=== PATIENT | male | born 1955 | race Caucasian/White ===

== ENCOUNTER 2021-05-18 09:08 | Emergency (ER) | payer OTHER, SELFPAY ==
--- NOTE | ~2021-05-18 | XR_ITS ---
XR knee RT 2V 05/18/2021 09:47 Indication: Right knee pain after recent fall Procedure: 3 views right knee Comparison: No prior studies for comparison. Findings: No fracture, subluxation or dislocation. No significant joint effusion. Mild osteoarthritis of the right knee. No significant joint effusion. Impression: 1: No acute bone or joint abnormality. Reviewed, dictated and finalized at location A. NOGRAPHER PHYSICAL Impression: 1: No acute bone or joint abnormality.
--- NOTE | ~2021-05-18 | XR_ITS ---
XR hip RT 2V w AP pelvis, XR femur RT min 2V 05/18/2021 09:48 (accession [id number]), 05/18/2021 09:47 (accession [id number]) Indication: Status post recent fall. Deformity of the right hip. Procedure: AP pelvis and 2 views of the right hip. 2 views of the right femur. Comparison: No prior studies for comparison. Findings: There is a comminuted mildly displaced right femoral intertrochanteric fracture with varus angulation. There are subtle radiolucencies in the proximal aspect of the right femur. There is subch ondral lucency of the femoral head. Pelvic rings are intact. Impression: 1: Comminuted mildly displaced right femoral intertrochanteric fracture with varus angulation. Osteol ytic defects noted in the proximal aspect of the right femur. Cannot exclude pathologic fracture seco ndary to myeloma or malignancy. Reviewed, dictated and finalized at location A. ECTIONS CASEWORKER Impression: 1: Comminuted mildly displaced right femoral intertrochanteric fracture with va mati angulation. Osteolytic defects noted in the proximal aspect of the right fe mur. Cannot exclude pathologic fracture secondary to myeloma or malignancy. Impression: 1: Comminuted mildly displaced right femoral intertrochanteric fracture with va mati angulation. Osteolytic defects noted in the proximal aspect of the right fe mur. Cannot exclude pathologic fracture secondary to myeloma or malignancy.
--- NOTE | 2021-05-18 09:11 | ED.GENADULT ---
HPI - General Adult General Chief complaint: Extremity Injury, Lower <Mary Barker PA-C - Last Filed: 05/18/21 19:54> Stated complaint: hip injury <Mary Barker PA-C - Last Filed: 05/18/21 19:54> Time Seen by Provider: 05/18/21 09:10 <Mary Barker PA-C - Last Filed: 05/18/21 19:54> Source: patient <Mary Barker PA-C - Last Filed: 05/18/21 19:54> Mode of arrival: EMS <Mary Barker PA-C - Last Filed: 05/18/21 19:54> Limitations: no limitations <Mary Barker PA-C - Last Filed: 05/18/21 19:54> History of Present Illness HPI narrative: 65-year-old male who states that he fell at home on Sunday while walking across his floor. Denies stumbling, he had pain and then fell. He has pain in his right hip he has been unable to bear weight since that time. He has been caring for himself at home by crawling around his house. Denies any medical issues aside from hypertension. States that he has lost a little' weight recently. He appears much older than his stated age. <Mary Barker PA-C - Last Filed: 05/18/21 19:54> Onset (ago): day(s) <Mary Barker PA-C - Last Filed: 05/18/21 19:54> Location: pelvis and right (hip) <Mary Barker PA-C - Last Filed: 05/18/21 19:54> Severity: moderate <Mary Barker PA-C - Last Filed: 05/18/21 19:54> Quality: aching <Mary Barker PA-C - Last Filed: 05/18/21 19:54> Relieving factors: immobilization <Mary Barker PA-C - Last Filed: 05/18/21 19:54> Exacerbating factors: movement <Mary Barker PA-C - Last Filed: 05/18/21 19:54> Associated symptoms: denies other symptoms <Mary Barker PA-C - Last Filed: 05/18/21 19:54> Treatments prior to arrival: aspirin (last dose bedtime last night.) <Mary Barker PA-C - Last Filed: 05/18/21 19:54> Related Data Allergies/adverse reactions: Allergies Allergy/AdvReac Type Severity Reaction Status Date / Time No Known Allergies Allergy Verified 05/18/21 09:50 <Mary Barker PA-C - Last Filed: 05/18/21 19:54> Review of Systems Review of Systems: All systems reviewed & are unremarkable except as noted in HPI and below <Mary Barker PA-C - Last Filed: 05/18/21 19:54> [facility] Social History Social History: Social History (Updated 05/18/21 @ 09:22 by Mary Barker PA-C) Smoking packs per day: 1 Smoking cigarettes per day: 20.0 Smoking status: Current every day smoker Alcohol intake: current Drinks per week: 14 Alcohol use details: 2 drinks of night of vodka Substance use: never 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 <Mary Barker PA-C - Last Filed: 05/18/21 19:54> Exam Const: General: no acute distress <Mary Barker PA-C - Last Filed: 05/18/21 19:54> Nutritional Appearance: thin <Mary Barker PA-C - Last Filed: 05/18/21 19:54> Other: smells of urine <Mary Barker PA-C - Last Filed: 05/18/21 19:54> HENMT: Head: normal to inspection <Mary Barker PA-C - Last Filed: 05/18/21 19:54> Eyes: Conjunctivae: conjunctivae normal <Mary Barker PA-C - Last Filed: 05/18/21 19:54> Pupils: Equal, round and reactive pupils present <Mary Barker PA-C - Last Filed: 05/18/21 19:54> Neck: Neck: normal visual inspection <LICHA Barreto Last Filed: 05/18/21 19:54> Chest: Chest palpation & inspection: normal inspection of the chest (barrelled) <LICHA Barreto Last Filed: 05/18/21 19:54> Resp: Effort & Inspection: normal respiratory effort <LICHA Barreto Last Filed: 05/18/21 19:54> Auscultation: clear to auscultation bilaterally <Mary Barker PA-C Last Filed: 05/18/21 19:54> Cardio: Rate: regular rate <LICHA Barreto Last Filed: 05/18/21 19:54> Rhythm: regular rhythm <LICHA Barreto Last Filed: 05/18/21 19:54> GI: GI Palp: Yes Soft to palpation <LICHA Barreto Fi
[2021-05-18 09:26] VITALS: BP 139/115; PULSE 84; RESP 14; TEMP 36.1; O2SAT 99
--- NOTE | 2021-05-18 09:32 | PC.NURSE ---
reports walking at home and feeling right leg give out 3 days prior. Patient did not call EMS sooner stating he thought it would get better on its own. Patient presents via EMS with shorting and rotation of right leg. Pulses marked and present at +1. patient soiled and cleaned. patient placed on air mattress.
--- NOTE | 2021-05-18 09:33 | PC.NURSE ---
patient departs for radiology
[2021-05-18] MEDS: SODIUM CHLORIDE 0.9% IV 1,000 ML 999 ML IV CONT (10:01)
[2021-05-18 10:13] LABS: Basophils Percent Auto 0.2 % (0.2-1.2); Eosinophils Percent Auto 0.3 % (0-4.4); Hematocrit 34.4 % (42.0-52.0); Hemoglobin 12.4 g/dL (14.0-18.0); Immature Granulocyte Absolute 0.02 K/mm3 (0.00-0.031); Immature Granulocyte Percent A 0.2 % (0-0.5); Lymphocytes Percent Auto 9.2 % (18.3-44.2); Mean Corpuscular Hemoglobin 34.4 pg (26-34); Mean Corpuscular Volume 95.6 fl (80-100); Mean Platelet Volume 9.6 fl (7.4-10.4); Monocytes Absolute Auto 0.5 K/mm3 (0.1-0.6); Neutrophils Absolute Auto 7.3 K/mm3 (1.3-6.7); Neutrophils Percent Auto 84.1 % (45.5-73.1); Platelet Count Result 260 k/mm3 (150-375); White Blood Count 8.7 K/mm3 (4.5-10.0)
--- NOTE | 2021-05-18 10:19 | ECG_ITS ---
Measurements Intervals [place] Rate: 69 P: 78 NC: 121 QRS: 91 QRSD: 86 T: -73 QT: 422 QTc: 453 Interpretive Statements SINUS RHYTHM MINIMAL Q WAVES- INF/LAT LEADS ST-T WAVE ABNORMALITY IN ANTEROLAT/INF LEADS- CONSIDER ISCHEMIA BASELINE ARTIFACT- II, III, AVR, AVF ABNORMAL ECG Electronically Signed On 05-18-2021 11:22:04 SOLE CEMENTER by Monico Sears D.O.
[2021-05-18 10:35] LABS: Alanine Aminotransferase 16 U/L (4-50); Alkaline Phosphatase 102 U/L (38-126); Anion Gap 6 mmol/L (8-16); Aspartate Amino Transferase 30 U/L (17-59); Bilirubin,Total 1.7 mg/dL (0.2-1.3); Blood Urea Nitrogen 13 mg/dL (9-20); Calcium 8.1 mg/dL (8.4-10.2); Carbon Dioxide 32 mmol/L (22-30); Chloride 97 mmol/L (98-107); Estimated CRCL calculation 66 ml/min; Estimated Glomerular Filt Rate > 60; Glucose 115 mg/dL (65-110); Sodium 135 mmol/L (137-145)
[2021-05-18 11:12] LABS: Creatine Kinase 65 U/L (55-170)
[2021-05-18 11:40] VITALS: BP 129/74; PULSE 68; RESP 18; O2SAT 100
--- NOTE | 2021-05-18 12:12 | PC.NURSE ---
regular diet tray order for pt.
[2021-05-18 12:39] LABS: Add Urine Microscopic? YES; Appearance Urine Clear (Clear); Bacteria Urine Trace /hpf; Bilirubin Urine Negative (Negative); Blood Urine Negative (Negative); Color Urine Amber (Yellow); Glucose Urine UA Negative (Negative); Ketones Urine Negative (Negative); Leukocyte Esterase Ur Negative LEU/UL (Negative); Mucus Urine Rare /lpf; Nitrate Urine Negative (Negative); Protein Urine 1+ mg/dL (Negative); RBC Urine 0-2 /hpf (0-2); Specific Grav Ur 1.018 (1.001-1.035); Squamous Epithelial Cell Urine Occasional /hpf (Few); WBC Urine 0-3 /hpf
--- NOTE | 2021-05-18 13:58 | PC.NURSE ---
Patient report called to [facility]. patient report given to Krystian TRIVEDI.
[2021-05-18] MEDS: MORPHINE SULFATE (*CRX) 2 MG/ML INJ IV PUSH (15:42)
[2021-05-18 16:05] VITALS: BP 160/90; PULSE 90; RESP 18; TEMP 36.2; O2SAT 100
== END 2021-05-18 16:07 | disposition short-term general hospital (02) ==
LOC: ANHED 10:07
PROVIDERS: Physician Assistant; Emergency Provider General Practice; PCP Physician Assistant
DX: M84.459A Pathological fracture, hip, unspecified, initial encounter for fracture (principal); I10 Essential (primary) hypertension; F17.210 Nicotine dependence, cigarettes, uncomplicated; W18.39XA Other fall on same level, initial encounter; R94.31 Abnormal electrocardiogram [ECG] [EKG]
CPT/HCPCS: 36415; 73502; 73552; 73560; 80053; 81001; 82550; 85025; 86850; 86900; 86901; 93005; 96361; 96374; 99285; J2270; J7030

== ENCOUNTER 2021-12-29 07:57 | Inpatient (IN) | payer MEDICARE, SELFPAY ==
[2021-12-29] VITALS (60 sets, daily range): BP systolic 57–157; BP diastolic 45–93; PULSE 74–128; RESP 14–33; TEMP 35.2–37.1; O2SAT 82–100
--- NOTE | ~2021-12-29 | XR_ITS ---
EXAMINATION: XR abdomen/kub 1V DATE: 01/05/2022 12:19 INDICATION: Abdominal distention. Adynamic ileus. TECHNIQUE: A supine view of the abdomen was obtained. COMPARISON: CT abdomen and pelvis 01/02/2022 FINDINGS: There are no dilated loops of bowel. There is an ostomy on the left. There are bilateral in ternal ureteral stents in expected positions. There is a filter in the inferior vena cava. Skin stapl es are noted. The nasogastric tube tip is in the stomach. There is internal fixation of right femur. A rectal catheter is noted. IMPRESSION: 1. Nonobstructive bowel gas pattern. Reviewed, dictated and finalized at location A.
--- NOTE | ~2021-12-29 | XR_ITS ---
XR chest 1V portable DATE: 01/01/2022 08:18 INDICATION: Pneumothorax TECHNIQUE: Portable AP chest on 01/01/2022 at 0812 hours COMPARISON: 12/31/2021 portable AP chest at 0503 hours FINDINGS: ET tube tip 4.2 cm above louis in satisfactory position. NG tube in stomach. Right internal jugular central venous catheter tip is situated near the superior cavoatrial junction. Right thoracostomy tube is again noted. No apparent residual right pneumothorax. There is a large pul monary bulla Increased intracardiac density consistent with left lower lobe atelectasis and/or consolidation. There is pulmonary vascular congestion and redistribution, prominence of minor fissure consistent wit h subpleural edema, Madiha B-lines consistent with pulmonary interstitial edema and bilateral infiltr ates predominating in the central and lower lung zones, suggesting pulmonary edema. Diffuse osteopenia. At the right apex. IMPRESSION: Right thoracostomy tube; no definite residual right pneumothorax Congestive changes, pulmonary edema since 12/2021 Left lower lobe infiltrate and/or atelectasis Reviewed, dictated and finalized at location A.
--- NOTE | ~2021-12-29 | XR_ITS ---
XR chest 1V portable 01/20/2022 11:36 Indication: Chest tube placement Procedure: AP portable chest Comparison: Comparison to multiple prior studies sequentially, with oldest reviewed study dated 01/18. Findings: There is a tracheostomy tube present. There is a right upper lung chest tube, position unch anged. No pneumothorax identified. Bullous changes are present in the upper lobes. No pneumothorax id entified. There is diffuse bilateral airspace disease which has progressed. Small pleural effusions. PICC line tip near the cavoatrial junction. Impression: 1: Diffuse bilateral airspace disease has progressed which may represent pneumonia or edema. 2: Right chest tube position unchanged. No pneumothorax identified. 3: Small pleural effusions. Reviewed, dictated and finalized at location A. Impression: 1: Diffuse bilateral airspace disease has progressed which may represent pneumo dave or edema. 2: Right chest tube position unchanged. No pneumothorax identified. 3: Small pleural effusions.
--- NOTE | ~2021-12-29 | XR_ITS ---
EXAMINATION: XR chest ET placement, XR abdomen/kub 1V DATE: 12/29/2021 16:52 INDICATION: Endotracheal tube placement. Post abdominal surgery. TECHNIQUE: 1. Portable AP supine view of the chest was obtained. 2. Portable supine AP view of the abdomen and pelvis was obtained. COMPARISON: Chest radiograph dated 12/29/2021 at 4:[address] abdomen and pelvis dated 12/29/2021 at 9: 21 AM FINDINGS: CHEST: Endotracheal tube tip 4.3 cm above the louis. Right internal jugular central venous catheter tip at the caudal superior vena cava. Apically directed right chest tube with decrease in size of a now smal l right apical pneumothorax. There appears to be a lucent bleb at the right apex. No other airspace o pacities, pulmonary edema, pleural effusion or left-sided pneumothorax. The cardiomediastinal silhoue tte is normal. There is some soft tissue gas at the right axilla likely related to chest tube placeme nt. Abdomen and pelvis: Nasogastric tube tip and proximal side port in the body of the stomach. Gas is seen within a few nond ilated loops of bowel in the abdomen and pelvis. Bilateral internal ureteral stents with loops formed in expected locations of the bilateral renal pelvises sees and in the bladder. Some residual excrete d contrast is seen at the calyces of the left kidney likely related to the earlier contrast-enhanced CT. Temperature probe in the bladder. Midline skin anthony project over the abdomen and pelvis. Lucen cies suggesting postoperative free intraperitoneal gas overlying the liver in the right upper quadran t. Partially visualized antegrade intramedullary laisha and interlocking femoral head neck screws at the proximal right femur. IMPRESSION: 1. Lines and tubes all in expected position. 2. Decrease in size of a now small right apical pneumothorax. 3. Small amount of likely postoperative free intraperineal gas at the right upper quadrant. Reviewed, dictated and finalized at location A. IMPRESSION: 1. Lines and tubes all in expected position. 2. Decrease in size of a now small right apical pneumothorax. 3. Small amount of likely postoperative free intraperineal gas at the right upp er quadrant.
--- NOTE | ~2021-12-29 | US_ITS ---
US venous doppler [facility] DATE: 01/03/2022 12:45 INDICATION: Post surgical patient. Tachycardia TECHNIQUE: Real-time and color flow imaging and Doppler analysis of the veins of both lower extremiti es COMPARISON: None FINDINGS: Right lower extremity The greater saphenous vein is patent. There is spontaneous and phasic flow and normal augmentation an d color flow signal and normal compression of the deep veins of the right lower extremity. Left lower extremity: The left greater saphenous vein is patent. There is spontaneous and phasic flow and normal augmentati on and color flow signal and normal compression of the left common femoral and femoral veins. There is thrombosis and lack of compression of the left popliteal vein and left posterior tibial vein s. The left peroneal veins are patent. IMPRESSION: Deep venous thrombosis of left popliteal and posterior tibial veins Dr. Harris telephoned the report on 01/03/2022 at 1256 hours to GAS CHARGERSHIKHA Reynolds. Reviewed, dictated and finalized at Location A. Reviewed, dictated and finalized at location B.
--- NOTE | ~2021-12-29 | XR_ITS ---
EXAMINATION: XR chest 1V portable DATE: 01/19/2022 05:28 INDICATION: Respiratory failure. TECHNIQUE: A single frontal view of the chest was obtained. COMPARISON: Chest single view 01/18/2022, chest CT 01/11/2022 FINDINGS: The patient is rotated to his left. There is bullous emphysema and scarring at the lung api cristino. There are patchy airspace opacities in the mid and lower lung zones. There are small pleural eff usions. No pneumothorax. The heart size is normal. The endotracheal tube tip is 3.1 cm above the hiram na. A left upper extremity peripherally inserted central venous catheter (PICC) is seen with tip at t he superior cavoatrial junction. A right-sided chest tube is noted. IMPRESSION: 1. Airspace opacities in the mid and lower lung zones with mild improvement, consistent with pulmonar y edema versus pneumonia. 2. Small pleural effusions. 3. Emphysema. 4. Right-sided chest tube in expected position. No pneumothorax. Reviewed, dictated and finalized at location A. IMPRESSION: 1. Airspace opacities in the mid and lower lung zones with mild improvement, co nsistent with pulmonary edema versus pneumonia. 2. Small pleural effusions. 3. Emphysema. 4. Right-sided chest tube in expected position. No pneumothorax.
--- NOTE | ~2021-12-29 | XR_ITS ---
EXAMINATION: XR chest 1V portable DATE: 01/15/2022 06:38 INDICATION: Acute respiratory failure. TECHNIQUE: A single frontal view of the chest was obtained. COMPARISON: Chest single view 01/14/2022 FINDINGS: There is bullous emphysema at the lung apices. There are airspace opacities in all lung zon es bilaterally, worst in the mid and lower lung zones. There is a small left pleural effusion. No pne umothorax. The heart size is normal. There is a right-sided chest tube in expected position. The endo tracheal tube tip is 2.6 cm above the louis. The nasogastric tube tip is in the stomach. A right int ernal jugular central venous catheter is seen with tip at the superior cavoatrial junction. IMPRESSION: 1. Stable diffuse lung disease, consistent with pulmonary edema versus pneumonia. 2. Stable small left pleural effusion. 3. Emphysema. 4. Right-sided chest tube in expected position. No pneumothorax. Reviewed, dictated and finalized at location A. IMPRESSION: 1. Stable diffuse lung disease, consistent with pulmonary edema versus pneumoni a. 2. Stable small left pleural effusion. 3. Emphysema. 4. Right-sided chest tube in expected position. No pneumothorax.
--- NOTE | ~2021-12-29 | XR_ITS ---
EXAMINATION: XR chest 1V portable, XR abdomen/kub 1V DATE: 01/10/2022 06:23 INDICATION: Respiratory failure. Nasogastric tube. TECHNIQUE: 1. Portable AP view of the chest was obtained. 2. Portable AP supine view of the abdomen and pelvis was obtained. COMPARISON: Chest radiograph dated 01/09/[address] abdomen and pelvis dated 01/07/22 FINDINGS: Chest: Endotracheal tube tip 4.0 cm above the louis. Unchanged apically directed right chest tube. Right in ternal jugular central venous catheter with distal tip at the superior cavoatrial junction. No pneumothorax. Persistent opacities in the bilateral mid to lower lung zones. Emphysema at the apic es. The cardiomediastinal silhouette is normal. Abdomen and pelvis: Nasogastric tube tip in proximal side port in the body of the stomach. IVC filter in expected positio n with proximal tip at the level of the L1. Bilateral intraureteral stents with loops formed over the expected positions at the bladder and bilateral renal pelvises sees. Relative paucity of bowel gas i n the abdomen and pelvis. Midline skin anthony. Internal fixation at the visualized proximal right fe mur with antegrade intramedullary laisha and pair of interlocking femoral neck screws. IMPRESSION: 1. Lines and tubes in expected position. 2. Persistent opacities in the bilateral mid and lower lung zones which could represent atelectasis o r pneumonia likely with superimposed small left pleural effusion. 3. Nonspecific bowel gas pattern with relative paucity of bowel gas in the abdomen and pelvis. Reviewed, dictated and finalized at location A. IMPRESSION: 1. Lines and tubes in expected position. 2. Persistent opacities in the bilateral mid and lower lung zones which could r epresent atelectasis or pneumonia likely with superimposed small left pleural e ffusion. 3. Nonspecific bowel gas pattern with relative paucity of bowel gas in the abdo men and pelvis.
--- NOTE | ~2021-12-29 | XR_ITS ---
EXAMINATION: XR chest 1V portable DATE: 01/02/2022 04:24 INDICATION: Oxygen desaturation. TECHNIQUE: A single frontal view of the chest was obtained. COMPARISON: Chest single view 01/01/2022, CT abdomen and pelvis 01/02/2022 FINDINGS: There is a small right pneumothorax. There is a right-sided chest tube in expected position . There are airspace opacities in left mid and lower lung zones. There is a diffuse interstitial modesta kisha. No pleural effusion. The heart size is normal. The endotracheal tube tip is 3.7 cm above the car andrew. The nasogastric tube tip is beyond the inferior margin of the radiograph, but at least to the st omach. A right internal jugular central venous catheter is seen with tip at the superior cavoatrial j unction. IMPRESSION: 1. Stable small right pneumothorax with right-sided chest tube in expected position. 2. Stable diffuse lung disease, likely a combination of mild pulmonary edema and left mid and lower l jacinta zone atelectasis versus pneumonia. Reviewed, dictated and finalized at location A. IMPRESSION: 1. Stable small right pneumothorax with right-sided chest tube in expected posi tion. 2. Stable diffuse lung disease, likely a combination of mild pulmonary edema an d left mid and lower lung zone atelectasis versus pneumonia.
--- NOTE | ~2021-12-29 | XR_ITS ---
EXAMINATION: XR chest-chest tube insert/pos DATE: 12/29/2021 12:56 INDICATION: Chest tube placement TECHNIQUE: frontal and lateral views of the chest were obtained. COMPARISON: 12/29/2021 FINDINGS: Normal placement of a cephalad directed chest tube with distal tip projecting over the medial aspect of the right upper lung superimposed over the trachea. Right internal jugular central venous catheter with distal tip at the caudal superior vena cava. Unchanged moderate-sized right pneumothorax with p ersistent smooth pleural thickening along the lateral margin of the right lower lung zone. No pulmona ry edema, pleural effusion or left-sided pneumothorax. Heart size is normal. IMPRESSION: 1. No change in a moderate-sized right pneumothorax post chest tube placement which appears in expect ed position. Reviewed, dictated and finalized at location A. IMPRESSION: 1. No change in a moderate-sized right pneumothorax post chest tube placement w hich appears in expected position.
--- NOTE | ~2021-12-29 | XR_ITS ---
EXAMINATION: XR chest 1V portable DATE: 01/20/2022 05:34 INDICATION: Pneumothorax. TECHNIQUE: A single frontal view of the chest was obtained. COMPARISON: Chest single view 01/19/2022 FINDINGS: There is bullous emphysema at the lung apices. There are airspace opacities in all lung zon es bilaterally with a left basilar predominance. There are small pleural effusions. No pneumothorax. The heart size is normal. There is a tracheostomy tube in expected position. A left upper extremity p eripherally inserted central venous catheter (PICC) is seen with tip at the superior cavoatrial junct ion. Right-sided chest tube is noted. IMPRESSION: 1. Stable diffuse lung disease, consistent with pulmonary edema versus pneumonia. 2. Stable small pleural effusions. 3. Emphysema. 4. Right-sided chest tube in expected position. No pneumothorax. Reviewed, dictated and finalized at location A. IMPRESSION: 1. Stable diffuse lung disease, consistent with pulmonary edema versus pneumoni a. 2. Stable small pleural effusions. 3. Emphysema. 4. Right-sided chest tube in expected position. No pneumothorax.
--- NOTE | ~2021-12-29 | XR_ITS ---
EXAMINATION: XR chest 1V portable INDICATION: Respiratory failure TECHNIQUE: Portable AP chest at 0841 hours COMPARISON: 0520 hours FINDINGS: The endotracheal tube has been removed and a tracheostomy has been inserted. A left upper e xtremity PICC ends with its tip in the superior cavoatrial junction. A right-sided chest tube is unch anged in position. Airspace opacities of the mid and lower lung zones persist but have improved, part icularly on the left. There are small pleural effusions. There is no pneumothorax. The heart size is normal. IMPRESSION: 1. Endotracheal tube removal and tracheostomy insertion. 2. Airspace opacities of the mid and lower lung zones with slight improvement on the left, consistent with pulmonary edema versus pneumonia. 3. Small pleural effusions. Reviewed, dictated and finalized at location B. IMPRESSION: 1. Endotracheal tube removal and tracheostomy insertion. 2. Airspace opacities of the mid and lower lung zones with slight improvement o n the left, consistent with pulmonary edema versus pneumonia. 3. Small pleural effusions.
--- NOTE | ~2021-12-29 | XR_ITS ---
EXAMINATION: XR chest 1V portable DATE: 01/14/2022 04:52 INDICATION: Acute respiratory failure. TECHNIQUE: A single frontal view of the chest was obtained. COMPARISON: Chest single view 01/13/2022, chest CT 01/11/2022 FINDINGS: The patient is rotated to his left. There is bullous emphysema at the lung apices. There ar e airspace opacities in all lung zones bilaterally. There are small pleural effusions. No pneumothora x. The heart size is normal. The endotracheal tube tip is 3.1 cm above the louis. The nasogastric tu be tip is in the stomach. A right internal jugular central venous catheter is seen with tip at the daniel perior cavoatrial junction. There is a right-sided chest tube in expected position. IMPRESSION: 1. Stable diffuse lung disease, consistent with pulmonary edema versus pneumonia. 2. Stable small pleural effusions. 3. Emphysema. 4. Right-sided chest tube in expected position. No pneumothorax. Reviewed, dictated and finalized at location A. IMPRESSION: 1. Stable diffuse lung disease, consistent with pulmonary edema versus pneumoni a. 2. Stable small pleural effusions. 3. Emphysema. 4. Right-sided chest tube in expected position. No pneumothorax.
--- NOTE | ~2021-12-29 | XR_ITS ---
EXAMINATION: XR chest 1V portable INDICATION: Respiratory failure TECHNIQUE: Portable AP chest at 0525 hours COMPARISON: 01/06/2022 FINDINGS: The endotracheal tube ends approximately 3.3 cm above the louis. The nasogastric tube is i n the stomach. A right internal jugular catheter ends with its tip at the superior cavoatrial junctio n. A right-sided chest tube is unchanged in position. No pneumothorax is identified. Patchy airspace opacities persist throughout all lung zones with slight improvement in the right upper lung zone and slight worsening in the left mid and lower lung zones. The heart size is normal. A small left pleural effusion is unchanged. IMPRESSION: 1. Diffuse lung disease with slight improvement at the right upper lung zone and slight worsening in the left mid and lower lung zones, consistent with pulmonary edema versus pneumonia. 2. Small left pleural effusion. Reviewed, dictated and finalized at location A. IMPRESSION: 1. Diffuse lung disease with slight improvement at the right upper lung zone an d slight worsening in the left mid and lower lung zones, consistent with pulmon nigel edema versus pneumonia. 2. Small left pleural effusion.
--- NOTE | ~2021-12-29 | XR_ITS ---
EXAMINATION: XR chest 1V portable DATE: 01/04/2022 05:41 INDICATION: Respiratory failure. TECHNIQUE: A single frontal view of the chest was obtained. COMPARISON: Chest single view 01/03/22 FINDINGS: The patient is rotated to his left. There are patchy airspace opacities throughout the lung s bilaterally. There are bullae at the lung apices. No pneumothorax. A right-sided chest tube is note d. There is a small left pleural effusion. The heart size is normal. The endotracheal tube tip is 4.7 cm above the louis. The nasogastric tube tip is in the stomach. A right internal jugular central ve nous catheter is seen with tip at the superior cavoatrial junction. IMPRESSION: 1. Diffuse lung disease with mild worsening on the right, consistent with pulmonary edema versus pneu monia. 2. Stable small left pleural effusion. Reviewed, dictated and finalized at location A. IMPRESSION: 1. Diffuse lung disease with mild worsening on the right, consistent with pulmo nary edema versus pneumonia. 2. Stable small left pleural effusion.
--- NOTE | ~2021-12-29 | XR_ITS ---
EXAMINATION: XR chest 1V portable DATE: 01/03/2022 05:34 INDICATION: Respiratory failure. TECHNIQUE: A single frontal view of the chest was obtained. COMPARISON: Chest single view 01/02/2022 FINDINGS: There is a small right hydropneumothorax. There is a right-sided chest tube in expected pos ition. There is a small left pleural effusion. There are airspace opacities in all lung zones bilater ally. The heart size is normal. The endotracheal tube tip is 4.3 cm above the louis. A right interna l jugular central venous catheter is seen with tip at the superior cavoatrial junction. The nasogastr ic tube tip is in the stomach. IMPRESSION: 1. Stable small right hydropneumothorax with chest tube in expected position. 2. Worsened small left pleural effusion. 3. Diffuse lung disease with worsening in right midlung zone, consistent with pulmonary edema versus pneumonia. Reviewed, dictated and finalized at location A. IMPRESSION: 1. Stable small right hydropneumothorax with chest tube in expected position. 2. Worsened small left pleural effusion. 3. Diffuse lung disease with worsening in right midlung zone, consistent with p ulmonary edema versus pneumonia.
--- NOTE | ~2021-12-29 | XR_ITS ---
XR chest 1V portable DATE: 12/31/2021 06:09 INDICATION: Right pneumothorax, right chest tube TECHNIQUE: Portable AP chest on 12/31/2021 0503 hours COMPARISON: 12/30/2021 portable AP chest radiographs at 1204 and 1205 hours FINDINGS: ET tube 6.2 cm above louis; ideal range is 2-5 cm. Right internal jugular central venous catheter tip is situated in the lower aspect of the superior ve na cava. Right chest tube. Stable mild residual right apical pneumothorax since 12/30/2021. There is interval increased retrocardiac density on left consistent with left lower lobe atelectasis. Mild patchy infiltrates are noted primarily in the mid and lower lung zones. No pleural effusion or pulmonary vascular congestion is detected. IMPRESSION: Stable mild right apical pneumothorax since 12/30/2021. Right chest tube. ET tube 6.2 cm above louis; ideal range is 205 cm In the left lower lobe atelectasis since 12/30/2021 Reviewed, dictated and finalized at location A. IMPRESSION: Stable mild right apical pneumothorax since 12/30/2021. Right chest t ube. ET tube 6.2 cm above louis; ideal range is 205 cm In the left lower lobe atelectasis since 12/30/2021
--- NOTE | ~2021-12-29 | XR_ITS ---
EXAMINATION: XR chest 1V portable INDICATION: Chest tube removal TECHNIQUE: Portable AP chest at 1239 hours COMPARISON: 0947 hours FINDINGS: The right-sided chest tube has been removed. No pneumothorax is identified. A tracheostomy is in expected position. A left upper extremity PICC ends with its tip at the superior cavoatrial ann marie ction. Diffuse airspace opacities persist throughout the lungs with slight improvement. There are sma ll pleural effusions. IMPRESSION: 1. Right chest tube removal. No pneumothorax identified. 2. Diffuse lung disease with slight improvement, consistent with pneumonia versus pulmonary edema. 3. Small pleural effusions. Reviewed, dictated and finalized at location B. IMPRESSION: 1. Right chest tube removal. No pneumothorax identified. 2. Diffuse lung disease with slight improvement, consistent with pneumonia vers us pulmonary edema. 3. Small pleural effusions.
--- NOTE | ~2021-12-29 | XR_ITS ---
EXAMINATION: XR retrograde pyelo w/stent BI DATE: 12/29/2021 13:37 INDICATION: Bilateral hydronephrosis. TECHNIQUE: 9 intraoperative fluoroscopic views of the abdomen and pelvis were obtained. I was not pre sent. Fluoroscopy exposure time was 67 seconds. COMPARISON: CT abdomen and pelvis 12/29/2021 FINDINGS: The bilateral retrograde pyelograms identify the ureters. The final images demonstrate bila teral internal ureteral stents in expected positions. IMPRESSION: 1. Bilateral internal ureteral stents in expected positions. Reviewed, dictated and finalized at location A.
--- NOTE | ~2021-12-29 | XR_ITS ---
EXAMINATION: XR chest 1V portable DATE: 12/30/2021 00:20 INDICATION: Increased oxygen demand. TECHNIQUE: A single frontal view of the chest was obtained on 2 radiographs. COMPARISON: Chest single view 12/29/2021, CT abdomen and pelvis 12/29/2021 FINDINGS: There is a small right pneumothorax. A right-sided chest tube is noted. There is mild scarr ing at left lung apex. No pleural effusion. The heart size is normal. The endotracheal tube tip is 5. 5 cm above the louis. The nasogastric tube tip is in the stomach. A right internal jugular central v enous catheter is seen with tip at the superior cavoatrial junction. IMPRESSION: 1. Stable small right pneumothorax with chest tube in expected position. 2. Mild scarring at left lung apex. Reviewed, dictated and finalized at location A.
--- NOTE | ~2021-12-29 | XR_ITS ---
EXAMINATION: XR chest 1V portable DATE: 01/17/2022 05:47 INDICATION: Respiratory failure. TECHNIQUE: A single frontal view of the chest was obtained. COMPARISON: Chest single view 01/16/2022 FINDINGS: There is bullous emphysema at the lung apices. There are interstitial opacities and patchy airspace opacities in all lung zones bilaterally. There is a small left pleural effusion. No pneumoth orax. The heart size is normal. The endotracheal tube tip is 3.0 cm above the louis. A left upper ex tremity peripherally inserted central venous catheter (PICC) is seen with tip at the superior cavoatr ial junction. A right-sided chest tube is noted. The nasogastric tube tip is beyond the inferior huyen in of the radiograph, but at least to the stomach. IMPRESSION: 1. Stable diffuse lung disease, consistent with pulmonary edema versus pneumonia. 2. Stable small left pleural effusion. 3. Emphysema. 4. Right-sided chest tube in expected position. No pneumothorax. Reviewed, dictated and finalized at location A. IMPRESSION: 1. Stable diffuse lung disease, consistent with pulmonary edema versus pneumoni a. 2. Stable small left pleural effusion. 3. Emphysema. 4. Right-sided chest tube in expected position. No pneumothorax.
--- NOTE | ~2021-12-29 | CT_ITS ---
EXAMINATION: CT abdomen pelvis wo con DATE: 01/02/2022 01:32 INDICATION: Right lower pelvic distention. Hematuria. TECHNIQUE: Computed tomography (CT) of the abdomen and pelvis was performed without intravenous contr ast. Automated exposure control and iterative reconstruction technique were employed. The dose-length product was 544.54 mGy-cm. COMPARISON: CT abdomen and pelvis 12/29/2021 FINDINGS: The visualized portions of the lung bases demonstrate small pleural effusions. There is dif fuse smooth septal thickening, consistent mild pulmonary edema. There is mild dependent atelectasis o n the right. There are airspace opacities in left lower lobe, consistent with atelectasis versus pneu monia. The heart size is normal. Partially visualized is a right-sided chest tube. The nasogastric tu be tip is in the stomach. There are cysts in the liver measuring up to 3.8 cm. The spleen is normal. There are gallstones in the gallbladder, which is normal in size. Gallbladder wall thickening is note d, likely interstitial edema. The pancreas and adrenal glands are normal. There is cortical thinning of the kidneys. There are stones in the kidneys measuring up to 6 mm on the right. The prostate is mi ldly enlarged. The bladder is decompressed by a Watson catheter. There are bilateral internal ureteral stents. There is a 5 mm stone in distal right ureter. There is a catheter in the rectum. A Girish pouch is noted. There is an end colostomy on the left. There is mild wall thickening of the colon. Th ere is a right inguinal hernia containing small bowel. There are no dilated loops of bowel. There is a moderate volume of ascites. There is free intraperitoneal gas. Midline skin anthony are noted. Ther e are no pathologically enlarged lymph nodes. There is internal fixation of proximal right femur. The re are chronic bilateral L4 pars defects. There is 7 mm anterolisthesis of L4 on L5. There is severe lumbar spondylosis. IMPRESSION: 1. Left lower lobe airspace opacities, consistent with atelectasis versus pneumonia. 2. Mild pulmonary edema. 3. Small pleural effusions. 4. Moderate volume of ascites. 5. Mild thickening of the colon, consistent with interstitial edema versus colitis. 6. Right inguinal hernia containing nonobstructed small bowel. 7. 5 mm stone in distal right ureter with right internal ureteral stent in expected position. Bilater al nonobstructing kidney stones. Reviewed, dictated and finalized at location A. IMPRESSION: 1. Left lower lobe airspace opacities, consistent with atelectasis versus pneum onia. 2. Mild pulmonary edema. 3. Small pleural effusions. 4. Moderate volume of ascites. 5. Mild thickening of the colon, consistent with interstitial edema versus coli tis. 6. Right inguinal hernia containing nonobstructed small bowel. 7. 5 mm stone in distal right ureter with right internal ureteral stent in expe cted position. Bilateral nonobstructing kidney stones.
--- NOTE | ~2021-12-29 | XR_ITS ---
EXAMINATION: XR chest 1V portable DATE: 01/12/2022 05:32 INDICATION: Acute respiratory failure TECHNIQUE: frontal view of the chest was obtained. COMPARISON: Chest radiograph dated 01/10/[address] dated 01/11/2022 FINDINGS: Endotracheal tube tip 3.3 cm above the louis. Unchanged right chest tube. Right internal jugular mundo tral venous catheter with distal tip at the superior cavoatrial junction. Nasogastric tube extends b elow the left hemidiaphragm with distal tip collimated off the study. Opacities in the bilateral mid and lower lung zones corresponding on prior CT to small bilateral pleu ral effusions with associated basilar atelectasis although pneumonia not excludable. Emphysematous ch anges at the apices. No pneumothorax. The cardiomediastinal silhouette is normal. IMPRESSION: 1. Small bilateral pleural effusions with associated atelectasis versus pneumonia. 2. Unchanged right chest tube. No pneumothorax. 3. Emphysema. Reviewed, dictated and finalized at location A. IMPRESSION: 1. Small bilateral pleural effusions with associated atelectasis versus pneumon ia. 2. Unchanged right chest tube. No pneumothorax. 3. Emphysema.
--- NOTE | ~2021-12-29 | XR_ITS ---
EXAMINATION: XR chest 1V portable DATE: 01/13/2022 05:26 INDICATION: Acute respiratory failure TECHNIQUE: frontal view of the chest was obtained. COMPARISON: Chest radiograph dated 01/12/2022 FINDINGS: Endotracheal tube tip 1.3 cm above the louis. Nasogastric tube extends below the left hemidiaphragm with distal tip collimated off the study. Right internal jugular central venous catheter with distal tip near the superior cavoatrial junction. Unchanged cephalad directed right chest tube with distal tip projecting over the mid to upper lung zone. Emphysematous changes at the apices. No pneumothorax. Unchanged hazy and subtle patchy airspace opaci ties in the bilateral mid and lower lung zones corresponding on prior CT to combination of small post erior layering bilateral pleural effusions and associated atelectasis although pneumonia not excludab le. The cardiomediastinal silhouette is normal. IMPRESSION: 1. Persistent small bilateral pleural effusions with associated atelectasis and/or pneumonia in the m id to lower lung zones. 2. Emphysema. 2. Unchanged right chest tube. No pneumothorax. Reviewed, dictated and finalized at location A. IMPRESSION: 1. Persistent small bilateral pleural effusions with associated atelectasis and /or pneumonia in the mid to lower lung zones. 2. Emphysema. 2. Unchanged right chest tube. No pneumothorax.
--- NOTE | ~2021-12-29 | XR_ITS ---
EXAMINATION: XR chest 1V portable INDICATION: Respiratory failure TECHNIQUE: Portable AP chest at 0524 hours COMPARISON: 01/20/2022 FINDINGS: A tracheostomy is in expected position. A left upper extremity PICC ends with its tip at th e superior cavoatrial junction. Patchy bilateral interstitial and airspace opacities persist without significant change. There are small pleural effusions. No pneumothorax is identified. The cardiomedia stinal silhouette is stable. IMPRESSION: 1. Stable diffuse lung disease, consistent with pneumonia versus pulmonary edema. 2. Small pleural effusions. Reviewed, dictated and finalized at location A. IMPRESSION: 1. Stable diffuse lung disease, consistent with pneumonia versus pulmonary jaylan a. 2. Small pleural effusions.
--- NOTE | ~2021-12-29 | CT_ITS ---
EXAMINATION: CT abdomen pelvis wo con DATE: 01/07/2022 17:07 INDICATION: Nausea and vomiting. Septic shock. TECHNIQUE: Computed tomography (CT) of the abdomen and pelvis was performed without intravenous contr ast. The dose-length product was 518.67 mGy-cm. Automated exposure control and iterative reconstructi on technique were employed. COMPARISON: 01/02/2022. FINDINGS: Bilateral lower lobe airspace consolidation. Moderate bilateral pleural effusions. Small pe ricardial effusion. NG tube in the stomach. Gallstones. There is ascites. There is diffuse subcutaneous edema. There is a right inguinal hernia containing small bowel which may be obstructed. There is a large amount of flu id in the right inguinal canal and scrotum. There are bilateral internal ureteral stents present. The re is a 4 mm distal right ureteral stone. There is bilateral hydronephrosis. There are liver cysts. T here are right renal stones. Enlarged prostate gland. The catheter present in the bladder. There is a left-sided colostomy. There is a dynamic compression screw in the right femur. Chronic bilateral L4 pars interarticularis defects with spondylolisthesis at L4-5. There is severe lumbar spondylosis. IMPRESSION: 1. Bilateral lower lobe airspace consolidation which may represent atelectasis and/or pneumonia. 2: Moderate bilateral pleural effusions. 3: Moderate ascites. 4.: Right inguinal hernia containing small bowel which may be obstructed at the hernia. There is also a large right hydrocele. 5: Right renal and distal ureteral stones. Bilateral nephroureteral stents in expected position. Reviewed, dictated and finalized at location A. IMPRESSION: 1. Bilateral lower lobe airspace consolidation which may represent atelectasis and/or pneumonia. 2: Moderate bilateral pleural effusions. 3: Moderate ascites. 4.: Right inguinal hernia containing small bowel which may be obstructed at the hernia. There is also a large right hydrocele. 5: Right renal and distal ureteral stones. Bilateral nephroureteral stents in e xpected position.
--- NOTE | ~2021-12-29 | XR_ITS ---
EXAMINATION: XR chest port-a-cath/central DATE: 12/29/2021 10:23 INDICATION: Cough. Central line placement. TECHNIQUE: A single frontal view of the chest was obtained on 2 radiographs. COMPARISON: CT abdomen and pelvis 12/29/2021 FINDINGS: There is mild scarring at left lung apex. There is a moderate-sized right pneumothorax. No pleural effusion. The heart size is normal. A right internal jugular central venous catheter is seen with tip at the superior cavoatrial junction. IMPRESSION: 1. Central line tip at the superior cavoatrial junction. 2. Moderate-sized right pneumothorax again seen. Reviewed, dictated and finalized at location A.
--- NOTE | ~2021-12-29 | XR_ITS ---
XR chest ET placement 01/08/2022 16:36 Indication: Endotracheal tube placement Procedure: AP portable chest Comparison: Comparison to multiple prior studies sequentially, with oldest reviewed study dated 01/06. Findings: Endotracheal tube tip 2.2 cm above the louis. Right IJ central line tip in the SVC. Stable position to right chest tube. There are blebs at the lung apices. No pneumothorax identified. Diffus e bilateral airspace disease unchanged. Impression: 1: Persistent diffuse bilateral airspace disease which may represent edema or pneumonia. Reviewed, dictated and finalized at location A. Impression: 1: Persistent diffuse bilateral airspace disease which may represent edema or p neumonia.
--- NOTE | ~2021-12-29 | CT_ITS ---
EXAMINATION: CTA chest PE abdomen pel DATE: 01/11/2022 13:57 INDICATION: Respiratory failure post recent surgery. Tachycardia. TECHNIQUE: Computed tomography (CT) pulmonary angiogram of the chest was performed with 100 mL Omnipa que-350 intravenous contrast. Additional 3D reconstructions utilizing coronal maximum intensity proje ction (MIP) were performed. CT of the abdomen and pelvis was performed with intravenous contrast util izing the same contrast bolus following a short delay. Automated exposure control and iterative recon struction technique were employed. The dose-length product was 887.46 mGy-cm. COMPARISON: None FINDINGS: Chest: Excellent contrast opacification of the pulmonary arteries. There is mild streak artifact from dense contrast in the superior vena cava and right atrium. Mild scattered respiratory motion artifact which does not significantly limit evaluation. No pulmonary embolism. Endotracheal tube with distal tip 3. 7 cm above the louis. Right internal jugular central venous catheter with distal tip at the superior cavoatrial junction. Right chest tube which extends cephalad anterior to the right upper lobe. No pn eumothorax. Moderate upper lobe predominant paraseptal emphysema. Small right and liyem-rr-monjhfal l eft posterior layering pleural effusions. There is partial collapse of the bilateral lower lobes. Sub tle scattered groundglass opacities in the collapsed portion of both lungs which could represent atel ectasis, mild pulmonary edema or pneumonia. Mild cardiomegaly. Thoracic aorta is normal in caliber wi th no dissection. No pathologically enlarged thoracic lymphadenopathy. Moderate lower cervical and mi ld thoracic spondylosis. Abdomen/pelvis: Nasogastric tube with distal tip in the body of the stomach. Small region of focal hepatic steatosis at the ligamentum teres. Several scattered hepatic cysts the largest in the right hepatic lobe measur ing up to 4.1 cm. Several calcified gallstones within the dependent aspect of the normal gallbladder. Spleen, pancreas and bilateral adrenal glands are normal. IVC filter with proximal tip at the level of the renal veins. Unchanged small bilateral renal stones. Bilateral internal ureteral stents with l oops formed in the lateral renal pelvises and in the bladder. Unchanged 4 mm stone alongside the inte rnal ureteral stent in the distal right ureter. There is also a Watson catheter within the bladder. Pr ostatomegaly measuring 4.4 x 4.2 cm. Postoperative change of prior partial colectomy with long Hartma n's pouch in the pelvis and and colectomy in the left hemipelvis. Fluid throughout the bowels consist ent with nonspecific diarrhea. Moderate amount of ascites scattered throughout the abdomen and pelvis . There is additional ascites and a short segment of nonobstructed small bowel extending into a large direct right inguinal hernia. No abscess or free intraperitoneal gas. Extensive body wall edema. Mid line skin anthony consistent with recent surgery. Old intratrochanteric fracture of the proximal righ t femur with partially visualized antegrade intramedullary laisha and interlocking femoral neck screw fi xation. 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 Severe associated lower lumbar spondylosis. IMPRESSION: 1. No pulmonary embolism. 2. Anasarca with moderate amount of ascites, extensive body wall edema and small right and small-to-m oderate left pleural effusions. 3. Partial collapse of the bilateral lower lobes and some scattered subtle patchy groundglass opaciti es which could represent additional atelectasis, mild pulmonary edema or pneumonia. 4. Right chest tube position in the anterior right upper lung no residual pneumothorax. 5. Emphysema. 6. Short segment of nonobstructed bowel extends into a large direct right inguinal hernia. 7. Bilateral intraureteral stents in bilateral nephrol
--- NOTE | ~2021-12-29 | CT_ITS ---
EXAMINATION: CT abdomen pelvis wo con DATE: 12/29/2021 09:30 INDICATION: Abdominal pain, dark tarry diarrhea, decreased appetite TECHNIQUE: Computed tomography (CT) of the abdomen and pelvis was performed without intravenous contr ast. Automated exposure control and iterative reconstruction technique were employed. Exam dose: 229 .31 mGy-cm total exam DLP. COMPARISON: None. FINDINGS: Moderately large right pneumothorax is noted. No pneumothorax is evident on the left. Emphy sematous changes of the lungs. No infiltrate or consolidation of the lower lungs. Small pericardial e ffusion. No pleural effusion. Small sliding hiatal hernia. Multiple gallstones are noted. No bile duct or pancreatic duct dilatation. Approximately 2 cm and 4 cm hepatic cysts. Normal splenic size. No pancreatic mass lesion or calcific ation. Normal morphology of the adrenal glands. 2. Upper pole right renal nonobstructing calculi measuring up to approximately 3 x 6 mm and 3.7 mm.). 2.4 mm nonobstructing left renal calculus. Approximately 3.5 and 2.5 mm distal right ureteral calculi with minimal proximal hydroureteronephrosi s. Prominent left hydronephrosis and severe pelviectasis on the left, the left renal pelvis measuring up to 5.2 x 6 cm. There is left ureteral dilatation. Cause of the left hydroureteronephrosis is not def initively determined. Further evaluation with cystoscopy and retrograde pyelography may be of benefit when clinically feasible. 2 mm calculus at the right ureterovesical junction or dependent aspect of the urinary bladder on the right. There is moderately prominent diffuse bladder wall thickening, likely due to bladder outlet ob struction secondary to prostatomegaly. Multiple prostate calcifications are noted. There is intraperitoneal free air, suggesting ruptured hollow abdominal viscus There is diverticulosis of the left colon. There is a right inguinal hernia containing small bowel, without apparent obstruction. There is abdominal aortic calcification with an calcification of the iliac and femoral arteries. No a bdominal aortic aneurysm. No intraperitoneal or retroperitoneal mass lesion or adenopathy or ascites is noted. Bilateral L4 pars intra-articular is defects with grade 2 anterolisthesis at L4-5. Severe degenerativ e disease at L4-5. Moderate degenerative disc disease at L5-S1. Bilateral hip osteoarthritis. Hardware including compression screw and nail is noted in the proximal right femur for ORIF intertroc hanteric fracture. IMPRESSION: Moderate right pneumothorax Intraperitoneal free air, suggesting ruptured hollow abdominal viscus Right inguinal hernia containing small bowel, without apparent obstruction Distal right ureteral and right ureterovesical junction calculi with mild right hydroureteronephrosis Bilateral nonobstructive nephrolithiasis Moderately prominent left hydroureteronephrosis and severe left pelviectasis, of uncertain etiology. Consider cystoscopy and retrograde pyelography Prostatomegaly, bladder outlet obstruction Diverticulosis of the colon Small sliding hiatal hernia Hepatic cysts Cholelithiasis Minimal pericardial effusion Prostatomegaly, bladder outlet obstruction Dr. Harris discussed the results with emergency room physician Dr. Amezcua on 12/2021 at approximately 0955 hours. Reviewed, dictated and finalized at [facility]. Reviewed, dictated and finalized at [facility].
--- NOTE | ~2021-12-29 | XR_ITS ---
EXAMINATION: XR chest PICC line INDICATION: Left upper extremity PICC insertion TECHNIQUE: Portable AP chest at 1421 hours COMPARISON: 0530 hours FINDINGS: A left upper extremity PICC has been inserted which ends with its tip in the proximal right atrium. The endotracheal tube ends approximately 2.1 cm above the louis. The nasogastric tube is fo llowed as far as the stomach. Its tip is beyond the inferior margin of the radiograph. A right internal sales engineer al jugular central venous catheter ends with its tip in the distal superior vena cava. There is a rig ht-sided chest tube, unchanged in position. A small left pleural effusion is stable. There is no pneu mothorax. There are stable airspace opacities of the mid and lower lung zones. IMPRESSION: 1. Left upper extremity PICC inserted ending with its tip in the proximal right atrium. Otherwise, no significant interval change. Reviewed, dictated and finalized at location [facility].
--- NOTE | ~2021-12-29 | XR_ITS ---
XR chest ET placement 01/07/2022 18:57 Indication: Endotracheal tube placement Procedure: AP portable chest Comparison: Comparison to multiple prior studies sequentially, with oldest reviewed study dated 01/04. Findings: Endotracheal tube tip 3.8 cm above the louis. NG tube in the stomach. Right IJ central azeb e tip in the SVC. Diffuse bilateral airspace disease unchanged. Possible small effusions. Right apica l chest tube present. There are blebs at the lung apices. No definitive pneumothorax identified. Impression: 1: Stable diffuse bilateral airspace disease which may represent edema or pneumonia. Reviewed, dictated and finalized at location [facility]. Impression: 1: Stable diffuse bilateral airspace disease which may represent edema or pneum onia.
--- NOTE | ~2021-12-29 | XR_ITS ---
EXAMINATION: XR chest 1V portable DATE: 01/09/2022 05:17 INDICATION: Respiratory failure TECHNIQUE: frontal view of the chest was obtained. COMPARISON: Chest radiograph dated 01/08/2022 FINDINGS: Unchanged apically directed right chest tube. Endotracheal tube tip 4.1 cm above the louis. Right in ternal jugular central venous catheter with distal tip near the superior cavoatrial junction. Nasogas tric tube in the stomach. Lucency suggestive of emphysema at the apices. No pneumothorax. No significant change in opacities in the bilateral mid and lower lung zones. Small left pleural effusion. The cardiomediastinal silhouett e is normal. Severe bilateral acromioclavicular osteoarthritis. IMPRESSION: 1. Persistent opacities in the bilateral mid and lower lung zones which could represent atelectasis o r pneumonia. 2. Small left pleural effusion. 3. Likely emphysematous change at the bilateral apices of lungs. No pneumothorax. Reviewed, dictated and finalized at location A. IMPRESSION: 1. Persistent opacities in the bilateral mid and lower lung zones which could r epresent atelectasis or pneumonia. 2. Small left pleural effusion. 3. Likely emphysematous change at the bilateral apices of lungs. No pneumothora x.
--- NOTE | ~2021-12-29 | XR_ITS ---
EXAMINATION: XR chest 1V portable DATE: 01/18/2022 05:42 INDICATION: Respiratory failure. TECHNIQUE: A single frontal view of the chest was obtained. COMPARISON: Chest single view 01/17/2022 FINDINGS: The patient is rotated to his left. There is bullous emphysema at the lung apices. There ar e airspace opacities in all lung zones bilaterally. There is a small left pleural effusion. No pneumo thorax. The heart size is normal. The endotracheal tube tip is 3.3 cm above the louis. A left upper extremity peripherally inserted central venous catheter (PICC) is seen with tip at the superior cavoa trial junction. A right-sided chest tube is noted. IMPRESSION: 1. Stable diffuse lung disease, consistent with pulmonary edema versus pneumonia. 2. Stable small left pleural effusion. 3. Emphysema. 4. Right-sided chest tube in expected position. No pneumothorax. Reviewed, dictated and finalized at location A. IMPRESSION: 1. Stable diffuse lung disease, consistent with pulmonary edema versus pneumoni a. 2. Stable small left pleural effusion. 3. Emphysema. 4. Right-sided chest tube in expected position. No pneumothorax.
--- NOTE | ~2021-12-29 | XR_ITS ---
EXAMINATION: XR chest 1V portable DATE: 01/05/2022 06:17 INDICATION: Respiratory failure. Intubated. TECHNIQUE: A single frontal view of the chest was obtained. COMPARISON: Chest single view 01/04/2022 FINDINGS: There are patchy airspace opacities in all lung zones bilaterally. There is a small left pl eural effusion. No pneumothorax. There is bullous disease in right lung apex. A right-sided chest tub e is noted. The heart size is normal. The endotracheal tube tip is 3.7 cm above the louis. The nasog astric tube tip is in the stomach. A right internal jugular central venous catheter is seen with tip at the superior cavoatrial junction. IMPRESSION: 1. Stable diffuse lung disease, consistent with pulmonary edema versus pneumonia. 2. Stable small left pleural effusion. 3. Emphysema. Reviewed, dictated and finalized at location A. IMPRESSION: 1. Stable diffuse lung disease, consistent with pulmonary edema versus pneumoni a. 2. Stable small left pleural effusion. 3. Emphysema.
--- NOTE | ~2021-12-29 | XR_ITS ---
EXAMINATION: XR chest 1V portable DATE: 01/16/2022 05:50 INDICATION: Acute respiratory failure. TECHNIQUE: A single frontal view of the chest was obtained. COMPARISON: Chest single view 01/15/2022, chest CT 01/11/2022 FINDINGS: There is bullous emphysema at the lung apices. There are airspace opacities in the mid and lower lung zones. There is a small left pleural effusion. No pneumothorax. The heart size is normal. The endotracheal tube tip is 2.4 cm above the louis. The nasogastric tube tip is in the stomach. A r ight internal jugular central venous catheter is seen with tip at the superior cavoatrial junction. A right-sided chest tube is noted. IMPRESSION: 1. Airspace opacities in the mid and lower lung zones with mild improvement on the right, consistent with pulmonary edema versus pneumonia. 2. Stable small left pleural effusion. 3. Emphysema. 4. Right-sided chest tube in expected position. No pneumothorax. Reviewed, dictated and finalized at location A.
--- NOTE | ~2021-12-29 | XR_ITS ---
EXAMINATION: XR chest 1V portable INDICATION: Respiratory failure TECHNIQUE: Portable AP chest at 0549 hours COMPARISON: 01/07/2022 FINDINGS: The endotracheal tube ends approximately 2.0 cm above the louis. The nasogastric tube is f ollowed as far as the stomach. Its tip is beyond the inferior margin of the radiograph. A right inter nal jugular central venous catheter ends in the superior vena cava. Right-sided chest tube is unchang ed in position. No pneumothorax is identified. Patchy opacities persist throughout all lung zones wit hout significant change. A small left pleural effusion is stable. The cardiomediastinal silhouette is stable. IMPRESSION: 1. Stable diffuse lung disease, consistent with pneumonia and/or pulmonary edema. 2. Small left pleural effusion Reviewed, dictated and finalized at location A. IMPRESSION: 1. Stable diffuse lung disease, consistent with pneumonia and/or pulmonary jaylan a. 2. Small left pleural effusion
--- NOTE | ~2021-12-29 | XR_ITS ---
EXAMINATION: XR chest 1V portable DATE: 01/06/2022 05:44 INDICATION: Respiratory failure. Intubated. TECHNIQUE: A single frontal view of the chest was obtained. COMPARISON: Chest single view 01/05/2022 FINDINGS: The patient is rotated to his left. There are airspace opacities in all lung zones bilatera lly. There is bullous disease at the lung apices. There is a small left pleural effusion. No pneumoth orax. A right-sided chest tube is noted. The heart size is normal. The endotracheal tube tip is 4.5 c m above the louis. The nasogastric tube tip is in the stomach. A right internal jugular central veno us catheter is seen with tip at the superior cavoatrial junction. IMPRESSION: 1. Stable diffuse lung disease, consistent with pulmonary edema versus pneumonia. 2. Stable small left pleural effusion. 3. Emphysema. Reviewed, dictated and finalized at location A. IMPRESSION: 1. Stable diffuse lung disease, consistent with pulmonary edema versus pneumoni a. 2. Stable small left pleural effusion. 3. Emphysema.
--- NOTE | 2021-12-29 08:02 | ECG_ITS ---
Measurements Intervals [place] Rate: 77 P: 96 [place]: 114 QRS: 92 QRSD: 106 T: -82 QT: 407 QTc: 462 Interpretive Statements SINUS RHYTHM WITH SINUS ARRHYTHMIA WITH SHORT TX INTERVAL BORDERLINE RIGHT AXIS DEVIATION [QRS AXIS > 90] ST DEVIATION AND MARKED T-WAVE ABNORMALITY, CONSIDER ANTEROLATERAL ISCHEMIA [-0.5+ mV T WAVE IN I/aVL/V3-V6] ST DEVIATION AND MODERATE T-WAVE ABNORMALITY, CONSIDER INFERIOR ISCHEMIA [-0.1+ mV T WAVE IN II/aVF] COMPARED TO ECG 05/18/2021 11:19:06 SINUS ARRHYTHMIA NOW PRESENT Electronically Signed On 12-29-2021 10:21:11 CDT by Berny Oliva MD
--- NOTE | 2021-12-29 08:02 | ED.GENADULT ---
HPI - General Adult General Chief complaint: Abdominal Pain Stated complaint: weakness, abd pain & decreased PO intake Source: RN notes reviewed History of Present Illness HPI narrative: Patient presents emergency department from home for abdominal pain. Patient states symptoms initially began 4 days ago he states the pain is diffuse throughout the abdomen described as aching in nature he states that the pain became more severe this morning patient states has been associated with nausea and vomiting he denies any fevers or chills denies any diarrhea denies chest pain or shortness of breath. States he not taking thing for the medication he does note some dark black stools yesterday Related Data Allergies Allergy/AdvReac Type Severity Reaction Status Date / Time No Known Allergies Allergy Verified 05/18/21 09:50 Review of Systems Review of Systems: Gen.: Denies fevers or chills ENT: Denies congestion Respiratory: Denies shortness of breath or cough CV: Denies chest pain or palpitations GI: See HPI denies burning, urgency, frequency or hematuria Musculoskeletal: Denies back pain or muscle pain Neuro: Denies numbness, tingling, weakness or focal weakness Skin: Denies rash Except as documented, all other systems reviewed and negative [facility] Past Medical History Medical History (Updated 12/29/21 @ 11:47 by Montrell Bhatia MD) Hypertension Tobacco dependence Surgical History Surgical History (Updated 12/29/21 @ 11:18 by Montrell Bhatia MD) Hx of fracture of right hip Apr 2021 Family History Family History (Updated 12/29/21 @ 11:20 by Montrell Bhatia MD) Other Family history unknown Social History Social History (Updated 12/29/21 @ 11:21 by Montrell Bhatia MD) Social History: Smokes 1.5ppd for unclear duration. He drinks 2.5 drinks/day. Denies drug use. Lives alone. Full code. Nominates his cousin Chaparro to be the individual to make medical decisions for him if he is unable. 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 No clubbing, cyanosis or edema. NEURO: Awake and alert. Following commands, speech normal, no focal deficits SKIN:: Warm, dry. Normal Color PSYCHIATRIC: Normal affect/mood Course Course Emergency Course: CT scan obtained showing pneumothorax kidney stones with hydronephrosis and a perforated bowel at this time the patient's continued low blood pressure central line will be placed Discussed Dr. Navarro presentation work-up he agrees with consult and will plan stents in OR Discussed with Dr. Ochoa presentation work-up agrees with admission to ICU Discussed with Dr. Zepeda presentation work-up we will take patient to the OR we discussed the patient's at this time we will place chest tube in OR Discussed with Dr Bhatia agrees with admission Discussed with patient and family results of workup and diagnosis. Discussed need for admission. Patient and family understand and agree to current treatment plan Vital Signs Vital signs: Vital Signs Temperature 97.8 F 12/29/21 07:55 Pulse Rate 80 12/29/21 07:55 Respiratory Rate 25 H 12/29/21 07:55 Blood Pressure 82/48 L 12/29/21 07:55 Pulse Oximetry 98 12/29/21 07:55 Oxygen Delivery Room Air 12/29/21 07:55 Te
[2021-12-29] MEDS: SODIUM CHLORIDE 0.9% IV 1,000 ML 999 ML IV CONT ×2 (08:37→09:47)
[2021-12-29] MEDS: PANTOPRAZOLE SODIUM IV 40 MG VIAL IV PUSH (08:37)
[2021-12-29 08:54] LABS: Basophils Absolute Auto 0.1 K/mm3 (0.0-0.1); Basophils Percent Auto 0.4 % (0.2-1.2); Eosinophils Absolute Auto 0.1 K/mm3 (0-0.3); Eosinophils Percent Auto 0.6 % (0-4.4); Hematocrit 37.4 % (42.0-52.0); Hemoglobin 12.4 g/dL (14.0-18.0); Immature Granulocyte Percent A 0.7 % (0-0.5); Lymphocytes Absolute Auto 1.27 K/mm3 (0.9-3.2); Lymphocytes Percent Auto 8.9 % (18.3-44.2); Mean Corpuscular HGB Conc 33.2 g/dl (32-36); Mean Corpuscular Hemoglobin 30.1 pg (26-34); Mean Corpuscular Volume 90.8 fl (80-100); Monocytes Absolute Auto 0.6 K/mm3 (0.1-0.6); Monocytes Percent Auto 4.3 % (2.6-8.5); Neutrophils Absolute Auto 12.1 K/mm3 (1.3-6.7); Neutrophils Percent Auto 85.1 % (45.5-73.1); Platelet Count Result 269 k/mm3 (150-375); Red Blood Count 4.12 M/mm3 (4.6-6.20); Red Cell Distribution Width 17.5 % (11.5-14.5); White Blood Count 14.3 K/mm3 (4.5-10.0)
[2021-12-29 09:03] LABS: INR 1.5; Prothrombin Time 17.5 Seconds (11.1-14.7)
[2021-12-29 09:04] LABS: Partial Thromboplastin Time 31.5 SECONDS (22.3-36.8)
[2021-12-29 09:09] LABS: Lactic Acid Reflex 7.4 mmol/L (0.7-2.0)
[2021-12-29 09:10] LABS: Albumin Level 2.3 g/dL (3.5-5.1); Alkaline Phosphatase 130 U/L (38-126); Anion Gap 19 mmol/L (8-16); Aspartate Amino Transferase 64 U/L (17-59); Bilirubin,Total 1.5 mg/dL (0.2-1.3); Blood Urea Nitrogen 37 mg/dL (9-20); Calcium 6.8 mg/dL (8.4-10.2); Carbon Dioxide 25 mmol/L (22-30); Chloride 89 mmol/L (98-107); Estimated Glomerular Filt Rate 30; Glucose 115 mg/dL (65-110); Lipase 55 U/L (23-300); Potassium 2.3 mmol/L (3.4-5.0); Sodium 133 mmol/L (137-145)
[2021-12-29 09:17] LABS: Magnesium 1.6 mg/dL (1.6-2.3)
[2021-12-29 09:18] LABS: Troponin I 0.269 ng/mL (0.000-0.034)
--- NOTE | 2021-12-29 09:27 | PC.NURSE ---
pt. to ct
[2021-12-29] MEDS: POTASSIUM CHLORIDE INJ 40 MEQ in SODIUM CHLORIDE 0.9% IV 500 ML 130 MEQ IVPB (09:35)
[2021-12-29] MEDS: LIDOCAINE HCL 2% GEL UROJET 10 ML PKG (09:47)
[2021-12-29] MEDS: MAGNESIUM SULF 2 GM/WATER 50ML 2 GM/50 ML BAG IVPB ×2 (09:47→17:31)
[2021-12-29 09:58] LABS: Alanine Aminotransferase 30 U/L (6-50)
[2021-12-29 10:01] LABS: SARS-CoV-2 RNA PCR Negative
[2021-12-29 10:07] LABS: Appearance Urine Clear (Clear); Bilirubin Urine 2+ (Negative); Color Urine Amber (Yellow); Glucose Urine UA Negative (Negative); Ketones Urine Trace mg/dL (Negative); Leukocyte Esterase Ur Negative LEU/UL (Negative); Nitrate Urine Negative (Negative); Protein Urine 1+ mg/dL (Negative)
[2021-12-29 10:12] LABS: Add Urine Microscopic? YES; Blood Urine Trace-Intact (Negative)
[2021-12-29 10:19] LABS: Mucus Urine Rare /lpf; Squamous Epithelial Cell Urine Rare /hpf (Few)
[2021-12-29 10:55] LABS: Alveolar/Arterial O2 Gradient 121.7 mmHg; Base Excess ABG 2.6 mEq/l (+/-2.0); Carboxyhemoglobin 0.3 % THb (0-2.0); Fractional Inspired Oxygen 36 %; HCO3 ABG 25.1 mEq/l (22.0-26.0); Methemoglobin ABG 0.2 %THb (0-1.5); Oxygen Saturation ABG 98.1 % (95.0-100.0); Oxyhemoglobin 96.1 % THb (90.0-100.0); PCO2 ABG 31.4 mmHg (35.0-45.0); PO2 ABG 98.6 mmHg (80.0-100.0); PO2 FiO2 Ratio Arterial Blood 2.74 %; Reduced Hemoglobin 3.4 %THb (0-5.0)
[2021-12-29 10:57] LABS: Device NASAL CANNULA; Modified Allen's Test Pass; Site Drawn LEFT RADIAL
[2021-12-29] MEDS: NOREPINEPHRINE 8 MG/D5W 250 ML 8 MG/250 ML BAG 9.38 MG IV CONT (11:01)
[2021-12-29] MEDS: KCL 40 MEQ/WATER 100 ML 100 ML 25 ML IVPB ×3 (11:01→23:01)
--- NOTE | 2021-12-29 11:02 | PM.IMHP ---
H&P: HPI History of Present Illness Date/Time: 12/29/21 11:02 Chief Complaint: Abdominal pain Narrative: 66yo male HTN and recent hip fracture in April (possibly pathologic) here for abdominal pain. Patient had a fall in 2020 sustaining a right hip fracture. Imaging concerning for pathologic fracture. He was transferred to [facility]. No further information available. Patient states he was started on anticoagulation at that time and he remains on this. About 4 days ago, patient developed abdominal pain. This progressed involve nausea vomiting. No chest pain. Has been feeling short of breath. Denies any falls or trauma to his chest or abdomen. He complains of chills but no fevers. He has been having loose stools once a day but the eyes and the for julio cesar blood. Did mention that his stools have been black in color. He has never had a colonoscopy. No weight loss that he is aware of. He does not take NSAIDs but does take Tylenol for pain. He denies hx of CAD, CHF, DVT, CVA, kidney issues or PUD. EMS was contacted patient was noted to have a systolic blood pressure 60 and SpO2 in the 80s. He received IV fluid in route. In the ED, blood pressure 81/62. Temperature was 95.4?. Blood pressure dropped to 57/45. Respiratory rate to 33. CT abdomen pelvis shows moderate right pneumothorax as well as free intraperitoneal air suggesting ruptured viscus. He also had mild right and moderate left hydroureteronephrosis as well as prostatomegaly with bladder outlet obstruction. White count was 14K. ABG 7.52/31/98 on 4 L. Potassium 2.3 with BUN 37 and creatinine 2.2. Lactic acid was 7.4. Troponin 0.27. COVID was negative. Stool was guaiac negative in ED. Warming blanket placed. Central line placed, potassium replaced and started on vasopressors. Abx started. General surgery and urology called and patient was brought to the OR from the ED. Review of Systems Review of Systems: All systems reviewed & are unremarkable except as noted in HPI and below PMFSH Past Medical History Medical History (Updated 12/29/21 @ 11:47 by Montrell Bhatia MD) Hypertension Tobacco dependence Surgical History Surgical History (Updated 12/29/21 @ 11:18 by Montrell Bhatia MD) Hx of fracture of right hip Apr 2021 Family History Family History Other Family history unknown Social History Social History (Updated 12/29/21 @ 11:21 by Montrell Bhatia MD) Social History: Smokes 1.5ppd for unclear duration. He drinks 2.5 drinks/day. Denies drug use. Lives alone. Full code. Nominates his cousin Chaparro to be the individual to make medical decisions for him if he is unable. 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 Home Medications and Allergies Allergies Allergy/AdvReac Type Severity Reaction Status Date / Time No Known Allergies Allergy Verified 05/18/21 09:50 Vital Signs Vital Signs - 24 hr 12/29/21 07:55 12/29/21 08:16 12/29/21 08:46 Temperature 97.8 F Pulse Rate 80 74 75 Respiratory Rate 25 H 22 H 19 Blood Pressure 82/48 L 81/62 L 93/72 L Pulse Oximetry 98 98 100 Oxygen Delivery Room Air 12/29/21 09:16 12/29/21 09:47 12/29/21 09:17 Temperature 95.4 F L Pulse Rate 83 80 Respiratory Rate 26 H 24 H Blood Pressure 103/74 Pulse Oximetry 100 99 Oxygen Delivery 12/29/21 09:42 12/29/21 09:45 12/29/21 09:57 Temperature 95.5 F L Pulse Rate 86 101 H 78 Respiratory Rate 32 H 29 H 27 H Blood Pressure 57/45 L Pulse Oximetry 99 97 97 Oxygen Delivery 12/29/21 10:32 12/29/21 11:01 12/29/21 09:55 Temperature 96.3 F L 95.4 F L Pulse Rate 84 93 91 Respiratory Rate 30 H 28 H Blood Pressure 89/55 L
[2021-12-29] MEDS: LACTATED RINGERS 1,000 ML 30 ML IV CONT (11:20)
--- NOTE | 2021-12-29 11:44 | SUR.PREOP ---
1120 arrived via stretcher to preop taken directly to PACU for better monitoring, anesthesia present there request.
[2021-12-29 11:47] LABS: Reflex Lactic Acid Yes or No Add Lactic
--- NOTE | 2021-12-29 11:47 | WPDURCON ---
Assessment and Plan Assessment and plan (1) Hydronephrosis with urinary obstruction due to renal calculus: Code(s): N13.2 - Hydronephrosis with renal and ureteral calculous obstruction Status: Acute Assessment and Plan: Given patient's significant, acute other comorbidities I will simply plan cystoscopy with bilateral retrograde pyelography and stent placement today. Once he has other issues as improved we will plan more definitive intervention including ureteroscopy with right ureteral stone extraction and diagnostic left ureteroscopy (2) ROSALINDA (acute kidney injury): Code(s): N17.9 - Acute kidney failure, unspecified Status: Acute (3) Pneumothorax, right: Code(s): J93.9 - Pneumothorax, unspecified Status: Acute (4) Septic shock: Code(s): A41.9 - Sepsis, unspecified organism; R65.21 - Severe sepsis with septic shock Status: Acute (5) Perforated abdominal viscus: Code(s): R19.8 - Other specified symptoms and signs involving the digestive system and abdomen Status: Acute Urology Consult Note HPI Date Seen: 12/29/21 Requesting Physician: Edil Zepeda MD Primary Care Provider: Maribel Ordoñez, PA-C Consult Narrative Narrative: Dean Kay is a 66 year old male, Previously unknown to our practice, who presents to the emergency department today with a 4 day history of progressively severe abdominal pain. CT scan the abdomen and pelvis reveals several significant findings including pneumothorax, evidence of perforated viscus (free air in the abdomen) and bilateral hydronephrosis. He appears to have 2 stones in his distal right ureter. The Bial[place] he of the left hydronephrosis is unclear as there are no obvious stones. He denies a history urolithiasis in the past and denies hematuria or other irritable voiding symptoms. Review of Systems Cardiovascular: Cardiovascular: Denies chest pain, Denies lightheadedness, Denies palpitations and Denies dyspnea Respiratory: Respiratory: Denies dyspnea Gastrointestinal: Gastrointestinal: Denies diarrhea, Denies nausea and Denies vomiting Genitourinary: Genitourinary: Denies hematuria and Denies dysuria Endocrine: Endocrine: Denies palpitations PMFSH Past Medical History Medical History (Updated 12/29/21 @ 11:47 by Montrell Bhatia MD) Hypertension Tobacco dependence Surgical History Surgical History (Updated 12/29/21 @ 11:18 by Montrell Bhatia MD) Hx of fracture of right hip Apr 2021 Family History Family History (Updated 12/29/21 @ 11:20 by Montrell Bhatia MD) Other Family history unknown Social History Social History (Updated 12/29/21 @ 11:21 by Montrell Bhatia MD) Social History: Smokes 1.5ppd for unclear duration. He drinks 2.5 drinks/day. Denies drug use. Lives alone. Full code. Nominates his cousin Chaparro to be the individual to make medical decisions for him if he is unable. 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 Home Medications and Allergies Allergies Allergy/AdvReac Type Severity Reaction Status Date / Time No Known Allergies Allergy Verified 05/18/21 09:50 Vital Signs Vital Signs - 24 hr 12/29/21 07:55 12/29/21 08:16 12/29/21 08:46 Temperature 97.8 F Pulse Rate 80 74 75 Respiratory Rate 25 H 22 H 19 Blood Pressure 82/48 L 81/62 L 93/72 L Pulse Oximetry 98 98 100 Oxygen Delivery Room Air Oxygen Flow Rate 12/29/21 09:16 12/29/21 09:47 12/29/21 09:17 Temperature 95.4 F L Pulse Rate 83 80 Respiratory Rate 26 H 24 H Blood Pressure 103/74 Pulse Oximetry 100 99 Oxygen Delivery Oxygen Flow Rate 12/29/21 09:42 12/29/21 09:45 12/29/21 09:57 Temperature 95.5
--- NOTE | 2021-12-29 12:13 | WPDANESEPPF ---
Anes - Initial Pre Proc Eval Procedure: Operation Date: 12/29/21 12:00 Proposed Procedures p Exploratory Laparotomy, Right Chest Tube Insertion - Edil Zepeda MD s Cystoscopy, Bilateral Retrograde Pyelogram, Bilateral Stent Placement - Woodrow Navarro MD Date/Time: 12/29/21 12:13 Surgeon: Edil Zepeda MD Pre Op Diagnosis: weakness, abd pain & decreased PO intake Patient Data Age: 66 Gender: M Height: 1.7 m Weight: 55.5 kg Last Vital Signs Temp 37.1 C 12/29/21 11:50 Pulse 89 12/29/21 11:50 Resp 32 H 12/29/21 11:50 BP 94/67 L 12/29/21 11:50 Pulse Ox 99 12/29/21 11:50 O2 Del Method Nasal Cannula 12/29/21 11:50 O2 Flow Rate 2 12/29/21 11:50 Allergies Allergy/AdvReac Type Severity Reaction Status Date / Time No Known Allergies Allergy Verified 05/18/21 09:50 Laboratory Tests 12/29/21 12/29/21 12/29/21 08:35 08:36 08:36 WBC 14.3 K/mm3 H K/mm3 (4.5-10.0) RBC 4.12 M/mm3 L M/mm3 (4.6-6.20) Hgb 12.4 g/dL L g/dL (14.0-18.0) Hct 37.4 % L % (42.0-52.0) MCV 90.8 fl fl (80-100) MCH 30.1 pg pg (26-34) MCHC 33.2 g/dl g/dl (32-36) RDW 17.5 % H % (11.5-14.5) Plt Count 269 k/mm3 k/mm3 (150-375) MPV 11.0 fl H fl (7.4-10.4) Immature Gran % (Auto) 0.7 % H % (0-0.5) Neut % (Auto) 85.1 % H % (45.5-73.1) Lymph % (Auto) 8.9 % L % (18.3-44.2) [place] % (Auto) 4.3 % % (2.6-8.5) Eos % (Auto) 0.6 % % (0-4.4) Baso % (Auto) 0.4 % % (0.2-1.2) Lymph # (Auto) 1.27 K/mm3 K/mm3 (0.9-3.2) [place] # (Auto) 0.6 K/mm3 K/mm3 (0.1-0.6) Eos # (Auto) 0.1 K/mm3 K/mm3 (0-0.3) Baso # (Auto) 0.1 K/mm3 K/mm3 (0.0-0.1) Abs Immat Gran (auto) 0.10 K/mm3 H K/mm3 (0.00-0.031) Absolute Neuts (auto) 12.1 K/mm3 H K/mm3 (1.3-6.7) Absolute Nucleated RBC 0.0 K/mm3 K/mm3 (0.0-0.012) Nucleated RBC % 0.0 % % (0.0-0.2) PT INR APTT Puncture Site ABG pH ABG pCO2 ABG pO2 ABG PO2/FiO2 Ratio ABG HCO3 ABG O2 Saturation ABG O2 Content ABG Base Excess A-a Gradient Oxyhemoglobin Carboxyhemoglobin Methemoglobin Reduced Hemoglobin Total Hemoglobin O2 Delivery Device O2 Liters/Min FiO2 Sodium 133 mmol/L L mmol/L (137-145) Potassium 2.3 mmol/L L* mmol/L (3.4-5.0) Chloride 89 mmol/L L mmol/L (98-107) Carbon Dioxide 25 mmol/L mmol/L (22-30) Anion Gap 19 mmol/L H mmol/L (8-16) BUN 37 mg/dL H D mg/dL (9-20) Creatinine 2.20 mg/dL H mg/dL (0.7-1.3) Estim Creat Clear Calc Not Reportable Estimated GFR 30 L (59 - ) Glucose 115 mg/dL H mg/dL (65-110) Lactic Acid Calcium 6.8 mg/dL L mg/dL (8.4-10.2) Magnesium Total Bilirubin 1.5 mg/dL H mg/dL (0.2-1.3) AST 64 U/L H U/L (17-59) ALT 30 U/L U/L (6-50) Alkaline Phosphatase 130 U/L H U/L (38-126) Troponin I Total Protein 5.0 g/dL L g/dL (6.3-8.2) Albumin 2.3 g/dL L g/dL (3.5-5.1) Lipase 55 U/L U/L (23-300) Urine Color Urine Appearance Urine pH Ur Specific [place] Urine Protein Urine Glucose (UA) Urine Ketones Ur Blood (Man) Urine Nitrate Urine Bilirubin Urine Urobilinogen Leukocyte Esterase Rfl Urine RBC Urine WBC Ur Squamous Epith Cells Urin
--- NOTE | 2021-12-29 12:20 | SUR.PREOP ---
hair removal completed and scrub package sent with OR staff
--- NOTE | 2021-12-29 12:23 | PM.CNGS ---
Assessment and Plan Assessment and plan (1) Perforated abdominal viscus: Code(s): R19.8 - Other specified symptoms and signs involving the digestive system and abdomen Status: Acute Assessment and Plan: Plan is to proceed with an exploratory laparotomy following placement of the stents by Urology. Also because of the spontaneous right pneumothorax will place a chest tube on the right prior to anesthesia induction/ intubation. (2) Pneumothorax, right: Code(s): J93.9 - Pneumothorax, unspecified Status: Acute Assessment and Plan: placement of a right-sided chest tube prior to induction of anesthesia today at the time of urgent surgery. (3) Alcoholism: Code(s): F10.20 - Alcohol dependence, uncomplicated Status: Acute (4) Hydronephrosis with urinary obstruction due to renal calculus: Code(s): N13.2 - Hydronephrosis with renal and ureteral calculous obstruction Status: Acute Assessment and Plan: See urology note (5) Hx of fracture of right hip: Code(s): Z87.81 - Personal history of (healed) traumatic fracture Status: Acute (6) Tobacco dependence: Code(s): F17.200 - Nicotine dependence, unspecified, uncomplicated Status: Acute (7) Hypertension: Code(s): I10 - Essential (primary) hypertension Status: Acute History of Present Illness Consult details Consult date: 12/29/21 Reason for consult: abdominal pain Requesting physician: Montrell Bhatia MD Narrative: This patient is a pleasant thin 66-year-old white male who still smokes 1/2 packs of cigarettes a day. He states he began having intermittent abdominal pain 3 days ago. This morning walk 2 blocks to a store head collapse outside the store. Two people helped him into the store and 911 was called. Workup in the ED revealed 0 to be hypotensive and he also complained of mid abdominal pain radiating to his right flank. CT scan of the abdomen pelvis was ordered and showed multiple abnormal findings including a medium size right pneumothorax, pneumoperitoneum, and left-sided hydronephrosis with suspected ureteral stone. (See CT report. Because of this he was seen emergently in the ED and plans were made to proceed to the OR for chest tube placement under sedation followed by general anesthesia and urology intervention. Following that I will perform a exploratory laparotomy to see if we can figure out where his free air is coming from. Most likely this would be a duodenal ulcer however no specific abnormalities were identified on CT to direct our exploration. There was no significant signs of diverticulitis, there was some small bowel in a reducible right inguinal hernia. Review of Systems Review of Systems: All systems reviewed & are unremarkable except as noted in HPI and below (HPI) Constitutional: Constitutional: Reports as per HPI and Denies fever(s) Eyes: Eyes: Reports no additional eye complaints ENT: Reports Normal hearing present and Denies dizziness Cardiovascular: Cardiovascular: Reports no additional cardiovascular complaints, Denies chest pain and Denies irregular heart rhythm Respiratory: Respiratory: Reports no additional respiratory complaints Gastrointestinal: Gastrointestinal: Reports no additional gastrointestinal complaints and Denies bloating Genitourinary: Genitourinary: Denies hematuria Musculoskeletal: Musculoskeletal: Denies back pain Comments: Patient apparently had a fall and of fractured right hip which was pinned that seen [facility] in April last year. He was taking Eliquis still but probably does not need any longer is typically 3-6 months after a hip replacement is adequate. Integumentary/Breasts: Skin/Breast: Reports system reviewed and no additional complaints, except as docu Neurologic: Reports Normal hearing present, Denies Abnormal speech present, Denies confusion and Denies dizziness Psychiatric: Psychiatric: Re
[2021-12-29] MEDS: LIDO 1%/EPINEPHRINE 1:100,000 50 ML VIAL 6 ML INFILTRATE (12:42)
--- NOTE | 2021-12-29 13:19 | WPDANESACPN ---
Arterial Cath Proc Note Consent: I have discussed with the patient/family/POA, the non-emergent placement of an arterial catheter, including its clinical necessity/indication and associated potential risks and complications. The patient/family/POA and/or understand(s) and acknowledge(s) the need to proceed with the arterial catheter insertion as an important element of the patient's clinical management. Given emergent patient conditions, temporal constraints may have precluded informed consent. Time-Out: A pre-procedural Time-Out was completed immediately before starting the procedure and confirmed: Patient Identification, Site, Procedure, Patient Position and the Availability of Requisite Equipment. Procedure Note Patient position: supine Insertion site: right radial Method of insertion: surface landmarks Electrophysiology Nurse Practitioner prep: sterile gloves, mask and hat Site prep: chlorahexadine Skin anesthesia: general anesthesia Gauge: 20 gauge Length (cm): 4.4 cm Closure/Dressing: tegaderm Complications: None immediately noted/suspected.
--- NOTE | 2021-12-29 13:52 | W.PM.PROC2 ---
Procedure Note - Detailed Date of Procedure 12/29/21 Pre-op Diagnosis Bilateral hydronephrosis, right distal ureteral stones Post-op Diagnosis Same Procedure Performed Cystoscopy, bilateral retrograde pyelography and bilateral ureteral stent placement Surgeon Woodrow Navraro MD Findings 1. BPH with bilateral J-hooking of ureters 2. Right distal ureteral obstruction secondary to two distal ureteral stones 3. left hydronephrosis of uncertain etiology; could be due to distal ureteral J hooking or possible narrowing in the left proximal ureter Description of Procedure Patient is in the operative suite where a chest tube has been placed and he has undergone induction of a general LMA anesthetic. Cystoscopy is undertaken with a 19F rigid cystoscope. He has moderate lateral lobe hyperplasia the prostate with a high median bar but no median lobe. The bladder was trabeculated. There was slight posterior wall erythema likely consistent with catheter cystitis ( a catheter in place several hours previously). There was no julio cesar intravesical neoplasm and no signs of obvious enterocutaneous fistula. An 8F bulb-tipped catheter was used to obtain bilateral retrograde pyelograms. Is J hooking of his distal ureters bilaterally, consistent with his known BPH. The left ureter appears to be particularly tortuous and a more proximal part with possible narrowing. Flick difficult to fully evaluate because the C-arm in the operative suite was just barely able to visualize the kidney up. Because of the patient's serious intercurrent surgical problems I opted not to fully evaluate this currently but simply placed a 6F variable length stent with the proximal coil in left renal pelvis and distal coil in the bladder. Right retrograde pyelogram showed obstruction in the distal right ureter, likely resulting from the 2 known ureteral stones in the distal ureter and J hooking of his ureter. Similarly, I placed a 6F variable length stent on the right side. Scopes wire was removed and a 16 F Watson catheter was placed to drainage. Dr. Zepeda was available for exploratory laparotomy at this point. Drains Yes Packing No Pathology None sent Complications No immediate complications Condition Stable Disposition PACU
--- NOTE | 2021-12-29 14:06 | SUR.OPER ---
Peritoneal Fluid culture was given to BRANDON Jackson at 1356. Received by Kevin in lab at 1359.
--- NOTE | 2021-12-29 15:21 | SUR.OPER ---
Chest Tube: Time Out at 1240 Start 1246 End 1247 Cysto Time Out at 1314 Start 1315 End 1326
[2021-12-29] MEDS: THIAMINE HCL 200 MG/2 ML VIAL 100 MG IV PUSH (16:35)
[2021-12-29] MEDS: CENTRAL LINE FLUSH 10 ML IV PUSH ×3 (16:36→20:12)
--- NOTE | 2021-12-29 16:47 | W.PM.PROC2 ---
Procedure Note - Detailed Date of Procedure 12/29/21 Pre-op Diagnosis 1. Pneumoperitoneum, with suspected peritonitis 2. Right spontaneous pneumothorax 3. weakness, abd pain & decreased PO intake Post-op Diagnosis Other (1. Perforated sigmoid diverticulitis 2. Right spontaneous pneumothorax) Procedure Performed 1. Girish's Procedure (Open sigmoid colectomy with left-sided end colostomy) 2. Placement of right-sided chest tube. 3. Exploratory laparotomy Surgeon Edil Zepeda MD Management Lecturer Ruslan TRIVEDI, OR undertaker assistant Anesthesia General Indications Please see the ER note. This pace patient presented to the ER through EMS an ambulance today. Workup in the ED revealed a spontaneous right pneumothorax, pneumoperitoneum with suspected hollow viscus perforation, significantly dilated left kidney pelvis with hydroureter, nephroureteral lysis lithiasis on the right with mild hydronephrosis, and a reducible right inguinal hernia containing nonobstructed small bowel per CT. Indications for the operation were the the pneumothorax and pneumoperitoneum. I discussed the situation with him the patient wanted to have surgery to correct anything that had gone wrong. Patient has not had previous abdominal surgery. He still has his appendix has not been diagnosed with an ulcer in the past. Findings 1. Diffuse cloudy fluid worse in the pelvis then in the upper abdomen. 2. Inflamed distal half of the sigmoid colon with a small perforation site approximately 10 cm proximal to the rectosigmoid junction. 3. Non incarcerated right inguinal hernia with some ileum extending into it that easily reduced. 4. Chest x-ray showing good placement of right chest tube following placement prior to intubation and positive pressure anesthesia 5. NG tube in good position after placement by anesthesia during laparotomy. Description of Procedure The patient was brought to the operating room and placed in the supine position. Watson catheter was placed previously in the ED. Time-out was performed confirming patient and side of surgery including right chest, abdomen, and Urology through cystoscopy. By our prior agreement anesthesia provided some IV sedation with ketamine and I used local anesthetic 1% xylocaine with epinephrine after cleansing the entire right lateral chest even with his nipple I made a transverse incision directly over the palpable left ribs in the anterior axillary line. Slightly bigger than 1 cm incision was made over 1 rib and carefully dissected in the subcu tissues up over the next rib and punctured the muscle and parietal pleura with a hemostat. This was spread and there was immediate cardona of air. A 20 Ukrainian chest tube was inserted after insert my finger and swept away and be sure that there was no long in the way. The chest tube slid in easily without a trocar. I advanced a 14 cm on the marking on the chest tube. A U-stitch was used to close the wound around the chest tube 1 throw was made and then I wrapped the remaining 2 0 silk suture around the tube tied it and then put a standard dressing on using Xeroform gauze and tape. There was a community in the tube and a chest x-ray done prior to intubation showed that the chest tube was entering the right chest and extending clear up to the apex medially near the trachea. Subsequently anesthesia performed did a rapid sequence intubation for the patient and began general anesthesia for Dr. Poole part of the procedure. Please see his note for further details regarding the urology portion of the procedure which was done neck is. Following this I came back to the room. After the patient's Urology procedure he was placed back in the supine position with a footboard and a secure strap over his thighs. Usual prep and drape for abdominal surgery was completed. Towels were placed around the mid abdomen and a laparotomy drape was applied. Following this I opened through a generous midline incision started in the
[2021-12-29 16:51] LABS: Hematocrit 35.1 % (42.0-52.0); Hemoglobin 11.9 g/dL (14.0-18.0); Mean Corpuscular HGB Conc 33.9 g/dl (32-36); Mean Corpuscular Hemoglobin 29.8 pg (26-34); Mean Platelet Volume 10.3 fl (7.4-10.4); Platelet Count Result 288 k/mm3 (150-375); Red Blood Count 3.99 M/mm3 (4.6-6.20); Red Cell Distribution Width 17.3 % (11.5-14.5); White Blood Count 13.5 K/mm3 (4.5-10.0)
[2021-12-29 16:59] LABS: INR 1.8; Partial Thromboplastin Time 33.3 SECONDS (22.3-36.8); Prothrombin Time 19.8 Seconds (11.1-14.7)
[2021-12-29 17:03] LABS: Lactic Acid Reflex 1.8 mmol/L (0.7-2.0)
[2021-12-29] MEDS: SODIUM CHLORIDE 0.9% IV 1,000 ML 100 ML IV CONT (17:05)
[2021-12-29 17:10] LABS: Alanine Aminotransferase 16 U/L (6-50); Albumin Level 1.7 g/dL (3.5-5.1); Alkaline Phosphatase 108 U/L (38-126); Anion Gap 10 mmol/L (8-16); Aspartate Amino Transferase 44 U/L (17-59); Bilirubin,Total 1.1 mg/dL (0.2-1.3); Blood Urea Nitrogen 30 mg/dL (9-20); Calcium 6.2 mg/dL (8.4-10.2); Carbon Dioxide 26 mmol/L (22-30); Chloride 97 mmol/L (98-107); Estimated CRCL calculation 28 ml/min; Estimated Glomerular Filt Rate 38; Glucose 107 mg/dL (65-110); Magnesium 1.8 mg/dL (1.6-2.3); Phosphorus 3.7 mg/dL (2.5-4.5); Potassium < 2.0 mmol/L (3.4-5.0); Sodium 133 mmol/L (137-145)
[2021-12-29 17:28] LABS: Band Neutrophils Percent 14 % (0-6); Lymphocytes Absolute Manual 1.08 K/mm3 (1.1-4.5); Monocytes Absolute Manual 0.13 K/mm3 (0.1-0.90); Monocytes Percent Manual 1 % (3-9); Neutrophils Absolute Manual 12.28 K/mm3 (1.3-6.7); Neutrophils Percent Manual 77 % (46-73); Platelet Estimate Adequate (Adequate); Total Cells Counted 100
[2021-12-29 17:29] LABS: Anisocytosis 2+ (NORMAL)
--- NOTE | 2021-12-29 17:44 | ADMGEN ---
This patient, Dean Kay, was admitted to Intensive Care Unit-6. Patient is intubated and sedated without emergency contact or family contact information. Not receptive to education/unit orientation at this time.
[2021-12-29] MEDS: VASOPRESSIN INJ 100 UNITS in DEXTROSE 5% 95 ML IV CONT (18:02)
[2021-12-29 18:09] LABS: Alveolar/Arterial O2 Gradient 78.7 mmHg; Base Excess ABG -3.2 mEq/l (+/-2.0); Carboxyhemoglobin 0.3 % THb (0-2.0); Device VENTILATOR; Fractional Inspired Oxygen 30 %; Methemoglobin ABG 0.4 %THb (0-1.5); Modified Allen's Test Pass; Oxygen Content ABG 18.7 %vol (16.0-22.0); Oxygen Saturation ABG 97.7 % (95.0-100.0); Oxyhemoglobin 96.1 % THb (90.0-100.0); PCO2 ABG 30.8 mmHg (35.0-45.0); Reduced Hemoglobin 3.2 %THb (0-5.0); Site Drawn ARTLINE; Total Hemoglobin 13.8 g/dL (12.0-18.0); pH ABG 7.431 (7.350-7.450)
[2021-12-29 18:10] LABS: Arterial Blood Gas PEEP 5 cmH2O; Arterial Blood Gas Tidal Volume 400 ml; Arterial Blood Gas Vent Mode CMV; Arterial Blood Gas Ventilator rate 16 /MIN
[2021-12-29] MEDS: FENTANYL 2,500MCG/NS250ML(*CRX 2,500 MCG/250 ML BAG IV CONT (18:15)
[2021-12-29] MEDS: MIDAZOLAM 100MG/NS 100ML(*CRX) 100 MG/100 ML BAG IV CONT (18:17)
[2021-12-29] MEDS: hetaSTARCH 6%/NACL 500 ML 250 ML IV CONT (18:19)
[2021-12-29] MEDS: NOREPINEPHRINE 8 MG/D5W 250 ML 8 MG/250 ML BAG 56.25 MG IV CONT (18:19)
[2021-12-29] MEDS: MINERAL OIL/WHITE PETROLATUM OINTMENT 1 APPLIC EACH EYE (19:58)
[2021-12-29 22:34] LABS: Magnesium 2.4 mg/dL (1.6-2.3)
[2021-12-30] VITALS (47 sets, daily range): BP systolic 87–131; BP diastolic 50–75; PULSE 67–97; RESP 16–29; TEMP 35.8–37.2; O2SAT 90–100; BMI 20.5
--- NOTE | 2021-12-30 | ECHO_ITS ---
Patient Info Name: Dean Kay Age: 66 years : 1955 Gender: Male Ht: 67 in Wt: 131 lbs BSA: 1.67 m2 HR: 80 bpm BP: 111 / 64 mmHg Technical Quality: Good Exam Date: 12/30/2021 9:16 AM Exam Location: [facility] Patient Status: Inpatient Admit Date: 12/29/2021 Staff Ordering Physician: Alex Ochoa MD Hydrogen Operator: Juan Salvador, BERNARD, RT Attending Provider: Edil Zepeda MD Referring Physician: Gabriela JAMES; Exam Type: CA echo doppler color flow Study Info Indications R65.21 - Severe sepsis with septic shock Complete two-dimensional, color flow and Doppler transthoracic echocardiogram is performed. Summary 1. Complete two-dimensional, color flow and Doppler transthoracic echocardiogram is performed. 2. Left ventricular chamber dimension is normal. 3. Left ventricular systolic function is normal, estimated at 55-60%. 4. Left ventricular septal wall motion is abnormal with septal motion related to bundle branch block. 5. The left ventricular diastolic function is abnormal. 6. E/e' 12 is mildly elevated. 7. There is trace aortic valve regurgitation. 8. There is mild mitral valve regurgitation. 9. There is mild tricuspid valve regurgitation. 10. No pulmonary hypertension, estimated pulmonary arterial systolic pressure is 28 mmHg. Left Ventricle E/e' 12 is mildly elevated. Left ventricular chamber dimension is normal. Left ventricular systolic function is normal, estimated at 55-60%. Left ventricular septal wall motion is abnormal with septal motion related to bundle branch block. The left ventricular diastolic function is abnormal. Right Ventricle Right ventricular chamber dimension is normal. Right ventricular systolic function is normal. Left Atria Left atrial chamber dimension is normal. Right Atria Right atrial chamber dimension is normal. Aortic Valve The aortic valve is trileaflet. There is no aortic valve stenosis. There is trace aortic valve regurgitation. No aortic valve vegetation visualized. Pulmonic Valve There is no pulmonic regurgitation. No pulmonic valve vegetation visualized. Mitral Valve There is no mitral valve stenosis. There is mild mitral valve regurgitation. No mitral valve vegetation visualized. Tricuspid Valve There is mild tricuspid valve regurgitation. No pulmonary hypertension, estimated pulmonary arterial systolic pressure is 28 mmHg. No tricuspid valve vegetation visualized. Pericardium/Pleural There is no pericardial effusion. Inferior Vena Cava Inferior vena cava is not well visualized. Aorta The aortic root size at the sinus of Valsalva is normal. Left Ventricular Outflow Tract Name Value Normal LVOT 2D LVOT Diameter 2.0 cm LVOT Doppler LVOT Peak Gradient 2 mmHg LVOT Mean Gradient 1 mmHg LVOT VTI 13 cm LVOT VTI/AV VTI Ratio 1.0 LVOT Stroke Volume 39 ml Mitral Valve Name
[2021-12-30] MEDS: NOREPINEPHRINE 8 MG/D5W 250 ML 8 MG/250 ML BAG 30 MG IV CONT (02:08)
[2021-12-30 02:56] LABS: Potassium 2.3 mmol/L (3.4-5.0)
[2021-12-30] MEDS: KCL 40 MEQ/WATER 100 ML 100 ML 25 ML IVPB ×3 (03:04→17:42)
[2021-12-30] MEDS: SODIUM CHLORIDE 0.9% IV 1,000 ML 100 ML IV CONT (04:03)
[2021-12-30 04:57] LABS: Alveolar/Arterial O2 Gradient 266.6 mmHg; Base Excess ABG -4.5 mEq/l (+/-2.0); Carboxyhemoglobin 0.1 % THb (0-2.0); Fractional Inspired Oxygen 50 %; HCO3 ABG 18.4 mEq/l (22.0-26.0); Methemoglobin ABG 0.3 %THb (0-1.5); Oxygen Content ABG 14.3 %vol (16.0-22.0); Oxygen Saturation ABG 91.9 % (95.0-100.0); Oxyhemoglobin 87.7 % THb (90.0-100.0); PCO2 ABG 27.7 mmHg (35.0-45.0); PO2 ABG 58.7 mmHg (80.0-100.0); PO2 FiO2 Ratio Arterial Blood 1.17 %; Reduced Hemoglobin 11.9 %THb (0-5.0); Total Hemoglobin 11.6 g/dL (12.0-18.0); pH ABG 7.441 (7.350-7.450)
[2021-12-30 04:58] LABS: Device VENTILATOR; Site Drawn ARTLINE
[2021-12-30 04:59] LABS: Arterial Blood Gas PEEP 5 cmH2O; Arterial Blood Gas Tidal Volume 400 ml; Arterial Blood Gas Vent Mode CMV; Arterial Blood Gas Ventilator rate 16 /MIN
[2021-12-30] MEDS: CENTRAL LINE FLUSH 10 ML IV PUSH ×4 (05:57→20:45)
[2021-12-30 07:26] LABS: Basophils Absolute Auto 0.1 K/mm3 (0.0-0.1); Basophils Percent Auto 0.6 % (0.2-1.2); Eosinophils Percent Auto 0.3 % (0-4.4); Hematocrit 30.5 % (42.0-52.0); Hemoglobin 10.2 g/dL (14.0-18.0); Immature Granulocyte Absolute 0.07 K/mm3 (0.00-0.031); Immature Granulocyte Percent A 0.5 % (0-0.5); Lymphocytes Absolute Auto 1.13 K/mm3 (0.9-3.2); Lymphocytes Percent Auto 7.5 % (18.3-44.2); Mean Corpuscular HGB Conc 33.4 g/dl (32-36); Mean Corpuscular Hemoglobin 30.4 pg (26-34); Mean Platelet Volume 10.5 fl (7.4-10.4); Monocytes Absolute Auto 0.3 K/mm3 (0.1-0.6); Monocytes Percent Auto 2.2 % (2.6-8.5); Neutrophils Absolute Auto 13.5 K/mm3 (1.3-6.7); Neutrophils Percent Auto 88.9 % (45.5-73.1); Platelet Count Result 197 k/mm3 (150-375); Red Blood Count 3.35 M/mm3 (4.6-6.20); Red Cell Distribution Width 17.6 % (11.5-14.5); White Blood Count 15.1 K/mm3 (4.5-10.0)
[2021-12-30 07:34] LABS: Lactic Acid Reflex 1.1 mmol/L (0.7-2.0)
--- NOTE | 2021-12-30 08:50 | WPDCNINT ---
Assessment and Plan Assessment and plan (1) Septic shock: Code(s): A41.9 - Sepsis, unspecified organism; R65.21 - Severe sepsis with septic shock Status: Acute Assessment and Plan: Patient presented with hypotension, leukocytosis, lactic acidosis. Likely source peritonitis secondary to ruptured sigmoid colon -right IJ central line was placed in the ER, patient received adequate amount of IV fluids -remains on Levophed and vasopressin, will maintain MAP > 65 mmHg for adequate end organ perfusion -continue Zosyn -cultures have been obtained and pending -will add albumin (2) Perforated abdominal viscus: Code(s): R19.8 - Other specified symptoms and signs involving the digestive system and abdomen Status: Acute Assessment and Plan: Patient presented with abdominal pain, nausea, vomiting, septic shock. 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 Zepeda, will trickle tube feeds starting 12/31/2021 after discussing with surgeon on-call for the day (3) Acute respiratory failure: Code(s): J96.00 - Acute respiratory failure, unspecified whether with hypoxia or hypercapnia Status: Acute Assessment and Plan: Patient also presented with shortness of breath on admission, was found to have a moderate right-sided pneumothorax a CT scan of the abdomen and pelvis -right-sided chest tube was placed in the OR by surgery -patient was intubated and placed on mechanical ventilation for surgery -remains on CMV mode of ventilation, peep of 5, 50% FiO2 -chest x-ray and ABGs reviewed, -sedated with fentanyl and Versed infusion, maintain RASS of 0--2, daily sedation vacation (4) Pneumothorax, right: Code(s): J93.9 - Pneumothorax, unspecified Status: Acute Assessment and Plan: CT scan of the abdomen pelvis showed a moderate right pneumothorax, right-sided chest tube was placed in the OR on 12/29/2021 per surgery -surgeon managing the chest tube (5) ROSALINDA (acute kidney injury): Code(s): N17.9 - Acute kidney failure, unspecified Status: Acute Assessment and Plan: Patient presented with acute kidney injury, likely related to septic shock, hypovolemia, ATN, infection -creatinine admission was 2.20 -patient was adequately fluid-resuscitated in the ER and OR -lactic acid was 7.4 on admission and has normalized to 1.1 this morning -will decrease IV fluids once TPN is started -continue to monitor your renal function, urine output, electrolytes - (6) Hydronephrosis with urinary obstruction due to renal calculus: Code(s): N13.2 - Hydronephrosis with renal and ureteral calculous obstruction Status: Acute Assessment and Plan: Cystoscopy, bilateral retrograde pyelography and bilateral ureteral stent placement on 12/29/2021 (7) Electrolyte abnormality: Code(s): E87.8 - Other disorders of electrolyte and fluid balance, not elsewhere classified Status: Acute Assessment and Plan: Severe hypokalemia, aggressively repleting potassium, magnesium was repleted and level has normalized -continue to monitor Additional Plan DVT prophylaxis: Enoxaparin Stress ulcer prophylaxis: Protonix Will update family Code status: Full code Critical care time spent: 49 minutes This dictation may have been done utilizing a voice recognition system. Attempts have been made to correct errors. However, there may be uncorrected grammatical, spelling, and recognition errors present. Due to a high probability of clinically significant, life threatening deterioration, the patient required my highest level of preparedness to intervene emergently and I personally spen
[2021-12-30] MEDS: ENOXAPARIN 30 MG/0.3 ML SYRINGE SUB-Q (08:53)
[2021-12-30] MEDS: FOLIC ACID 1 MG/0.2 ML INJ IV PUSH (08:54)
[2021-12-30] MEDS: ALBUMIN HUMAN 25% 25 GM/100 ML 100 ML IVPB ×3 (08:56→20:44)
[2021-12-30] MEDS: THIAMINE HCL 200 MG/2 ML VIAL 100 MG IV PUSH (08:56)
[2021-12-30] MEDS: MINERAL OIL/WHITE PETROLATUM OINTMENT 1 APPLIC EACH EYE ×2 (08:56→20:45)
[2021-12-30] MEDS: PANTOPRAZOLE SODIUM IV 40 MG VIAL IV PUSH (09:00)
[2021-12-30 09:19] LABS: Alanine Aminotransferase 18 U/L (6-50); Albumin Level 1.4 g/dL (3.5-5.1); Alkaline Phosphatase 90 U/L (38-126); Anion Gap 10 mmol/L (8-16); Aspartate Amino Transferase 54 U/L (17-59); Bilirubin,Total 0.9 mg/dL (0.2-1.3); Blood Urea Nitrogen 27 mg/dL (9-20); Calcium 5.8 mg/dL (8.4-10.2); Carbon Dioxide 22 mmol/L (22-30); Chloride 102 mmol/L (98-107); Estimated CRCL calculation 32 ml/min; Estimated Glomerular Filt Rate 40; Glucose 165 mg/dL (65-110); Magnesium 2.2 mg/dL (1.6-2.3); Phosphorus 3.5 mg/dL (2.5-4.5); Potassium 2.9 mmol/L (3.4-5.0); Sodium 134 mmol/L (137-145)
--- NOTE | 2021-12-30 09:30 | PM.PNGS ---
Progress Note: A&P Assessment and Plan (1) Perforated abdominal viscus: Code(s): R19.8 - Other specified symptoms and signs involving the digestive system and abdomen Status: Acute Assessment and Plan: This appeared to be secondary to perforated sigmoid diverticulitis. Segmental sigmoid resection with end colostomy performed. Rectal stump the stapled off at the level of the sacral prominence. Patient's sepsis seems to be improving. (2) Acute respiratory failure: Code(s): J96.00 - Acute respiratory failure, unspecified whether with hypoxia or hypercapnia Status: Acute Assessment and Plan: Still on ventilator but 0 to down to 30% and patient not having any respiratory distress. See servicenow administrator developer consultation. (3) Pneumothorax, right: Code(s): J93.9 - Pneumothorax, unspecified Status: Acute Assessment and Plan: No rapid air leak at this time. However patient on positive pressure ventilation so will leave chest tube to Pleur-evac and suction until patient able to be extubated. ( blebs noted on original chest x-ray so patient probably had a spontaneous pneumothorax related to a bleb that burst at the apex ). Will see if air leak seals after patient is extubated. (4) Hydronephrosis with urinary obstruction due to renal calculus: Code(s): N13.2 - Hydronephrosis with renal and ureteral calculous obstruction Status: Acute Assessment and Plan: As per Urology. Dr. Navarro following. (5) Septic shock: Code(s): A41.9 - Sepsis, unspecified organism; R65.21 - Severe sepsis with septic shock Status: Acute Assessment and Plan: Improved on antibiotics. For now continue Zosyn. I did send cultures from the abdominal fluid which could be used to focus antibiotic coverage in several days. (6) Tobacco dependence: Code(s): F17.200 - Nicotine dependence, unspecified, uncomplicated Status: Acute Assessment and Plan: After extubated may need nicotine patch for nicotine withdrawal. ( Smokes 1/2 packs a day). Additional Plan Discussed with Dr. Ochoa today Discussed with ostomy nurse and abd. dressing redone. Wound looks good so no dressing needed over the weekend unless it becomes soiled because of leaking from the ostomy site. Discussed nutrition with Dr. Ochoa and he will start Clinimix TPN today through the central line. Since patient does not have anastomosis could possibly start trickle feeds through the NG tube if not much coming out tomorrow and bowel sounds continue to improve. Dr. Cuevas following over the weekend and next week as I am out of town. Subjective Subjective Date/Time Seen: 12/30/21 09:30 Post Op day: S/P Rt. CT (Postop day # 1. Status post Girish's procedure) Patient reports: other ( intubated but following commands.) Interval history: Patient seems to be improving overnight in ICU. Nurses report turning down the Levophed through the night with stable blood pressure. Patient moving extremities and grasping hand at command. Review of Systems Review of Systems: ROS unobtainable: Yes unobtainable due to endotracheal tube and unobtainable due to medical condition Exam Const: General: cooperative and awake Nutritional Appearance: malnourished HENMT: Head: normal to inspection General nose exam: Other nasal findings present ( NG tube in place) Mouth: Yes moist mucous membranes Eyes: Sclera: sclerae normal Neck: Neck: normal visual inspection and no JVD Other: right IJ central line in place. Chest: Chest palpation & inspection: abnormal inspection of the chest barrel chest and other ( right-sided chest tube with not much drainage on the dressing.); no scars Cardio: Rate: regular rate GI: Inspection: incision ( Clean and dry with anthony in place), scaphoid and other ( left-sided ostomy pink and viable) Auscultation: Hypoactive bowel sounds present Rectal Exam: deferred Oth
[2021-12-30 09:45] LABS: Prostate Specific Antigen 27.1 ng/mL (< OR = 4.0)
--- NOTE | 2021-12-30 10:14 | P.PNAN_ITS ---
Anes - Prog Note Post-Op Date/Time: 12/30/21 10:14 Vital Signs: Last Vital Signs Temp 35.9 C L 12/30/21 06:00 Pulse 77 12/30/21 09:10 Resp 23 H 12/30/21 09:10 BP 106/61 12/30/21 08:00 Pulse Ox 92 12/30/21 08:23 O2 Del Method Mechanical Ventilation 12/30/21 08:23 O2 Flow Rate 2 12/29/21 12:20 FiO2 50 12/30/21 08:23 Pain Score (VAS): unable to assess I/O: Intake & Output 12/29/21 12/30/21 12/30/21 23:59 07:59 15:59 Intake Total 700 1670.5 Output Total 1085 Balance 700 585.5 Laboratory Tests 12/30/21 07:18 12/30/21 07:18 12/29/21 12/29/21 12/29/21 08:36 09:55 10:36 WBC RBC Hgb Hct MCV MCH MCHC RDW Plt Count MPV Immature Gran % (Auto) Neut % (Auto) Lymph % (Auto) [place] % (Auto) Eos % (Auto) Baso % (Auto) Lymph # (Auto) [place] # (Auto) Eos # (Auto) Baso # (Auto) Abs Immat Gran (auto) Absolute Neuts (auto) Absolute Nucleated RBC Total Counted Neutrophils % (Manual) Band Neutrophils % Lymphocytes % (Manual) Monocytes % (Manual) Nucleated RBC % Abs Neuts (Manual) Abs Lymphs (Manual) Abs Monocytes (Manual) Platelet Estimate Anisocytosis PT INR APTT Puncture Site Left radial ABG pH 7.520 H* ABG pCO2 31.4 L ABG pO2 98.6 ABG PO2/FiO2 Ratio 2.74 ABG HCO3 25.1 ABG O2 Saturation 98.1 ABG O2 Content 15.0 L ABG Base Excess 2.6 A-a Gradient 121.7 Oxyhemoglobin 96.1 Carboxyhemoglobin 0.3 Methemoglobin 0.2 Reduced Hemoglobin 3.4 Total Hemoglobin 11.0 L O2 Delivery Device Nasal cannula O2 Liters/Min 4.0 Minute Volume Vent Rate Vent Mode FiO2 36 Tidal Volume PEEP Peak Inspir Pressure Pressure Support Sodium Potassium Chloride Carbon Dioxide Anion Gap BUN Creatinine Estim Creat Clear Calc Estimated GFR Glucose Lactic Acid Calcium Phosphorus Magnesium Total Bilirubin AST ALT Alkaline Phosphatase Total Protein Albumin Prostate Specific Ag Urine Color Sola Urine Appearance Clear Urine pH 6.0 Ur Specific [place] 1.010 Urine Protein 1+ H Urine Glucose (UA) Negative Urine Ketones Trace Ur Blood (Man) Trace-intact Urine Nitrate Negative Urine Bilirubin 2+ H Urine Urobilinogen 2.0 H Leukocyte Esterase
--- NOTE | 2021-12-30 10:16 | WPDANESPN ---
Anes - Prog Note Post-Op Date/Time: 12/30/21 10:16 Vital Signs: Last Vital Signs Temp 35.9 C L 12/30/21 06:00 Pulse 77 12/30/21 09:10 Resp 23 H 12/30/21 09:10 BP 106/61 12/30/21 08:00 Pulse Ox 92 12/30/21 08:23 O2 Del Method Mechanical Ventilation 12/30/21 08:23 O2 Flow Rate 2 12/29/21 12:20 FiO2 50 12/30/21 08:23 Pain Score (VAS): 0 I/O: Intake & Output 12/29/21 12/30/21 12/30/21 23:59 07:59 15:59 Intake Total 700 1670.5 Output Total 1085 Balance 700 585.5 Laboratory Tests 12/30/21 07:18 12/30/21 07:18 12/29/21 12/29/21 12/29/21 08:36 09:55 10:36 WBC RBC Hgb Hct MCV MCH MCHC RDW Plt Count MPV Immature Gran % (Auto) Neut % (Auto) Lymph % (Auto) [place] % (Auto) Eos % (Auto) Baso % (Auto) Lymph # (Auto) [place] # (Auto) Eos # (Auto) Baso # (Auto) Abs Immat Gran (auto) Absolute Neuts (auto) Absolute Nucleated RBC Total Counted Neutrophils % (Manual) Band Neutrophils % Lymphocytes % (Manual) Monocytes % (Manual) Nucleated RBC % Abs Neuts (Manual) Abs Lymphs (Manual) Abs Monocytes (Manual) Platelet Estimate Anisocytosis PT INR APTT Puncture Site Left radial ABG pH 7.520 H* ABG pCO2 31.4 L ABG pO2 98.6 ABG PO2/FiO2 Ratio 2.74 ABG HCO3 25.1 ABG O2 Saturation 98.1 ABG O2 Content 15.0 L ABG Base Excess 2.6 A-a Gradient 121.7 Oxyhemoglobin 96.1 Carboxyhemoglobin 0.3 Methemoglobin 0.2 Reduced Hemoglobin 3.4 Total Hemoglobin 11.0 L O2 Delivery Device Nasal cannula O2 Liters/Min 4.0 Minute Volume Vent Rate Vent Mode FiO2 36 Tidal Volume PEEP Peak Inspir Pressure Pressure Support Sodium Potassium Chloride Carbon Dioxide Anion Gap BUN Creatinine Estim Creat Clear Calc Estimated GFR Glucose Lactic Acid Calcium Phosphorus Magnesium Total Bilirubin AST ALT Alkaline Phosphatase Total Protein Albumin Prostate Specific Ag Urine Color Sola Urine Appearance Clear Urine pH 6.0 Ur Specific [place] 1.010 Urine Protein 1+ H Urine Glucose (UA) Negative Urine Ketones Trace Ur Blood (Man) Trace-intact Urine Nitrate Negative Urine Bilirubin 2+ H Urine Urobilinogen 2.0 H Leukocyte Esterase Rfl Negative Urine RBC 3-5 H Urine WBC 7-9 H Ur Squamous Epith Cells Rare Urine Mucus Rare Blood Type O Positive Antibody Screen Negative 12/29/21 12/29/21 12/29/21 16:40 16:40 16:40 WBC 13.5 H RBC 3.99 L Hgb 11.9 L Hct 35.1 L MCV 88.0 MCH 29.8 MCHC 33.9 RDW 17.3 H Plt Count 288 MPV 10.3 Immature Gran % (Auto) Not Reportable Neut % (Auto) Not Reportable Lymph % (Auto) Not Reportable [place] % (Auto) Not Reportable Eos % (Auto) Not Reportable Baso % (Auto) Not Reportable Lymph # (Auto) Not Reportable [place] # (Auto) Not Reportable Eos # (Auto) Not Reportable Baso # (Auto) Not Reportable Abs Immat Gran (auto) Not Reportable Absolute Neuts (auto) Not Reportable Absolute Nucleated RBC Not Reportable Total Counted 100 Neutrophils % (Manual) 77 H Band Neutrophils % 14 H Lymphocytes % (Manual) 8.0 L Monocytes % (Manual) 1 L Nucleated RBC % Not Reportable Abs Neuts (Manual) 12.28 H Abs Lymphs (Manual) 1.08 L Abs Monocytes (Manual) 0.13 Platelet Estimate Adequate Anisocytosis 2+ PT 19.8 H INR 1.8 APTT 33.3 Puncture Site ABG pH ABG pCO2 ABG pO2 ABG PO2/FiO2 Ratio ABG HCO3 ABG O2 Saturation ABG O2 Content ABG Base Excess A-a Gradient Oxyhemoglobin Carboxyhemoglobin Methemoglobin Reduced Hemoglobin Total Hemoglobin O2 Delivery Device O2 Liters/Min Minute Volume Vent Rate Vent Mode
[2021-12-30] MEDS: CALCIUM GLUC 2,000 MG/NS 100ML 2,000 MG/100 ML BAG 100 MG IVPB (10:37)
--- NOTE | 2021-12-30 10:39 | P.PNCROSS_ITS ---
Event Note Event Note Event Note: Status patient on TPN with electrolytes, at 40 mL/hour, for lipids at 20 mL/andrew r. -as per dietitian recommendations, increase TPN to 50 mL/hour on 12/31/2021
--- NOTE | 2021-12-30 10:39 | PM.EVENT ---
Event Note Event Note Event Note: Status patient on TPN with electrolytes, at 40 mL/hour, for lipids at 20 mL/hour. -as per dietitian recommendations, increase TPN to 50 mL/hour on 12/31/2021
[2021-12-30 11:03] LABS: Transferrin < 80 mg/dL (206-381)
[2021-12-30 11:04] LABS: Partial Thromboplastin Time 47.7 SECONDS (22.3-36.8)
[2021-12-30] MEDS: NOREPINEPHRINE 8 MG/D5W 250 ML 8 MG/250 ML BAG 18.75 MG IV CONT (11:32)
[2021-12-30 11:38] LABS: Glucose Point of Care 162 mg/dl (65-105)
--- NOTE | 2021-12-30 11:40 | PCRCNOTE ---
Window of time for administration has passed. See next scheduled administration.
[2021-12-30] MEDS: FAT EMULSIONS IV 20% 250 ML 20.83 ML IVPB (13:14)
[2021-12-30] MEDS: AMINO ACIDS 5%/D15W/E-LYTES/CA 2,000 ML with MULTIVITAMINS-12 INJ VIAL 1 2.5 ML, MULTIV... 40 ML IV CONT (13:14)
[2021-12-30] MEDS: IPRATROPIUM BR 0.02% INH SOLN 0.5 MG/2.5 ML VIAL INHALATION ×2 (14:13→20:35)
[2021-12-30] MEDS: ALBUTEROL SULFATE NEB 2.5 MG/3 ML INH 5 MG INHALATION ×2 (14:13→20:35)
[2021-12-30] MEDS: SODIUM CHLORIDE 0.9% IV 1,000 ML 40 ML IV CONT (15:13)
[2021-12-30 16:34] LABS: Anion Gap 10 mmol/L (8-16); Blood Urea Nitrogen 25 mg/dL (9-20); Calcium 6.7 mg/dL (8.4-10.2); Carbon Dioxide 23 mmol/L (22-30); Chloride 100 mmol/L (98-107); Estimated CRCL calculation 44 ml/min; Estimated Glomerular Filt Rate 60; Glucose 222 mg/dL (65-110); Sodium 133 mmol/L (137-145)
[2021-12-30 16:56] LABS: Glucose Point of Care 249 mg/dl (65-105)
[2021-12-30] MEDS: KCL 40 MEQ/0.9% SOD CHL 1,000 ML 40 ML IV CONT (17:45)
[2021-12-30] MEDS: INSULIN ASPART (*BKC) 100 UNITS/ML SUB-Q ×2 (17:59→23:53)
[2021-12-30] MEDS: NOREPINEPHRINE 8 MG/D5W 250 ML 8 MG/250 ML BAG 33.75 MG IV CONT (21:51)
[2021-12-30 23:53] LABS: Glucose Point of Care 234 mg/dl (65-105)
[2021-12-31] VITALS (72 sets, daily range): BP systolic 80–148; BP diastolic 50–92; PULSE 70–133; RESP 16–32; TEMP 36.6–37.5; O2SAT 96–100
[2021-12-31] MEDS: IPRATROPIUM BR 0.02% INH SOLN 0.5 MG/2.5 ML VIAL INHALATION ×4 (02:30→20:25)
[2021-12-31] MEDS: ALBUTEROL SULFATE NEB 2.5 MG/3 ML INH 5 MG INHALATION ×4 (02:35→20:25)
[2021-12-31 05:08] LABS: Alveolar/Arterial O2 Gradient 162.5 mmHg; Base Excess ABG 0.3 mEq/l (+/-2.0); Carboxyhemoglobin 0.3 % THb (0-2.0); Fractional Inspired Oxygen 40 %; HCO3 ABG 23.4 mEq/l (22.0-26.0); Methemoglobin ABG 0.5 %THb (0-1.5); Oxygen Content ABG 17.4 %vol (16.0-22.0); PCO2 ABG 33.2 mmHg (35.0-45.0); PO2 ABG 84.5 mmHg (80.0-100.0); PO2 FiO2 Ratio Arterial Blood 2.11 %; Reduced Hemoglobin 4.2 %THb (0-5.0); pH ABG 7.466 (7.350-7.450)
[2021-12-31 05:09] LABS: Arterial Blood Gas PEEP 5 cmH2O; Arterial Blood Gas Tidal Volume 400 ml; Arterial Blood Gas Vent Mode CMV; Arterial Blood Gas Ventilator rate 16 /MIN; Device VENTILATOR; Site Drawn ARTLINE
[2021-12-31] MEDS: NOREPINEPHRINE 8 MG/D5W 250 ML 8 MG/250 ML BAG 31.88 MG IV CONT (05:14)
[2021-12-31] MEDS: ALBUMIN HUMAN 25% 25 GM/100 ML 100 ML IVPB ×4 (05:15→23:10)
[2021-12-31] MEDS: CENTRAL LINE FLUSH 10 ML IV PUSH ×4 (05:46→21:04)
[2021-12-31 06:20] LABS: Glucose Point of Care 193 mg/dl (65-105)
[2021-12-31 06:58] LABS: Anion Gap 8 mmol/L (8-16); Blood Urea Nitrogen 20 mg/dL (9-20); Calcium 6.7 mg/dL (8.4-10.2); Carbon Dioxide 28 mmol/L (22-30); Chloride 100 mmol/L (98-107); Estimated CRCL calculation 48 ml/min; Estimated Glomerular Filt Rate > 60; Glucose 204 mg/dL (65-110); Phosphorus 2.4 mg/dL (2.5-4.5); Potassium 2.9 mmol/L (3.4-5.0); Sodium 136 mmol/L (137-145); Triglycerides 105 mg/dL (<150)
--- NOTE | 2021-12-31 08:20 | WPDINTPN ---
Progress Note: A&P Assessment and Plan (1) Septic shock: Code(s): A41.9 - Sepsis, unspecified organism; R65.21 - Severe sepsis with septic shock Status: Acute Assessment and Plan: Patient presented with hypotension, leukocytosis, lactic acidosis. Likely source peritonitis secondary to ruptured sigmoid colon -right IJ central line was placed in the ER, patient received adequate amount of IV fluids -remains on Levophed but vasopressin was turned off -resume vasopressin -and hydrocortisone stress dose -continue albumin for another 24 hours -continue to maintain MAP > 65 mmHg for adequate end organ perfusion -continue Zosyn -cultures have been obtained and pending (2) Perforated abdominal viscus: Code(s): R19.8 - Other specified symptoms and signs involving the digestive system and abdomen Status: Acute Assessment and Plan: Patient presented with abdominal pain, nausea, vomiting, septic shock. 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 Will discuss with surgery -continue TPN -will discuss with General surgery regarding starting trickle feeds (3) Acute respiratory failure: Code(s): J96.00 - Acute respiratory failure, unspecified whether with hypoxia or hypercapnia Status: Acute Assessment and Plan: Patient also presented with shortness of breath on admission, was found to have a moderate right-sided pneumothorax a CT scan of the abdomen and pelvis -right-sided chest tube was placed in the OR by surgery -patient was intubated and placed on mechanical ventilation for surgery -remains on CMV mode of ventilation, peep of 5, 50% FiO2 -chest x-ray reviewed-advance ET tube by 3 cm -ABG reviewed -decrease tidal volume to 360 -sedation holiday and assess for weaning trial (4) Pneumothorax, right: Code(s): J93.9 - Pneumothorax, unspecified Status: Acute Assessment and Plan: CT scan of the abdomen pelvis showed a moderate right pneumothorax, right-sided chest tube was placed in the OR on 12/29/2021 per surgery -stable mild right apical pneumothorax -intermittent air leak -continue chest tube to suction -surgeon managing the chest tube (5) ROSALINDA (acute kidney injury): Code(s): N17.9 - Acute kidney failure, unspecified Status: Acute Assessment and Plan: Patient presented with acute kidney injury, likely related to septic shock, hypovolemia, ATN, infection -creatinine admission was 2.20 -patient was adequately fluid-resuscitated in the ER and OR -creatinine has improved and has normalized -continue current rate of IV fluids -continue to monitor your renal function, urine output, electrolytes (6) Hydronephrosis with urinary obstruction due to renal calculus: Code(s): N13.2 - Hydronephrosis with renal and ureteral calculous obstruction Status: Acute Assessment and Plan: Cystoscopy, bilateral retrograde pyelography and bilateral ureteral stent placement on 12/29/2021 (7) Electrolyte abnormality: Code(s): E87.8 - Other disorders of electrolyte and fluid balance, not elsewhere classified Status: Acute Assessment and Plan: Replace low potassium, calcium and phosphorous (8) Hyperglycemia: Code(s): R73.9 - Hyperglycemia, unspecified Status: Acute Assessment and Plan: Change sliding scale insulin to q.4 hours and high scale May need to add Lantus. Additional Plan DVT prophylaxis: Enoxaparin Stress ulcer prophylaxis: Protonix Code status: Full code Critical care time spent: 32 minutes This dictation may have been done utilizing a voice recognition system. Attempts have been made to correct errors. However,
[2021-12-31] MEDS: CALCIUM CHLOR 1,000MG/100ML NS 1,000 MG/100 ML BAG 100 MG IVPB (08:55)
[2021-12-31] MEDS: ENOXAPARIN 30 MG/0.3 ML SYRINGE SUB-Q (09:05)
[2021-12-31] MEDS: THIAMINE HCL 200 MG/2 ML VIAL 100 MG IV PUSH (09:05)
[2021-12-31] MEDS: MINERAL OIL/WHITE PETROLATUM OINTMENT 1 APPLIC EACH EYE ×2 (09:05→20:44)
[2021-12-31] MEDS: PANTOPRAZOLE SODIUM IV 40 MG VIAL IV PUSH (09:05)
[2021-12-31] MEDS: POTASSIUM CHLORIDE 20 MEQ PACKET (FOR LIQUID) 40 MEQ FEED TUBE (09:05)
[2021-12-31] MEDS: POTASSIUM PHOS,M-BASIC-D-BASIC 20 MMOL in SODIUM CHLORIDE 0.9% IV 250 ML 64.17 MMOL IVPB (09:06)
[2021-12-31] MEDS: FOLIC ACID 1 MG/0.2 ML INJ IV PUSH (09:07)
[2021-12-31 09:20] LABS: Basophils Percent Auto 0.3 % (0.2-1.2); Hematocrit 25.9 % (42.0-52.0); Hemoglobin 8.3 g/dL (14.0-18.0); Immature Granulocyte Percent A 0.8 % (0-0.5); Immature Platelet Fraction Pct 8.4 % (0.9-11.2); Lymphocytes Absolute Auto 0.95 K/mm3 (0.9-3.2); Lymphocytes Percent Auto 7.2 % (18.3-44.2); Mean Corpuscular Volume 93.5 fl (80-100); Mean Platelet Volume 11.2 fl (7.4-10.4); Monocytes Absolute Auto 0.2 K/mm3 (0.1-0.6); Monocytes Percent Auto 1.3 % (2.6-8.5); Neutrophils Percent Auto 90.4 % (45.5-73.1); Platelet Count Result 128 k/mm3 (150-375); Red Blood Count 2.77 M/mm3 (4.6-6.20); Red Cell Distribution Width 18.1 % (11.5-14.5); White Blood Count 13.2 K/mm3 (4.5-10.0)
[2021-12-31 09:46] LABS: Glucose Point of Care 197 mg/dl (65-105)
--- NOTE | 2021-12-31 11:18 | PM.PNGS ---
Progress Note: A&P Assessment and Plan (1) Perforated abdominal viscus: Code(s): R19.8 - Other specified symptoms and signs involving the digestive system and abdomen Status: Acute Assessment and Plan: s/p sigmoidectomy with end colostomy 12/29 Await return of bowel function Continue TPN until able to start enteral feeding (2) Acute respiratory failure: Code(s): J96.00 - Acute respiratory failure, unspecified whether with hypoxia or hypercapnia Status: Acute Assessment and Plan: Wean and extubated per Remittance Clerk (3) Pneumothorax, right: Code(s): J93.9 - Pneumothorax, unspecified Status: Acute Assessment and Plan: Will manage chest tube until extubated. No air leak identified. Minimal residual apical pneumothorax on AM CXR. (4) Hydronephrosis with urinary obstruction due to renal calculus: Code(s): N13.2 - Hydronephrosis with renal and ureteral calculous obstruction Status: Acute Assessment and Plan: As per Urology. Dr. Navarro following. (5) Septic shock: Code(s): A41.9 - Sepsis, unspecified organism; R65.21 - Severe sepsis with septic shock Status: Acute Assessment and Plan: Continue IV Zosyn Wean pressors per Remittance Clerk (6) Tobacco dependence: Code(s): F17.200 - Nicotine dependence, unspecified, uncomplicated Status: Acute Assessment and Plan: After extubated may need nicotine patch for nicotine withdrawal. ( Smokes 1/2 packs a day). Subjective Subjective Date/Time Seen: 12/31/21 11:18 Interval history: Patient remains intubated and sedated. Nurse reports no significant ostomy output yet and very hypoactive bowel sounds. Vasopressor requirements slowly improving. Exam GI: Inspection: non-distended and other (Ostomy pink, minimal serous output) GI Palp: Yes Soft to palpation Auscultation: absent bowel sounds Objective Data Vital Signs Vital Signs: Vital Signs - 24 hr 12/30/21 11:32 12/30/21 11:25 12/30/21 12:00 Temperature Pulse Rate 70 69 67 Respiratory Rate Blood Pressure 111/62 109/61 Pulse Oximetry Oxygen Delivery Fraction of Inspired Oxygen 12/30/21 12:00 12/30/21 12:00 12/30/21 12:00 Temperature 35.9 C L Pulse Rate 67 67 Respiratory Rate 17 17 Blood Pressure 102/56 L Pulse Oximetry 100 100 Oxygen Delivery Mechanical Ventilation Fraction of Inspired Oxygen 50 50 12/30/21 13:01 12/30/21 13:05 12/30/21 11:43 Temperature Pulse Rate 72 70 68 Respiratory Rate 20 Blood Pressure 107/61 Pulse Oximetry 100 Oxygen Delivery Mechanical Ventilation Fraction of Inspired Oxygen 50 12/30/21 14:15 12/30/21 14:19 12/30/21 14:40 Temperature Pulse Rate 70 79 76 Respiratory Rate 18 16 Blood Pressure Pulse Oximetry 100 Oxygen Delivery Mechanical Ventilation Fraction of Inspired Oxygen 50 12/30/21 14:00 12/30/21 14:00 12/30/21 15:18 Temperature 36.2 C L Pulse Rate 69 69 74 Respiratory Rate 18 Blood Pressure 97/56 L 87/58 L Pulse Oximetry 100 Oxygen Delivery Fraction of Inspired Oxygen 12/30/21 15:44 12/30/21 15:49 12/30/21 15:59 Temperature Pulse Rate 75 Respiratory Rate Blood Pressure 100/57 L Pulse Oximetry 100 Oxygen Delivery Mechanical Ventilation Fraction of Inspired Oxygen 50 50 12/30/21 16:00 12/30/21 16:00 12/30/21 16:59 Temperature 36.5 C Pulse Rate 73 67 76 Respiratory Rate 18 Blood Pressure 104/59 L Pulse Oximetry 100 100 Oxygen Delivery Mechanical Ventilation Fraction of Inspired Oxygen 40 12/30/21 18:00 12/30/21 18:01 12/30/21 18:02 Temperature Pulse Rate 85 76 76 Respiratory Rate 19 17 Blood Pressure 89/52 L Pulse Oximetry Oxygen Delivery Fraction of Inspired Oxygen 12/30/21 18:00 12/30/21 18:00 12/30/21 18:50 Temperature 36.6 C Pulse Rate 79 79 80 Respiratory Rate 20 Blood Pressure 93/60 L 91/
[2021-12-31 11:51] LABS: Glucose Point of Care 206 mg/dl (65-105)
[2021-12-31] MEDS: INSULIN ASPART (*BKC) 100 UNITS/ML SUB-Q ×3 (12:26→23:47)
--- NOTE | 2021-12-31 14:09 | PM.IMPN ---
Progress Note: A&P Assessment and Plan (1) Septic shock: Code(s): A41.9 - Sepsis, unspecified organism; R65.21 - Severe sepsis with septic shock Status: Acute Assessment and Plan: Patient with septic shock present on admission. Associated with hypothermia and leukocytosis. Wean blanket placed. Has been started on vasopressors. Etiology is related to the perforated abdominal viscus. Blood cultures and urine cultures collected. Continue IV antibiotics. Admit to ICU postoperatively. (2) Perforated abdominal viscus: Code(s): R19.8 - Other specified symptoms and signs involving the digestive system and abdomen Status: Acute Assessment and Plan: Etiology unclear but consider perforated duodenal or gastric ulcer. Consider colon cancer. Nothing on the CT scan to point to a specific etiology. Concerning for undiagnosed cancer given the findings on the hip x-ray in April and now with his current condition. Will need proton pump inhibitor treatment. General surgery consult for exploratory laparotomy. (3) Pneumothorax, right: Code(s): J93.9 - Pneumothorax, unspecified Status: Acute Assessment and Plan: Patient also noted to have right pneumothorax. He was mildly hypoxic prior to admission but overall appears to be tolerating this very well. Plans for chest tube placement in the OR. Probably spontaneous from the bleb given that he has extensive smoking history but consider also lung cancer. (4) Hydronephrosis with urinary obstruction due to renal calculus: Code(s): N13.2 - Hydronephrosis with renal and ureteral calculous obstruction Status: Acute Assessment and Plan: CT scan shows prominent left hydronephrosis with severe pelviectasis there is left ureteral dilation as well but the etiology is unclear by the image. He does have a 3.5 mm distal right ureteral calculi with proximal hydroureteronephrosis noted. Consider renal cell or transitional cell carcinoma in the etiology since this can metastasize to bone. Urology has been consulted with plans for stent placement in the OR. (5) ROSALINDA (acute kidney injury): Code(s): N17.9 - Acute kidney failure, unspecified Status: Acute Assessment and Plan: Patient with acute kidney injury most likely related to above. This spray complicated by his prostatomegaly and bladder outlet obstruction as well. Continue IV hydration. Watson catheter has been secured. Monitor closely. (6) Tobacco dependence: Code(s): F17.200 - Nicotine dependence, unspecified, uncomplicated Status: Acute Assessment and Plan: Patient smokes 1.5 packs per day. He will be educated about the benefits of smoking cessation at the appropriate time. (7) Hx of fracture of right hip: Code(s): Z87.81 - Personal history of (healed) traumatic fracture Status: Acute Assessment and Plan: Patient has a history of right hip fracture in April 2021. Imaging at that time showed concerns for pathologic fracture. He was transferred to [facility]. Will request old records to see there is a pathologic fracture and further evaluation was performed. He does have evidence of prostatomegaly so would consider prostate cancer. Also consider other urologic malignancies. Further recommendations as course dictates. (8) Alcoholism: Code(s): F10.20 - Alcohol dependence, uncomplicated Status: Acute Assessment and Plan: Patient admits to drinking 1 drink per day containing 2.5 shots of alcohol. Unclear if he drinks more than this. Will start thiamine folate. Will monitor closely for signs or symptoms of withdrawal with [place] protocol. (9) Hypertension: Code(s): I10 - Essential (primary) hypertension Status: Acute Assessment and Plan: Patient has history of hypertension. Home medication list is unavailable at this time. Patient currently
[2021-12-31] MEDS: KCL 40 MEQ/0.9% SOD CHL 1,000 ML 50 ML IV CONT (14:49)
[2021-12-31] MEDS: FAT EMULSIONS IV 20% 250 ML 20.8 ML IVPB (14:50)
[2021-12-31] MEDS: AMINO ACIDS 5%/D15W/E-LYTES/CA 2,000 ML with MULTIVITAMINS-12 INJ VIAL 1 2.5 ML, MULTIV... 50 ML IV CONT (14:50)
[2021-12-31] MEDS: HYDROCORTISONE SODIUM SUCCINATE 100 MG/2 ML VIAL IV PUSH ×2 (14:52→21:04)
[2021-12-31 16:23] LABS: Glucose Point of Care 145 mg/dl (65-105)
--- NOTE | 2021-12-31 17:42 | ECG_ITS ---
Measurements Intervals [place] Rate: 122 P: [place]: 0 QRS: 81 QRSD: 97 T: 63 QT: 288 QTc: 411 Interpretive Statements ATRIAL FIBRILLATION WITH RAPID VENTRICULAR RESPONSE NONSPECIFIC ST & T-WAVE ABNORMALITY ABNORMAL RHYTHM ECG INTERPRETATION BASED ON A DEFAULT AGE OF 40 YEARS COMPARED TO ECG 12/29/2021 08:05:54 ATRIAL FIBRILLATION NOW PRESENT, DIFFUSE T-WAVE ABNORMALITY HAS IMPROVED Electronically Signed On 01-01-2022 8:22:03 CDT by Rafael Velasquez M.D.
[2021-12-31] MEDS: SODIUM CHLORIDE 0.9% IV 500 ML 999 ML IV CONT (18:09)
[2021-12-31] MEDS: dexmedeTOMIDine 400 MCG/100 ML 400 MCG/100 ML BAG IV CONT (18:26)
[2021-12-31] MEDS: METOPROLOL TARTRATE INJ 5 MG/5 ML VIAL IV PUSH (18:52)
[2021-12-31 21:16] LABS: Glucose Point of Care 202 mg/dl (65-105)
[2021-12-31 23:51] LABS: Glucose Point of Care 228 mg/dl (65-105)
[2022-01-01] VITALS (54 sets, daily range): BP systolic 78–159; BP diastolic 55–107; PULSE 73–124; RESP 17–95; TEMP 34.7–36.8; O2SAT 84–100
[2022-01-01] MEDS: IPRATROPIUM BR 0.02% INH SOLN 0.5 MG/2.5 ML VIAL INHALATION ×4 (02:11→19:33)
[2022-01-01] MEDS: ALBUTEROL SULFATE NEB 2.5 MG/3 ML INH 5 MG INHALATION ×4 (02:11→19:33)
[2022-01-01] MEDS: INSULIN ASPART (*BKC) 100 UNITS/ML SUB-Q ×4 (05:14→20:19)
[2022-01-01] MEDS: ALBUMIN HUMAN 25% 25 GM/100 ML 100 ML IVPB ×3 (05:15→17:14)
[2022-01-01] MEDS: CENTRAL LINE FLUSH 10 ML IV PUSH ×4 (05:18→21:38)
[2022-01-01] MEDS: HYDROCORTISONE SODIUM SUCCINATE 100 MG/2 ML VIAL IV PUSH ×3 (05:18→21:38)
[2022-01-01 05:34] LABS: Anion Gap 10 mmol/L (8-16); Blood Urea Nitrogen 16 mg/dL (9-20); Calcium 7.6 mg/dL (8.4-10.2); Carbon Dioxide 28 mmol/L (22-30); Chloride 99 mmol/L (98-107); Estimated CRCL calculation 57 ml/min; Estimated Glomerular Filt Rate > 60; Glucose 224 mg/dL (65-110); Phosphorus 3.7 mg/dL (2.5-4.5); Potassium 2.7 mmol/L (3.4-5.0); Sodium 137 mmol/L (137-145)
[2022-01-01 05:36] LABS: Glucose Point of Care 245 mg/dl (65-105)
[2022-01-01 05:58] LABS: Alveolar/Arterial O2 Gradient 266.6 mmHg; Base Excess ABG 2.1 mEq/l (+/-2.0); Carboxyhemoglobin 0.2 % THb (0-2.0); Fractional Inspired Oxygen 50 %; HCO3 ABG 24.7 mEq/l (22.0-26.0); Methemoglobin ABG 0.3 %THb (0-1.5); Oxygen Content ABG 11.6 %vol (16.0-22.0); PCO2 ABG 30.9 mmHg (35.0-45.0); PO2 ABG 55.1 mmHg (80.0-100.0); Reduced Hemoglobin 12.1 %THb (0-5.0); Total Hemoglobin 9.4 g/dL (12.0-18.0)
[2022-01-01 06:01] LABS: Device VENTILATOR; Modified Allen's Test Pass; Oxyhemoglobin 87.4 % THb (90.0-100.0); Site Drawn ARTLINE
[2022-01-01 06:02] LABS: Arterial Blood Gas PEEP 5 cmH2O; Arterial Blood Gas Vent Mode CMV; Arterial Blood Gas Ventilator rate 16 /MIN
[2022-01-01 06:03] LABS: Arterial Blood Gas Tidal Volume 360 ml
[2022-01-01 06:11] LABS: Hematocrit 22.2 % (42.0-52.0); Hemoglobin 7.1 g/dL (14.0-18.0); Mean Corpuscular Hemoglobin 29.7 pg (26-34); Mean Corpuscular Volume 92.9 fl (80-100); Mean Platelet Volume 11.9 fl (7.4-10.4); Platelet Count Result 71 k/mm3 (150-375); Red Blood Count 2.39 M/mm3 (4.6-6.20); Red Cell Distribution Width 18.3 % (11.5-14.5); White Blood Count 7.2 K/mm3 (4.5-10.0)
[2022-01-01 06:22] LABS: Magnesium 1.5 mg/dL (1.6-2.3)
[2022-01-01 07:47] LABS: Glucose Point of Care 285 mg/dl (65-105)
[2022-01-01 08:01] LABS: Immature Granulocyte Absolute 0.08 K/mm3 (0.00-0.031); Immature Granulocyte Percent A 1.4 % (0-0.5); Immature Platelet Fraction Pct 11.2 % (0.9-11.2); Lymphocytes Absolute Auto 0.45 K/mm3 (0.9-3.2); Lymphocytes Percent Auto 7.7 % (18.3-44.2); Mean Corpuscular HGB Conc 31.9 g/dl (32-36); Mean Corpuscular Hemoglobin 30.1 pg (26-34); Mean Corpuscular Volume 94.4 fl (80-100); Mean Platelet Volume 12.1 fl (7.4-10.4); Monocytes Absolute Auto 0.1 K/mm3 (0.1-0.6); Monocytes Percent Auto 1.7 % (2.6-8.5); Neutrophils Absolute Auto 5.2 K/mm3 (1.3-6.7); Neutrophils Percent Auto 89.2 % (45.5-73.1); Platelet Count Result 71 k/mm3 (150-375); Red Blood Count 2.16 M/mm3 (4.6-6.20); Red Cell Distribution Width 18.3 % (11.5-14.5); White Blood Count 5.9 K/mm3 (4.5-10.0)
[2022-01-01 08:02] LABS: Hemoglobin 6.5 g/dL (14.0-18.0)
[2022-01-01 08:03] LABS: Hematocrit 20.4 % (42.0-52.0)
[2022-01-01] MEDS: THIAMINE HCL 200 MG/2 ML VIAL 100 MG IV PUSH (08:52)
[2022-01-01] MEDS: PANTOPRAZOLE SODIUM IV 40 MG VIAL IV PUSH ×2 (08:52→20:19)
[2022-01-01] MEDS: MINERAL OIL/WHITE PETROLATUM OINTMENT 1 APPLIC EACH EYE ×2 (08:52→20:19)
[2022-01-01] MEDS: KCL 40 MEQ/WATER 100 ML 100 ML 25 ML IVPB ×2 (08:52→16:53)
[2022-01-01] MEDS: FOLIC ACID 1 MG/0.2 ML INJ IV PUSH (08:53)
[2022-01-01] MEDS: CALCIUM GLUC 1,000 MG/NS 50 ML 1,000 MG/50 ML BAG 100 MG IVPB (08:54)
[2022-01-01] MEDS: MAGNESIUM SULF 4 GM/WATER100ML 4 GM/100 ML BAG IVPB (08:54)
[2022-01-01] MEDS: POTASSIUM CHLORIDE 20 MEQ PACKET (FOR LIQUID) 40 MEQ FEED TUBE (08:55)
[2022-01-01] MEDS: INSULIN GLARGINE (*BKC) 100 UNITS/ML SUB-Q (08:55)
--- NOTE | 2022-01-01 09:13 | WPDINTPN ---
Progress Note: A&P Assessment and Plan (1) Septic shock: Code(s): A41.9 - Sepsis, unspecified organism; R65.21 - Severe sepsis with septic shock Status: Acute Assessment and Plan: Patient presented with hypotension, leukocytosis, lactic acidosis. Likely source peritonitis secondary to ruptured sigmoid colon -right IJ central line was placed in the ER, patient received adequate amount of IV fluids -OFF Levophed and vasopressin -continue stress does hydrocortisone stress dose -continue albumin for another 24 hours -continue to maintain MAP > 65 mmHg for adequate end organ perfusion -continue Zosyn, was switched to higher dose, as renal function is back to normal -blood and urine cultures are negative cultures from abdominal cavity during surgery are also negative so far -patient is hypothermic this morning requiring a Tess Hugger (2) Perforated abdominal viscus: Code(s): R19.8 - Other specified symptoms and signs involving the digestive system and abdomen Status: Acute Assessment and Plan: Patient presented with abdominal pain, nausea, vomiting, septic shock. 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 Will discuss with surgery -continue TPN -patient had a bowel movement, will discuss with surgery regarding trickle tube feeds (3) Acute respiratory failure: Code(s): J96.00 - Acute respiratory failure, unspecified whether with hypoxia or hypercapnia Status: Acute Assessment and Plan: Patient also presented with shortness of breath on admission, was found to have a moderate right-sided pneumothorax a CT scan of the abdomen and pelvis -right-sided chest tube was placed in the OR by surgery -patient was intubated and placed on mechanical ventilation for surgery -remains on CMV mode of ventilation, peep of 5, 50% FiO2 -chest x-ray reviewed -ABG reviewed -decrease tidal volume to 360 -sedation holiday and assess for weaning trial (4) Pneumothorax, right: Code(s): J93.9 - Pneumothorax, unspecified Status: Acute Assessment and Plan: CT scan of the abdomen pelvis showed a moderate right pneumothorax, right-sided chest tube was placed in the OR on 12/29/2021 per surgery -stable mild right apical pneumothorax -intermittent air leak -continue chest tube to suction -surgeon managing the chest tube (5) ROSALINDA (acute kidney injury): Code(s): N17.9 - Acute kidney failure, unspecified Status: Acute Assessment and Plan: Patient presented with acute kidney injury, likely related to septic shock, hypovolemia, ATN, infection -creatinine admission was 2.20 -patient was adequately fluid-resuscitated in the ER and OR -creatinine has normalized -continue current rate of IV fluids -continue to monitor your renal function, urine output, electrolytes (6) Hydronephrosis with urinary obstruction due to renal calculus: Code(s): N13.2 - Hydronephrosis with renal and ureteral calculous obstruction Status: Acute Assessment and Plan: Cystoscopy, bilateral retrograde pyelography and bilateral ureteral stent placement on 12/29/2021 (7) Electrolyte abnormality: Code(s): E87.8 - Other disorders of electrolyte and fluid balance, not elsewhere classified Status: Acute Assessment and Plan: Replace low potassium, calcium, magnesium (8) Hyperglycemia: Code(s): R73.9 - Hyperglycemia, unspecified Status: Acute Assessment and Plan: Change sliding scale insulin to q.4 hours and high scale Added Lantus (9) Anemia: Code(s): D64.9 - Anemia, unspecified Status: Acute Assessment and Plan: Patient dropped his hemoglobin to
[2022-01-01 09:41] LABS: Immature Platelet Fraction Pct 10.5 % (0.9-11.2); Mean Platelet Volume 10.2 fl (7.4-10.4); Platelet Count Result 70 k/mm3 (150-375)
[2022-01-01 10:26] LABS: Iron 13 ug/dL (49-181)
[2022-01-01 10:35] LABS: Percent Iron Saturation 18 % (20-50)
[2022-01-01 10:40] LABS: IFOB Positive Control Positive; Immunochemical Fecal Occult Bl Positive (N)
[2022-01-01 10:50] LABS: INR 1.3; Prothrombin Time 15.3 Seconds (11.1-14.7)
[2022-01-01 10:52] LABS: Fibrinogen 303 mg/dl (215-510); Partial Thromboplastin Time 35.3 SECONDS (22.3-36.8)
[2022-01-01 10:55] LABS: D Dimer 2.26 ug/mL (<0.48)
[2022-01-01] MEDS: SODIUM CHLORIDE 0.9% IV 250 ML 30 ML IV CONT (11:25)
[2022-01-01] MEDS: KCL 40 MEQ/0.9% SOD CHL 1,000 ML 50 ML IV CONT (12:01)
[2022-01-01 12:12] LABS: Glucose Point of Care 158 mg/dl (65-105)
--- NOTE | 2022-01-01 13:19 | PM.PNGS ---
Progress Note: A&P Assessment and Plan (1) Perforated abdominal viscus: Code(s): R19.8 - Other specified symptoms and signs involving the digestive system and abdomen Status: Acute Assessment and Plan: s/p sigmoidectomy with end colostomy 12/29 Await H/H stability, then can start tube feeds. Continue TPN until able to start enteral feeding (2) Acute respiratory failure: Code(s): J96.00 - Acute respiratory failure, unspecified whether with hypoxia or hypercapnia Status: Acute Assessment and Plan: Wean and extubated per Sewer System Supervisor (3) Pneumothorax, right: Code(s): J93.9 - Pneumothorax, unspecified Status: Acute Assessment and Plan: Will manage chest tube until extubated. No air leak identified. Minimal residual apical pneumothorax on AM CXR. (4) Hydronephrosis with urinary obstruction due to renal calculus: Code(s): N13.2 - Hydronephrosis with renal and ureteral calculous obstruction Status: Acute Assessment and Plan: As per Urology. Dr. Melanie serrato. (5) Septic shock: Code(s): A41.9 - Sepsis, unspecified organism; R65.21 - Severe sepsis with septic shock Status: Acute Assessment and Plan: Continue IV Zosyn Wean pressors per Sewer System Supervisor (6) Tobacco dependence: Code(s): F17.200 - Nicotine dependence, unspecified, uncomplicated Status: Acute Assessment and Plan: After extubated may need nicotine patch for nicotine withdrawal. ( Smokes 1/2 packs a day). (7) Anemia: Code(s): D64.9 - Anemia, unspecified Status: Acute Assessment and Plan: Getting transfusion today (8) Thrombocytopenia: Code(s): D69.6 - Thrombocytopenia, unspecified Status: Acute Assessment and Plan: Lovenox on hold Subjective Subjective Date/Time Seen: 01/01/22 13:19 Interval history: Hemoglobin dropped this AM and patient hypothermic. Starting to see some stool in ostomy bag. No overt signs of bleeding. Pressors were off, but restarted this AM for some hypotension. Exam GI: Inspection: non-distended and other (Ostomy pink, stool in bag) GI Palp: Yes Soft to palpation Auscultation: Hypoactive bowel sounds present Objective Data Vital Signs Vital Signs: Vital Signs - 24 hr 12/31/21 13:38 12/31/21 13:48 12/31/21 14:24 Temperature Pulse Rate 90 Respiratory Rate 24 H Blood Pressure 112/67 109/65 Pulse Oximetry Oxygen Delivery Fraction of Inspired Oxygen 12/31/21 14:27 12/31/21 14:00 12/31/21 14:00 Temperature 36.9 C Pulse Rate 91 85 85 Respiratory Rate 22 H Blood Pressure 105/60 Pulse Oximetry 100 100 Oxygen Delivery Mechanical Ventilation Fraction of Inspired Oxygen 40 12/31/21 15:01 12/31/21 14:58 12/31/21 16:00 Temperature Pulse Rate 87 Respiratory Rate 20 Blood Pressure 105/62 Pulse Oximetry Oxygen Delivery Mechanical Ventilation Fraction of Inspired Oxygen 40 12/31/21 16:00 12/31/21 16:00 12/31/21 16:00 Temperature 36.9 C Pulse Rate 81 90 Respiratory Rate 21 H Blood Pressure 102/56 L Pulse Oximetry 100 Oxygen Delivery Fraction of Inspired Oxygen 40 12/31/21 16:20 12/31/21 16:26 12/31/21 18:37 Temperature Pulse Rate 120 H Respiratory Rate 18 Blood Pressure 116/66 116/68 Pulse Oximetry Oxygen Delivery Fraction of Inspired Oxygen 12/31/21 18:38 12/31/21 18:48 12/31/21 17:33 Temperature Pulse Rate 120 H 81 Respiratory Rate 18 Blood Pressure 88/54 L Pulse Oximetry 100 Oxygen Delivery Mechanical Ventilation Fraction of Inspired Oxygen 40 12/31/21 17:45 12/31/21 18:00 12/31/21 18:00 Temperature 36.9 C Pulse Rate 130 H 131 H 131 H Respiratory Rate 23 H Blood Pressure 99/63 L 97/61 L Pulse Oximetry 100 Oxygen Delivery Fraction of Inspired Oxygen 12/31/21 18:26 12/31/21 18:52 12/31/21 20:15 Temperature Puls
[2022-01-01] MEDS: FAT EMULSIONS IV 20% 250 ML 20.8 ML IVPB (13:50)
[2022-01-01] MEDS: AMINO ACIDS 5%/D15W/E-LYTES/CA 2,000 ML with MULTIVITAMINS-12 INJ VIAL 1 2.5 ML, MULTIV... 50 ML IV CONT (13:51)
[2022-01-01 15:28] LABS: Hematocrit 25.5 % (42.0-52.0); Hemoglobin 8.7 g/dL (14.0-18.0); Immature Platelet Fraction Pct 12.3 % (0.9-11.2); Mean Corpuscular HGB Conc 34.1 g/dl (32-36); Mean Corpuscular Volume 93.8 fl (80-100); Mean Platelet Volume 11.6 fl (7.4-10.4); Platelet Count Result 75 k/mm3 (150-375); Red Blood Count 2.72 M/mm3 (4.6-6.20); Red Cell Distribution Width 17.3 % (11.5-14.5)
[2022-01-01] MEDS: dexmedeTOMIDine 400 MCG/100 ML 400 MCG/100 ML BAG IV CONT (15:42)
[2022-01-01 16:45] LABS: Glucose Point of Care 222 mg/dl (65-105)
[2022-01-01 20:17] LABS: Glucose Point of Care 255 mg/dl (65-105)
[2022-01-01 23:56] LABS: Glucose Point of Care 237 mg/dl (65-105)
[2022-01-02] VITALS (49 sets, daily range): BP systolic 94–167; BP diastolic 66–117; PULSE 90–137; RESP 18–35; TEMP 36–36.8; O2SAT 90–99
[2022-01-02] MEDS: ALBUMIN HUMAN 25% 25 GM/100 ML 100 ML IVPB ×2 (00:47→06:06)
[2022-01-02] MEDS: INSULIN ASPART (*BKC) 100 UNITS/ML SUB-Q ×2 (00:47→04:31)
[2022-01-02] MEDS: MORPHINE SULFATE (*CRX) 4 MG/ML INJ IV PUSH (01:42)
[2022-01-02] MEDS: IPRATROPIUM BR 0.02% INH SOLN 0.5 MG/2.5 ML VIAL INHALATION ×4 (02:57→20:12)
[2022-01-02] MEDS: ALBUTEROL SULFATE NEB 2.5 MG/3 ML INH 5 MG INHALATION ×4 (02:58→20:12)
[2022-01-02] MEDS: METOPROLOL TARTRATE INJ 5 MG/5 ML VIAL IV PUSH ×4 (03:14→23:42)
[2022-01-02 03:50] LABS: Glucose Point of Care 274 mg/dl (65-105)
[2022-01-02 03:52] LABS: Alveolar/Arterial O2 Gradient 633.5 mmHg; Base Excess ABG -5.7 mEq/l (+/-2.0); Carboxyhemoglobin 0.2 % THb (0-2.0); Fractional Inspired Oxygen 100 %; HCO3 ABG 19.3 mEq/l (22.0-26.0); Methemoglobin ABG 0.3 %THb (0-1.5); Oxygen Content ABG 10.7 %vol (16.0-22.0); PCO2 ABG 35.9 mmHg (35.0-45.0); PO2 FiO2 Ratio Arterial Blood 0.44 %; Reduced Hemoglobin 27.4 %THb (0-5.0); Total Hemoglobin 10.5 g/dL (12.0-18.0); pH ABG 7.349 (7.350-7.450)
[2022-01-02 03:59] LABS: PO2 ABG 43.6 mmHg (80.0-100.0)
[2022-01-02 04:00] LABS: Oxygen Saturation ABG 77.6 % (95.0-100.0); Oxyhemoglobin 72.1 % THb (90.0-100.0); Site Drawn ARTLINE
[2022-01-02 04:01] LABS: Device VENTILATOR
[2022-01-02 04:02] LABS: Arterial Blood Gas PEEP 5 cmH2O; Arterial Blood Gas Vent Mode CMV; Arterial Blood Gas Ventilator rate 16 /MIN
[2022-01-02 04:03] LABS: Arterial Blood Gas Tidal Volume 360 ml
[2022-01-02 04:08] LABS: Basophils Percent Auto 0.3 % (0.2-1.2); Hematocrit 29.5 % (42.0-52.0); Hemoglobin 9.4 g/dL (14.0-18.0); Immature Granulocyte Absolute 0.35 K/mm3 (0.00-0.031); Immature Granulocyte Percent A 3.2 % (0-0.5); Immature Platelet Fraction Pct 15.3 % (0.9-11.2); Lymphocytes Absolute Auto 0.87 K/mm3 (0.9-3.2); Lymphocytes Percent Auto 8.1 % (18.3-44.2); Mean Corpuscular HGB Conc 31.9 g/dl (32-36); Mean Corpuscular Hemoglobin 30.4 pg (26-34); Mean Corpuscular Volume 95.5 fl (80-100); Monocytes Absolute Auto 0.2 K/mm3 (0.1-0.6); Monocytes Percent Auto 1.8 % (2.6-8.5); Neutrophils Absolute Auto 9.3 K/mm3 (1.3-6.7); Neutrophils Percent Auto 86.6 % (45.5-73.1); Platelet Count Result 80 k/mm3 (150-375); Red Blood Count 3.09 M/mm3 (4.6-6.20); White Blood Count 10.8 K/mm3 (4.5-10.0)
[2022-01-02 04:17] LABS: Alanine Aminotransferase 16 U/L (6-50); Albumin Level 4.1 g/dL (3.5-5.1); Alkaline Phosphatase 93 U/L (38-126); Anion Gap 15 mmol/L (8-16); Aspartate Amino Transferase 27 U/L (17-59); Bilirubin,Total 1.8 mg/dL (0.2-1.3); Blood Urea Nitrogen 19 mg/dL (9-20); Calcium 8.2 mg/dL (8.4-10.2); Carbon Dioxide 21 mmol/L (22-30); Chloride 104 mmol/L (98-107); Estimated CRCL calculation 57 ml/min; Estimated Glomerular Filt Rate > 60; Glucose 240 mg/dL (65-110); INR 1.2; Magnesium 2.5 mg/dL (1.6-2.3); Partial Thromboplastin Time 31.2 SECONDS (22.3-36.8); Phosphorus 3.7 mg/dL (2.5-4.5); Potassium 5.6 mmol/L (3.4-5.0); Prothrombin Time 15.1 Seconds (11.1-14.7); Sodium 140 mmol/L (137-145)
[2022-01-02 04:38] LABS: Transferrin < 80 mg/dL (206-381)
[2022-01-02 04:42] LABS: Triglycerides 141 mg/dL (<150)
[2022-01-02] MEDS: dexmedeTOMIDine 400 MCG/100 ML 400 MCG/100 ML BAG 11.88 MCG IV CONT (06:03)
[2022-01-02] MEDS: HYDROCORTISONE SODIUM SUCCINATE 100 MG/2 ML VIAL IV PUSH (06:06)
[2022-01-02] MEDS: CENTRAL LINE FLUSH 10 ML IV PUSH ×4 (06:07→20:26)
[2022-01-02 07:18] LABS: Glucose Point of Care 153 mg/dl (65-105)
[2022-01-02] MEDS: INSULIN GLARGINE (*BKC) 100 UNITS/ML 15 UNITS SUB-Q (08:09)
[2022-01-02] MEDS: FOLIC ACID 1 MG/0.2 ML INJ IV PUSH (08:11)
[2022-01-02] MEDS: MINERAL OIL/WHITE PETROLATUM OINTMENT 1 APPLIC EACH EYE ×2 (08:12→20:27)
[2022-01-02] MEDS: THIAMINE HCL 200 MG/2 ML VIAL 100 MG IV PUSH (08:12)
[2022-01-02] MEDS: PANTOPRAZOLE SODIUM IV 40 MG VIAL IV PUSH ×2 (08:12→20:27)
[2022-01-02] MEDS: FUROSEMIDE INJ 40 MG/4 ML VIAL 20 MG IV PUSH (08:15)
[2022-01-02] MEDS: MORPHINE SULFATE (*CRX) 2 MG/ML INJ IV PUSH ×5 (08:43→22:22)
[2022-01-02 08:52] LABS: Alanine Aminotransferase 13 U/L (6-50); Albumin Level 3.9 g/dL (3.5-5.1); Alkaline Phosphatase 86 U/L (38-126); Anion Gap 11 mmol/L (8-16); Aspartate Amino Transferase 24 U/L (17-59); Bilirubin,Total 1.9 mg/dL (0.2-1.3); Blood Urea Nitrogen 21 mg/dL (9-20); Calcium 8.2 mg/dL (8.4-10.2); Carbon Dioxide 24 mmol/L (22-30); Chloride 105 mmol/L (98-107); Estimated CRCL calculation 69 ml/min; Estimated Glomerular Filt Rate > 60; Glucose 111 mg/dL (65-110); Potassium 4.9 mmol/L (3.4-5.0); Sodium 140 mmol/L (137-145)
[2022-01-02 08:56] LABS: Alveolar/Arterial O2 Gradient 329.8 mmHg; Base Excess ABG -2.9 mEq/l (+/-2.0); Device VENTILATOR; Fractional Inspired Oxygen 60 %; HCO3 ABG 21.1 mEq/l (22.0-26.0); Oxygen Content ABG 12.4 %vol (16.0-22.0); Oxygen Saturation ABG 92.1 % (95.0-100.0); Oxyhemoglobin 88.9 % THb (90.0-100.0); PCO2 ABG 33.5 mmHg (35.0-45.0); PO2 ABG 61.2 mmHg (80.0-100.0); PO2 FiO2 Ratio Arterial Blood 1.02 %; Site Drawn ARTLINE; Total Hemoglobin 9.9 g/dL (12.0-18.0); pH ABG 7.417 (7.350-7.450)
[2022-01-02 08:57] LABS: Arterial Blood Gas PEEP 5 cmH2O; Arterial Blood Gas Tidal Volume 360 ml; Arterial Blood Gas Vent Mode CMV; Arterial Blood Gas Ventilator rate 16 /MIN
--- NOTE | 2022-01-02 09:58 | WPDUROPN2 ---
Progress Note: A&P Assessment and Plan (1) Bilateral hydronephrosis: Code(s): N13.30 - Unspecified hydronephrosis Status: Acute Assessment and Plan: Transient leakage around catheter followed by bloody urine in catheter tubing -> c/w bladder spasm. CT-abd/pelvis shows stents and catheter to be in good position. If spasms become problematic, we could use B&O suppositories. Subjective Subjective Date/Time Seen: 01/02/22 09:58 Intubated Review of Systems Review of Systems: ROS unobtainable: Yes unobtainable due to endotracheal tube Exam : Male General Exam: No normal external exam, No erythema and No perineal induration Urinary Catheter: Urinary Catheter: patent and draining and urine pink Objective Data Vital Signs Vital Signs: Vital Signs - 24 hr 01/01/22 10:00 01/01/22 10:00 01/01/22 10:00 Temperature 95.0 F L 95.0 F L Pulse Rate 98 98 Respiratory Rate 22 H Blood Pressure 85/59 L Pulse Oximetry 100 Oxygen Delivery Fraction of Inspired Oxygen 01/01/22 10:18 01/01/22 11:05 01/01/22 11:10 Temperature 96.4 F L 96.5 F L Pulse Rate 101 H 106 H 85 Respiratory Rate 26 H 25 H Blood Pressure 85/59 L 103/74 102/74 Pulse Oximetry 100 100 Oxygen Delivery Fraction of Inspired Oxygen 01/01/22 11:16 01/01/22 11:22 01/01/22 11:04 Temperature 96.6 F L 96.7 F L Pulse Rate 89 89 88 Respiratory Rate 26 H 29 H Blood Pressure 93/67 L 95/68 L Pulse Oximetry 100 100 100 Oxygen Delivery Mechanical Ventilation Fraction of Inspired Oxygen 50 01/01/22 11:49 01/01/22 11:50 01/01/22 11:50 Temperature 97.4 F L Pulse Rate 120 H Respiratory Rate 29 H Blood Pressure 135/90 Pulse Oximetry Oxygen Delivery Fraction of Inspired Oxygen 01/01/22 11:59 01/01/22 12:00 01/01/22 12:00 Temperature 97.7 F Pulse Rate Respiratory Rate Blood Pressure 159/107 H Pulse Oximetry Oxygen Delivery Fraction of Inspired Oxygen 50 01/01/22 12:07 01/01/22 12:00 01/01/22 12:52 Temperature 97.9 F Pulse Rate 116 H Respiratory Rate 28 H Blood Pressure 151/101 H 148/99 H 78/55 L Pulse Oximetry 98 Oxygen Delivery Fraction of Inspired Oxygen 01/01/22 12:00 01/01/22 14:00 01/01/22 14:00 Temperature 98.3 F 98.3 F Pulse Rate 104 H Respiratory Rate 31 H Blood Pressure 107/73 Pulse Oximetry 100 Oxygen Delivery Mechanical Ventilation Fraction of Inspired Oxygen 50 01/01/22 14:27 01/01/22 14:35 01/01/22 14:36 Temperature Pulse Rate 103 H 92 100 Respiratory Rate 26 H 24 H Blood Pressure Pulse Oximetry 100 Oxygen Delivery Mechanical Ventilation Fraction of Inspired Oxygen 50 01/01/22 12:00 01/01/22 14:52 01/01/22 15:42 Temperature Pulse Rate 118 H 108 H 111 H Respiratory Rate 18 Blood Pressure Pulse Oximetry Oxygen Delivery Fraction of Inspired Oxygen 01/01/22 15:44 01/01/22 16:00 01/01/22 16:00 Temperature Pulse Rate Respiratory Rate Blood Pressure 126/85 Pulse Oximetry Oxygen Delivery Mechanical Ventilation Fraction of Inspired Oxygen 50 50 01/01/22 16:00 01/01/22 16:00 01/01/22 18:00 Temperature 97.5 F L Pulse Rate 84 88 104 H Respiratory Rate 18 Blood Pressure 120/82 Pulse Oximetry 100 Oxygen Delivery Fraction of Inspired Oxygen 01/01/22 18:00 01/01/22 16:54 01/01/22 17:14 Temperature 97.0 F L Pulse Rate 99 Respiratory Rate 18 Blood Pressure 94/70 L 121/81 117/82 Pulse Oximetry 100 Oxygen Delivery Fraction of Inspired Oxygen 01/01/22 17:28 01/01/22 17:13 01/01/22 19:36 Temperature Pulse Rate 73 97 Respiratory Rate 22 H Blood Pressure 113/83 Pulse Oximetry 99 Oxygen Delivery Mechanical Ventilation Fraction of Inspired Oxygen 50 01/01/22 19:37 01/01/22 19:43 01/01/22 20:00 Temperature 96.7 F L Pulse Rate 97 92 102 H Respiratory Rate 22 H 20 Blood Pressure
--- NOTE | 2022-01-02 11:39 | WPDINTPN ---
Progress Note: A&P Assessment and Plan (1) Septic shock: Code(s): A41.9 - Sepsis, unspecified organism; R65.21 - Severe sepsis with septic shock Status: Acute Assessment and Plan: Patient presented with hypotension, leukocytosis, lactic acidosis. Likely source peritonitis secondary to ruptured sigmoid colon -right IJ central line was placed in the ER, patient received adequate amount of IV fluids -OFF Levophed and vasopressin -wean stress dose steroids -off albumin -continue to maintain MAP > 65 mmHg for adequate end organ perfusion -continue Zosyn (12/29), was switched to higher dose, as renal function is back to normal, continue for 7 days -blood and urine cultures are negative cultures from abdominal cavity during surgery are also negative so far (2) Perforated abdominal viscus: Code(s): R19.8 - Other specified symptoms and signs involving the digestive system and abdomen Status: Acute Assessment and Plan: Patient presented with abdominal pain, nausea, vomiting, septic shock. 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 Will discuss with surgery -continue TPN -patient had a bowel movement, will discuss with surgery regarding trickle tube feeds (3) Acute respiratory failure: Code(s): J96.00 - Acute respiratory failure, unspecified whether with hypoxia or hypercapnia Status: Acute Assessment and Plan: Patient also presented with shortness of breath on admission, was found to have a moderate right-sided pneumothorax a CT scan of the abdomen and pelvis -right-sided chest tube was placed in the OR by surgery -patient was intubated and placed on mechanical ventilation for surgery -remains on CMV mode of ventilation, peep of 5, 50% FiO2 -place patient on pressure support ventilation, immediately was tachypneic in the 40s wound looked and respiratory distress, placed back on CMV mode of ventilation -chest x-ray reviewed will give small dose of Lasix -ABG reviewed -patient on Precedex infusion (4) Pneumothorax, right: Code(s): J93.9 - Pneumothorax, unspecified Status: Acute Assessment and Plan: CT scan of the abdomen pelvis showed a moderate right pneumothorax, right-sided chest tube was placed in the OR on 12/29/2021 per surgery -stable mild right apical pneumothorax -intermittent air leak -continue chest tube to suction -surgeon managing the chest tube (5) ROSALINDA (acute kidney injury): Code(s): N17.9 - Acute kidney failure, unspecified Status: Acute Assessment and Plan: Patient presented with acute kidney injury, likely related to septic shock, hypovolemia, ATN, infection -creatinine admission was 2.20 -patient was adequately fluid-resuscitated in the ER and OR -creatinine has normalized -continue current rate of IV fluids -continue to monitor your renal function, urine output, electrolytes (6) Hydronephrosis with urinary obstruction due to renal calculus: Code(s): N13.2 - Hydronephrosis with renal and ureteral calculous obstruction Status: Acute Assessment and Plan: Cystoscopy, bilateral retrograde pyelography and bilateral ureteral stent placement on 12/29/2021 -patient with blood in urine, Watson has been flushed -urology following the patient (7) Electrolyte abnormality: Code(s): E87.8 - Other disorders of electrolyte and fluid balance, not elsewhere classified Status: Acute Assessment and Plan: Potassium, calcium and magnesium normalized (8) Hyperglycemia: Code(s): R73.9 - Hyperglycemia, unspecified Status: Acute Assessment and Plan: Continue sliding scale insulin q.4 hours and high scale A
--- NOTE | 2022-01-02 11:45 | PCFNICU ---
ICU Rounding Note: Pt current nutrition is TPN. Last recorded weight is 63.5 kg, up from 59,6 kg. Bowel Motility:ostomy Labs Reviewed:K 4.9, Hgb 29.5, Hgb 9.4 Meds Noted:Lasix,Folic Acid, Thiamine, Levophed, Precedex, Protonix, Zosyn, Atrovent, Lantus Skin: WNL Additional Notes: Patient remains on mechanical vent. TPN continues at 50 ml/hr with Lipids providing 1352 kcals and 60 gms protein. Meeting 99% kcal needs and 80% protein needs, Agree with diet orders. Patient received 1 unit of blood 01/01. Agree with diet orders. Following daily in ICU rounds. Will monitor every Sunday and Sunday.
[2022-01-02] MEDS: dexmedeTOMIDine 400 MCG/100 ML 400 MCG/100 ML BAG 14.85 MCG IV CONT ×2 (13:20→20:15)
[2022-01-02] MEDS: FAT EMULSIONS IV 20% 250 ML 20.8 ML IVPB (13:24)
[2022-01-02] MEDS: AMINO ACIDS 5%/D15W/E-LYTES/CA 2,000 ML with MULTIVITAMINS-12 INJ VIAL 1 2.5 ML, MULTIV... 50 ML IV CONT (13:24)
[2022-01-02 14:41] LABS: Glucose Point of Care 171 mg/dl (65-105)
[2022-01-02 16:44] LABS: Glucose Point of Care 176 mg/dl (65-105)
[2022-01-02] MEDS: HYDROCORTISONE SODIUM SUCCINATE 100 MG/2 ML VIAL 50 MG IV PUSH (16:53)
[2022-01-02 18:41] LABS: Anion Gap 13 mmol/L (8-16); Blood Urea Nitrogen 26 mg/dL (9-20); Calcium 8.1 mg/dL (8.4-10.2); Carbon Dioxide 21 mmol/L (22-30); Chloride 103 mmol/L (98-107); Estimated CRCL calculation 69 ml/min; Estimated Glomerular Filt Rate > 60; Glucose 169 mg/dL (65-110); Potassium 4.5 mmol/L (3.4-5.0); Sodium 137 mmol/L (137-145)
--- NOTE | 2022-01-02 19:18 | PM.PNGS ---
Progress Note: A&P Assessment and Plan (1) Perforated abdominal viscus: Code(s): R19.8 - Other specified symptoms and signs involving the digestive system and abdomen Status: Acute Assessment and Plan: s/p sigmoidectomy with end colostomy 12/29 OK to start tube feeds tonight (2) Acute respiratory failure: Code(s): J96.00 - Acute respiratory failure, unspecified whether with hypoxia or hypercapnia Status: Acute Assessment and Plan: Wean and extubated per Shop Service Technician (3) Pneumothorax, right: Code(s): J93.9 - Pneumothorax, unspecified Status: Acute Assessment and Plan: Will manage chest tube until extubated. No air leak identified. Minimal residual apical pneumothorax on AM CXR. (4) Hydronephrosis with urinary obstruction due to renal calculus: Code(s): N13.2 - Hydronephrosis with renal and ureteral calculous obstruction Status: Acute Assessment and Plan: As per Urology. Dr. Melanie serrato. (5) Septic shock: Code(s): A41.9 - Sepsis, unspecified organism; R65.21 - Severe sepsis with septic shock Status: Acute Assessment and Plan: Continue IV Zosyn Off pressors now (6) Tobacco dependence: Code(s): F17.200 - Nicotine dependence, unspecified, uncomplicated Status: Acute Assessment and Plan: After extubated may need nicotine patch for nicotine withdrawal. ( Smokes 1/2 packs a day). (7) Anemia: Code(s): D64.9 - Anemia, unspecified Status: Acute Assessment and Plan: No signs of ongoing bleeding (8) Thrombocytopenia: Code(s): D69.6 - Thrombocytopenia, unspecified Status: Acute Assessment and Plan: Lovenox on hold (9) Reducible right inguinal hernia: Code(s): K40.90 - Unilateral inguinal hernia, without obstruction or gangrene, not specified as recurrent Status: Acute Assessment and Plan: Hernia soft and reducible, no signs of obstruction Subjective Subjective Date/Time Seen: 01/02/22 19:18 Interval history: Repeat CT was done for concern of increased swelling in right groin and scrotum. Now off pressors. Small amount of ostomy output. Exam GI: Inspection: non-distended, incision (intact with anthony) and other (ostomy pink and functioning) : Scrotum: inguinal hernia on the right (soft and reducible) Objective Data Vital Signs Vital Signs: Vital Signs - 24 hr 01/01/22 19:36 01/01/22 19:37 01/01/22 19:43 Temperature Pulse Rate 97 97 92 Respiratory Rate 22 H 22 H Blood Pressure Pulse Oximetry 97 Oxygen Delivery Mechanical Ventilation Fraction of Inspired Oxygen 40 01/01/22 20:00 01/01/22 20:00 01/01/22 20:00 Temperature 35.9 C L Pulse Rate 102 H 93 Respiratory Rate 20 20 Blood Pressure 107/77 Pulse Oximetry 99 99 Oxygen Delivery Mechanical Ventilation Fraction of Inspired Oxygen 40 01/01/22 20:00 01/01/22 20:00 01/01/22 22:15 Temperature Pulse Rate 93 107 H Respiratory Rate 20 Blood Pressure Pulse Oximetry Oxygen Delivery Fraction of Inspired Oxygen 40 01/01/22 22:00 01/01/22 22:00 01/01/22 23:38 Temperature 35.9 C L Pulse Rate 99 99 84 Respiratory Rate 20 Blood Pressure 102/82 Pulse Oximetry 100 100 Oxygen Delivery Mechanical Ventilation Fraction of Inspired Oxygen 30 01/02/22 00:00 01/02/22 00:00 01/02/22 00:00 Temperature 36.0 C L Pulse Rate 102 H 103 H Respiratory Rate 24 H 22 H Blood Pressure 104/82 Pulse Oximetry 98 Oxygen Delivery Fraction of Inspired Oxygen 30 01/02/22 00:30 01/02/22 01:00 01/02/22 02:17 Temperature Pulse Rate 116 H 120 H 124 H Respiratory Rate 24 H 28 H 24 H Blood Pressure Pulse Oximetry Oxygen Delivery Fraction of Inspired Oxygen 01/02/22 00:00 01/02/22 01:50 01/02/22 01:50 Temperature Pulse Rate Respiratory Rate Blood Pressure Pulse Oximetry 9
[2022-01-02 20:42] LABS: Glucose Point of Care 184 mg/dl (65-105)
[2022-01-02 23:49] LABS: Glucose Point of Care 197 mg/dl (65-105)
[2022-01-03] VITALS (36 sets, daily range): BP systolic 102–132; BP diastolic 55–102; PULSE 94–140; RESP 16–32; TEMP 36.1–36.9; O2SAT 89–98
[2022-01-03] MEDS: MORPHINE SULFATE (*CRX) 4 MG/ML INJ IV PUSH ×5 (00:19→19:48)
[2022-01-03] MEDS: ALBUTEROL SULFATE NEB 2.5 MG/3 ML INH 5 MG INHALATION ×3 (02:39→20:31)
[2022-01-03] MEDS: IPRATROPIUM BR 0.02% INH SOLN 0.5 MG/2.5 ML VIAL INHALATION ×3 (02:39→20:32)
[2022-01-03] MEDS: dexmedeTOMIDine 400 MCG/100 ML 400 MCG/100 ML BAG 16.34 MCG IV CONT ×2 (02:56→14:54)
[2022-01-03 05:11] LABS: Alveolar/Arterial O2 Gradient 357.1 mmHg; Carboxyhemoglobin 0.1 % THb (0-2.0); Fractional Inspired Oxygen 65 %; HCO3 ABG 23.3 mEq/l (22.0-26.0); Methemoglobin ABG 0.3 %THb (0-1.5); Oxygen Content ABG 12.7 %vol (16.0-22.0); Oxygen Saturation ABG 93.5 % (95.0-100.0); Oxyhemoglobin 89.9 % THb (90.0-100.0); PCO2 ABG 36.9 mmHg (35.0-45.0); PO2 ABG 66.2 mmHg (80.0-100.0); PO2 FiO2 Ratio Arterial Blood 1.02 %; Reduced Hemoglobin 9.7 %THb (0-5.0); pH ABG 7.418 (7.350-7.450)
[2022-01-03 05:12] LABS: Device VENTILATOR; Site Drawn ARTLINE
[2022-01-03 05:13] LABS: Arterial Blood Gas PEEP 5 cmH2O; Arterial Blood Gas Tidal Volume 360 ml; Arterial Blood Gas Vent Mode CMV; Arterial Blood Gas Ventilator rate 16 /MIN
[2022-01-03] MEDS: METOPROLOL TARTRATE INJ 5 MG/5 ML VIAL IV PUSH ×2 (05:21→21:25)
[2022-01-03 05:36] LABS: Hematocrit 28.1 % (42.0-52.0); Hemoglobin 8.7 g/dL (14.0-18.0); Immature Platelet Fraction Pct 19.7 % (0.9-11.2); Mean Corpuscular Hemoglobin 30.2 pg (26-34); Mean Corpuscular Volume 97.6 fl (80-100); Platelet Count Result 71 k/mm3 (150-375); Red Blood Count 2.88 M/mm3 (4.6-6.20); Red Cell Distribution Width 17.6 % (11.5-14.5); White Blood Count 10.4 K/mm3 (4.5-10.0)
[2022-01-03] MEDS: HYDROCORTISONE SODIUM SUCCINATE 100 MG/2 ML VIAL 50 MG IV PUSH (05:36)
[2022-01-03] MEDS: CENTRAL LINE FLUSH 10 ML IV PUSH ×4 (05:37→21:26)
[2022-01-03 05:48] LABS: Anion Gap 9 mmol/L (8-16); Blood Urea Nitrogen 30 mg/dL (9-20); Calcium 8.1 mg/dL (8.4-10.2); Carbon Dioxide 26 mmol/L (22-30); Chloride 103 mmol/L (98-107); Estimated CRCL calculation 62 ml/min; Estimated Glomerular Filt Rate > 60; Glucose 153 mg/dL (65-110); Phosphorus 3.7 mg/dL (2.5-4.5); Potassium 4.6 mmol/L (3.4-5.0); Sodium 138 mmol/L (137-145)
[2022-01-03 06:02] LABS: Glucose Point of Care 174 mg/dl (65-105)
[2022-01-03 07:19] LABS: Glucose Point of Care 165 mg/dl (65-105)
[2022-01-03] MEDS: dexmedeTOMIDine 400 MCG/100 ML 400 MCG/100 ML BAG 17.82 MCG IV CONT ×2 (08:52→20:51)
[2022-01-03] MEDS: INSULIN GLARGINE (*BKC) 100 UNITS/ML 15 UNITS SUB-Q (09:11)
[2022-01-03] MEDS: FOLIC ACID 1 MG/0.2 ML INJ IV PUSH (09:11)
[2022-01-03] MEDS: PANTOPRAZOLE SODIUM IV 40 MG VIAL IV PUSH ×2 (09:11→20:58)
[2022-01-03] MEDS: THIAMINE HCL 200 MG/2 ML VIAL 100 MG IV PUSH (09:12)
[2022-01-03] MEDS: MINERAL OIL/WHITE PETROLATUM OINTMENT 1 APPLIC EACH EYE ×2 (09:12→20:58)
[2022-01-03] MEDS: ALPRAZolam (*CRX) 0.5 MG TABLET PO ×2 (09:30→22:26)
--- NOTE | 2022-01-03 10:57 | PM.PNGS ---
Progress Note: A&P Assessment and Plan (1) Perforated abdominal viscus: Code(s): R19.8 - Other specified symptoms and signs involving the digestive system and abdomen Status: Acute Assessment and Plan: s/p sigmoidectomy with end colostomy 12/29 Advance tube feeding as tolerated (2) Acute respiratory failure: Code(s): J96.00 - Acute respiratory failure, unspecified whether with hypoxia or hypercapnia Status: Acute Assessment and Plan: Wean and extubated per Wood Finisher (3) Pneumothorax, right: Code(s): J93.9 - Pneumothorax, unspecified Status: Acute Assessment and Plan: Will manage chest tube until extubated. No air leak identified. (4) Hydronephrosis with urinary obstruction due to renal calculus: Code(s): N13.2 - Hydronephrosis with renal and ureteral calculous obstruction Status: Acute Assessment and Plan: As per Urology. Dr. Navarro following. (5) Septic shock: Code(s): A41.9 - Sepsis, unspecified organism; R65.21 - Severe sepsis with septic shock Status: Acute Assessment and Plan: Continue IV Zosyn Off pressors now (6) Tobacco dependence: Code(s): F17.200 - Nicotine dependence, unspecified, uncomplicated Status: Acute Assessment and Plan: After extubated may need nicotine patch for nicotine withdrawal. ( Smokes 1/2 packs a day). (7) Anemia: Code(s): D64.9 - Anemia, unspecified Status: Acute Assessment and Plan: No signs of ongoing bleeding (8) Thrombocytopenia: Code(s): D69.6 - Thrombocytopenia, unspecified Status: Acute Assessment and Plan: Lovenox on hold (9) Reducible right inguinal hernia: Code(s): K40.90 - Unilateral inguinal hernia, without obstruction or gangrene, not specified as recurrent Status: Acute Assessment and Plan: Hernia soft and reducible, no signs of obstruction Subjective Subjective Date/Time Seen: 01/03/22 10:57 Interval history: No acute events overnight. Exam GI: Inspection: non-distended, incision (intact with anthony) and other (ostomy pink and functioning) : Scrotum: inguinal hernia on the right (soft and reducible) Objective Data Vital Signs Vital Signs: Vital Signs - 24 hr 01/02/22 11:00 01/02/22 11:53 01/02/22 12:00 Temperature 36.6 C Pulse Rate 110 H 117 H 99 Respiratory Rate 28 H 30 H Blood Pressure 94/77 L Pulse Oximetry 90 Oxygen Delivery Fraction of Inspired Oxygen 01/02/22 12:00 01/02/22 12:00 01/02/22 12:00 Temperature 36.6 C Pulse Rate 99 99 Respiratory Rate 22 H 22 H Blood Pressure 95/66 L Pulse Oximetry 96 96 Oxygen Delivery Mechanical Ventilation Fraction of Inspired Oxygen 60 60 01/02/22 13:20 01/02/22 14:00 01/02/22 14:00 Temperature 36.4 C Pulse Rate 106 H 90 90 Respiratory Rate 25 H 23 H Blood Pressure 98/68 L Pulse Oximetry 94 Oxygen Delivery Fraction of Inspired Oxygen 01/02/22 14:31 01/02/22 14:39 01/02/22 14:41 Temperature Pulse Rate 102 H 100 99 Respiratory Rate 24 H 20 Blood Pressure Pulse Oximetry 93 Oxygen Delivery Mechanical Ventilation Fraction of Inspired Oxygen 60 01/02/22 16:00 01/02/22 16:00 01/02/22 16:50 Temperature 36.4 C L Pulse Rate 121 H 121 H 109 H Respiratory Rate 18 19 Blood Pressure 109/88 Pulse Oximetry 95 Oxygen Delivery Fraction of Inspired Oxygen 01/02/22 17:12 01/02/22 16:00 01/02/22 16:00 Temperature Pulse Rate 110 H 121 H Respiratory Rate 18 Blood Pressure Pulse Oximetry 93 95 Oxygen Delivery Mechanical Ventilation Mechanical Ventilation Fraction of Inspired Oxygen 60 60 60 01/02/22 18:00 01/02/22 18:00 01/02/22 17:31 Temperature 36.4 C Pulse Rate 110 H 110 H 128 H Respiratory Rate 21 H Blood Pressure 126/90 Pulse Oximetry 90 Oxygen Delivery Fraction of Inspired Oxygen 01/02/22 20:
--- NOTE | 2022-01-03 11:34 | PCNFU ---
Nutrition Follow-Up Complete: Altered GI function as related to sigmoid resection/colostomy as evidenced by TPN Goal: Meet estimated nutritional needs Patient is progressing towards goal. We will continue current goal. Pt current nutrition is TPN. Trickle feedings of Jevity 1.2 at 20 ml/hr Last recorded weight is 65.6 kg, up from 59.6 kg on admit. Bowel Motility:ostomy Labs Reviewed:Hct 28.1,Hgb 8.7,Glu 153, BUN 30 Meds Noted:Lasix,Folic Acid, Thiamine, Levophed, Precedex, Protonix, Zosyn, Atrovent, Lantus Skin: WNL Additional Notes: Patient remains on mechanical vent and TPN, Clinimix 5/15 at 50 ml/hr with 250 ml of 20% Lipid Emulsion. Providing 1352 kcals, 60 gms protein. Tube feeding currently on hold at this time. Surgery is following. Agree with diet orders at this time. Will monitor daily in ICU rounds and reassessing every Sunday and Sunday.
[2022-01-03 12:19] LABS: Glucose Point of Care 244 mg/dl (65-105)
--- NOTE | 2022-01-03 12:37 | WPDINTPN ---
Progress Note: A&P Assessment and Plan (1) Septic shock: Code(s): A41.9 - Sepsis, unspecified organism; R65.21 - Severe sepsis with septic shock Status: Acute Assessment and Plan: RESOLVED Patient presented with hypotension, leukocytosis, lactic acidosis. Likely source peritonitis secondary to ruptured sigmoid colon -right IJ central line was placed in the ER, patient received adequate amount of IV fluids -OFF Levophed and vasopressin -OFF stress dose steroids -off albumin -continue to maintain MAP > 65 mmHg for adequate end organ perfusion -continue Zosyn (12/29), -blood and urine cultures are negative cultures from abdominal cavity during surgery are also negative so far (2) Perforated abdominal viscus: Code(s): R19.8 - Other specified symptoms and signs involving the digestive system and abdomen Status: Acute Assessment and Plan: Patient presented with abdominal pain, nausea, vomiting, septic shock. 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), -surgery following the patient -wound nurse following for ostomy care -ostomy with brown stools -continue TPN -, trickle tube feeds was started on 01/02/2022: Patient had increased tube feed residual, discussed with surgery, will hold tube feeds for now (3) Acute respiratory failure: Code(s): J96.00 - Acute respiratory failure, unspecified whether with hypoxia or hypercapnia Status: Acute Assessment and Plan: Patient also presented with shortness of breath on admission, was found to have a moderate right-sided pneumothorax a CT scan of the abdomen and pelvis -right-sided chest tube was placed in the OR by surgery -patient was intubated and placed on mechanical ventilation for surgery -remains on CMV mode of ventilation, peep of 5, 50% FiO2 -patient did not tolerate pressure support ventilation, is on CMV mode -increase rod colored secretions, worsening chest x-ray -continue Zosyn, will add vancomycin -ABG reviewed -patient on Precedex infusion -patient remains tachycardic, venous Doppler showed DVT of left popliteal and posterior tibial veins, (4) Pneumothorax, right: Code(s): J93.9 - Pneumothorax, unspecified Status: Acute Assessment and Plan: CT scan of the abdomen pelvis showed a moderate right pneumothorax, right-sided chest tube was placed in the OR on 12/29/2021 per surgery -stable mild right apical pneumothorax -intermittent air leak -continue chest tube to suction -surgeon managing the chest tube (5) ROSALINDA (acute kidney injury): Code(s): N17.9 - Acute kidney failure, unspecified Status: Acute Assessment and Plan: RESOLVED Patient presented with acute kidney injury, likely related to septic shock, hypovolemia, ATN, infection -creatinine admission was 2.20 -patient was adequately fluid-resuscitated in the ER and OR -creatinine has normalized -continue current rate of IV fluids -continue to monitor your renal function, urine output, electrolytes (6) Hydronephrosis with urinary obstruction due to renal calculus: Code(s): N13.2 - Hydronephrosis with renal and ureteral calculous obstruction Status: Acute Assessment and Plan: Cystoscopy, bilateral retrograde pyelography and bilateral ureteral stent placement on 12/29/2021 -patient with blood in urine, Watson has been flushed -urology following the patient (7) Electrolyte abnormality: Code(s): E87.8 - Other disorders of electrolyte and fluid balance, not elsewhere classified Status: Acute Assessment and Plan: Potassium, calcium and magnesium normalized (8) Hyperglycemia: Code(s): R73.9 - Hyperglycemia, unspecified Status: Acute Assessment and Plan: Continue sliding scale insulin q.4 hour
[2022-01-03] MEDS: INSULIN ASPART (*BKC) 100 UNITS/ML SUB-Q (12:50)
[2022-01-03] MEDS: AMINO ACIDS 5%/D15W/E-LYTES/CA 2,000 ML with MULTIVITAMINS-12 INJ VIAL 1 2.5 ML, MULTIV... 50 ML IV CONT (14:42)
[2022-01-03] MEDS: FAT EMULSIONS IV 20% 250 ML 20.8 ML IVPB (14:43)
--- NOTE | 2022-01-03 16:07 | P.PNIM_ITS ---
Progress Note: A&P Assessment and Plan (1) Septic shock: Code(s): A41.9 - Sepsis, unspecified organism; R65.21 - Severe sepsis with septic shock Status: Acute Assessment and Plan: Patient with septic shock present on admission. Associated with hypothermia and leukocytosis. Wean blanket placed. Has been started on vasopressors. Etiology is related to the perforated abdominal viscus. Blood cultures and urine cultures collected. Continue IV antibiotics. Admit to ICU postoperatively. (2) Perforated abdominal viscus: Code(s): R19.8 - Other specified symptoms and signs involving the digestive system and abdomen Status: Acute Assessment and Plan: Etiology unclear but consider perforated duodenal or gastric ulcer. Consider colon cancer. Nothing on the CT scan to point to a specific etiology. Concerning for undiagnosed cancer given the findings on the hip x-ray in April and now with his current condition. Will need proton pump inhibitor treatment. General surgery consult for exploratory laparotomy. (3) Pneumothorax, right: Code(s): J93.9 - Pneumothorax, unspecified Status: Acute Assessment and Plan: Patient also noted to have right pneumothorax. He was mildly hypoxic prior to admission but overall appears to be tolerating this very well. Plans for chest tube placement in the OR. Probably spontaneous from the bleb given that he has extensive smoking history but consider also lung cancer. (4) Hydronephrosis with urinary obstruction due to renal calculus: Code(s): N13.2 - Hydronephrosis with renal and ureteral calculous obstruction Status: Acute Assessment and Plan: CT scan shows prominent left hydronephrosis with severe pelviectasis there is left ureteral dilation as well but the etiology is unclear by the image. He does have a 3.5 mm distal right ureteral calculi with proximal hydroureteronephrosis noted. Consider renal cell or transitional cell carcinoma in the etiology since this can metastasize to bone. Urology has been consulted with plans for stent placement in the OR. (5) ROSALINDA (acute kidney injury): Code(s): N17.9 - Acute kidney failure, unspecified Status: Acute Assessment and Plan: Patient with acute kidney injury most likely related to above. This spray complicated by his prostatomegaly and bladder outlet obstruction as well. Continue IV hydration. Watson catheter has been secured. Monitor closely. (6) Tobacco dependence: Code(s): F17.200 - Nicotine dependence, unspecified, uncomplicated Status: Acute Assessment and Plan: Patient smokes 1.5 packs per day. He will be educated about the benefits of smoking cessation at the appropriate time. (7) Hx of fracture of right hip: Code(s): Z87.81 - Personal history of (healed) traumatic fracture Status: Acute Assessment and Plan: Patient has a history of right hip fracture in April 2021. Imaging at that time showed concerns for pathologic fracture. He was transferred to [facility]. Will request old records to see there is a pathologic fracture and further evaluation was performed. He does have evidence of prostatomegaly so would consider prostate cancer. Also consider other urologic malignancies. Further recommendations as course dictates. (8) Alcoholism: Code(s): F10.20 - Alcohol dependence, uncomplicated Status: Acute Assessment and Plan: Patient admits to drinking 1 drink per day containing 2.5 shots of alcohol. Unclear if he drinks more than this. Will s
[2022-01-03 16:26] LABS: Glucose Point of Care 155 mg/dl (65-105)
[2022-01-03 21:06] LABS: Glucose Point of Care 136 mg/dl (65-105)
[2022-01-04] VITALS (46 sets, daily range): BP systolic 74–142; BP diastolic 48–91; PULSE 89–144; RESP 15–28; TEMP 36.6–37.6; O2SAT 86–100
[2022-01-04 00:19] LABS: Glucose Point of Care 165 mg/dl (65-105)
[2022-01-04] MEDS: MORPHINE SULFATE (*CRX) 4 MG/ML INJ IV PUSH ×3 (01:21→06:28)
[2022-01-04] MEDS: dexmedeTOMIDine 400 MCG/100 ML 400 MCG/100 ML BAG 17.82 MCG IV CONT ×3 (01:54→15:05)
[2022-01-04] MEDS: IPRATROPIUM BR 0.02% INH SOLN 0.5 MG/2.5 ML VIAL INHALATION ×4 (02:11→20:02)
[2022-01-04] MEDS: ALBUTEROL SULFATE NEB 2.5 MG/3 ML INH 5 MG INHALATION ×4 (02:12→20:02)
[2022-01-04] MEDS: METOPROLOL TARTRATE INJ 5 MG/5 ML VIAL IV PUSH ×3 (02:28→21:22)
[2022-01-04 04:19] LABS: Glucose Point of Care 115 mg/dl (65-105)
[2022-01-04 04:54] LABS: Hematocrit 25.7 % (42.0-52.0); Hemoglobin 8.2 g/dL (14.0-18.0); Mean Corpuscular HGB Conc 31.9 g/dl (32-36); Mean Corpuscular Hemoglobin 30.4 pg (26-34); Mean Corpuscular Volume 95.2 fl (80-100); Platelet Count Result 67 k/mm3 (150-375); Red Cell Distribution Width 17.2 % (11.5-14.5); White Blood Count 11.1 K/mm3 (4.5-10.0)
[2022-01-04 05:01] LABS: Alveolar/Arterial O2 Gradient 526.2 mmHg; Base Excess ABG 0.3 mEq/l (+/-2.0); Carboxyhemoglobin 0.2 % THb (0-2.0); Device VENTILATOR; Fractional Inspired Oxygen 90 %; HCO3 ABG 24.5 mEq/l (22.0-26.0); Methemoglobin ABG 0.3 %THb (0-1.5); Oxygen Content ABG 16.2 %vol (16.0-22.0); Oxygen Saturation ABG 95.7 % (95.0-100.0); Oxyhemoglobin 93.6 % THb (90.0-100.0); PCO2 ABG 37.8 mmHg (35.0-45.0); PO2 ABG 76.8 mmHg (80.0-100.0); PO2 FiO2 Ratio Arterial Blood 0.85 %; Reduced Hemoglobin 5.9 %THb (0-5.0); Site Drawn ARTLINE; Total Hemoglobin 12.3 g/dL (12.0-18.0); pH ABG 7.429 (7.350-7.450)
[2022-01-04 05:02] LABS: Arterial Blood Gas PEEP 5 cmH2O; Arterial Blood Gas Tidal Volume 360 ml; Arterial Blood Gas Vent Mode CMV; Arterial Blood Gas Ventilator rate 16 /MIN
[2022-01-04] MEDS: CENTRAL LINE FLUSH 10 ML IV PUSH ×4 (05:04→21:21)
[2022-01-04 05:06] LABS: Anion Gap 8 mmol/L (8-16); Blood Urea Nitrogen 25 mg/dL (9-20); Calcium 7.7 mg/dL (8.4-10.2); Carbon Dioxide 28 mmol/L (22-30); Chloride 102 mmol/L (98-107); Estimated CRCL calculation 94 ml/min; Estimated Glomerular Filt Rate > 60; Glucose 106 mg/dL (65-110); Phosphorus 3.5 mg/dL (2.5-4.5); Potassium 3.8 mmol/L (3.4-5.0); Sodium 138 mmol/L (137-145)
[2022-01-04] MEDS: ALPRAZolam (*CRX) 0.5 MG TABLET PO (06:28)
[2022-01-04 07:33] LABS: Triglycerides 125 mg/dL (<150)
[2022-01-04 07:37] LABS: Glucose Point of Care 103 mg/dl (65-105)
[2022-01-04] MEDS: FOLIC ACID 1 MG/0.2 ML INJ IV PUSH (08:10)
[2022-01-04] MEDS: MINERAL OIL/WHITE PETROLATUM OINTMENT 1 APPLIC EACH EYE ×2 (08:11→21:22)
[2022-01-04] MEDS: PANTOPRAZOLE SODIUM IV 40 MG VIAL IV PUSH ×2 (08:11→21:21)
[2022-01-04] MEDS: INSULIN GLARGINE (*BKC) 100 UNITS/ML 15 UNITS SUB-Q (08:11)
[2022-01-04] MEDS: THIAMINE HCL 200 MG/2 ML VIAL 100 MG IV PUSH (08:12)
[2022-01-04] MEDS: FUROSEMIDE INJ 40 MG/4 ML VIAL IV PUSH (08:14)
[2022-01-04] MEDS: CALCIUM CHLOR 1,000MG/100ML NS 1,000 MG/100 ML BAG 100 MG IVPB (08:54)
[2022-01-04] MEDS: MORPHINE SULFATE (*CRX) 2 MG/ML INJ IV PUSH ×2 (11:07→23:37)
[2022-01-04 11:38] LABS: Prostate Specific Antigen 6.4 ng/mL (< OR = 4.0)
--- NOTE | 2022-01-04 11:44 | PCFNICU ---
ICU Rounding Note: Pt current nutrition is TPN. Last recorded weight is 68.9 kg, up from 59.6 kg on admit. Bowel Motility: ostomy Labs Reviewed: Cr 0.6,BUN 25, Hct 25.7,Hgb 8.2 Meds Noted::Lasix,Folic Acid, Thiamine, Levophed, Precedex, Protonix, Zosyn, Atrovent, Lantus, Clinimix 5/15 at 50 ml/hr with 250 of 20% Lipids Emulsion. Skin: WNL Additional Notes:Patient remains on mechanica vent and TPN. Tube feedings are currently on hold due to elevated residuals. Current TPN is meeting 99% kcal needs and 83% protein needs. Agree with diet orders. Following daily in ICU rounds. Will monitor every Sunday and Sunday.
[2022-01-04 12:00] LABS: Glucose Point of Care 87 mg/dl (65-105)
--- NOTE | 2022-01-04 12:22 | WPDINTPN ---
Progress Note: A&P Assessment and Plan (1) Septic shock: Code(s): A41.9 - Sepsis, unspecified organism; R65.21 - Severe sepsis with septic shock Status: Acute Assessment and Plan: RESOLVED Patient presented with hypotension, leukocytosis, lactic acidosis. Likely source peritonitis secondary to ruptured sigmoid colon -right IJ central line was placed in the ER, patient received adequate amount of IV fluids -OFF Levophed and vasopressin -OFF stress dose steroids -off albumin -continue to maintain MAP > 65 mmHg for adequate end organ perfusion -continue Zosyn (12/29), -blood and urine cultures are negative - Cultures from abdominal cavity during surgery grew Bacteroides fragilis, Fusobacterium necrophorum (2) Perforated abdominal viscus: Code(s): R19.8 - Other specified symptoms and signs involving the digestive system and abdomen Status: Acute Assessment and Plan: Patient presented with abdominal pain, nausea, vomiting, septic shock. 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 Patient has no bowel sounds on my exam today (3) Acute respiratory failure: Code(s): J96.00 - Acute respiratory failure, unspecified whether with hypoxia or hypercapnia Status: Acute Assessment and Plan: Patient also presented with shortness of breath on admission, was found to have a moderate right-sided pneumothorax a CT scan of the abdomen and pelvis -right-sided chest tube was placed in the OR by surgery -patient was intubated and placed on mechanical ventilation for surgery -remains on CMV mode of ventilation, peep of 5, 90% FiO2 cm -increase rod colored secretions, worsening chest x-ray and increased FiO2 requirement -01/03 repeat sputum culture was sent -continue Zosyn and vancomycin -ABG reviewed -increase PEEP to 8 -Lasix 40 mg IV x1 -patient remains tachycardic, venous Doppler showed DVT of left popliteal and posterior tibial veins, (4) Pneumothorax, right: Code(s): J93.9 - Pneumothorax, unspecified Status: Acute Assessment and Plan: CT scan of the abdomen pelvis showed a moderate right pneumothorax, right-sided chest tube was placed in the OR on 12/29/2021 per surgery -stable mild right apical pneumothorax -intermittent air leak -continue chest tube to suction -surgeon managing the chest tube (5) ROSALINDA (acute kidney injury): Code(s): N17.9 - Acute kidney failure, unspecified Status: Acute Assessment and Plan: RESOLVED Patient presented with acute kidney injury, likely related to septic shock, hypovolemia, ATN, infection -creatinine admission was 2.20 -patient was adequately fluid-resuscitated in the ER and OR -creatinine has normalized -continue current rate of IV fluids -continue to monitor your renal function, urine output, electrolytes (6) Hydronephrosis with urinary obstruction due to renal calculus: Code(s): N13.2 - Hydronephrosis with renal and ureteral calculous obstruction Status: Acute Assessment and Plan: Cystoscopy, bilateral retrograde pyelography and bilateral ureteral stent placement on 12/29/2021 -patient with blood in urine, Watson has been flushed -urology following the patient (7) Electrolyte abnormality: Code(s): E87.8 - Other disorders of electrolyte and fluid balance, not elsewhere classified Status: Acute Assessment and Plan: Improved after placement (8) Hyperglycemia: Code(s): R73.9 - Hyperglycemia, unspecified Sta
[2022-01-04] MEDS: VASOPRESSIN INJ 100 UNITS in DEXTROSE 5% 95 ML IV CONT (12:55)
--- NOTE | 2022-01-04 14:04 | PM.IMPN ---
Progress Note: A&P Assessment and Plan (1) Septic shock: Code(s): A41.9 - Sepsis, unspecified organism; R65.21 - Severe sepsis with septic shock Status: Acute Assessment and Plan: RESOLVED Patient presented with hypotension, leukocytosis, lactic acidosis. Likely source peritonitis secondary to ruptured sigmoid colon -OFF Levophed and vasopressin -OFF stress dose steroids -off albumin -continue Zosyn (12/29), -blood and urine cultures are negative - Cultures from abdominal cavity during surgery grew Bacteroides fragilis, Fusobacterium necrophorum (2) Perforated abdominal viscus: Code(s): R19.8 - Other specified symptoms and signs involving the digestive system and abdomen Status: Acute Assessment and Plan: Patient presented with abdominal pain, nausea, vomiting, septic shock. 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 Patient has no bowel sounds on my exam today (3) Acute respiratory failure: Code(s): J96.00 - Acute respiratory failure, unspecified whether with hypoxia or hypercapnia Status: Acute Assessment and Plan: Managed per ICU. Continue ventilatory support. (4) Pneumothorax, right: Code(s): J93.9 - Pneumothorax, unspecified Status: Acute Assessment and Plan: CT scan of the abdomen pelvis showed a moderate right pneumothorax, right-sided chest tube was placed in the OR on 12/29/2021 per surgery -stable mild right apical pneumothorax -intermittent air leak -continue chest tube to suction -surgery managing (5) ROSALINDA (acute kidney injury): Code(s): N17.9 - Acute kidney failure, unspecified Status: Acute Assessment and Plan: Monitor creatinine and electrolytes (6) Hydronephrosis with urinary obstruction due to renal calculus: Code(s): N13.2 - Hydronephrosis with renal and ureteral calculous obstruction Status: Acute Assessment and Plan: Cystoscopy, bilateral retrograde pyelography and bilateral ureteral stent placement on 12/29/2021 -patient with blood in urine, Watson has been flushed -urology following the patient (7) Electrolyte abnormality: Code(s): E87.8 - Other disorders of electrolyte and fluid balance, not elsewhere classified Status: Acute Assessment and Plan: Improved after placement (8) Hyperglycemia: Code(s): R73.9 - Hyperglycemia, unspecified Status: Acute Assessment and Plan: Continue sliding scale insulin q.4 hours and high scale Blood sugars reviewed. Patient received Lantus today will closely monitor. May need to decrease the dose. (9) Anemia: Code(s): D64.9 - Anemia, unspecified Status: Acute Assessment and Plan: Monitor hemoglobin (10) Thrombocytopenia: Code(s): D69.6 - Thrombocytopenia, unspecified Status: Acute Assessment and Plan: Monitor (11) DVT (deep venous thrombosis): Code(s): I82.409 - Acute embolism and thrombosis of unspecified deep veins of unspecified lower extremity Status: Acute Assessment and Plan: 01/03/2022 bilateral lower extremity venous Dopplers: ?Deep venous thrombosis of left popliteal and posterior tibial veins? -platelets are low at 67K -general surgery planning to place IVC filter Subjective Date/time seen: 01/04/22 14:04 The patient is intubated Exam Narrative: General: Patient intubated and sedated with Precedex HEENT: Pupils equal and reactive, sclera is clear ETT in place Neck: Supple Respiratory: Bilateral coarse breath sounds, decreased at ba
[2022-01-04] MEDS: AMINO ACIDS 5%/D15W/E-LYTES/CA 2,000 ML with MULTIVITAMINS-12 INJ VIAL 1 2.5 ML, MULTIV... 50 ML IV CONT (14:37)
[2022-01-04] MEDS: FAT EMULSIONS IV 20% 250 ML 20.8 ML IVPB (14:38)
--- NOTE | 2022-01-04 16:06 | PM.PNGS ---
Progress Note: A&P Assessment and Plan (1) Perforated abdominal viscus: Code(s): R19.8 - Other specified symptoms and signs involving the digestive system and abdomen Status: Acute Assessment and Plan: s/p sigmoidectomy with end colostomy 12/29 Not tolerating tube feedings and not much ostomy output, hold tubefeedings (2) DVT (deep venous thrombosis): Code(s): I82.409 - Acute embolism and thrombosis of unspecified deep veins of unspecified lower extremity Status: Acute Assessment and Plan: Will place IVC filter tomorrow since unable to anticoagulate (3) Acute respiratory failure: Code(s): J96.00 - Acute respiratory failure, unspecified whether with hypoxia or hypercapnia Status: Acute Assessment and Plan: Wean and extubated per [employer] (4) Pneumothorax, right: Code(s): J93.9 - Pneumothorax, unspecified Status: Acute Assessment and Plan: Will manage chest tube until extubated. No air leak identified. (5) Hydronephrosis with urinary obstruction due to renal calculus: Code(s): N13.2 - Hydronephrosis with renal and ureteral calculous obstruction Status: Acute Assessment and Plan: As per Urology. Dr. Melanie serrato. (6) Septic shock: Code(s): A41.9 - Sepsis, unspecified organism; R65.21 - Severe sepsis with septic shock Status: Acute Assessment and Plan: Continue IV Zosyn Off pressors now (7) Tobacco dependence: Code(s): F17.200 - Nicotine dependence, unspecified, uncomplicated Status: Acute Assessment and Plan: After extubated may need nicotine patch for nicotine withdrawal. ( Smokes 1/2 packs a day). (8) Anemia: Code(s): D64.9 - Anemia, unspecified Status: Acute Assessment and Plan: No signs of ongoing bleeding (9) Thrombocytopenia: Code(s): D69.6 - Thrombocytopenia, unspecified Status: Acute Assessment and Plan: Lovenox on hold (10) Reducible right inguinal hernia: Code(s): K40.90 - Unilateral inguinal hernia, without obstruction or gangrene, not specified as recurrent Status: Acute Assessment and Plan: Hernia soft and reducible, no signs of obstruction Subjective Subjective Date/Time Seen: 01/04/22 16:06 Interval history: Patient now has a DVT in leg. Nurse also reports hypotensive again today and on Vasopressin. He received furosemide today and diuresed a lot, likely leading to some hypotension. Exam GI: Inspection: non-distended, incision (intact with anthony) and other (ostomy pink and functioning) : Scrotum: inguinal hernia on the right (soft and reducible) Objective Data Vital Signs Vital Signs: Vital Signs - 24 hr 01/03/22 16:50 01/03/22 18:00 01/03/22 18:00 Temperature 36.7 C Pulse Rate 114 H 109 H 109 H Respiratory Rate 16 Blood Pressure 112/75 Pulse Oximetry 92 98 Oxygen Delivery Mechanical Ventilation Fraction of Inspired Oxygen 70 01/03/22 20:32 01/03/22 20:00 01/03/22 20:51 Temperature Pulse Rate 119 H 120 H 118 H Respiratory Rate 24 H 26 H Blood Pressure Pulse Oximetry 94 Oxygen Delivery Mechanical Ventilation Fraction of Inspired Oxygen 70 01/03/22 21:25 01/03/22 20:00 01/03/22 20:50 Temperature 36.7 C Pulse Rate 135 H 122 H 123 H Respiratory Rate 26 H 20 Blood Pressure 123/82 Pulse Oximetry 92 Oxygen Delivery Fraction of Inspired Oxygen 01/03/22 20:00 01/03/22 22:00 01/03/22 23:00 Temperature 36.9 C Pulse Rate 112 H 134 H Respiratory Rate 26 H Blood Pressure 104/63 Pulse Oximetry 89 L 89 L Oxygen Delivery Mechanical Ventilation Fraction of Inspired Oxygen 70 70 01/04/22 00:00 01/04/22 00:00 01/04/22 01:54 Temperature 37.1 C Pulse Rate 103 H 105 H Respiratory Rate 26 H 26 H Blood Pressure 104/65 Pulse Oximetry 97 Oxygen Delivery Fraction of Inspired Oxygen 75
[2022-01-04] MEDS: DEXTROSE 50% 25 GM/50 ML SYRINGE IV PUSH ×2 (16:07→16:46)
[2022-01-04 16:14] LABS: Glucose Point of Care < 20 mg/dl (65-105)
[2022-01-04 16:14] LABS: Glucose Point of Care 350 mg/dl (65-105)
[2022-01-04 16:27] LABS: Glucose Point of Care 118 mg/dl (65-105)
[2022-01-04 16:49] LABS: Glucose Point of Care 48 mg/dl (65-105)
[2022-01-04 17:07] LABS: Glucose Point of Care 136 mg/dl (65-105)
[2022-01-04] MEDS: NOREPINEPHRINE 8 MG/D5W 250 ML 8 MG/250 ML BAG 9.38 MG IV CONT (17:27)
[2022-01-04 18:04] LABS: Glucose Point of Care 87 mg/dl (65-105)
[2022-01-04 19:09] LABS: Glucose Point of Care 45 mg/dl (65-105)
[2022-01-04 20:17] LABS: Glucose Point of Care 117 mg/dl (65-105)
[2022-01-04] MEDS: dexmedeTOMIDine 400 MCG/100 ML 400 MCG/100 ML BAG 16.34 MCG IV CONT (21:21)
[2022-01-04 22:40] LABS: Vancomycin Trough 15.6 ug/mL (10.0-20.0)
[2022-01-04 23:37] LABS: Glucose Point of Care 157 mg/dl (65-105)
[2022-01-05] VITALS (48 sets, daily range): BP systolic 83–116; BP diastolic 51–75; PULSE 79–146; RESP 18–31; TEMP 36–36.8; O2SAT 96–100
[2022-01-05] MEDS: METOPROLOL TARTRATE INJ 5 MG/5 ML VIAL IV PUSH (01:49)
[2022-01-05] MEDS: MORPHINE SULFATE (*CRX) 4 MG/ML INJ IV PUSH (01:49)
[2022-01-05] MEDS: IPRATROPIUM BR 0.02% INH SOLN 0.5 MG/2.5 ML VIAL INHALATION ×4 (02:23→20:00)
[2022-01-05] MEDS: ALBUTEROL SULFATE NEB 2.5 MG/3 ML INH 5 MG INHALATION ×4 (02:23→20:00)
[2022-01-05] MEDS: dexmedeTOMIDine 400 MCG/100 ML 400 MCG/100 ML BAG 22.28 MCG IV CONT (03:18)
[2022-01-05] MEDS: ALPRAZolam (*CRX) 0.5 MG TABLET PO ×2 (03:33→16:03)
[2022-01-05 03:55] LABS: Glucose Point of Care 125 mg/dl (65-105)
[2022-01-05 05:15] LABS: Basophils Percent Auto 0.2 % (0.2-1.2); Eosinophils Percent Auto 0.4 % (0-4.4); Hematocrit 24.1 % (42.0-52.0); Hemoglobin 7.6 g/dL (14.0-18.0); Immature Granulocyte Absolute 0.35 K/mm3 (0.00-0.031); Immature Granulocyte Percent A 3.3 % (0-0.5); Immature Platelet Fraction Pct 19.9 % (0.9-11.2); Lymphocytes Absolute Auto 0.61 K/mm3 (0.9-3.2); Lymphocytes Percent Auto 5.7 % (18.3-44.2); Mean Corpuscular HGB Conc 31.5 g/dl (32-36); Mean Corpuscular Hemoglobin 30.4 pg (26-34); Mean Corpuscular Volume 96.4 fl (80-100); Mean Platelet Volume 11.9 fl (7.4-10.4); Monocytes Absolute Auto 0.4 K/mm3 (0.1-0.6); Monocytes Percent Auto 3.4 % (2.6-8.5); Neutrophils Absolute Auto 9.3 K/mm3 (1.3-6.7); Nucleated Red Blood Cells Perc 0.2 % (0.0-0.2); Platelet Count Result 99 k/mm3 (150-375); Red Cell Distribution Width 16.8 % (11.5-14.5); White Blood Count 10.7 K/mm3 (4.5-10.0)
[2022-01-05 05:26] LABS: Alanine Aminotransferase 22 U/L (6-50); Albumin Level 2.8 g/dL (3.5-5.1); Alkaline Phosphatase 96 U/L (38-126); Anion Gap 7 mmol/L (8-16); Aspartate Amino Transferase 32 U/L (17-59); Bilirubin,Total 1.5 mg/dL (0.2-1.3); Blood Urea Nitrogen 26 mg/dL (9-20); Carbon Dioxide 33 mmol/L (22-30); Chloride 93 mmol/L (98-107); Estimated CRCL calculation 91 ml/min; Estimated Glomerular Filt Rate > 60; Glucose 138 mg/dL (65-110); Magnesium 1.4 mg/dL (1.6-2.3); Phosphorus 4.3 mg/dL (2.5-4.5); Sodium 133 mmol/L (137-145)
[2022-01-05 05:34] LABS: Base Excess ABG 5.2 mEq/l (+/-2.0); Carboxyhemoglobin 0.2 % THb (0-2.0); Fractional Inspired Oxygen 50 %; HCO3 ABG 29.1 mEq/l (22.0-26.0); Methemoglobin ABG 0.3 %THb (0-1.5); Oxygen Content ABG 11.8 %vol (16.0-22.0); Oxygen Saturation ABG 97.9 % (95.0-100.0); PCO2 ABG 39.8 mmHg (35.0-45.0); PO2 ABG 98.7 mmHg (80.0-100.0); PO2 FiO2 Ratio Arterial Blood 1.97 %; Reduced Hemoglobin 3.5 %THb (0-5.0); Total Hemoglobin 8.6 g/dL (12.0-18.0); pH ABG 7.482 (7.350-7.450)
[2022-01-05 05:35] LABS: Arterial Blood Gas Vent Mode CMV; Arterial Blood Gas Ventilator rate 16 /MIN; Device VENTILATOR; Modified Allen's Test Unable to perform; Site Drawn ARTLINE
[2022-01-05 05:36] LABS: Arterial Blood Gas PEEP 8 cmH2O; Arterial Blood Gas Tidal Volume 360 ml
[2022-01-05] MEDS: CENTRAL LINE FLUSH 10 ML IV PUSH ×4 (05:42→20:42)
--- NOTE | 2022-01-05 07:15 | WPDUROPN2 ---
Progress Note: A&P Assessment and Plan (1) Perforated abdominal viscus: Code(s): R19.8 - Other specified symptoms and signs involving the digestive system and abdomen Status: Acute (2) DVT (deep venous thrombosis): Code(s): I82.409 - Acute embolism and thrombosis of unspecified deep veins of unspecified lower extremity Status: Acute (3) Acute respiratory failure: Code(s): J96.00 - Acute respiratory failure, unspecified whether with hypoxia or hypercapnia Status: Acute (4) Pneumothorax, right: Code(s): J93.9 - Pneumothorax, unspecified Status: Acute (5) Septic shock: Code(s): A41.9 - Sepsis, unspecified organism; R65.21 - Severe sepsis with septic shock Status: Acute Assessment and Plan: Continue IV Zosyn Off pressors now (6) Hydronephrosis with urinary obstruction due to renal calculus: Code(s): N13.2 - Hydronephrosis with renal and ureteral calculous obstruction Status: Acute Assessment and Plan: At some point, well down the road, he'll need bilat. ureteroscopy with stone extraction. Subjective Subjective Date/Time Seen: 01/05/22 07:16 Remains ventalated Review of Systems Review of Systems: ROS unobtainable: Yes unobtainable due to endotracheal tube Exam Const: General: no acute distress Resp: Effort & Inspection: normal respiratory effort GI: Inspection: non-distended GI Palp: No abdominal tenderness and No Guarding due to palpation present (GI) Auscultation: normal bowel sounds Urinary Catheter: Urinary Catheter: patent and draining and urine clear Objective Data Vital Signs Vital Signs: Vital Signs - 24 hr 01/04/22 08:09 01/04/22 07:52 01/04/22 08:27 Temperature 99.2 F Pulse Rate 112 H 89 123 H Respiratory Rate 17 17 17 Blood Pressure 98/80 L Pulse Oximetry 100 Oxygen Delivery Fraction of Inspired Oxygen 01/04/22 08:29 01/04/22 08:49 01/04/22 08:00 Temperature Pulse Rate 119 H 117 H 103 H Respiratory Rate 18 Blood Pressure Pulse Oximetry 100 Oxygen Delivery Mechanical Ventilation Fraction of Inspired Oxygen 80 01/04/22 08:00 01/04/22 08:00 01/04/22 08:00 Temperature 99.2 F Pulse Rate 103 H 103 H Respiratory Rate 15 15 Blood Pressure 102/75 Pulse Oximetry 100 100 Oxygen Delivery Mechanical Ventilation Fraction of Inspired Oxygen 90 90 01/04/22 10:13 01/04/22 10:50 01/04/22 11:07 Temperature Pulse Rate 112 H 143 H 144 H Respiratory Rate 19 Blood Pressure Pulse Oximetry 100 Oxygen Delivery Mechanical Ventilation Fraction of Inspired Oxygen 70 01/04/22 12:00 01/04/22 15:05 01/04/22 15:07 Temperature 99.1 F Pulse Rate 116 H 131 H 124 H Respiratory Rate 20 26 H Blood Pressure 89/57 L Pulse Oximetry 100 Oxygen Delivery Fraction of Inspired Oxygen 01/04/22 15:12 01/04/22 10:00 01/04/22 10:00 Temperature 98.7 F Pulse Rate 124 H 111 H 111 H Respiratory Rate 23 H Blood Pressure 101/65 Pulse Oximetry 99 99 Oxygen Delivery Mechanical Ventilation Fraction of Inspired Oxygen 60 01/04/22 12:00 01/04/22 12:00 01/04/22 14:00 Temperature 99 F Pulse Rate 117 H 117 H 132 H Respiratory Rate 24 H Blood Pressure 140/91 H Pulse Oximetry 96 Oxygen Delivery Fraction of Inspired Oxygen 01/04/22 14:00 01/04/22 15:19 01/04/22 16:00 Temperature 99.7 F H Pulse Rate 132 H 108 H 111 H Respiratory Rate 27 H 18 Blood Pressure 101/72 Pulse Oximetry 100 Oxygen Delivery Fraction of Inspired Oxygen 01/04/22 16:00 01/04/22 12:00 01/04/22 16:00 Temperature 99.2 F Pulse Rate 111 H 117 H 111 H Respiratory Rate 23 H 24 H 23 H Blood Pressure 101/60 Pulse Oximetry 100 96 100 Oxygen Delivery Mechanical Ventilation Mechanical Ventilation Fraction of Inspired Oxygen 80 60 01/04/22 12:00 01/04/22 16:00 01/04/22 16:00 Temperature 98.6 F Pulse Rate 99 Respirator
[2022-01-05 07:28] LABS: Glucose Point of Care 123 mg/dl (65-105)
[2022-01-05] MEDS: dexmedeTOMIDine 400 MCG/100 ML 400 MCG/100 ML BAG 20.79 MCG IV CONT ×4 (08:15→22:45)
[2022-01-05] MEDS: KCL 40 MEQ/WATER 100 ML 100 ML 25 ML IVPB (08:26)
[2022-01-05] MEDS: POTASSIUM CHLORIDE 20 MEQ PACKET (FOR LIQUID) 40 MEQ FEED TUBE (08:26)
[2022-01-05] MEDS: MAGNESIUM SULF 2 GM/WATER 50ML 2 GM/50 ML BAG IVPB (08:28)
[2022-01-05] MEDS: MINERAL OIL/WHITE PETROLATUM OINTMENT 1 APPLIC EACH EYE ×2 (08:44→20:37)
[2022-01-05] MEDS: THIAMINE HCL 200 MG/2 ML VIAL 100 MG IV PUSH (08:45)
[2022-01-05] MEDS: PANTOPRAZOLE SODIUM IV 40 MG VIAL IV PUSH ×2 (08:46→20:41)
[2022-01-05] MEDS: FOLIC ACID 1 MG/0.2 ML INJ IV PUSH (08:53)
--- NOTE | 2022-01-05 10:31 | PC.NURSE ---
Dr. Cuevas to bedside. Dr. Anderson and Dr. Cuevas ok for patient to receive IVC filter procedure.
--- NOTE | 2022-01-05 10:35 | PC.NURSE ---
Patient off floor to chemistry laboratory technician for IVC filter placement with RT and nitriles lab technician staff at bedside.
--- NOTE | 2022-01-05 10:43 | WPDINTPN ---
Progress Note: A&P Assessment and Plan (1) Septic shock: Code(s): A41.9 - Sepsis, unspecified organism; R65.21 - Severe sepsis with septic shock Status: Acute Assessment and Plan: RESOLVED Patient presented with hypotension, leukocytosis, lactic acidosis. Likely source peritonitis secondary to ruptured sigmoid colon -right IJ central line was placed in the ER, patient received adequate amount of IV fluids -back on vasopressin infusion -OFF stress dose steroids -resume albumin -continue to maintain MAP > 65 mmHg for adequate end organ perfusion -continue Zosyn (12/29), -blood and urine cultures are negative - Cultures from abdominal cavity during surgery grew Bacteroides fragilis, Fusobacterium necrophorum (2) Perforated abdominal viscus: Code(s): R19.8 - Other specified symptoms and signs involving the digestive system and abdomen Status: Acute Assessment and Plan: Patient presented with abdominal pain, nausea, vomiting, septic shock. 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 Patient has no bowel sounds on my exam today and minimal output from ostomy -discussed with Dr. Cuevas from General surgery. Plans to get KUB and then will make a decision on starting trickle feed once patient gets IVC filter placed today (3) Acute respiratory failure: Code(s): J96.00 - Acute respiratory failure, unspecified whether with hypoxia or hypercapnia Status: Acute Assessment and Plan: Patient also presented with shortness of breath on admission, was found to have a moderate right-sided pneumothorax a CT scan of the abdomen and pelvis -right-sided chest tube was placed in the OR by surgery -patient was intubated and placed on mechanical ventilation for surgery -remains on CMV mode of ventilation, peep of 5, 90% FiO2 cm -increase rod colored secretions, worsening chest x-ray and increased FiO2 requirement -01/03 repeat sputum culture was sent and have been negative for now -continue Zosyn. Will discontinue vancomycin -ABG reviewed -continue FiO2 to 50 % PEEP to 8 -continue diuresis -patient remains tachycardic, venous Doppler showed DVT of left popliteal and posterior tibial veins, (4) Pneumothorax, right: Code(s): J93.9 - Pneumothorax, unspecified Status: Acute Assessment and Plan: CT scan of the abdomen pelvis showed a moderate right pneumothorax, right-sided chest tube was placed in the OR on 12/29/2021 per surgery -stable mild right apical pneumothorax -intermittent air leak -continue chest tube to suction -surgeon managing the chest tube (5) ROSALINDA (acute kidney injury): Code(s): N17.9 - Acute kidney failure, unspecified Status: Acute Assessment and Plan: RESOLVED Patient presented with acute kidney injury, likely related to septic shock, hypovolemia, ATN, infection -creatinine admission was 2.20 -patient was adequately fluid-resuscitated in the ER and OR -creatinine has normalized -continue to monitor your renal function, urine output, electrolytes (6) Hydronephrosis with urinary obstruction due to renal calculus: Code(s): N13.2 - Hydronephrosis with renal and ureteral calculous obstruction Status: Acute Assessment and Plan: Cystoscopy, bilateral retrograde pyelography and bilateral ureteral stent placement on 12/29/2021 -patient with blood in urine, Watson has been flushed -urology following the patient (7) Electrolyte abnormality: Code(s): E87.8 - Other disorde
--- NOTE | 2022-01-05 11:10 | P.OP_ITS ---
Procedure Note - Detailed Date of Procedure 01/05/22 Pre-op Diagnosis Left lower extremity DVT, thrombocytopenia, anemia Post-op Diagnosis Same Procedure Performed IVC filter placement using ultrasound and fluoroscopic guidance Surgeon Zhou Cuevas, DO Anesthesia Local (1% Lidocaine) Indications this is a 66 old man intubated with acute respiratory failure after sigmoidectomy with end descending colostomy for perforated diverticulitis. He has been thrombocytopenic and platelets were continuing to decrease. anticoagulation is on hold but he was recently found to have a left lower extremity DVT. He is in need of IVC filter placement to prevent propagation to lungs. Findings Sinosite ultrasound was used to identify the right femoral vein. This was visualized as a compressible vessel just medial to the pulsatile femoral artery. The 18 gauge introducer needle was advanced under ultrasound guidance. Fluoroscopy was then used to guide advancement of the guidewire followed by the dilator and sheath. Final fluoroscopic images demonstrated the filter in proper position at the level of the L3 vertebral body. Description of Procedure Patient was brought back to offset label rewinder suite. He was placed supine offset label rewinder table. Time-out was done to confirm patient procedure. right groin was prepped and draped in sterile fashion using chlorhexidine prep. SonoSite ultrasound was used to identify the right femoral vein. This was visualized as a compressible vessel just medial to the right femoral artery. 1% lidocaine was infiltrated directly over this area. An 18 gauge introducer needle was then advanced under ultrasound guidance directly into the lumen of the right femoral vein. Dark nonpulsatile blood was aspirated. A 0.035 in guidewire was advanced through the needle under fluoroscopic guidance. The guidewire advanced smoothly and was visualized advancing up into the inferior vena cava. The needle was withdrawn leaving the guidewire in place. A small jose incision was made at the insertion site using an 11 blade scalpel. The 6 Sami dilator and sheath were then advanced over the guidewire under fluoroscopic guidance. The sheath was advanced up to the L3 vertebral body, and then once the sheath was at the upper portion of the L3 vertebral body, the dilator and guidewire were removed. The IVC filter was then inserted into the end of the sheath and then the plunger was used to carefully advanced the filter up the length of the sheath. Once the filter was visualized under fluoroscopy at the tip of the sheath, the sheath was slowly withdrawn to allow the filter to deploy. Once the filter was completely expanded, the sheath was removed and pressure was applied at the insertion site. One final fluoroscopic image was obtained visualizing the IVC filter and proper orientation overlying the L3 vertebral body. After holding pressure for 5 minutes, there is no further blood loss and a sterile dressing was applied. Implants [place] IVC Filter Estimated Blood Loss 2 Urine Output 500 Complications No immediate complications Condition Stable Disposition ICU [facility] Billing Surgery - Charge Forward: Surgery Billing
--- NOTE | 2022-01-05 11:10 | WPDHPUPDATE1 ---
History and Physical Update Update Date/Time: 01/05/22 11:10 History and Physical has been reviewed, including an updated exam of the patient. There are NO changes in the patient's condition. Risks, benefits, and alternatives have been discussed and questions answered. Patient agrees to proceed with procedure.
--- NOTE | 2022-01-05 11:16 | PC.NURSE ---
Report from SHIKHA Benson. Right femoral access noted.
--- NOTE | 2022-01-05 11:30 | PC.NURSE ---
Patient back to room without issue.
--- NOTE | 2022-01-05 11:47 | PM.PNGS ---
Progress Note: A&P Assessment and Plan (1) Perforated abdominal viscus: Code(s): R19.8 - Other specified symptoms and signs involving the digestive system and abdomen Status: Acute Assessment and Plan: s/p sigmoidectomy with end colostomy 12/29 will get KUB today to assess for postoperative ileus, might need to stimulate bowels with IV Reglan will ask ostomy nurses to irrigate ostomy to help with output (2) DVT (deep venous thrombosis): Code(s): I82.409 - Acute embolism and thrombosis of unspecified deep veins of unspecified lower extremity Status: Acute Assessment and Plan: IVC filter placed this morning, resume anticoagulation when coordinator of evaluation feels that it is safe (3) Acute respiratory failure: Code(s): J96.00 - Acute respiratory failure, unspecified whether with hypoxia or hypercapnia Status: Acute Assessment and Plan: Wean and extubated per Rand Cementer (4) Pneumothorax, right: Code(s): J93.9 - Pneumothorax, unspecified Status: Acute Assessment and Plan: Will manage chest tube until extubated. No air leak identified. (5) Hydronephrosis with urinary obstruction due to renal calculus: Code(s): N13.2 - Hydronephrosis with renal and ureteral calculous obstruction Status: Acute Assessment and Plan: As per Urology. Dr. Melanie serrato. (6) Septic shock: Code(s): A41.9 - Sepsis, unspecified organism; R65.21 - Severe sepsis with septic shock Status: Acute Assessment and Plan: Continue IV Zosyn (7) Tobacco dependence: Code(s): F17.200 - Nicotine dependence, unspecified, uncomplicated Status: Acute Assessment and Plan: After extubated may need nicotine patch for nicotine withdrawal. ( Smokes 1/2 packs a day). (8) Anemia: Code(s): D64.9 - Anemia, unspecified Status: Acute Assessment and Plan: No signs of ongoing bleeding (9) Thrombocytopenia: Code(s): D69.6 - Thrombocytopenia, unspecified Status: Acute Assessment and Plan: Lovenox on hold (10) Reducible right inguinal hernia: Code(s): K40.90 - Unilateral inguinal hernia, without obstruction or gangrene, not specified as recurrent Status: Acute Assessment and Plan: Hernia soft and reducible, no signs of obstruction Subjective Subjective Date/Time Seen: 01/05/22 11:47 Interval history: Still not having much ostomy output. Abdomen remains slightly distended. Did not tolerate tube feedings 2 days ago. Still remains on low-dose of vasopressin. Exam GI: Inspection: distended, incision (intact with anthony) and other (ostomy pink , minimal output) : Scrotum: inguinal hernia on the right (soft and reducible) Objective Data Vital Signs Vital Signs: Vital Signs - 24 hr 01/04/22 12:00 01/04/22 15:05 01/04/22 15:07 Temperature 37.3 C Pulse Rate 116 H 131 H 124 H Respiratory Rate 20 26 H Blood Pressure 89/57 L Pulse Oximetry 100 Oxygen Delivery Fraction of Inspired Oxygen 01/04/22 15:12 01/04/22 12:00 01/04/22 12:00 Temperature 37.2 C Pulse Rate 124 H 117 H 117 H Respiratory Rate 24 H Blood Pressure 140/91 H Pulse Oximetry 99 96 Oxygen Delivery Mechanical Ventilation Fraction of Inspired Oxygen 60 01/04/22 14:00 01/04/22 14:00 01/04/22 15:19 Temperature 37.6 C H Pulse Rate 132 H 132 H 108 H Respiratory Rate 27 H 18 Blood Pressure 101/72 Pulse Oximetry 100 Oxygen Delivery Fraction of Inspired Oxygen 01/04/22 16:00 01/04/22 16:00 01/04/22 12:00 Temperature 37.3 C Pulse Rate 111 H 111 H 117 H Respiratory Rate 23 H 24 H Blood Pressure 101/60 Pulse Oximetry 100 96 Oxygen Delivery Mechanical Ventilation Fraction of Inspired Oxygen 80 01/04/22 16:00 01/04/22 12:00 01/04/22 16:00 Temperature Pulse Rate 111 H Respiratory Rate 23 H Blood Pressure Pulse Oximetry 100
[2022-01-05 12:05] LABS: Glucose Point of Care 143 mg/dl (65-105)
[2022-01-05] MEDS: acetaZOLAMIDE SODIUM FOR INJ 500 MG VIAL 250 MG IV PUSH (12:41)
--- NOTE | 2022-01-05 12:51 | PCFNICU ---
ICU Rounding Note: Pt current nutrition is TPN. Last recorded weight is 64.4 kg, up from 59.6 kg. Bowel Motility:ostomy-limited output noted. Labs Reviewed:Mg 1.4, K 3.0,BUN 26, Cr 0.6, Glu 138, Alb 2.8,Hct 24.1,Hgb 7.6 Meds Noted:Lasix,Folic Acid, Thiamine, Levophed, Precedex, Protonix, Zosyn, Atrovent, Lantus, Clinimix 5/15 at 50 ml/hr with 250 of 20% Lipids Emulsion. Skin: WNL Additional Notes: Patient remains on mechanical vent and TPN. IVC filter placed today. Limited ostomy output, surgery is managing tube feedings. If tube feedings restart recommending trickle feedings of Jevity 1.2 at 10 ml/hr. Agree with diet orders. Following daily in ICU rounds. Will monitor every Sunday and Sunday..
--- NOTE | 2022-01-05 13:03 | P.PNIM_ITS ---
Progress Note: A&P Assessment and Plan (1) Septic shock: Code(s): A41.9 - Sepsis, unspecified organism; R65.21 - Severe sepsis with septic shock Status: Acute Assessment and Plan: RESOLVED Patient presented with hypotension, leukocytosis, lactic acidosis. Likely source peritonitis secondary to ruptured sigmoid colon -right IJ central line was placed in the ER, patient received adequate amount of IV fluids -back on vasopressin infusion -OFF stress dose steroids -resume albumin -continue to maintain MAP > 65 mmHg for adequate end organ perfusion -continue Zosyn (12/29), -blood and urine cultures are negative - Cultures from abdominal cavity during surgery grew Bacteroides fragilis, Fusobacterium necrophorum (2) Perforated abdominal viscus: Code(s): R19.8 - Other specified symptoms and signs involving the digestive system and abdomen Status: Acute Assessment and Plan: Patient presented with abdominal pain, nausea, vomiting, septic shock. 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 Patient has no bowel sounds on my exam today and minimal output from ostomy -discussed with Dr. Cuevas from General surgery. Plans to get KUB and then will make a decision on starting trickle feed once patient gets IVC filter placed today (3) Acute respiratory failure: Code(s): J96.00 - Acute respiratory failure, unspecified whether with hypoxia or hypercapnia Status: Acute Assessment and Plan: Patient also presented with shortness of breath on admission, was found to have a moderate right-sided pneumothorax a CT scan of the abdomen and pelvis -right-sided chest tube was placed in the OR by surgery -patient was intubated and placed on mechanical ventilation for surgery -remains on CMV mode of ventilation, peep of 5, 90% FiO2 cm -increase rod colored secretions, worsening chest x-ray and increased FiO2 requirement -01/03 repeat sputum culture was sent and have been negative for now -continue Zosyn. Will discontinue vancomycin -ABG reviewed -continue FiO2 to 50 % PEEP to 8 -continue diuresis -patient remains tachycardic, venous Doppler showed DVT of left popliteal and posterior tibial veins, (4) Pneumothorax, right: Code(s): J93.9 - Pneumothorax, unspecified Status: Acute Assessment and Plan: CT scan of the abdomen pelvis showed a moderate right pneumothorax, right-sided chest tube was placed in the OR on 12/29/2021 per surgery -stable mild right apical pneumothorax -intermittent air leak -continue chest tube to suction -surgeon managing the chest tube (5) ROSALINDA (acute kidney injury): Code(s): N17.9 - Acute kidney failure, unspecified Status: Acute Assessment and Plan: RESOLVED Patient presented with acute kidney injury, likely related to septic shock, hypovolemia, ATN, infection -creatinine admission was 2.20 -patient was adequately fluid-resuscitated in the ER and OR -creatinine has normalized -continue to monitor your renal function, urine output, electrolytes (6) Hydronephrosis with urinary obstruction due to renal calculus: Code(s): N13.2 - Hydronephrosis w
[2022-01-05 14:32] LABS: Anion Gap 7 mmol/L (8-16); Blood Urea Nitrogen 26 mg/dL (9-20); Calcium 7.8 mg/dL (8.4-10.2); Carbon Dioxide 30 mmol/L (22-30); Chloride 94 mmol/L (98-107); Estimated CRCL calculation 91 ml/min; Estimated Glomerular Filt Rate > 60; Glucose 205 mg/dL (65-110); Magnesium 1.9 mg/dL (1.6-2.3); Potassium 3.8 mmol/L (3.4-5.0); Sodium 131 mmol/L (137-145)
[2022-01-05] MEDS: AMINO ACIDS 5%/D15W/E-LYTES/CA 2,000 ML with MULTIVITAMINS-12 INJ VIAL 1 2.5 ML, MULTIV... 65 ML IV CONT (15:52)
[2022-01-05] MEDS: FAT EMULSIONS IV 20% 250 ML 20.8 ML IVPB (15:53)
[2022-01-05 17:00] LABS: Glucose Point of Care 167 mg/dl (65-105)
[2022-01-05] MEDS: METOCLOPRAMIDE HCL INJ 10 MG/2 ML VIAL IV PUSH (17:27)
[2022-01-05 20:37] LABS: Glucose Point of Care 187 mg/dl (65-105)
[2022-01-05] MEDS: MORPHINE SULFATE (*CRX) 2 MG/ML INJ IV PUSH (20:46)
[2022-01-06] VITALS (43 sets, daily range): BP systolic 84–135; BP diastolic 52–84; PULSE 92–130; RESP 17–31; TEMP 36.9–37.7; O2SAT 88–100
[2022-01-06] MEDS: METOCLOPRAMIDE HCL INJ 10 MG/2 ML VIAL IV PUSH ×5 (00:17→22:59)
[2022-01-06] MEDS: MORPHINE SULFATE (*CRX) 4 MG/ML INJ IV PUSH ×5 (00:18→15:56)
[2022-01-06 00:29] LABS: Glucose Point of Care 184 mg/dl (65-105)
[2022-01-06] MEDS: IPRATROPIUM BR 0.02% INH SOLN 0.5 MG/2.5 ML VIAL INHALATION ×4 (02:00→20:45)
[2022-01-06] MEDS: ALBUTEROL SULFATE NEB 2.5 MG/3 ML INH 5 MG INHALATION ×4 (02:00→20:45)
[2022-01-06 03:32] LABS: Glucose Point of Care 162 mg/dl (65-105)
[2022-01-06] MEDS: dexmedeTOMIDine 400 MCG/100 ML 400 MCG/100 ML BAG 19.31 MCG IV CONT ×2 (03:32→22:59)
[2022-01-06] MEDS: MORPHINE SULFATE (*CRX) 2 MG/ML INJ IV PUSH (04:37)
[2022-01-06 04:55] LABS: Hematocrit 23.9 % (42.0-52.0); Hemoglobin 7.6 g/dL (14.0-18.0); Mean Corpuscular HGB Conc 31.8 g/dl (32-36); Mean Corpuscular Hemoglobin 30.4 pg (26-34); Mean Corpuscular Volume 95.6 fl (80-100); Platelet Count Result 117 k/mm3 (150-375); Red Cell Distribution Width 17.1 % (11.5-14.5); White Blood Count 11.3 K/mm3 (4.5-10.0)
[2022-01-06 05:07] LABS: Alanine Aminotransferase 22 U/L (6-50); Albumin Level 2.8 g/dL (3.5-5.1); Alkaline Phosphatase 96 U/L (38-126); Anion Gap 8 mmol/L (8-16); Aspartate Amino Transferase 28 U/L (17-59); Bilirubin,Total 1.3 mg/dL (0.2-1.3); Blood Urea Nitrogen 26 mg/dL (9-20); Calcium 7.9 mg/dL (8.4-10.2); Carbon Dioxide 27 mmol/L (22-30); Chloride 93 mmol/L (98-107); Estimated CRCL calculation 91 ml/min; Estimated Glomerular Filt Rate > 60; Glucose 159 mg/dL (65-110); Magnesium 1.6 mg/dL (1.6-2.3); Phosphorus 3.7 mg/dL (2.5-4.5); Potassium 3.6 mmol/L (3.4-5.0); Sodium 128 mmol/L (137-145); Triglycerides 148 mg/dL (<150)
[2022-01-06 05:26] LABS: Alveolar/Arterial O2 Gradient 135.1 mmHg; Carboxyhemoglobin 0.2 % THb (0-2.0); Fractional Inspired Oxygen 35 %; HCO3 ABG 24.5 mEq/l (22.0-26.0); Methemoglobin ABG 0.3 %THb (0-1.5); Oxygen Content ABG 11.5 %vol (16.0-22.0); Oxygen Saturation ABG 95.8 % (95.0-100.0); Oxyhemoglobin 93.1 % THb (90.0-100.0); PCO2 ABG 34.5 mmHg (35.0-45.0); PO2 ABG 74.3 mmHg (80.0-100.0); PO2 FiO2 Ratio Arterial Blood 2.12 %; Reduced Hemoglobin 6.4 %THb (0-5.0); Total Hemoglobin 8.7 g/dL (12.0-18.0)
[2022-01-06 05:28] LABS: Arterial Blood Gas PEEP 8 cmH2O; Arterial Blood Gas Tidal Volume 360 ml; Arterial Blood Gas Vent Mode CMV; Arterial Blood Gas Ventilator rate 16 /MIN; Device VENTILATOR; Site Drawn ARTLINE
[2022-01-06] MEDS: CENTRAL LINE FLUSH 10 ML IV PUSH ×4 (06:44→20:42)
--- NOTE | 2022-01-06 07:43 | PM.PNGS ---
Progress Note: A&P Assessment and Plan (1) Perforated abdominal viscus: Code(s): R19.8 - Other specified symptoms and signs involving the digestive system and abdomen Status: Acute Assessment and Plan: s/p sigmoidectomy with end colostomy 12/29 Will try tube feeds again today, monitor for high residuals (2) DVT (deep venous thrombosis): Code(s): I82.409 - Acute embolism and thrombosis of unspecified deep veins of unspecified lower extremity Status: Acute Assessment and Plan: IVC filter placed 01/05, resume anticoagulation when manager transition feels that it is safe (3) Acute respiratory failure: Code(s): J96.00 - Acute respiratory failure, unspecified whether with hypoxia or hypercapnia Status: Acute Assessment and Plan: Wean and extubated per Engineer Technician (4) Pneumothorax, right: Code(s): J93.9 - Pneumothorax, unspecified Status: Acute Assessment and Plan: Will manage chest tube until extubated. No air leak identified. (5) Hydronephrosis with urinary obstruction due to renal calculus: Code(s): N13.2 - Hydronephrosis with renal and ureteral calculous obstruction Status: Acute Assessment and Plan: As per Urology. Dr. Melanie serrato. (6) Septic shock: Code(s): A41.9 - Sepsis, unspecified organism; R65.21 - Severe sepsis with septic shock Status: Acute Assessment and Plan: Continue IV Zosyn (7) Tobacco dependence: Code(s): F17.200 - Nicotine dependence, unspecified, uncomplicated Status: Acute Assessment and Plan: After extubated may need nicotine patch for nicotine withdrawal. ( Smokes 1/2 packs a day). (8) Anemia: Code(s): D64.9 - Anemia, unspecified Status: Acute Assessment and Plan: No signs of ongoing bleeding (9) Thrombocytopenia: Code(s): D69.6 - Thrombocytopenia, unspecified Status: Acute Assessment and Plan: Lovenox on hold (10) Reducible right inguinal hernia: Code(s): K40.90 - Unilateral inguinal hernia, without obstruction or gangrene, not specified as recurrent Status: Acute Assessment and Plan: Hernia soft and reducible, no signs of obstruction Subjective Subjective Date/Time Seen: 01/06/22 07:43 Interval history: Ostomy irrigated yesterday. Not much output still. Exam GI: Inspection: distended, incision (intact with anthony) and other (ostomy pink , minimal output) : Scrotum: inguinal hernia on the right (soft and reducible) Objective Data Vital Signs Vital Signs: Vital Signs - 24 hr 01/05/22 08:15 01/05/22 09:00 01/05/22 08:49 Temperature Pulse Rate 96 121 H 101 H Respiratory Rate 19 20 Blood Pressure 84/55 L Pulse Oximetry Oxygen Delivery Fraction of Inspired Oxygen 01/05/22 08:51 01/05/22 08:00 01/05/22 09:03 Temperature Pulse Rate 102 H 110 H Respiratory Rate 20 Blood Pressure Pulse Oximetry 100 Oxygen Delivery Mechanical Ventilation Fraction of Inspired Oxygen 40 40 01/05/22 08:00 01/05/22 10:00 01/05/22 10:00 Temperature 36.2 C L Pulse Rate 97 87 97 Respiratory Rate 19 Blood Pressure 112/70 Pulse Oximetry 99 Oxygen Delivery Fraction of Inspired Oxygen 01/05/22 11:58 01/05/22 12:00 01/05/22 12:00 Temperature 36.0 C L Pulse Rate 85 Respiratory Rate 19 Blood Pressure 107/65 Pulse Oximetry 100 100 Oxygen Delivery Mechanical Ventilation Fraction of Inspired Oxygen 40 40 01/05/22 12:30 01/05/22 10:45 01/05/22 11:30 Temperature Pulse Rate 91 105 H 94 Respiratory Rate 20 Blood Pressure Pulse Oximetry 97 100 Oxygen Delivery Mechanical Ventilation Mechanical Ventilation Fraction of Inspired Oxygen 40 40 01/05/22 12:00 01/05/22 13:08 01/05/22 14:45 Temperature Pulse Rate 87 90 110 H Respiratory Rate 19 27 H Blood Pressure Pulse Oximetry Oxygen Delivery Frac
[2022-01-06] MEDS: PANTOPRAZOLE SODIUM IV 40 MG VIAL IV PUSH ×2 (08:30→20:42)
[2022-01-06] MEDS: THIAMINE HCL 200 MG/2 ML VIAL 100 MG IV PUSH (08:30)
[2022-01-06] MEDS: FOLIC ACID 1 MG/0.2 ML INJ IV PUSH (08:30)
[2022-01-06] MEDS: MINERAL OIL/WHITE PETROLATUM OINTMENT 1 APPLIC EACH EYE ×2 (08:30→20:42)
[2022-01-06] MEDS: dexmedeTOMIDine 400 MCG/100 ML 400 MCG/100 ML BAG 20.79 MCG IV CONT ×3 (08:35→17:34)
[2022-01-06 08:55] LABS: Glucose Point of Care 173 mg/dl (65-105)
--- NOTE | 2022-01-06 09:24 | WPDINTPN ---
Progress Note: A&P Assessment and Plan (1) Septic shock: Code(s): A41.9 - Sepsis, unspecified organism; R65.21 - Severe sepsis with septic shock Status: Acute Assessment and Plan: RESOLVED Patient presented with hypotension, leukocytosis, lactic acidosis. Likely source peritonitis secondary to ruptured sigmoid colon -right IJ central line was placed in the ER, patient received adequate amount of IV fluids -continue vasopressin infusion -OFF stress dose steroids -cough albumin -continue to maintain MAP > 65 mmHg for adequate end organ perfusion -continue Zosyn (12/29), -blood and urine cultures are negative - Cultures from abdominal cavity during surgery grew Bacteroides fragilis, Fusobacterium necrophorum Sputum cultures 01/03 Org 1 = Klebsiella pnemoniae Org 2 = Yeast isolated (2) Perforated abdominal viscus: Code(s): R19.8 - Other specified symptoms and signs involving the digestive system and abdomen Status: Acute Assessment and Plan: Patient presented with abdominal pain, nausea, vomiting, septic shock. 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 Patient has no bowel sounds on my exam today and minimal output from ostomy - 01/05 KUB- Nonobstructive bowel gas pattern -discussed with Dr. Cuevas from General surgery. Will start trickle feed again today (3) Acute respiratory failure: Code(s): J96.00 - Acute respiratory failure, unspecified whether with hypoxia or hypercapnia Status: Acute Assessment and Plan: Patient also presented with shortness of breath on admission, was found to have a moderate right-sided pneumothorax a CT scan of the abdomen and pelvis -right-sided chest tube was placed in the OR by surgery -patient was intubated and placed on mechanical ventilation for surgery -remains on CMV mode of ventilation, peep of 5, 90% FiO2 cm -increase rod colored secretions, worsening chest x-ray and increased FiO2 requirement -01/03 repeat sputum culture growing Klebsiella -continue Zosyn. Discontinue vancomycin -ABG reviewed -continue FiO2 to 35 % PEEP to 8 -continue diuresis -patient placed on PSV trial -Venous Doppler showed DVT of left popliteal and posterior tibial vein-now status post IVC filter placement (4) Pneumothorax, right: Code(s): J93.9 - Pneumothorax, unspecified Status: Acute Assessment and Plan: CT scan of the abdomen pelvis showed a moderate right pneumothorax, right-sided chest tube was placed in the OR on 12/29/2021 per surgery -stable mild right apical pneumothorax -intermittent air leak -continue chest tube to suction -surgeon managing the chest tube (5) ROSALINDA (acute kidney injury): Code(s): N17.9 - Acute kidney failure, unspecified Status: Acute Assessment and Plan: RESOLVED Patient presented with acute kidney injury, likely related to septic shock, hypovolemia, ATN, infection -creatinine admission was 2.20 -patient was adequately fluid-resuscitated in the ER and OR -creatinine has now normalized -continue to monitor your renal function, urine output, electrolytes (6) Hydronephrosis with urinary obstruction due to renal calculus: Code(s): N13.2 - Hydronephrosis with renal and ureteral calculous obstruction Status: Acute Assessment and Plan: Cystoscopy, bilateral retrograde pyelography and bilateral ureteral stent placement on 12/29/2021 -patient with blood in urine, Watson has been flushed -urology following the patient (7) Electrolyt
[2022-01-06 09:51] LABS: Alveolar/Arterial O2 Gradient 135.9 mmHg; Base Excess ABG -0.2 mEq/l (+/-2.0); Fractional Inspired Oxygen 35 %; HCO3 ABG 23.8 mEq/l (22.0-26.0); Oxygen Content ABG 14.3 %vol (16.0-22.0); Oxyhemoglobin 92.6 % THb (90.0-100.0); PCO2 ABG 36.3 mmHg (35.0-45.0); PO2 ABG 71.5 mmHg (80.0-100.0); PO2 FiO2 Ratio Arterial Blood 2.04 %; Total Hemoglobin 10.9 g/dL (12.0-18.0); pH ABG 7.434 (7.350-7.450)
[2022-01-06 09:52] LABS: Device VENTILATOR; Site Drawn ARTLINE
[2022-01-06 09:53] LABS: Arterial Blood Gas PEEP 5 cmH2O; Arterial Blood Gas Pressure Support 5 cmH2O; Arterial Blood Gas Vent Mode SPONTANEOUS
--- NOTE | 2022-01-06 10:55 | PCNFU ---
Nutrition Follow-Up Complete: Altered GI function as related to sigmoid resection/colostomy as evidenced by TPN goal: Meet estimated nutritional needs Patient is progressing towards goal. We will continue current goal. Pt current nutrition is TPN and trickle feedings of Jevity 1.2 at 10 ml/hr Last recorded weight is 66.1 kg, up from 59.6 kg on admit. Bowel Motility:ostomy Labs Reviewed:Hgb 7.6,Hct 23.9, Na 128, Alb 2.8,BUN 26,Cr 0.6, Glu 159 Meds Noted:Reglan,Lasix,Folic Acid, Thiamine, Levophed, Precedex, Protonix, Zosyn, Atrovent, Lantus, Clinimix 5/15 at 50 ml/hr with 250 of 20% Lipids Emulsion. Skin: WNL Additional Notes: Patient remains on TPN and tube feedings of Jevity 1.2 started at 10 ml/hr. TPN at 50 ml/hr providing 1352 kcals/60 gms protein, meeting 100% protein and 83% protein needs. Tube feedings of Jevity 1.2 providing an additional 264 kcals/12 gms protein. Free water flush changed to NS 30 ml q 4 hours. Agree with diet orders. Will monitor in ICU rounds and reassessing every Sunday and Sunday.
[2022-01-06] MEDS: MAGNESIUM SULF 2 GM/WATER 50ML 2 GM/50 ML BAG IVPB (11:11)
[2022-01-06] MEDS: POTASSIUM CHLORIDE 20 MEQ PACKET (FOR LIQUID) 40 MEQ FEED TUBE (11:11)
[2022-01-06] MEDS: ALPRAZolam (*CRX) 0.5 MG TABLET PO (12:25)
--- NOTE | 2022-01-06 12:39 | P.PNIM_ITS ---
Progress Note: A&P Assessment and Plan (1) Septic shock: Code(s): A41.9 - Sepsis, unspecified organism; R65.21 - Severe sepsis with septic shock Status: Acute Assessment and Plan: RESOLVED Patient presented with hypotension, leukocytosis, lactic acidosis. Likely source peritonitis secondary to ruptured sigmoid colon -right IJ central line was placed in the ER, patient received adequate amount of IV fluids -continue vasopressin infusion -OFF stress dose steroids -cough albumin -continue to maintain MAP > 65 mmHg for adequate end organ perfusion -continue Zosyn (12/29), -blood and urine cultures are negative - Cultures from abdominal cavity during surgery grew Bacteroides fragilis, Fusobacterium necrophorum Sputum cultures 01/03 Org 1 = Klebsiella pnemoniae Org 2 = Yeast isolated (2) Perforated abdominal viscus: Code(s): R19.8 - Other specified symptoms and signs involving the digestive system and abdomen Status: Acute Assessment and Plan: Patient presented with abdominal pain, nausea, vomiting, septic shock. 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 Patient has no bowel sounds on my exam today and minimal output from ostomy - 01/05 KUB- Nonobstructive bowel gas pattern -discussed with Dr. Cuevas from General surgery. Will start trickle feed again today (3) Acute respiratory failure: Code(s): J96.00 - Acute respiratory failure, unspecified whether with hypoxia or hypercapnia Status: Acute Assessment and Plan: Patient also presented with shortness of breath on admission, was found to have a moderate right-sided pneumothorax a CT scan of the abdomen and pelvis -right-sided chest tube was placed in the OR by surgery -patient was intubated and placed on mechanical ventilation for surgery -remains on CMV mode of ventilation, peep of 5, 90% FiO2 cm -increase rod colored secretions, worsening chest x-ray and increased FiO2 requirement -01/03 repeat sputum culture growing Klebsiella -continue Zosyn. Discontinue vancomycin -ABG reviewed -continue FiO2 to 35 % PEEP to 8 -continue diuresis -patient placed on PSV trial -Venous Doppler showed DVT of left popliteal and posterior tibial vein-now status post IVC filter placement (4) Pneumothorax, right: Code(s): J93.9 - Pneumothorax, unspecified Status: Acute Assessment and Plan: CT scan of the abdomen pelvis showed a moderate right pneumothorax, right-sided chest tube was placed in the OR on 12/29/2021 per surgery -stable mild right apical pneumothorax -intermittent air leak -continue chest tube to suction -surgeon managing the chest tube (5) ROSALINDA (acute kidney injury): Code(s): N17.9 - Acute kidney failure, unspecified Status: Acute Assessment and Plan: RESOLVED Patient presented with acute kidney injury, likely related to septic shock, hypovolemia, ATN, infection -creatinine admission was 2.20 -patient was adequately fluid-resuscitated in the ER and OR -creatinine has now normalized -continue to monitor your renal function, urine output, electrolytes (6) Hydronephrosis with urinary obstruction due to r
[2022-01-06 12:41] LABS: Glucose Point of Care 135 mg/dl (65-105)
[2022-01-06] MEDS: VASOPRESSIN IV CONT (14:49)
[2022-01-06] MEDS: SODIUM CHLORIDE 500 MG TABLET FEED TUBE ×2 (14:49→18:37)
[2022-01-06] MEDS: SODIUM CHLORIDE 0.9% IV CONT (14:49)
[2022-01-06] MEDS: SODIUM CHLORIDE 0.9% IV 500 ML IV CONT (14:50)
[2022-01-06] MEDS: AMINO ACIDS 5%/D15W/E-LYTES/CA 2,000 ML with MULTIVITAMINS-12 INJ VIAL 1 2.5 ML, MULTIV... 65 ML IV CONT (15:28)
[2022-01-06] MEDS: FAT EMULSIONS IV 20% 250 ML 20.8 ML IVPB (15:38)
[2022-01-06 16:20] LABS: Glucose Point of Care 154 mg/dl (65-105)
[2022-01-06] MEDS: METOPROLOL TARTRATE INJ 5 MG/5 ML VIAL IV PUSH (18:17)
[2022-01-06 20:55] LABS: Glucose Point of Care 127 mg/dl (65-105)
[2022-01-06 23:56] LABS: Glucose Point of Care 157 mg/dl (65-105)
[2022-01-07] VITALS (54 sets, daily range): BP systolic 77–161; BP diastolic 47–99; PULSE 81–140; RESP 20–32; TEMP 37.1–37.7; O2SAT 89–100
[2022-01-07] MEDS: IPRATROPIUM BR 0.02% INH SOLN 0.5 MG/2.5 ML VIAL INHALATION ×4 (03:46→19:23)
[2022-01-07] MEDS: ALBUTEROL SULFATE NEB 2.5 MG/3 ML INH 5 MG INHALATION ×4 (03:46→19:22)
[2022-01-07] MEDS: dexmedeTOMIDine 400 MCG/100 ML 400 MCG/100 ML BAG 19.31 MCG IV CONT ×5 (04:20→23:53)
[2022-01-07 06:06] LABS: Alveolar/Arterial O2 Gradient 294.8 mmHg; Base Excess ABG 0.4 mEq/l (+/-2.0); Carboxyhemoglobin 0.3 % THb (0-2.0); Fractional Inspired Oxygen 60 %; HCO3 ABG 24.6 mEq/l (22.0-26.0); Methemoglobin ABG 0.4 %THb (0-1.5); Oxygen Content ABG 11.8 %vol (16.0-22.0); Oxygen Saturation ABG 97.2 % (95.0-100.0); Oxyhemoglobin 95.4 % THb (90.0-100.0); PCO2 ABG 37.8 mmHg (35.0-45.0); PO2 ABG 91.4 mmHg (80.0-100.0); PO2 FiO2 Ratio Arterial Blood 1.52 %; Reduced Hemoglobin 3.9 %THb (0-5.0); Total Hemoglobin 8.7 g/dL (12.0-18.0); pH ABG 7.431 (7.350-7.450)
[2022-01-07 06:09] LABS: Device VENTILATOR; Site Drawn ARTLINE
[2022-01-07 06:10] LABS: Arterial Blood Gas Vent Mode CMV; Arterial Blood Gas Ventilator rate 16 /MIN
[2022-01-07 06:11] LABS: Arterial Blood Gas PEEP 8 cmH2O; Arterial Blood Gas Tidal Volume 360 ml
[2022-01-07] MEDS: METOCLOPRAMIDE HCL INJ 10 MG/2 ML VIAL IV PUSH ×3 (06:42→20:54)
[2022-01-07] MEDS: CENTRAL LINE FLUSH 10 ML IV PUSH ×3 (06:43→21:00)
[2022-01-07 06:45] LABS: Hemoglobin 7.4 g/dL (14.0-18.0); Mean Corpuscular HGB Conc 30.8 g/dl (32-36); Mean Corpuscular Hemoglobin 30.6 pg (26-34); Mean Corpuscular Volume 99.2 fl (80-100); Mean Platelet Volume 12.4 fl (7.4-10.4); Platelet Count Result 127 k/mm3 (150-375); Red Blood Count 2.42 M/mm3 (4.6-6.20); Red Cell Distribution Width 17.2 % (11.5-14.5)
[2022-01-07 06:57] LABS: Alanine Aminotransferase 22 U/L (6-50); Albumin Level 2.7 g/dL (3.5-5.1); Alkaline Phosphatase 109 U/L (38-126); Anion Gap 7 mmol/L (8-16); Aspartate Amino Transferase 33 U/L (17-59); Bilirubin,Total 1.9 mg/dL (0.2-1.3); Blood Urea Nitrogen 25 mg/dL (9-20); Calcium 7.6 mg/dL (8.4-10.2); Carbon Dioxide 28 mmol/L (22-30); Chloride 92 mmol/L (98-107); Estimated CRCL calculation 94 ml/min; Estimated Glomerular Filt Rate > 60; Glucose 188 mg/dL (65-110); Magnesium 1.6 mg/dL (1.6-2.3); Phosphorus 3.6 mg/dL (2.5-4.5); Potassium 4.2 mmol/L (3.4-5.0); Sodium 127 mmol/L (137-145)
[2022-01-07 08:08] LABS: Glucose Point of Care 161 mg/dl (65-105)
[2022-01-07] MEDS: MAGNESIUM SULF 2 GM/WATER 50ML 2 GM/50 ML BAG IVPB (08:42)
--- NOTE | 2022-01-07 08:42 | WPDINTPN ---
Progress Note: A&P Assessment and Plan (1) Septic shock: Code(s): A41.9 - Sepsis, unspecified organism; R65.21 - Severe sepsis with septic shock Status: Acute Assessment and Plan: RESOLVED Patient presented with hypotension, leukocytosis, lactic acidosis. Likely source peritonitis secondary to ruptured sigmoid colon -right IJ central line was placed in the ER, patient received adequate amount of IV fluids -continue Levophed and vasopressin infusion -resume stress dose steroids -resume 25 % albumin -continue to maintain MAP > 65 mmHg for adequate end organ perfusion -continue Zosyn (12/29), -blood and urine cultures are negative - Cultures from abdominal cavity during surgery grew Bacteroides fragilis, Fusobacterium necrophorum Sputum cultures 01/03 Org 1 = Klebsiella pnemoniae Org 2 = Yeast isolated (2) Perforated abdominal viscus: Code(s): R19.8 - Other specified symptoms and signs involving the digestive system and abdomen Status: Acute Assessment and Plan: Patient presented with abdominal pain, nausea, vomiting, septic shock. 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 Patient has no bowel sounds on my exam today and minimal output from ostomy - 01/05 KUB- Nonobstructive bowel gas pattern -01/[address] Cuevas from General surgery. Patient was started on trickle feed again. Continue at current rate of 10 mL/hour. -continue regular (3) Acute respiratory failure: Code(s): J96.00 - Acute respiratory failure, unspecified whether with hypoxia or hypercapnia Status: Acute Assessment and Plan: Patient also presented with shortness of breath on admission, was found to have a moderate right-sided pneumothorax a CT scan of the abdomen and pelvis -right-sided chest tube was placed in the OR by surgery -patient was intubated and placed on mechanical ventilation for surgery -01/03 repeat sputum culture growing Klebsiella -continue Zosyn. Discontinued vancomycin -ABG reviewed -continue FiO2 to 35 % PEEP to 8 -hold diuresis due to increased vasopressor require -01/06 patient tolerated PSV for few hours with adequate ABG but increased work of breathing -increase PEEP back to 8 FiO2 is at 60% -ABG reviewed -Venous Doppler showed DVT of left popliteal and posterior tibial vein-now status post IVC filter placement (4) Pneumothorax, right: Code(s): J93.9 - Pneumothorax, unspecified Status: Acute Assessment and Plan: CT scan of the abdomen pelvis showed a moderate right pneumothorax, right-sided chest tube was placed in the OR on 12/29/2021 per surgery -stable mild right apical pneumothorax -intermittent air leak -continue chest tube to suction -surgeon managing the chest tube (5) ROSALINDA (acute kidney injury): Code(s): N17.9 - Acute kidney failure, unspecified Status: Acute Assessment and Plan: RESOLVED Patient presented with acute kidney injury, likely related to septic shock, hypovolemia, ATN, infection -creatinine admission was 2.20 -patient was adequately fluid-resuscitated in the ER and OR -creatinine has now normalized -continue to monitor your renal function, urine output, electrolytes (6) Hydronephrosis with urinary obstruction due to renal calculus: Code(s): N13.2 - Hydronephrosis with renal and ureteral calculous obstruction Status: Acute Assessment and Plan: Cystoscopy, bilateral retrograde pyelography and bilateral ureteral stent placement on 12/29/2021 -p
[2022-01-07] MEDS: SODIUM CHLORIDE 500 MG TABLET 1000 MG FEED TUBE ×3 (08:44→20:54)
[2022-01-07] MEDS: THIAMINE HCL 200 MG/2 ML VIAL 100 MG IV PUSH (08:54)
[2022-01-07] MEDS: PANTOPRAZOLE SODIUM IV 40 MG VIAL IV PUSH ×2 (08:54→20:55)
[2022-01-07] MEDS: MINERAL OIL/WHITE PETROLATUM OINTMENT 1 APPLIC EACH EYE ×2 (08:56→20:55)
[2022-01-07] MEDS: FOLIC ACID 1 MG/0.2 ML INJ IV PUSH (09:30)
--- NOTE | 2022-01-07 11:20 | PM.IMPN ---
Progress Note: A&P Assessment and Plan (1) Septic shock: Code(s): A41.9 - Sepsis, unspecified organism; R65.21 - Severe sepsis with septic shock Status: Acute Assessment and Plan: RESOLVED Patient presented with hypotension, leukocytosis, lactic acidosis. Likely source peritonitis secondary to ruptured sigmoid colon -right IJ central line was placed in the ER, patient received adequate amount of IV fluids -continue pressors albumin and steroids per ICU physician -continue Zosyn (12/29), -blood and urine cultures are negative - Cultures from abdominal cavity during surgery grew Bacteroides fragilis, Fusobacterium necrophorum Sputum cultures 01/03 Org 1 = Klebsiella pnemoniae Org 2 = Yeast isolated (2) Perforated abdominal viscus: Code(s): R19.8 - Other specified symptoms and signs involving the digestive system and abdomen Status: Acute Assessment and Plan: Patient presented with abdominal pain, nausea, vomiting, septic shock. 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 Patient has no bowel sounds on my exam today and minimal output from ostomy - 01/05 KUB- Nonobstructive bowel gas pattern -01/[address] Cuevas from General surgery. Patient was started on trickle feed again. Continue at current rate of 10 mL/hour. -continue regular (3) Acute respiratory failure: Code(s): J96.00 - Acute respiratory failure, unspecified whether with hypoxia or hypercapnia Status: Acute Assessment and Plan: Patient also presented with shortness of breath on admission, was found to have a moderate right-sided pneumothorax a CT scan of the abdomen and pelvis -right-sided chest tube was placed in the OR by surgery -patient was intubated and placed on mechanical ventilation for surgery -01/03 repeat sputum culture growing Klebsiella -continue Zosyn. Discontinued vancomycin -ABG reviewed -continue FiO2 to 35 % PEEP to 8 -hold diuresis due to increased vasopressor require -01/06 patient tolerated PSV for few hours with adequate ABG but increased work of breathing -increase PEEP back to 8 FiO2 is at 60% -ABG reviewed -Venous Doppler showed DVT of left popliteal and posterior tibial vein-now status post IVC filter placement (4) Pneumothorax, right: Code(s): J93.9 - Pneumothorax, unspecified Status: Acute Assessment and Plan: CT scan of the abdomen pelvis showed a moderate right pneumothorax, right-sided chest tube was placed in the OR on 12/29/2021 per surgery -stable mild right apical pneumothorax -intermittent air leak -continue chest tube to suction -surgeon managing the chest tube (5) ROSALINDA (acute kidney injury): Code(s): N17.9 - Acute kidney failure, unspecified Status: Acute Assessment and Plan: RESOLVED Patient presented with acute kidney injury, likely related to septic shock, hypovolemia, ATN, infection -creatinine admission was 2.20 -patient was adequately fluid-resuscitated in the ER and OR -creatinine has now normalized -continue to monitor your renal function, urine output, electrolytes (6) Hydronephrosis with urinary obstruction due to renal calculus: Code(s): N13.2 - Hydronephrosis with renal and ureteral calculous obstruction Status: Acute Assessment and Plan: Cystoscopy, bilateral retrograde pyelography and bilateral ureteral stent placement on 12/29/2021 -patient with blood in urine, Watson has been flushed -urology following the patient (7) Electrolyte abnormali
--- NOTE | 2022-01-07 11:55 | PM.PNGS ---
Progress Note: A&P Assessment and Plan (1) Perforated abdominal viscus: Code(s): R19.8 - Other specified symptoms and signs involving the digestive system and abdomen Status: Acute Assessment and Plan: will slowly try to increase TFs, awaiting ostomy fxn, cont abx, wean pressors as brit (2) Pneumothorax, right: Code(s): J93.9 - Pneumothorax, unspecified Status: Acute Assessment and Plan: cont CT for now until extubated Subjective Subjective Date/Time Seen: 01/07/22 11:55 no acute changes, brit trophic feeds yesterday Review of Systems Review of Systems: ROS unobtainable: Yes unobtainable due to endotracheal tube Exam Const: General: patient obtunded Chest: Other: chest tube - no leak Resp: Auscultation: diminished lung sounds Cardio: Rate: regular rate Rhythm: regular rhythm GI: Inspection: normal to inspection, distended and incision Other: ostomy - viable, no stool Objective Data Vital Signs Vital Signs: Vital Signs - 24 hr 01/06/22 11:58 01/06/22 12:00 01/06/22 12:00 Temperature Pulse Rate 103 H 124 H Respiratory Rate 21 H Blood Pressure Pulse Oximetry 99 Oxygen Delivery Mechanical Ventilation Fraction of Inspired Oxygen 35 35 01/06/22 12:00 01/06/22 14:38 01/06/22 14:39 Temperature 37.6 C H Pulse Rate 124 H 97 99 Respiratory Rate 27 H 19 Blood Pressure 97/60 L Pulse Oximetry 95 96 Oxygen Delivery Mechanical Ventilation Fraction of Inspired Oxygen 35 01/06/22 14:00 01/06/22 14:00 01/06/22 15:39 Temperature Pulse Rate 118 H 117 H 114 H Respiratory Rate 18 22 H Blood Pressure 120/65 Pulse Oximetry 90 Oxygen Delivery Fraction of Inspired Oxygen 01/06/22 14:55 01/06/22 17:23 01/06/22 17:34 Temperature Pulse Rate 104 H 105 H 123 H Respiratory Rate 20 27 H Blood Pressure Pulse Oximetry 94 Oxygen Delivery Mechanical Ventilation Fraction of Inspired Oxygen 50 01/06/22 16:00 01/06/22 16:00 01/06/22 16:00 Temperature Pulse Rate 120 H 120 H Respiratory Rate 27 H Blood Pressure Pulse Oximetry 95 Oxygen Delivery Mechanical Ventilation Fraction of Inspired Oxygen 35 35 01/06/22 16:00 01/06/22 16:00 01/06/22 18:04 Temperature 37.4 C Pulse Rate 107 H 120 H Respiratory Rate 20 Blood Pressure 107/75 95/60 L 117/68 Pulse Oximetry 95 Oxygen Delivery Fraction of Inspired Oxygen 01/06/22 18:00 01/06/22 18:17 01/06/22 18:43 Temperature Pulse Rate 130 H 130 H 111 H Respiratory Rate Blood Pressure 135/84 Pulse Oximetry Oxygen Delivery Fraction of Inspired Oxygen 01/06/22 20:49 01/06/22 20:57 01/06/22 20:55 Temperature Pulse Rate 100 112 H Respiratory Rate 21 H Blood Pressure 84/54 L Pulse Oximetry 91 Oxygen Delivery Mechanical Ventilation Fraction of Inspired Oxygen 60 01/06/22 21:05 01/06/22 20:00 01/06/22 22:00 Temperature Pulse Rate 115 H 114 H 107 H Respiratory Rate 21 H Blood Pressure Pulse Oximetry Oxygen Delivery Fraction of Inspired Oxygen 01/06/22 20:00 01/06/22 20:00 01/06/22 22:00 Temperature 37.7 C H 37.4 C Pulse Rate 116 H 100 Respiratory Rate 27 H 19 Blood Pressure 125/81 84/52 L Pulse Oximetry 88 L 92 Oxygen Delivery Mechanical Ventilation Fraction of Inspired Oxygen 01/07/22 00:00 01/07/22 00:00 01/07/22 00:00 Temperature 37.3 C Pulse Rate 114 H 104 H Respiratory Rate 26 H Blood Pressure 107/67 Pulse Oximetry 89 L Oxygen Delivery Mechanical Ventilation Fraction of Inspired Oxygen 01/06/22 23:55 01/07/22 02:00 01/07/22 02:00 Temperature 37.3 C Pulse Rate 110 H 111 H 117 H Respiratory Rate 27 H Blood Pressure 117/73 Pulse Oximetry 90 91 Oxygen Delivery Mechanical Ventilation Fraction of Inspired Oxygen 60 01/07/22 02:15 01/07/22 03:44 01/07/22 03:57 Temperature Pulse Rate 133 H 122 H 110 H Respi
[2022-01-07] MEDS: ALBUMIN HUMAN 25% 25 GM/100 ML 100 ML IVPB ×2 (12:04→17:42)
[2022-01-07 12:37] LABS: Glucose Point of Care 168 mg/dl (65-105)
[2022-01-07] MEDS: AMINO ACIDS 5%/D15W/E-LYTES/CA 2,000 ML with MULTIVITAMINS-12 INJ VIAL 1 2.5 ML, MULTIV... 65 ML IV CONT (13:20)
[2022-01-07] MEDS: MORPHINE SULFATE (*CRX) 2 MG/ML INJ IV PUSH (13:48)
[2022-01-07] MEDS: FAT EMULSIONS IV 20% 250 ML 20.8 ML IVPB (14:00)
[2022-01-07] MEDS: LORazepam INJ (*CRX) 2 MG/ML VIAL IV PUSH (14:31)
[2022-01-07 16:07] LABS: Anion Gap 7 mmol/L (8-16); Blood Urea Nitrogen 25 mg/dL (9-20); Calcium 7.7 mg/dL (8.4-10.2); Carbon Dioxide 26 mmol/L (22-30); Chloride 94 mmol/L (98-107); Estimated CRCL calculation 110 ml/min; Estimated Glomerular Filt Rate > 60; Glucose 106 mg/dL (65-110); Potassium 3.9 mmol/L (3.4-5.0); Sodium 127 mmol/L (137-145)
[2022-01-07 16:49] LABS: Lactic Acid Reflex 0.8 mmol/L (0.7-2.0)
[2022-01-07 17:53] LABS: Glucose Point of Care 148 mg/dl (65-105)
[2022-01-07] MEDS: HYDROCORTISONE SODIUM SUCCINATE 100 MG/2 ML VIAL IV PUSH (21:00)
[2022-01-08] VITALS (49 sets, daily range): BP systolic 98–146; BP diastolic 57–91; PULSE 92–151; RESP 15–33; TEMP 36.1–37.1; O2SAT 94–100
[2022-01-08] MEDS: ALBUMIN HUMAN 25% 25 GM/100 ML 100 ML IVPB ×3 (01:00→21:04)
[2022-01-08] MEDS: METOCLOPRAMIDE HCL INJ 10 MG/2 ML VIAL IV PUSH ×4 (01:04→18:02)
[2022-01-08 01:14] LABS: Glucose Point of Care 219 mg/dl (65-105)
[2022-01-08] MEDS: INSULIN ASPART (*BKC) 100 UNITS/ML SUB-Q ×3 (01:14→18:04)
[2022-01-08 04:57] LABS: Alanine Aminotransferase 23 U/L (6-50); Albumin Level 3.3 g/dL (3.5-5.1); Alkaline Phosphatase 108 U/L (38-126); Anion Gap 9 mmol/L (8-16); Aspartate Amino Transferase 36 U/L (17-59); Bilirubin,Total 1.9 mg/dL (0.2-1.3); Blood Urea Nitrogen 24 mg/dL (9-20); Carbon Dioxide 27 mmol/L (22-30); Chloride 93 mmol/L (98-107); Estimated CRCL calculation 110 ml/min; Estimated Glomerular Filt Rate > 60; Glucose 220 mg/dL (65-110); Magnesium 1.8 mg/dL (1.6-2.3); Phosphorus 3.1 mg/dL (2.5-4.5); Potassium 3.9 mmol/L (3.4-5.0); Sodium 129 mmol/L (137-145); Triglycerides 82 mg/dL (<150)
[2022-01-08 04:59] LABS: Immature Platelet Fraction Pct 18.6 % (0.9-11.2); Mean Corpuscular HGB Conc 30.8 g/dl (32-36); Mean Corpuscular Hemoglobin 30.8 pg (26-34); Platelet Count Result 146 k/mm3 (150-375); Red Blood Count 1.95 M/mm3 (4.6-6.20); Red Cell Distribution Width 17.2 % (11.5-14.5); White Blood Count 10.3 K/mm3 (4.5-10.0)
[2022-01-08 05:11] LABS: Hematocrit 19.5 % (42.0-52.0)
[2022-01-08 05:26] LABS: Alveolar/Arterial O2 Gradient 129.2 mmHg; Base Excess ABG 0.6 mEq/l (+/-2.0); Carboxyhemoglobin 0.3 % THb (0-2.0); Device VENTILATOR; Fractional Inspired Oxygen 40 %; HCO3 ABG 23.8 mEq/l (22.0-26.0); Methemoglobin ABG 0.4 %THb (0-1.5); Oxygen Content ABG 11.6 %vol (16.0-22.0); Oxygen Saturation ABG 98.6 % (95.0-100.0); Oxyhemoglobin 97.1 % THb (90.0-100.0); PCO2 ABG 32.2 mmHg (35.0-45.0); PO2 FiO2 Ratio Arterial Blood 2.97 %; Reduced Hemoglobin 2.2 %THb (0-5.0); Site Drawn ARTLINE; Total Hemoglobin 8.3 g/dL (12.0-18.0); pH ABG 7.487 (7.350-7.450)
[2022-01-08 05:27] LABS: Arterial Blood Gas PEEP 8 cmH2O; Arterial Blood Gas Tidal Volume 360 ml; Arterial Blood Gas Vent Mode CMV; Arterial Blood Gas Ventilator rate 16 /MIN
[2022-01-08] MEDS: dexmedeTOMIDine 400 MCG/100 ML 400 MCG/100 ML BAG 17.82 MCG IV CONT ×2 (05:53→11:12)
[2022-01-08] MEDS: CENTRAL LINE FLUSH 10 ML IV PUSH ×4 (06:36→21:01)
[2022-01-08] MEDS: HYDROCORTISONE SODIUM SUCCINATE 100 MG/2 ML VIAL IV PUSH ×3 (06:47→21:01)
[2022-01-08 06:54] LABS: Glucose Point of Care 180 mg/dl (65-105)
[2022-01-08] MEDS: SODIUM CHLORIDE 0.9% IV 250 ML 30 ML IV CONT (07:45)
[2022-01-08] MEDS: PANTOPRAZOLE SODIUM IV 40 MG VIAL IV PUSH ×2 (08:01→20:58)
[2022-01-08] MEDS: MINERAL OIL/WHITE PETROLATUM OINTMENT 1 APPLIC EACH EYE ×2 (08:01→20:58)
[2022-01-08] MEDS: ALBUTEROL SULFATE NEB 2.5 MG/3 ML INH 5 MG INHALATION ×3 (08:03→20:07)
[2022-01-08] MEDS: IPRATROPIUM BR 0.02% INH SOLN 0.5 MG/2.5 ML VIAL INHALATION ×3 (08:03→20:07)
[2022-01-08] MEDS: FOLIC ACID 1 MG/0.2 ML INJ IV PUSH (08:08)
[2022-01-08] MEDS: SODIUM CHLORIDE 500 MG TABLET 1000 MG FEED TUBE ×2 (08:37→13:37)
[2022-01-08] MEDS: FENTANYL 2,500MCG/NS250ML(*CRX 2,500 MCG/250 ML BAG IV CONT (09:01)
--- NOTE | 2022-01-08 09:17 | WPDINTPN ---
Progress Note: A&P Assessment and Plan (1) Septic shock: Code(s): A41.9 - Sepsis, unspecified organism; R65.21 - Severe sepsis with septic shock Status: Acute Assessment and Plan: RESOLVED Patient presented with hypotension, leukocytosis, lactic acidosis. Likely source peritonitis secondary to ruptured sigmoid colon -right IJ central line was placed in the ER, patient received adequate amount of IV fluids -both Levophed and vasopressin infusion have been weaned off at this time at this time -continue stress dose steroids -decreased 25 % albumin -continue to maintain MAP > 65 mmHg for adequate end organ perfusion -continue Zosyn (12/29), -blood and urine cultures are negative - Cultures from abdominal cavity during surgery grew Bacteroides fragilis, Fusobacterium necrophorum Sputum cultures 01/03 Org 1 = Klebsiella pnemoniae Org 2 = Yeast isolated (2) Perforated abdominal viscus: Code(s): R19.8 - Other specified symptoms and signs involving the digestive system and abdomen Status: Acute Assessment and Plan: Patient presented with abdominal pain, nausea, vomiting, septic shock. 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 Patient has no bowel sounds on my exam today and minimal output from ostomy - 01/05 KUB- Nonobstructive bowel gas pattern -01/[address] Cuevas from General surgery. Patient was started on trickle feed again. Continue at current rate of 10 mL/hour. -01/07 tube feeds were again held due to concerns of obstructive inguinal hernia. Discussed with general surgery and they recommend resuming tube feeds. Tube feeds will be resumed 01/07 CT abdomen pelvis IMPRESSION: 3: Moderate ascites. 4.: Right inguinal hernia containing small bowel which may be obstructed at the hernia. There is also a large right hydrocele. 5: Right renal and distal ureteral stones. Bilateral nephroureteral stents in expected position. (3) Acute respiratory failure: Code(s): J96.00 - Acute respiratory failure, unspecified whether with hypoxia or hypercapnia Status: Acute Assessment and Plan: Patient also presented with shortness of breath on admission, was found to have a moderate right-sided pneumothorax a CT scan of the abdomen and pelvis -right-sided chest tube was placed in the OR by surgery -patient was intubated and placed on mechanical ventilation for surgery -01/03 repeat sputum culture growing Klebsiella -continue Zosyn. Discontinued vancomycin -ABG reviewed -wean FiO2 to 30 % PEEP to 8 -hold diuresis due to increased vasopressor require -01/06 patient tolerated PSV for few hours with adequate ABG but increased work of breathing -patient tachypneic with respiratory rate in 30s precluding weaning trial -Venous Doppler showed DVT of left popliteal and posterior tibial vein-now status post IVC filter placement 01/07 CT abdomen pelvis 1. Bilateral lower lobe airspace consolidation which may represent atelectasis and/or pneumonia. 2: Moderate bilateral pleural effusions. (4) Pneumothorax, right: Code(s): J93.9 - Pneumothorax, unspecified Status: Acute Assessment and Plan: CT scan of the abdomen pelvis showed a moderate right pneumothorax, right-sided chest tube was placed in the OR on 12/29/2021 per surgery -stable mild right apical pneumothorax -intermittent air leak -continue chest tube to suction -surgeon managing the chest tube (5) ROSALINDA (acute kidney injury): Code(s): N17.9 - Acute kidney failure, unsp
[2022-01-08] MEDS: MAGNESIUM SULF 2 GM/WATER 50ML 2 GM/50 ML BAG IVPB (10:15)
--- NOTE | 2022-01-08 10:50 | PM.PNGS ---
Progress Note: A&P Assessment and Plan (1) Perforated abdominal viscus: Code(s): R19.8 - Other specified symptoms and signs involving the digestive system and abdomen Status: Acute Assessment and Plan: will restart trophic TF, cont TPN, ostomy has started working (2) Right inguinal hernia: Code(s): K40.90 - Unilateral inguinal hernia, without obstruction or gangrene, not specified as recurrent Status: Acute Assessment and Plan: cont to observe, pt is poor surgical candidate, ostomy is functioning Subjective Subjective Date/Time Seen: 01/08/22 10:50 ostomy working, now c R groin swelling Review of Systems Review of Systems: ROS unobtainable: Yes unobtainable due to endotracheal tube and unobtainable due to medical condition Exam Const: Other: intubated Chest: Other: R CT - no leak Resp: Auscultation: diminished lung sounds GI: Inspection: Abdominal wall edema, distended and incision GI Palp: Yes Soft to palpation Other: ostomy - viable, +liquid stool R groin swelling - lg hydrocele, unable to reduce hernia Objective Data Vital Signs Vital Signs: Vital Signs - 24 hr 01/07/22 11:51 01/07/22 13:21 01/07/22 13:21 Temperature Pulse Rate 103 H 124 H 124 H Respiratory Rate 21 H 29 H 29 H Blood Pressure Pulse Oximetry 99 Oxygen Delivery Mechanical Ventilation Fraction of Inspired Oxygen 60 01/07/22 13:45 01/07/22 13:55 01/07/22 14:01 Temperature Pulse Rate 104 H 114 H 134 H Respiratory Rate Blood Pressure 143/84 H 156/88 H 147/88 H Pulse Oximetry Oxygen Delivery Fraction of Inspired Oxygen 01/07/22 14:38 01/07/22 14:42 01/07/22 16:00 Temperature Pulse Rate 134 H 140 H 110 H Respiratory Rate 26 H Blood Pressure 95/58 L 78/47 L Pulse Oximetry 97 Oxygen Delivery Mechanical Ventilation Fraction of Inspired Oxygen 40 01/07/22 16:00 01/07/22 16:00 01/07/22 17:32 Temperature 37.4 C Pulse Rate 96 96 Respiratory Rate 29 H Blood Pressure 159/96 H 161/99 H Pulse Oximetry 99 Oxygen Delivery Fraction of Inspired Oxygen 40 01/07/22 18:13 01/07/22 18:20 01/07/22 12:00 Temperature Pulse Rate 96 104 H 103 H Respiratory Rate Blood Pressure 134/89 127/81 Pulse Oximetry Oxygen Delivery Fraction of Inspired Oxygen 01/07/22 12:00 01/07/22 12:00 01/07/22 13:25 Temperature Pulse Rate 109 H 106 H Respiratory Rate 29 H 29 H Blood Pressure 111/71 122/77 Pulse Oximetry 99 97 Oxygen Delivery Fraction of Inspired Oxygen 60 01/07/22 13:33 01/07/22 13:37 01/07/22 14:00 Temperature Pulse Rate 111 H 119 H 135 H Respiratory Rate 32 H Blood Pressure Pulse Oximetry 97 Oxygen Delivery Mechanical Ventilation Fraction of Inspired Oxygen 40 01/07/22 14:00 01/07/22 15:15 01/07/22 17:22 Temperature 37.7 C H Pulse Rate 135 H 110 H 115 H Respiratory Rate 32 H 26 H Blood Pressure 147/85 H 110/68 Pulse Oximetry 94 97 96 Oxygen Delivery Mechanical Ventilation Fraction of Inspired Oxygen 40 01/07/22 16:00 01/07/22 18:00 01/07/22 18:00 Temperature Pulse Rate 97 99 99 Respiratory Rate 26 H Blood Pressure 114/73 Pulse Oximetry 100 Oxygen Delivery Fraction of Inspired Oxygen 01/07/22 18:32 01/07/22 18:42 01/07/22 19:24 Temperature Pulse Rate 113 H 113 H 97 Respiratory Rate 25 H 25 H Blood Pressure Pulse Oximetry 99 Oxygen Delivery Mechanical Ventilation Fraction of Inspired Oxygen 40 01/07/22 19:24 01/07/22 21:04 01/07/22 20:00 Temperature Pulse Rate 82 94 Respiratory Rate 24 H Blood Pressure 110/75 Pulse Oximetry Oxygen Delivery Fraction of Inspired Oxygen 40 01/07/22 20:00 01/07/22 20:00 01/07/22 22:00 Temperature 37.1 C 37.1 C Pulse Rate 91 114 H Respiratory Rate 22 H 30 H Blood Pressure 98/73 L 124/77 Pulse Oximetry 99 97 Oxygen Delivery Mechanical Ventilation [facility]
--- NOTE | 2022-01-08 10:58 | PM.IMPN ---
Progress Note: A&P Assessment and Plan (1) Septic shock: Code(s): A41.9 - Sepsis, unspecified organism; R65.21 - Severe sepsis with septic shock Status: Acute Assessment and Plan: RESOLVED Patient presented with hypotension, leukocytosis, lactic acidosis. Likely source peritonitis secondary to ruptured sigmoid colon -right IJ central line was placed in the ER, patient received adequate amount of IV fluids -continue pressors albumin and steroids per ICU physician -continue Zosyn (12/29), -blood and urine cultures are negative - Cultures from abdominal cavity during surgery grew Bacteroides fragilis, Fusobacterium necrophorum Sputum cultures 01/03 Org 1 = Klebsiella pnemoniae Org 2 = Yeast isolated (2) Perforated abdominal viscus: Code(s): R19.8 - Other specified symptoms and signs involving the digestive system and abdomen Status: Acute Assessment and Plan: Patient presented with abdominal pain, nausea, vomiting, septic shock. 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 Patient has no bowel sounds on my exam today and minimal output from ostomy - 01/05 KUB- Nonobstructive bowel gas pattern -01/[address] Cuevas from General surgery. Patient was started on trickle feed again. Continue at current rate of 10 mL/hour. -continue regular (3) Acute respiratory failure: Code(s): J96.00 - Acute respiratory failure, unspecified whether with hypoxia or hypercapnia Status: Acute Assessment and Plan: Patient also presented with shortness of breath on admission, was found to have a moderate right-sided pneumothorax a CT scan of the abdomen and pelvis -right-sided chest tube was placed in the OR by surgery -patient was intubated and placed on mechanical ventilation -01/03 repeat sputum culture growing Klebsiella -continue Zosyn. Discontinued vancomycin - (4) Pneumothorax, right: Code(s): J93.9 - Pneumothorax, unspecified Status: Acute Assessment and Plan: CT scan of the abdomen pelvis showed a moderate right pneumothorax, right-sided chest tube was placed in the OR on 12/29/2021 per surgery -stable mild right apical pneumothorax -intermittent air leak -continue chest tube to suction -surgeon managing the chest tube (5) ROSALINDA (acute kidney injury): Code(s): N17.9 - Acute kidney failure, unspecified Status: Acute Assessment and Plan: Creatinine 0.5 (6) Hydronephrosis with urinary obstruction due to renal calculus: Code(s): N13.2 - Hydronephrosis with renal and ureteral calculous obstruction Status: Acute Assessment and Plan: -urology following the patient (7) Electrolyte abnormality: Code(s): E87.8 - Other disorders of electrolyte and fluid balance, not elsewhere classified Status: Acute Assessment and Plan: Monitor electrolytes (8) Anemia: Code(s): D64.9 - Anemia, unspecified Status: Acute Assessment and Plan: Transfuse as needed (9) Thrombocytopenia: Code(s): D69.6 - Thrombocytopenia, unspecified Status: Acute Assessment and Plan: Thrombocytopenia, likely related to septic shock, decreased down marrow function Monitor (10) DVT (deep venous thrombosis): Code(s): I82.409 - Acute embolism and thrombosis of unspecified deep veins of unspecified lower extremity Status: Acute Assessment and Plan: 01/03/2022 bilateral lower extremity venous Dopplers: ?Deep venous thrombosis of lef
[2022-01-08] MEDS: THIAMINE HCL 200 MG/2 ML VIAL 100 MG IV PUSH (11:37)
[2022-01-08 11:45] LABS: Glucose Point of Care 212 mg/dl (65-105)
[2022-01-08] MEDS: METOPROLOL TARTRATE INJ 5 MG/5 ML VIAL IV PUSH ×3 (12:02→21:12)
[2022-01-08 13:20] LABS: Hematocrit 28.3 % (42.0-52.0); Hemoglobin 9.2 g/dL (14.0-18.0)
[2022-01-08 13:32] LABS: INR 1.1; Prothrombin Time 13.9 Seconds (11.1-14.7)
[2022-01-08 13:34] LABS: Fibrinogen 548 mg/dl (215-510); Partial Thromboplastin Time 30.3 SECONDS (22.3-36.8)
[2022-01-08] MEDS: FAT EMULSIONS IV 20% 250 ML 20.8 ML IVPB (13:39)
[2022-01-08] MEDS: AMINO ACIDS 5%/D15W/E-LYTES/CA 2,000 ML with MULTIVITAMINS-12 INJ VIAL 1 2.5 ML, MULTIV... 65 ML IV CONT (13:39)
[2022-01-08 15:04] LABS: Anion Gap 11 mmol/L (8-16); Blood Urea Nitrogen 23 mg/dL (9-20); Calcium 8.7 mg/dL (8.4-10.2); Carbon Dioxide 26 mmol/L (22-30); Chloride 103 mmol/L (98-107); Estimated CRCL calculation 110 ml/min; Estimated Glomerular Filt Rate > 60; Glucose 190 mg/dL (65-110); Potassium 3.8 mmol/L (3.4-5.0); Sodium 140 mmol/L (137-145)
[2022-01-08] MEDS: dexmedeTOMIDine 400 MCG/100 ML 400 MCG/100 ML BAG 19.31 MCG IV CONT ×2 (15:49→21:03)
[2022-01-08] MEDS: LORazepam INJ (*CRX) 2 MG/ML VIAL IV PUSH (16:30)
[2022-01-08] MEDS: DEXTROSE 5% IN WATER 500 ML 125 ML IV CONT (16:49)
[2022-01-08 18:06] LABS: Glucose Point of Care 270 mg/dl (65-105)
[2022-01-08 21:11] LABS: Anion Gap 8 mmol/L (8-16); Blood Urea Nitrogen 23 mg/dL (9-20); Calcium 8.4 mg/dL (8.4-10.2); Carbon Dioxide 28 mmol/L (22-30); Chloride 101 mmol/L (98-107); Estimated CRCL calculation 110 ml/min; Estimated Glomerular Filt Rate > 60; Glucose 274 mg/dL (65-110); Potassium 3.5 mmol/L (3.4-5.0); Sodium 137 mmol/L (137-145)
[2022-01-09] VITALS (34 sets, daily range): BP systolic 92–158; BP diastolic 58–98; PULSE 101–153; RESP 14–22; TEMP 36.4–37.1; O2SAT 92–99
[2022-01-09] MEDS: METOCLOPRAMIDE HCL INJ 10 MG/2 ML VIAL IV PUSH ×5 (01:23→23:46)
[2022-01-09 01:29] LABS: Glucose Point of Care 192 mg/dl (65-105)
[2022-01-09] MEDS: METOPROLOL TARTRATE INJ 5 MG/5 ML VIAL IV PUSH ×4 (01:29→21:28)
[2022-01-09] MEDS: dexmedeTOMIDine 400 MCG/100 ML 400 MCG/100 ML BAG 19.31 MCG IV CONT ×5 (02:19→22:52)
[2022-01-09] MEDS: ALBUTEROL SULFATE NEB 2.5 MG/3 ML INH 5 MG INHALATION ×4 (02:37→20:00)
[2022-01-09] MEDS: IPRATROPIUM BR 0.02% INH SOLN 0.5 MG/2.5 ML VIAL INHALATION ×4 (02:38→20:00)
[2022-01-09 05:22] LABS: Alveolar/Arterial O2 Gradient 80.6 mmHg; Base Excess ABG 3.8 mEq/l (+/-2.0); Carboxyhemoglobin 0.3 % THb (0-2.0); Fractional Inspired Oxygen 30 %; HCO3 ABG 28.7 mEq/l (22.0-26.0); Methemoglobin ABG 0.3 %THb (0-1.5); Oxygen Content ABG 15.5 %vol (16.0-22.0); Oxygen Saturation ABG 96.2 % (95.0-100.0); Oxyhemoglobin 94.6 % THb (90.0-100.0); PCO2 ABG 44.4 mmHg (35.0-45.0); PO2 ABG 81.1 mmHg (80.0-100.0); Reduced Hemoglobin 4.8 %THb (0-5.0); Total Hemoglobin 11.6 g/dL (12.0-18.0); pH ABG 7.428 (7.350-7.450)
[2022-01-09 05:25] LABS: Device VENTILATOR; Site Drawn ARTLINE
[2022-01-09 05:26] LABS: Arterial Blood Gas PEEP 8 cmH2O; Arterial Blood Gas Tidal Volume 360 ml; Arterial Blood Gas Vent Mode CMV; Arterial Blood Gas Ventilator rate 16 /MIN
[2022-01-09] MEDS: HYDROCORTISONE SODIUM SUCCINATE 100 MG/2 ML VIAL IV PUSH ×3 (05:26→21:28)
[2022-01-09] MEDS: CENTRAL LINE FLUSH 10 ML IV PUSH ×4 (05:32→21:32)
[2022-01-09 05:48] LABS: Hematocrit 28.2 % (42.0-52.0); Hemoglobin 8.8 g/dL (14.0-18.0); Mean Corpuscular HGB Conc 31.2 g/dl (32-36); Mean Corpuscular Volume 96.2 fl (80-100); Platelet Count Result 166 k/mm3 (150-375); Red Blood Count 2.93 M/mm3 (4.6-6.20); Red Cell Distribution Width 18.3 % (11.5-14.5); White Blood Count 14.5 K/mm3 (4.5-10.0)
[2022-01-09 05:59] LABS: Alanine Aminotransferase 25 U/L (6-50); Albumin Level 3.6 g/dL (3.5-5.1); Alkaline Phosphatase 91 U/L (38-126); Anion Gap 9 mmol/L (8-16); Aspartate Amino Transferase 29 U/L (17-59); Bilirubin,Total 1.8 mg/dL (0.2-1.3); Blood Urea Nitrogen 24 mg/dL (9-20); Calcium 9.4 mg/dL (8.4-10.2); Carbon Dioxide 30 mmol/L (22-30); Chloride 99 mmol/L (98-107); Estimated CRCL calculation 91 ml/min; Estimated Glomerular Filt Rate > 60; Glucose 183 mg/dL (65-110); Magnesium 2.2 mg/dL (1.6-2.3); Potassium 4.2 mmol/L (3.4-5.0); Sodium 138 mmol/L (137-145)
[2022-01-09 06:06] LABS: Transferrin 82 mg/dL (206-381)
[2022-01-09] MEDS: MORPHINE SULFATE (*CRX) 4 MG/ML INJ IV PUSH (08:09)
--- NOTE | 2022-01-09 09:22 | WPDINTPN ---
Progress Note: A&P Assessment and Plan (1) Septic shock: Code(s): A41.9 - Sepsis, unspecified organism; R65.21 - Severe sepsis with septic shock Status: Acute Assessment and Plan: RESOLVED Patient presented with hypotension, leukocytosis, lactic acidosis. Likely source peritonitis secondary to ruptured sigmoid colon -right IJ central line was placed in the ER, patient received adequate amount of IV fluids -both Levophed and vasopressin infusion have been weaned off at this time at this time -continue stress dose steroids -discontinue 25 % albumin -continue to maintain MAP > 65 mmHg for adequate end organ perfusion -continue Zosyn (12/29), -blood and urine cultures are negative - Cultures from abdominal cavity during surgery grew Bacteroides fragilis, Fusobacterium necrophorum Sputum cultures 01/03 Org 1 = Klebsiella pnemoniae Org 2 = Yeast isolated (2) Perforated abdominal viscus: Code(s): R19.8 - Other specified symptoms and signs involving the digestive system and abdomen Status: Acute Assessment and Plan: Patient presented with abdominal pain, nausea, vomiting, septic shock. 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 Patient has no bowel sounds on my exam today and minimal output from ostomy - 01/05 KUB- Nonobstructive bowel gas pattern -01/[address] Cuevas from General surgery. Patient was started on trickle feed again. Continue at current rate of 10 mL/hour. -01/07 tube feeds were again held due to concerns of obstructive inguinal hernia. Discussed with general surgery and they recommend resuming tube feeds. Tube feeds have been resumed. Advance it for 01/07 CT abdomen pelvis IMPRESSION: 3: Moderate ascites. 4.: Right inguinal hernia containing small bowel which may be obstructed at the hernia. There is also a large right hydrocele. 5: Right renal and distal ureteral stones. Bilateral nephroureteral stents in expected position. (3) Acute respiratory failure: Code(s): J96.00 - Acute respiratory failure, unspecified whether with hypoxia or hypercapnia Status: Acute Assessment and Plan: Patient also presented with shortness of breath on admission, was found to have a moderate right-sided pneumothorax a CT scan of the abdomen and pelvis -right-sided chest tube was placed in the OR by surgery -patient was intubated and placed on mechanical ventilation for surgery -01/03 repeat sputum culture growing Klebsiella -continue Zosyn. Discontinued vancomycin -ABG reviewed -wean FiO2 to 30 % PEEP to 8 -hold diuresis due to increased vasopressor require -01/06 patient tolerated PSV for few hours with adequate ABG but increased work of breathing -today patient tachypneic with respiratory rate in 30s precluding weaning trial -Venous Doppler showed DVT of left popliteal and posterior tibial vein-now status post IVC filter placement 01/07 CT abdomen pelvis 1. Bilateral lower lobe airspace consolidation which may represent atelectasis and/or pneumonia. 2: Moderate bilateral pleural effusions. (4) Pneumothorax, right: Code(s): J93.9 - Pneumothorax, unspecified Status: Acute Assessment and Plan: CT scan of the abdomen pelvis showed a moderate right pneumothorax, right-sided chest tube was placed in the OR on 12/29/2021 per surgery -stable mild right apical pneumothorax -intermittent air leak -continue chest tube to suction -surgeon managing the chest tube (5) ROSALINDA (acute kidney injury): Code(s): N17.9 -
[2022-01-09] MEDS: THIAMINE HCL 200 MG/2 ML VIAL 100 MG IV PUSH (09:25)
[2022-01-09] MEDS: PANTOPRAZOLE SODIUM IV 40 MG VIAL IV PUSH ×2 (09:25→21:29)
[2022-01-09] MEDS: FOLIC ACID 1 MG/0.2 ML INJ IV PUSH (09:25)
[2022-01-09] MEDS: MINERAL OIL/WHITE PETROLATUM OINTMENT 1 APPLIC EACH EYE ×2 (09:26→21:28)
--- NOTE | 2022-01-09 10:33 | PM.IMPN ---
Progress Note: A&P Assessment and Plan (1) Septic shock: Code(s): A41.9 - Sepsis, unspecified organism; R65.21 - Severe sepsis with septic shock Status: Acute Assessment and Plan: RESOLVED Patient presented with hypotension, leukocytosis, lactic acidosis. Likely source peritonitis secondary to ruptured sigmoid colon -right IJ central line was placed in the ER, patient received adequate amount of IV fluids -both Levophed and vasopressin infusion have been weaned off at this time at this time -continue stress dose steroids -discontinue 25 % albumin -continue to maintain MAP > 65 mmHg for adequate end organ perfusion -continue Zosyn (12/29), -blood and urine cultures are negative - Cultures from abdominal cavity during surgery grew Bacteroides fragilis, Fusobacterium necrophorum Sputum cultures 01/03 Org 1 = Klebsiella pnemoniae Org 2 = Yeast isolated (2) Perforated abdominal viscus: Code(s): R19.8 - Other specified symptoms and signs involving the digestive system and abdomen Status: Acute Assessment and Plan: Patient presented with abdominal pain, nausea, vomiting, septic shock. 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 This is being managed by ICU in surgery. CT scan noted. (3) Acute respiratory failure: Code(s): J96.00 - Acute respiratory failure, unspecified whether with hypoxia or hypercapnia Status: Acute Assessment and Plan: Patient also presented with shortness of breath on admission, was found to have a moderate right-sided pneumothorax a CT scan of the abdomen and pelvis -right-sided chest tube was placed in the OR by surgery -patient was intubated and placed on mechanical ventilation for surgery (4) Pneumothorax, right: Code(s): J93.9 - Pneumothorax, unspecified Status: Acute Assessment and Plan: CT scan of the abdomen pelvis showed a moderate right pneumothorax, right-sided chest tube was placed in the OR on 12/29/2021 per surgery -stable mild right apical pneumothorax -intermittent air leak -continue chest tube to suction -surgeon managing the chest tube (5) ROSALINDA (acute kidney injury): Code(s): N17.9 - Acute kidney failure, unspecified Status: Acute Assessment and Plan: resolved (6) Hydronephrosis with urinary obstruction due to renal calculus: Code(s): N13.2 - Hydronephrosis with renal and ureteral calculous obstruction Status: Acute Assessment and Plan: Cystoscopy, bilateral retrograde pyelography and bilateral ureteral stent placement on 12/29/2021 -patient with blood in urine, Watson has been flushed 01/07 CT abdomen pelvis : 5: Right renal and distal ureteral stones. Bilateral nephroureteral stents in expected position. -patient continues to have hematuria. Urology aware. No further recommendations at this time -urology following the patient (7) Electrolyte abnormality: Code(s): E87.8 - Other disorders of electrolyte and fluid balance, not elsewhere classified Status: Acute Assessment and Plan: Replace as needed (8) Anemia: Code(s): D64.9 - Anemia, unspecified Status: Acute Assessment and Plan: -monitor hemoglobin, patient may need more transfuse (9) Thrombocytopenia: Code(s): D69.6 - Thrombocytopenia, unspecified Status: Acute Assessment and Plan: Thrombocytopenia, likely related to septic shock, decreased down marrow function -DIC panel within normal INR and fibrinogen level -platelet count has now normalized (10) DVT (deep venous thrombosis): Code(s): I82.409 - Acute embolism and thrombosis of unspecified deep veins of unspecified lower extr
[2022-01-09] MEDS: LORazepam INJ (*CRX) 2 MG/ML VIAL IV PUSH ×2 (11:07→21:28)
--- NOTE | 2022-01-09 11:26 | PCFNICU ---
ICU Rounding Note: Pt current nutrition is Jevity 1.2 at 20 ml/hr with TPN. Last recorded weight is 63.9 kg, up from 59.6 kg on admit. Bowel Motility:ostomy Labs Reviewed:Hgb 8.8, Hct 28.2, BUN 24, Cr 0.6, Glu 183 Meds Noted:Protonix, Thiamine, Zosyn, Folic Acid, Precedex, Lopressor, Reglan, Fentanyl, Lantus, Ativan, Clinimix 5/15 at 50 ml/hr with 250 ml of 20% Lipid Emulsion. Skin: WNL Additional Notes: Patient remains on mechanical vent and tube feedings of Jevity 1.2 increasing today to 20 ml/hr. TPN continues at 50 ml/hr with Lipids. Current TPN proving 1352 kcals and 60 gms protein. Tube feeding providing an additional 528 kcals/24 gms protein. If tube feedings continue to advance recommend goal rate of tube feeding at 55 ml/hr and discontinue TPN. Agree with diet orders. Following daily in ICU rounds. Will monitor every Sunday and Sunday.
[2022-01-09 12:10] LABS: Glucose Point of Care 186 mg/dl (65-105)
--- NOTE | 2022-01-09 12:32 | PM.PNGS ---
Progress Note: A&P Assessment and Plan (1) Perforated abdominal viscus: Code(s): R19.8 - Other specified symptoms and signs involving the digestive system and abdomen Status: Acute Assessment and Plan: Will continue trophic TF, cont TPN, ostomy has started working. Agree with trying to slowly increase TF since residuals are not too high. Cont. antibiotics. (2) Right inguinal hernia: Code(s): K40.90 - Unilateral inguinal hernia, without obstruction or gangrene, not specified as recurrent Status: Acute Assessment and Plan: cont to observe, pt is poor surgical candidate, ostomy is functioning Plan May consider putting ice bag on swelling and right groin to see if that would help. Repeat labs and check KUB in a.m. to rule out any small bowel obstruction. Subjective Subjective Date/Time Seen: 01/09/22 10:32 Post Op day: POD#11 Patient reports: other (Intubated not able to give answers.) Review of Systems Review of Systems: ROS unobtainable: Yes unobtainable due to endotracheal tube and unobtainable due to medical condition Exam Const: Other: intubated Chest: Other: R CT - no leak Resp: Auscultation: diminished lung sounds GI: Inspection: Abdominal wall edema, distended and incision GI Palp: Yes Soft to palpation Auscultation: Hypoactive bowel sounds present Other: ostomy - viable, +dark liquid stool in bag R groin swelling : appears to be a lg edematous hydrocele/RIH, unable to fully reduce hernia. Urinary Catheter: Urinary Catheter: patent and draining and urine clear Objective Data Vital Signs Vital Signs: Vital Signs - 24 hr 01/08/22 13:08 01/08/22 14:00 01/08/22 14:00 Temperature 36.5 C 36.4 C Pulse Rate 118 H 98 96 Respiratory Rate 27 H 24 H Blood Pressure 125/78 116/76 Pulse Oximetry 97 97 Oxygen Delivery Fraction of Inspired Oxygen 01/08/22 14:32 01/08/22 14:34 01/08/22 14:40 Temperature Pulse Rate 107 H 109 H 110 H Respiratory Rate 24 H 17 Blood Pressure Pulse Oximetry 98 Oxygen Delivery Mechanical Ventilation Fraction of Inspired Oxygen 30 01/08/22 15:43 01/08/22 15:49 01/08/22 15:49 Temperature Pulse Rate 151 H 128 H 128 H Respiratory Rate 23 H 23 H Blood Pressure Pulse Oximetry Oxygen Delivery Fraction of Inspired Oxygen 01/08/22 15:51 01/08/22 16:00 01/08/22 16:00 Temperature Pulse Rate 136 H 123 H Respiratory Rate 26 H 18 Blood Pressure Pulse Oximetry 97 Oxygen Delivery Mechanical Ventilation Fraction of Inspired Oxygen 30 30 01/08/22 16:00 01/08/22 16:59 01/08/22 16:00 Temperature 36.4 C Pulse Rate 120 H 117 H 114 H Respiratory Rate 17 Blood Pressure 103/63 98/57 L Pulse Oximetry 98 Oxygen Delivery Fraction of Inspired Oxygen 01/08/22 17:26 01/08/22 17:26 01/08/22 17:31 Temperature Pulse Rate 93 107 H 92 Respiratory Rate Blood Pressure 131/82 146/91 H Pulse Oximetry 98 Oxygen Delivery Mechanical Ventilation Fraction of Inspired Oxygen 30 01/08/22 18:00 01/08/22 17:00 01/08/22 17:30 Temperature 36.4 C 36.3 C L Pulse Rate 109 H 111 H 114 H Respiratory Rate 15 17 Blood Pressure Pulse Oximetry 98 98 Oxygen Delivery Fraction of Inspired Oxygen 01/08/22 18:00 01/08/22 18:01 01/08/22 20:10 Temperature 36.1 C L 36.1 C L Pulse Rate 112 H 98 120 H Respiratory Rate 23 H 24 H Blood Pressure 126/76 Pulse Oximetry 98 98 98 Oxygen Delivery Mechanical Ventilation Fraction of Inspired Oxygen 30 01/08/22 20:10 01/08/22 21:03 01/08/22 21:12 Temperature Pulse Rate 115 H 118 H 134 H Respiratory Rate 21 H Blood Pressure Pulse Oximetry Oxygen Delivery Fraction of Inspired Oxygen 01/08/22 20:00 01/08/22 20:00 01/08/22 22:00 Temperature Pulse Rate 105 H 118 H Respiratory Rate Blood Pressure Pulse Oximetry Oxygen Delivery Fraction of Inspired Oxygen 30
[2022-01-09] MEDS: FENTANYL 2,500MCG/NS250ML(*CRX 2,500 MCG/250 ML BAG 10 MCG IV CONT (13:30)
[2022-01-09] MEDS: AMINO ACIDS 5%/D15W/E-LYTES/CA 2,000 ML with MULTIVITAMINS-12 INJ VIAL 1 2.5 ML, MULTIV... 65 ML IV CONT (13:44)
[2022-01-09] MEDS: FAT EMULSIONS IV 20% 250 ML 20.8 ML IVPB (13:45)
[2022-01-09 13:57] LABS: Anion Gap 10 mmol/L (8-16); Blood Urea Nitrogen 27 mg/dL (9-20); Calcium 8.9 mg/dL (8.4-10.2); Carbon Dioxide 28 mmol/L (22-30); Chloride 99 mmol/L (98-107); Estimated CRCL calculation 107 ml/min; Estimated Glomerular Filt Rate > 60; Glucose 189 mg/dL (65-110); Sodium 137 mmol/L (137-145)
[2022-01-09 17:08] LABS: Glucose Point of Care 189 mg/dl (65-105)
[2022-01-09] MEDS: ALPRAZolam (*CRX) 0.5 MG TABLET PO (17:24)
[2022-01-09 23:28] LABS: Glucose Point of Care 184 mg/dl (65-105)
[2022-01-10] VITALS (44 sets, daily range): BP systolic 81–148; BP diastolic 52–100; PULSE 103–170; RESP 16–20; TEMP 36.6–36.9; O2SAT 95–99
[2022-01-10] MEDS: ALBUTEROL SULFATE NEB 2.5 MG/3 ML INH 5 MG INHALATION ×3 (02:09→14:32)
[2022-01-10] MEDS: IPRATROPIUM BR 0.02% INH SOLN 0.5 MG/2.5 ML VIAL INHALATION ×4 (02:09→20:35)
[2022-01-10] MEDS: METOPROLOL TARTRATE INJ 5 MG/5 ML VIAL IV PUSH ×3 (03:13→18:47)
[2022-01-10] MEDS: LORazepam INJ (*CRX) 2 MG/ML VIAL IV PUSH ×2 (04:13→15:58)
[2022-01-10 04:42] LABS: Alveolar/Arterial O2 Gradient 86.7 mmHg; Base Excess ABG 0.7 mEq/l (+/-2.0); Carboxyhemoglobin 0.3 % THb (0-2.0); Fractional Inspired Oxygen 30 %; HCO3 ABG 26.6 mEq/l (22.0-26.0); Methemoglobin ABG 0.4 %THb (0-1.5); Oxygen Content ABG 15.3 %vol (16.0-22.0); Oxygen Saturation ABG 93.5 % (95.0-100.0); Oxyhemoglobin 92.1 % THb (90.0-100.0); PO2 ABG 70.8 mmHg (80.0-100.0); PO2 FiO2 Ratio Arterial Blood 2.36 %; Reduced Hemoglobin 7.2 %THb (0-5.0); Total Hemoglobin 11.8 g/dL (12.0-18.0); pH ABG 7.361 (7.350-7.450)
[2022-01-10 04:43] LABS: Device VENTILATOR; Site Drawn ARTLINE
[2022-01-10 04:44] LABS: Arterial Blood Gas PEEP 8 cmH2O; Arterial Blood Gas Tidal Volume 360 ml; Arterial Blood Gas Vent Mode CMV; Arterial Blood Gas Ventilator rate 16 /MIN
[2022-01-10] MEDS: dexmedeTOMIDine 400 MCG/100 ML 400 MCG/100 ML BAG 19.31 MCG IV CONT ×4 (04:45→20:26)
[2022-01-10] MEDS: METOCLOPRAMIDE HCL INJ 10 MG/2 ML VIAL IV PUSH ×3 (05:08→18:22)
[2022-01-10] MEDS: HYDROCORTISONE SODIUM SUCCINATE 100 MG/2 ML VIAL IV PUSH ×3 (05:09→21:20)
[2022-01-10] MEDS: CENTRAL LINE FLUSH 10 ML IV PUSH ×4 (05:09→21:20)
[2022-01-10 05:26] LABS: Hematocrit 29.9 % (42.0-52.0); Hemoglobin 9.1 g/dL (14.0-18.0); Mean Corpuscular HGB Conc 30.4 g/dl (32-36); Mean Corpuscular Hemoglobin 30.3 pg (26-34); Mean Corpuscular Volume 99.7 fl (80-100); Mean Platelet Volume 11.6 fl (7.4-10.4); Platelet Count Result 188 k/mm3 (150-375); Red Cell Distribution Width 18.3 % (11.5-14.5); White Blood Count 17.7 K/mm3 (4.5-10.0)
[2022-01-10 05:44] LABS: Alanine Aminotransferase 28 U/L (6-50); Albumin Level 3.3 g/dL (3.5-5.1); Alkaline Phosphatase 93 U/L (38-126); Anion Gap 8 mmol/L (8-16); Aspartate Amino Transferase 31 U/L (17-59); Bilirubin,Total 1.3 mg/dL (0.2-1.3); Blood Urea Nitrogen 30 mg/dL (9-20); Calcium 9.1 mg/dL (8.4-10.2); Carbon Dioxide 29 mmol/L (22-30); Chloride 99 mmol/L (98-107); Estimated CRCL calculation 109 ml/min; Estimated Glomerular Filt Rate > 60; Glucose 175 mg/dL (65-110); Magnesium 1.9 mg/dL (1.6-2.3); Phosphorus 4.4 mg/dL (2.5-4.5); Potassium 4.6 mmol/L (3.4-5.0); Sodium 136 mmol/L (137-145); Triglycerides 77 mg/dL (<150)
[2022-01-10 05:49] LABS: Prealbumin 14.7 mg/dL (17.6-36.0)
[2022-01-10] MEDS: FOLIC ACID 1 MG/0.2 ML INJ IV PUSH (08:43)
[2022-01-10] MEDS: THIAMINE HCL 200 MG/2 ML VIAL 100 MG IV PUSH (08:43)
[2022-01-10] MEDS: PANTOPRAZOLE SODIUM IV 40 MG VIAL IV PUSH ×2 (08:43→20:06)
[2022-01-10] MEDS: MINERAL OIL/WHITE PETROLATUM OINTMENT 1 APPLIC EACH EYE ×2 (08:44→20:06)
--- NOTE | 2022-01-10 10:30 | PM.IMPN ---
Progress Note: A&P Assessment and Plan (1) Septic shock: Code(s): A41.9 - Sepsis, unspecified organism; R65.21 - Severe sepsis with septic shock Status: Acute Assessment and Plan: RESOLVED Patient presented with hypotension, leukocytosis, lactic acidosis. Likely source peritonitis secondary to ruptured sigmoid colon -right IJ central line was placed in the ER, patient received adequate amount of IV fluids -pressors as needed per ICU -continue Zosyn -blood and urine cultures are negative Cultures from abdominal fluid Bacteroides fragilis, Fusobacterium necrophorum Sputum cultures 01/03 Org 1 = Klebsiella pnemoniae Org 2 = Yeast isolated (2) Perforated abdominal viscus: Code(s): R19.8 - Other specified symptoms and signs involving the digestive system and abdomen Status: Acute Assessment and Plan: Patient presented with abdominal pain, nausea, vomiting, septic shock. 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 This is being managed by ICU and surgery. CT scan noted. (3) Acute respiratory failure: Code(s): J96.00 - Acute respiratory failure, unspecified whether with hypoxia or hypercapnia Status: Acute Assessment and Plan: Patient also presented with shortness of breath on admission, was found to have a moderate right-sided pneumothorax a CT scan of the abdomen and pelvis -right-sided chest tube was placed in the OR by surgery -patient was intubated and placed on mechanical ventilation for surgery (4) Pneumothorax, right: Code(s): J93.9 - Pneumothorax, unspecified Status: Acute Assessment and Plan: -surgeon managing the chest tube (5) ROSALINDA (acute kidney injury): Code(s): N17.9 - Acute kidney failure, unspecified Status: Acute Assessment and Plan: resolved (6) Hydronephrosis with urinary obstruction due to renal calculus: Code(s): N13.2 - Hydronephrosis with renal and ureteral calculous obstruction Status: Acute Assessment and Plan: Cystoscopy, bilateral retrograde pyelography and bilateral ureteral stent placement on 12/29/2021 -still has hematuria -urology following the patient (7) Electrolyte abnormality: Code(s): E87.8 - Other disorders of electrolyte and fluid balance, not elsewhere classified Status: Acute Assessment and Plan: Replace as needed (8) Anemia: Code(s): D64.9 - Anemia, unspecified Status: Acute Assessment and Plan: -monitor hemoglobin, patient may need more transfuse (9) Thrombocytopenia: Code(s): D69.6 - Thrombocytopenia, unspecified Status: Acute Assessment and Plan: -platelet count has now normalized (10) DVT (deep venous thrombosis): Code(s): I82.409 - Acute embolism and thrombosis of unspecified deep veins of unspecified lower extremity Status: Acute Assessment and Plan: 01/03/2022 bilateral lower extremity venous Dopplers: ?Deep venous thrombosis of left popliteal and posterior tibial veins? -status post IVC filter filter placement 01/05 Platelet count has now improved and normalized Holding Lovenox due to drop in hemoglobin (11) Hypoglycemia: Code(s): E16.2 - Hypoglycemia, unspecified Status: Acute Assessment and Plan: Monitor (12) Hyponatremia: Code(s): E87.1 - Hypo-osmolality and hyponatremia Status: Acute Assessment and Plan: Now sodium is in normal range. Continue monitoring (13) Right inguinal hernia: Code(s): K40.90 - Unilateral inguinal hernia, without obstruction or gangrene, not specified as recurrent Status: Acute Assessment and Plan: Management per General surgery Additional Plan Hernandez
[2022-01-10 11:39] LABS: Glucose Point of Care 190 mg/dl (65-105)
--- NOTE | 2022-01-10 13:10 | PCNFU ---
Nutrition Follow-Up Complete: Altered GI function as related to sigmoid resection/colostomy as evidenced by TPN Goal: Meet estimated nutritional needs Patient will continue with current goal. Pt current nutrition is TPN. Last recorded weight is 65.6 kg, up from 59.6 kg on admit. Bowel Motility: ostomy Labs Reviewed:Na 136, Alb 3.3,Hct 29.9,Hgb 9.1,BUN 30,Cr 0.5 Meds Noted:Protonix, Thiamine, Zosyn, Folic Acid, Precedex, Lopressor, Reglan, Fentanyl, Lantus, Ativan, Clinimix 5/15 at 50 ml/hr with 250 ml of 20% Lipid Emulsion. Skin: WNL Additional Notes: Patient remains on mechanical vent. Tube feedings are on hold due to emesis overnight. TPN at 50 ml/hr remains providing 1352 kcals/60 gms protein. Meeting 99% of caloric needs on mechanical vent and 83% protein needs. TPN is appropriate. Surgery following. Will monitor in ICU rounds and reassessing every Sunday and Sunday.
--- NOTE | 2022-01-10 14:41 | WPDINTPN ---
Progress Note: A&P Assessment and Plan (1) Septic shock: Code(s): A41.9 - Sepsis, unspecified organism; R65.21 - Severe sepsis with septic shock Status: Acute Assessment and Plan: RESOLVED Patient presented with hypotension, leukocytosis, lactic acidosis. Likely source peritonitis secondary to ruptured sigmoid colon -right IJ central line was placed in the ER, patient received adequate amount of IV fluids -both Levophed and vasopressin infusion have been weaned off at this time at this time -continue stress dose steroids -discontinue 25 % albumin -continue to maintain MAP > 65 mmHg for adequate end organ perfusion -continue Zosyn (12/29), continue for total of 14 days -blood and urine cultures are negative - Cultures from abdominal cavity during surgery grew Bacteroides fragilis, Fusobacterium necrophorum Sputum cultures 01/03 Org 1 = Klebsiella pnemoniae Org 2 = Yeast isolated 01/10: Repeat sputum culture (2) Perforated abdominal viscus: Code(s): R19.8 - Other specified symptoms and signs involving the digestive system and abdomen Status: Acute Assessment and Plan: Patient presented with abdominal pain, nausea, vomiting, septic shock. 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 Patient has no bowel sounds on my exam today and minimal output from ostomy - 01/05 KUB- Nonobstructive bowel gas pattern -01/[address] Cuevas from General surgery. Patient was started on trickle feed again. Continue at current rate of 10 mL/hour. -01/07 tube feeds were again held due to concerns of obstructive inguinal hernia. Discussed with general surgery and they recommend resuming tube feeds. Tube feeds have been resumed. Advance it for 01/07 CT abdomen pelvis IMPRESSION: 3: Moderate ascites. 4.: Right inguinal hernia containing small bowel which may be obstructed at the hernia. There is also a large right hydrocele. 5: Right renal and distal ureteral stones. Bilateral nephroureteral stents in expected position. (3) Acute respiratory failure: Code(s): J96.00 - Acute respiratory failure, unspecified whether with hypoxia or hypercapnia Status: Acute Assessment and Plan: Patient also presented with shortness of breath on admission, was found to have a moderate right-sided pneumothorax a CT scan of the abdomen and pelvis -intubated on 12/29/2021 -right-sided chest tube was placed in the OR by surgery on 12/29/2021 -patient was intubated and placed on mechanical ventilation for surgery -01/03 repeat sputum culture growing Klebsiella -continue Zosyn. Discontinued vancomycin -ABG reviewed -hold diuresis as patient was on vasopressors -patient has not been doing well on high pressure support ventilation for breathing trials -Venous Doppler showed DVT of left popliteal and posterior tibial vein-now status post IVC filter placement 01/07 CT abdomen pelvis 1. Bilateral lower lobe airspace consolidation which may represent atelectasis and/or pneumonia. 2: Moderate bilateral pleural effusions. (4) Pneumothorax, right: Code(s): J93.9 - Pneumothorax, unspecified Status: Acute Assessment and Plan: CT scan of the abdomen pelvis showed a moderate right pneumothorax, right-sided chest tube was placed in the OR on 12/29/2021 per surgery -stable mild right apical pneumothorax -intermittent air leak -continue chest tube to suction -surgeon managing the chest tube (5) ROSALINDA (acute kidney injury): Code(s): N17.9 - Acute kidney
[2022-01-10] MEDS: FENTANYL 2,500MCG/NS250ML(*CRX 2,500 MCG/250 ML BAG 10 MCG IV CONT (14:54)
[2022-01-10] MEDS: AMINO ACIDS 5%/D15W/E-LYTES/CA 2,000 ML with MULTIVITAMINS-12 INJ VIAL 1 2.5 ML, MULTIV... 50 ML IV CONT (14:58)
[2022-01-10] MEDS: FAT EMULSIONS IV 20% 250 ML 20.08 ML IVPB (14:58)
--- NOTE | 2022-01-10 15:54 | PM.PNGS ---
Progress Note: A&P Assessment and Plan (1) Perforated abdominal viscus: Code(s): R19.8 - Other specified symptoms and signs involving the digestive system and abdomen Status: Acute Assessment and Plan: Will continue trophic TF, cont TPN, ostomy has started working. Agree with trying to slowly increase TF since residuals are not too high. Cont. antibiotics. (Klebsiella sensitive to Zosyn noted in sputum ) all so there was some Yeast. Recommend placing NG to low intermittent suction overnight and see what we get. (Order placed verbally with nurse). -- hold any tube feedings for now. (2) Right inguinal hernia: Code(s): K40.90 - Unilateral inguinal hernia, without obstruction or gangrene, not specified as recurrent Status: Acute Assessment and Plan: cont to observe, pt is poor surgical candidate, ostomy is functioning Plan Today his right inguinal hernia seems softer and I was able to at least partially reduce this. I believe he has a large inguinal ring and that the Small bowel does go in and out of it. May consider putting ice bag on swelling and right groin to see if that would help. Repeat labs In a.m. Subjective Subjective Date/Time Seen: 01/10/22 15:44 Post Op day: POD#12 Patient reports: other (Patient opened eyes when I spoke to him.) Review of Systems Review of Systems: Patient seemed indicate some pain when I worked on reducing his right inguinal hernia. Intubated at this time but followed command to squeeze my hand with his right hand. Nurse reports that tube feedings have been on hold overnight because patient had an emesis around the NG tube. (Still checking residuals periodic [place] and now still getting 200 or more back with each check). ROS unobtainable: Yes unobtainable due to endotracheal tube and unobtainable due to medical condition Exam Const: Other: intubated Chest: Other: R CT - no leak Resp: Auscultation: diminished lung sounds GI: Inspection: Abdominal wall edema, distended and incision GI Palp: Yes Soft to palpation Auscultation: Hypoactive bowel sounds present Other: ostomy - viable, +dark liquid stool in bag R groin swelling : appears to be a lg edematous hydrocele/RIH, unable to fully reduce hernia, but this seems softer today than previously and I may have reduced a loop of small bowel that was in the inguinal hernia. : Scrotum: edematous on the right and diffuse and other ( appears to be swelling consistent with a hydrocele (see CT report).) Urinary Catheter: Urinary Catheter: patent and draining and urine clear Objective Data Vital Signs Vital Signs: Vital Signs - 24 hr 01/09/22 16:00 01/09/22 17:38 01/09/22 17:40 Temperature Pulse Rate 142 H 142 H Respiratory Rate 20 Blood Pressure Pulse Oximetry Oxygen Delivery Fraction of Inspired Oxygen 30 01/09/22 17:41 01/09/22 17:38 01/09/22 16:00 Temperature 36.4 C L Pulse Rate 137 H 121 H 112 H Respiratory Rate 20 18 Blood Pressure 110/74 Pulse Oximetry 97 97 Oxygen Delivery Mechanical Ventilation Fraction of Inspired Oxygen 30 01/09/22 16:00 01/09/22 16:00 01/09/22 18:00 Temperature Pulse Rate 119 H 115 H Respiratory Rate 22 H Blood Pressure 119/80 Pulse Oximetry 97 96 Oxygen Delivery Mechanical Ventilation Fraction of Inspired Oxygen 30 01/09/22 18:00 01/09/22 20:00 01/09/22 20:10 Temperature Pulse Rate 115 H 118 H 120 H Respiratory Rate 17 18 Blood Pressure Pulse Oximetry Oxygen Delivery Fraction of Inspired Oxygen 01/09/22 20:00 01/09/22 20:00 01/09/22 21:28 Temperature 36.4 C Pulse Rate 137 H 150 H Respiratory Rate 19 Blood Pressure 146/91 H Pulse Oximetry 94 Oxygen Delivery Fraction of Inspired Oxygen 30 01/09/22 21:29 01/09/22 20:00 01/09/22 20:00 Temperature Pulse Rate 150 H 143 H Respiratory Rate 20 Blood Pressure Pulse Oximetry 96 Oxygen Delivery
[2022-01-10 18:23] LABS: Glucose Point of Care 166 mg/dl (65-105)
[2022-01-10] MEDS: AMIODARONE 150 MG/D5W 100 ML 150 MG/100 ML BAG 600 MG IV CONT (21:16)
[2022-01-11] VITALS (49 sets, daily range): BP systolic 80–172; BP diastolic 50–119; PULSE 45–155; RESP 15–28; TEMP 36.4–37; O2SAT 95–100
[2022-01-11] MEDS: METOPROLOL TARTRATE INJ 5 MG/5 ML VIAL IV PUSH (00:25)
[2022-01-11] MEDS: METOCLOPRAMIDE HCL INJ 10 MG/2 ML VIAL IV PUSH ×4 (00:27→19:05)
[2022-01-11 00:37] LABS: Glucose Point of Care 171 mg/dl (65-105)
[2022-01-11] MEDS: dexmedeTOMIDine 400 MCG/100 ML 400 MCG/100 ML BAG 19.31 MCG IV CONT ×4 (00:46→16:10)
[2022-01-11] MEDS: IPRATROPIUM BR 0.02% INH SOLN 0.5 MG/2.5 ML VIAL INHALATION ×4 (01:59→20:19)
[2022-01-11] MEDS: LORazepam INJ (*CRX) 2 MG/ML VIAL IV PUSH (02:54)
[2022-01-11] MEDS: SODIUM CHLORIDE 0.9% IV 1,000 ML 999 ML IV CONT (03:25)
[2022-01-11] MEDS: AMIODARONE 150 MG/D5W 100 ML 150 MG/100 ML BAG 600 MG IV CONT (03:37)
[2022-01-11] MEDS: AMIODARONE 360 MG/D5W 200 ML 360 MG/200 ML BAG 33.33 MG IV CONT ×4 (03:52→22:25)
[2022-01-11 05:13] LABS: Alveolar/Arterial O2 Gradient 81.8 mmHg; Base Excess ABG 0.4 mEq/l (+/-2.0); Carboxyhemoglobin 0.3 % THb (0-2.0); Fractional Inspired Oxygen 30 %; HCO3 ABG 25.2 mEq/l (22.0-26.0); Methemoglobin ABG 0.4 %THb (0-1.5); Oxygen Content ABG 14.5 %vol (16.0-22.0); Oxygen Saturation ABG 96.2 % (95.0-100.0); Oxyhemoglobin 94.6 % THb (90.0-100.0); PCO2 ABG 41.5 mmHg (35.0-45.0); PO2 ABG 83.3 mmHg (80.0-100.0); PO2 FiO2 Ratio Arterial Blood 2.78 %; Reduced Hemoglobin 4.7 %THb (0-5.0); Total Hemoglobin 10.8 g/dL (12.0-18.0); pH ABG 7.402 (7.350-7.450)
[2022-01-11 05:14] LABS: Arterial Blood Gas Vent Mode CMV; Arterial Blood Gas Ventilator rate 16 /MIN; Device VENTILATOR; Site Drawn ARTLINE
[2022-01-11 05:15] LABS: Arterial Blood Gas PEEP 8 cmH2O; Arterial Blood Gas Tidal Volume 360 ml
[2022-01-11 05:52] LABS: Hematocrit 28.5 % (42.0-52.0); Hemoglobin 8.9 g/dL (14.0-18.0); Mean Corpuscular HGB Conc 31.2 g/dl (32-36); Mean Corpuscular Hemoglobin 30.6 pg (26-34); Mean Corpuscular Volume 97.9 fl (80-100); Mean Platelet Volume 11.9 fl (7.4-10.4); Platelet Count Result 211 k/mm3 (150-375); Red Blood Count 2.91 M/mm3 (4.6-6.20); Red Cell Distribution Width 17.4 % (11.5-14.5); White Blood Count 17.3 K/mm3 (4.5-10.0)
[2022-01-11] MEDS: HYDROCORTISONE SODIUM SUCCINATE 100 MG/2 ML VIAL IV PUSH ×3 (05:56→22:36)
[2022-01-11] MEDS: CENTRAL LINE FLUSH 10 ML IV PUSH ×3 (05:56→22:36)
[2022-01-11 06:02] LABS: Anion Gap 7 mmol/L (8-16); Blood Urea Nitrogen 29 mg/dL (9-20); Calcium 8.4 mg/dL (8.4-10.2); Carbon Dioxide 29 mmol/L (22-30); Chloride 101 mmol/L (98-107); Estimated CRCL calculation 109 ml/min; Estimated Glomerular Filt Rate > 60; Glucose 201 mg/dL (65-110); Magnesium 1.7 mg/dL (1.6-2.3); Phosphorus 3.9 mg/dL (2.5-4.5); Potassium 4.6 mmol/L (3.4-5.0); Sodium 137 mmol/L (137-145)
[2022-01-11] MEDS: INSULIN ASPART (*BKC) 100 UNITS/ML SUB-Q (06:15)
[2022-01-11] MEDS: FOLIC ACID 1 MG/0.2 ML INJ IV PUSH (10:55)
[2022-01-11] MEDS: PANTOPRAZOLE SODIUM IV 40 MG VIAL IV PUSH ×2 (10:56→20:40)
[2022-01-11] MEDS: THIAMINE HCL 200 MG/2 ML VIAL 100 MG IV PUSH (10:56)
[2022-01-11] MEDS: MINERAL OIL/WHITE PETROLATUM OINTMENT 1 APPLIC EACH EYE ×2 (10:56→20:40)
--- NOTE | 2022-01-11 11:44 | WPDINTPN ---
Progress Note: A&P Assessment and Plan (1) Septic shock: Code(s): A41.9 - Sepsis, unspecified organism; R65.21 - Severe sepsis with septic shock Status: Acute Assessment and Plan: RESOLVED Patient presented with hypotension, leukocytosis, lactic acidosis. Likely source peritonitis secondary to ruptured sigmoid colon -right IJ central line was placed in the ER, patient received adequate amount of IV fluids -both Levophed and vasopressin infusion have been weaned off at this time at this time -continue stress dose steroids -discontinue 25 % albumin -continue to maintain MAP > 65 mmHg for adequate end organ perfusion -continue Zosyn (12/29), c status post of 14 days -blood and urine cultures are negative - Cultures from abdominal cavity during surgery grew Bacteroides fragilis, Fusobacterium necrophorum Sputum cultures 01/03 Org 1 = Klebsiella pnemoniae Org 2 = Yeast isolated 01/10: Repeat sputum culture: Specimen is billing representative of lower respiratory tract (2) Perforated abdominal viscus: Code(s): R19.8 - Other specified symptoms and signs involving the digestive system and abdomen Status: Acute Assessment and Plan: Patient presented with abdominal pain, nausea, vomiting, septic shock. 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 Patient has no bowel sounds on my exam today and minimal output from ostomy - 01/05 KUB- Nonobstructive bowel gas pattern -01/[address] Cuevas from General surgery. Patient was started on trickle feed again. Continue at current rate of 10 mL/hour. -01/07 tube feeds were again held due to concerns of obstructive inguinal hernia. Discussed with general surgery and they recommend resuming tube feeds. Tube feeds have been resumed. Advance it for 01/07 CT abdomen pelvis IMPRESSION: 3: Moderate ascites. 4.: Right inguinal hernia containing small bowel which may be obstructed at the hernia. There is also a large right hydrocele. 5: Right renal and distal ureteral stones. Bilateral nephroureteral stents in expected position. (3) Acute respiratory failure: Code(s): J96.00 - Acute respiratory failure, unspecified whether with hypoxia or hypercapnia Status: Acute Assessment and Plan: Patient also presented with shortness of breath on admission, was found to have a moderate right-sided pneumothorax a CT scan of the abdomen and pelvis -intubated on 12/29/2021 -right-sided chest tube was placed in the OR by surgery on 12/29/2021 -patient was intubated and placed on mechanical ventilation for surgery -01/03 repeat sputum culture growing Klebsiella -continue Zosyn. Discontinued vancomycin -ABG reviewed -hold diuresis as patient was on vasopressors -patient has not been doing well on high pressure support ventilation for breathing trials -Venous Doppler showed DVT of left popliteal and posterior tibial vein-now status post IVC filter placement on 01/05/202201/07 CT abdomen pelvis 1. Bilateral lower lobe airspace consolidation which may represent atelectasis and/or pneumonia. 2: Moderate bilateral pleural effusions. (4) Pneumothorax, right: Code(s): J93.9 - Pneumothorax, unspecified Status: Acute Assessment and Plan: CT scan of the abdomen pelvis showed a moderate right pneumothorax, right-sided chest tube was placed in the OR on 12/29/2021 per surgery -stable mild right apical pneumothorax -intermittent air leak -continue chest tube to suction -surgeon managing the chest tube (5) A
--- NOTE | 2022-01-11 11:53 | PCFNICU ---
ICU Rounding Note: Pt current nutrition is TPN. Last recorded weight is 69.9 kg, up from 59.6 kg on admit. Bowel Motility:ostomy Labs Reviewed: Hgb 8.9,Hct 28.5,BUN 29, Glu 201, Cr 0.5 Meds Noted: Protonix, Thiamine, Zosyn, Folic Acid, Precedex, Lopressor, Reglan, Fentanyl, Lantus, Ativan, Clinimix 5/15 at 50 ml/hr with 250 ml of 20% Lipid Emulsion. Skin:WNL Additional Notes: Patient remains on mechanical vent and TPN at 50 ml/hr. Tube feeding remain on hold, unable to tolerate. Surgery is following. Following daily in ICU rounds. Will monitor every Sunday and Sunday.
[2022-01-11 12:53] LABS: Glucose Point of Care 161 mg/dl (65-105)
[2022-01-11 12:53] LABS: Glucose Point of Care 152 mg/dl (65-105)
--- NOTE | 2022-01-11 14:57 | P.PNIM_ITS ---
Progress Note: A&P Assessment and Plan (1) Septic shock: Code(s): A41.9 - Sepsis, unspecified organism; R65.21 - Severe sepsis with septic shock Status: Acute Assessment and Plan: RESOLVED Patient presented with hypotension, leukocytosis, lactic acidosis. Likely source peritonitis secondary to ruptured sigmoid colon -right IJ central line was placed in the ER, patient received adequate amount of IV fluids -pressors as needed per ICU -continue Zosyn -blood and urine cultures are negative Cultures from abdominal fluid Bacteroides fragilis, Fusobacterium necrophorum Sputum cultures 01/03 Org 1 = Klebsiella pnemoniae Org 2 = Yeast isolated (2) Perforated abdominal viscus: Code(s): R19.8 - Other specified symptoms and signs involving the digestive system and abdomen Status: Acute Assessment and Plan: Patient presented with abdominal pain, nausea, vomiting, septic shock. 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 This is being managed by ICU and surgery. CT scan noted. (3) Acute respiratory failure: Code(s): J96.00 - Acute respiratory failure, unspecified whether with hypoxia or hypercapnia Status: Acute Assessment and Plan: Patient also presented with shortness of breath on admission, was found to have a moderate right-sided pneumothorax a CT scan of the abdomen and pelvis -right-sided chest tube was placed in the OR by surgery -patient was intubated and placed on mechanical ventilation for surgery (4) Pneumothorax, right: Code(s): J93.9 - Pneumothorax, unspecified Status: Acute Assessment and Plan: -surgeon managing the chest tube (5) ROSALINDA (acute kidney injury): Code(s): N17.9 - Acute kidney failure, unspecified Status: Acute Assessment and Plan: resolved (6) Hydronephrosis with urinary obstruction due to renal calculus: Code(s): N13.2 - Hydronephrosis with renal and ureteral calculous obstruction Status: Acute Assessment and Plan: Cystoscopy, bilateral retrograde pyelography and bilateral ureteral stent placement on 12/29/2021 -still has hematuria -urology following the patient (7) Electrolyte abnormality: Code(s): E87.8 - Other disorders of electrolyte and fluid balance, not elsewhere classified Status: Acute Assessment and Plan: Replace as needed (8) Anemia: Code(s): D64.9 - Anemia, unspecified Status: Acute Assessment and Plan: -monitor hemoglobin, patient may need more transfuse (9) Thrombocytopenia: Code(s): D69.6 - Thrombocytopenia, unspecified Status: Acute Assessment and Plan: -platelet count has now normalized (10) DVT (deep venous thrombosis): Code(s): I82.409 - Acute embolism and thrombosis of unspecified deep veins of unspecified lower extremity Status: Acute Assessment and Plan: 01/03/2022 bilateral lower extremity venous Dopplers: ?Deep venous thrombosis of left popliteal and posterior tibial veins? -status post IVC filter filter placement 01/05 Platelet count has now improved and normalized Holding Lovenox due to drop in hemoglobin (11) Hypoglycemia: Code(s): E16.2 - Hypoglycemia, unspecified Status: Acute Assessment and Plan: Monitor
[2022-01-11] MEDS: METOPROLOL TARTRATE 12.5 MG TABLET PO ×2 (15:27→20:40)
[2022-01-11] MEDS: AMINO ACIDS 5%/D15W/E-LYTES/CA 2,000 ML with MULTIVITAMINS-12 INJ VIAL 1 2.5 ML, MULTIV... 50 ML IV CONT (15:27)
[2022-01-11] MEDS: FAT EMULSIONS IV 20% 250 ML 20.8 ML IVPB (15:28)
[2022-01-11] MEDS: FENTANYL 2,500MCG/NS250ML(*CRX 2,500 MCG/250 ML BAG 12.5 MCG IV CONT (15:29)
--- NOTE | 2022-01-11 16:40 | PM.PNGS ---
Progress Note: A&P Assessment and Plan (1) Perforated abdominal viscus: Code(s): R19.8 - Other specified symptoms and signs involving the digestive system and abdomen Status: Acute Assessment and Plan: Will continue cont TPN, ostomy has started working, but still not putting out much. Will try a dose of MOM via NG and other freedman keep NG to LIS another night. Cont. antibiotics. (Klebsiella sensitive to Zosyn noted in sputum ) also there was some Yeast. Recommend placing NG to low intermittent suction overnight and see what we get. hold any tube feedings for now. Today's CT scan reviewed. Hernia is seen with some small bowel in does appear to be obstructed. Also was some tissue edema body wall ascites. Most likely secondary to malnutrition. (2) Right inguinal hernia: Code(s): K40.90 - Unilateral inguinal hernia, without obstruction or gangrene, not specified as recurrent Status: Acute Assessment and Plan: cont to observe, pt is poor surgical candidate, ostomy is functioning Swelling in the area seems to be less and was again able to somewhat reduce the bowel out direct. Plan Today again his right inguinal hernia seems softer and I was able to at least partially reduce this. I believe he has a large inguinal ring and that the small bowel does go in and out of it. May consider putting ice bag on swelling and right groin to see if that would help. Repeat labs in a.m. Additional Plan Discussed pt's care with Dr. Ochoa today. Subjective Subjective Date/Time Seen: 01/11/22 12:40 Post Op day: POD#13 Patient reports: other (Intubated and cannot speak) Interval history: Patient has still not had much out his ostomy per the nurses. However with NG to low intermittent suction only about 100 cc out overnight. It is a white yellow green. Review of Systems Review of Systems: ROS unobtainable: Yes unobtainable due to endotracheal tube and unobtainable due to medical condition Exam Const: Other: intubated Chest: Other: R CT - no leak Resp: Auscultation: diminished lung sounds GI: Inspection: Abdominal wall edema and incision GI Palp: Yes Soft to palpation Auscultation: Hypoactive bowel sounds present Other: ostomy - viable, +dark liquid stool in bag R groin swelling : appears to be a lg edematous hydrocele/RIH, unable to fully reduce hernia, but this seems softer today than previously and I again was able to reduce a loop of small bowel that was in the inguinal hernia. : Scrotum: edematous on the right and diffuse and other ( appears to be consistent with a hydrocele or ascitic fluid in the hernia.) Urinary Catheter: Urinary Catheter: patent and draining and urine clear Objective Data Vital Signs Vital Signs: Vital Signs - 24 hr 01/10/22 17:08 01/10/22 18:00 01/10/22 18:00 Temperature Pulse Rate 136 H 152 H 137 H Respiratory Rate 20 Blood Pressure 138/83 Pulse Oximetry 96 98 Oxygen Delivery Mechanical Ventilation Fraction of Inspired Oxygen 30 01/10/22 18:47 01/10/22 20:00 01/10/22 20:04 Temperature 36.9 C Pulse Rate 162 H 131 H 131 H Respiratory Rate 20 20 Blood Pressure 147/91 H Pulse Oximetry 95 Oxygen Delivery Fraction of Inspired Oxygen 01/10/22 20:04 01/10/22 20:00 01/10/22 20:26 Temperature Pulse Rate 131 H 147 H Respiratory Rate 20 18 Blood Pressure Pulse Oximetry Oxygen Delivery Fraction of Inspired Oxygen 30 01/10/22 20:39 01/10/22 20:38 01/10/22 21:16 Temperature Pulse Rate 131 H 131 H 158 H Respiratory Rate 18 Blood Pressure 146/100 H Pulse Oximetry 98 Oxygen Delivery Mechanical Ventilation Fraction of Inspired Oxygen 30 01/10/22 21:27 01/10/22 20:00 01/10/22 20:00 Temperature Pulse Rate 125 H 118 H Respiratory Rate Blood Pressure 148/95 H Pulse Oximetry 95 Oxygen Delivery Mechanical Ventilation Fraction of Inspired Oxygen 30 01/10/22 22:00 01/10
[2022-01-11 18:31] LABS: Glucose Point of Care 165 mg/dl (65-105)
[2022-01-11] MEDS: MAGNESIUM HYDROXIDE SUSP 30 ML UDC FEED TUBE (19:01)
[2022-01-11] MEDS: dexmedeTOMIDine 400 MCG/100 ML 400 MCG/100 ML BAG 20.79 MCG IV CONT (21:20)
[2022-01-12] VITALS (45 sets, daily range): BP systolic 100–155; BP diastolic 76–117; PULSE 77–131; RESP 16–20; TEMP 36.4–37.2; O2SAT 93–100; BMI 25.2
[2022-01-12] MEDS: METOCLOPRAMIDE HCL INJ 10 MG/2 ML VIAL IV PUSH ×5 (00:40→23:34)
[2022-01-12 00:50] LABS: Glucose Point of Care 194 mg/dl (65-105)
[2022-01-12] MEDS: IPRATROPIUM BR 0.02% INH SOLN 0.5 MG/2.5 ML VIAL INHALATION ×4 (01:53→20:00)
[2022-01-12] MEDS: dexmedeTOMIDine 400 MCG/100 ML 400 MCG/100 ML BAG 20.79 MCG IV CONT ×4 (02:03→16:40)
[2022-01-12] MEDS: AMIODARONE 360 MG/D5W 200 ML 360 MG/200 ML BAG 33.33 MG IV CONT ×2 (04:16→10:15)
[2022-01-12] MEDS: HYDROCORTISONE SODIUM SUCCINATE 100 MG/2 ML VIAL IV PUSH ×3 (05:34→20:50)
[2022-01-12] MEDS: CENTRAL LINE FLUSH 10 ML IV PUSH ×4 (05:34→20:50)
[2022-01-12 05:41] LABS: Glucose Point of Care 197 mg/dl (65-105)
[2022-01-12 05:44] LABS: Basophils Percent Auto 0.1 % (0.2-1.2); Hematocrit 34.1 % (42.0-52.0); Hemoglobin 10.5 g/dL (14.0-18.0); Immature Granulocyte Absolute 0.46 K/mm3 (0.00-0.031); Lymphocytes Absolute Auto 0.46 K/mm3 (0.9-3.2); Mean Corpuscular HGB Conc 30.8 g/dl (32-36); Mean Corpuscular Hemoglobin 30.3 pg (26-34); Mean Corpuscular Volume 98.6 fl (80-100); Mean Platelet Volume 11.7 fl (7.4-10.4); Monocytes Absolute Auto 0.8 K/mm3 (0.1-0.6); Monocytes Percent Auto 3.5 % (2.6-8.5); Neutrophils Absolute Auto 21.1 K/mm3 (1.3-6.7); Neutrophils Percent Auto 92.4 % (45.5-73.1); Platelet Count Result 253 k/mm3 (150-375); Red Blood Count 3.46 M/mm3 (4.6-6.20); Red Cell Distribution Width 17.1 % (11.5-14.5); White Blood Count 22.9 K/mm3 (4.5-10.0)
[2022-01-12 05:46] LABS: Alveolar/Arterial O2 Gradient 135.5 mmHg; Base Excess ABG 0.3 mEq/l (+/-2.0); Carboxyhemoglobin 0.2 % THb (0-2.0); Fractional Inspired Oxygen 35 %; HCO3 ABG 25.7 mEq/l (22.0-26.0); Methemoglobin ABG 0.1 %THb (0-1.5); Oxygen Content ABG 13.8 %vol (16.0-22.0); Oxyhemoglobin 89.8 % THb (90.0-100.0); PO2 ABG 61.7 mmHg (80.0-100.0); PO2 FiO2 Ratio Arterial Blood 1.76 %; Reduced Hemoglobin 9.9 %THb (0-5.0); Total Hemoglobin 10.9 g/dL (12.0-18.0); pH ABG 7.375 (7.350-7.450)
[2022-01-12 05:47] LABS: Device VENTILATOR; Modified Allen's Test Pass; Site Drawn RIGHT RADIAL
[2022-01-12 05:48] LABS: Arterial Blood Gas PEEP 8 cmH2O; Arterial Blood Gas Tidal Volume 360 ml; Arterial Blood Gas Vent Mode CMV; Arterial Blood Gas Ventilator rate 16 /MIN
[2022-01-12 05:54] LABS: INR 1.1; Prothrombin Time 13.8 Seconds (11.1-14.7)
[2022-01-12 05:55] LABS: Partial Thromboplastin Time 28.1 SECONDS (22.3-36.8)
[2022-01-12 06:00] LABS: Chloride 97 mmol/L (98-107)
[2022-01-12 06:04] LABS: Anisocytosis 2+ (NORMAL); Hypochromasia 2+ (NORMAL); Platelet Estimate Adequate (Adequate); Poikilocytosis 1+ (NORMAL)
[2022-01-12 06:08] LABS: Alanine Aminotransferase 36 U/L (6-50); Albumin Level 3.3 g/dL (3.5-5.1); Alkaline Phosphatase 99 U/L (38-126); Anion Gap 9 mmol/L (8-16); Aspartate Amino Transferase 36 U/L (17-59); Bilirubin,Total 1.1 mg/dL (0.2-1.3); Blood Urea Nitrogen 28 mg/dL (9-20); Calcium 10.1 mg/dL (8.4-10.2); Carbon Dioxide 31 mmol/L (22-30); Estimated CRCL calculation 110 ml/min; Estimated Glomerular Filt Rate > 60; Glucose 190 mg/dL (65-110); Magnesium 1.7 mg/dL (1.6-2.3); Potassium 4.8 mmol/L (3.4-5.0); Sodium 137 mmol/L (137-145); Triglycerides 93 mg/dL (<150)
[2022-01-12] MEDS: METOPROLOL TARTRATE 50 MG TAB PO (09:02)
[2022-01-12] MEDS: FOLIC ACID 1 MG/0.2 ML INJ IV PUSH (09:02)
[2022-01-12] MEDS: PANTOPRAZOLE SODIUM IV 40 MG VIAL IV PUSH ×2 (09:03→20:50)
[2022-01-12] MEDS: THIAMINE HCL 200 MG/2 ML VIAL 100 MG IV PUSH (09:03)
[2022-01-12] MEDS: FENTANYL 2,500MCG/NS250ML(*CRX 2,500 MCG/250 ML BAG 12.5 MCG IV CONT (10:15)
--- NOTE | 2022-01-12 10:43 | PM.PNGS ---
Progress Note: A&P Assessment and Plan (1) Perforated abdominal viscus: Code(s): R19.8 - Other specified symptoms and signs involving the digestive system and abdomen Status: Acute Assessment and Plan: Will continue cont TPN, (However, patient's white count has been steadily going up over the last few days. Therefore, we are considering removing the right IJ central line and replacing it with alternate IV access --see Dr. Ochoa's notes) ostomy has started working, but still not putting out much. Will try a dose of MOM via NG and otherwise keep NG to LIS another night. Stop antibiotics. (Klebsiella sensitive to Zosyn noted was in sputum ) also there was some Yeast. --- patient has had the prescribed course of antibiotics. Will consider repeat UA and blood cultures to see if anything new shows up. Also changing central line. Recommend placing NG to low intermittent suction for now And wait until ostomy seems to be functioning better. Will give another dose of milk of magnesia today. hold any tube feedings for now. CT scan Of 01/11/2022 reviewed. Hernia is seen with some non-obsstructed small bowel in it and some ascites, but no intra-abdominal abscess noted. Also was some tissue edema body wall ascites. Most likely secondary to malnutrition. --- continue TPN for now until bowel seems to function. (2) Right inguinal hernia: Code(s): K40.90 - Unilateral inguinal hernia, without obstruction or gangrene, not specified as recurrent Status: Acute Assessment and Plan: cont to observe, pt is poor surgical candidate, ostomy is functioning , but with low output right now. Swelling in the area the right groin and scrotum seems to be less and I was again able to somewhat reduce the bowel out of the direct hernia. Plan Today again his right inguinal hernia seems softer and I was able to at least partially reduce this. I believe he has a large inguinal ring and that the small bowel does go in and out of it. agree with consider removing IJ central line which was placed in the ED prior to his surgery. Hopefully will be able to get a PICC line to continues TPN and perhaps a another peripheral IV in order to continue his other infusions. CT scan of the chest yesterday showed no pneumothorax. We cannot try to remove the chest tube until patient off positive pressure ventilation. However, will remove the chest tube from suction since there has been no pneumothorax now for several days. Leave the chest tube to Pleur-evac on water seal for now and watch for any air leak. Repeat labs in a.m. Additional Plan Discussed pt's care with Dr. Ochoa today. Subjective Subjective Date/Time Seen: 01/12/22 08:43 Post Op day: POD#14 Patient reports: other ( Intubated, unable to speak.) Interval history: nurses report no specific changes overnight. Not much out the ostomy. Review of Systems Review of Systems: ROS unobtainable: Yes unobtainable due to endotracheal tube and unobtainable due to medical condition Exam Const: General: cooperative and awake Nutritional Appearance: cachectic HENMT: Head: normal to inspection Mouth: Yes moist mucous membranes ( Oral endotracheal tube in place) Eyes: Sclera: sclerae normal Pupils: Equal, round and reactive pupils present Neck: Neck: normal visual inspection and no JVD Other: no palpable masses Chest: Chest palpation & inspection: normal inspection of the chest Other: chest tube exiting chest high lateral on the right side. No air leak in the Pleur-evac. ( will remove Pleur-Evac from suction at this time and leave to water seal). Resp: Effort & Inspection: other ( Difficult to assess as patient is on ventilator) Auscultation: rhonchi upper bilaterally GI: Inspection: incision ( clean and dry with dressing intact) and visible herniation ( right inguinal area with less swelling now.) Other: ostomy pink with only a small amount of mucus in bag Incisi
--- NOTE | 2022-01-12 11:51 | PCFNICU ---
ICU Rounding Note: Pt current nutrition is TPN Last recorded weight is 73.1 kg, up from 59.6 kg on admit. Bowel Motility:ostomy Labs Reviewed:Glu 190, Alb 3.3,Hct 34.1,Hgb 10.5 Meds Noted:Protonix, Thiamine, Zosyn, Folic Acid, Precedex, Lopressor, Reglan, Fentanyl, Lantus, Ativan, Clinimix 5/15 at 50 ml/hr with 250 ml of 20% Lipid Emulsion, Atrovent Skin: WNL Additional Notes: Patient remains on TPN at this time. Tube feedings remain on hold. Surgery is recommending to place an NGT to low intermittent suction and wait until ostomy seems to be functioning better. Following daily in ICU rounds. Will monitor every Sunday and Sunday.
[2022-01-12 12:09] LABS: Glucose Point of Care 161 mg/dl (65-105)
[2022-01-12] MEDS: MAGNESIUM HYDROXIDE SUSP 30 ML UDC FEED TUBE (12:15)
[2022-01-12] MEDS: ALPRAZolam (*CRX) 0.5 MG TABLET PO ×2 (12:16→23:59)
[2022-01-12 12:57] LABS: Appearance Urine Cloudy (Clear); Bilirubin Urine 1+ (Negative); Blood Urine 3+ (Negative); Color Urine Yellow (Yellow); Glucose Urine UA Negative (Negative); Ketones Urine Negative (Negative); Leukocyte Esterase Ur Trace LEU/UL (NEGATIVE); Nitrate Urine Negative (Negative); Protein Urine 2+ mg/dL (Negative); Specific Grav Ur 1.025 (1.001-1.035); Urobilinogen Urine 0.2 mg/dL (<2.0)
[2022-01-12 13:11] LABS: Mucus Urine Rare /lpf; RBC Urine >75 /hpf (0-2); Squamous Epithelial Cell Urine Rare /hpf (Few)
--- NOTE | 2022-01-12 13:15 | WPDINTPN ---
Progress Note: A&P Assessment and Plan (1) Septic shock: Code(s): A41.9 - Sepsis, unspecified organism; R65.21 - Severe sepsis with septic shock Status: Acute Assessment and Plan: RESOLVED Patient presented with hypotension, leukocytosis, lactic acidosis. Likely source peritonitis secondary to ruptured sigmoid colon -right IJ central line was placed in the ER, patient received adequate amount of IV fluids -both Levophed and vasopressin infusion have been weaned off at this time at this time -continue stress dose steroids -discontinue 25 % albumin -continue to maintain MAP > 65 mmHg for adequate end organ perfusion -continue Zosyn (12/29), status post of 14 days -blood and urine cultures are negative - Cultures from abdominal cavity during surgery grew Bacteroides fragilis, Fusobacterium necrophorum Sputum cultures 01/03 Org 1 = Klebsiella pnemoniae Org 2 = Yeast isolated 01/10: Repeat sputum culture: Klebsiella 01/16: Blood and urine cultures have been collected (2) Perforated abdominal viscus: Code(s): R19.8 - Other specified symptoms and signs involving the digestive system and abdomen Status: Acute Assessment and Plan: Patient presented with abdominal pain, nausea, vomiting, septic shock. 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 Holding tube feeds 01/07 CT abdomen pelvis IMPRESSION: 3: Moderate ascites. 4.: Right inguinal hernia containing small bowel which may be obstructed at the hernia. There is also a large right hydrocele. 5: Right renal and distal ureteral stones. Bilateral nephroureteral stents in expected position. (3) Acute respiratory failure: Code(s): J96.00 - Acute respiratory failure, unspecified whether with hypoxia or hypercapnia Status: Acute Assessment and Plan: Patient also presented with shortness of breath on admission, was found to have a moderate right-sided pneumothorax a CT scan of the abdomen and pelvis -intubated on 12/29/2021 -right-sided chest tube was placed in the OR by surgery on 12/29/2021 -01/03 repeat sputum culture growing Klebsiella, status post 14 days of Zosyn -patient has not been tolerating pressure support ventilation 01/11/2022: CT chest, abdomen, pelvis showed no pulmonary pulmonary embolism, anasarca with moderate amount of ascites, small to moderate left pleural effusion, partial collapse of bilateral lower lobes, scattered patchy ground-glass opacities, emphysema -elevated white count, worsening chest x-ray, will start vancomycin and imipenem (01/12) -Venous Doppler showed DVT of left popliteal and posterior tibial vein-now status post IVC filter placement on 01/05/202201/07 CT abdomen pelvis 1. Bilateral lower lobe airspace consolidation which may represent atelectasis and/or pneumonia. 2: Moderate bilateral pleural effusions. (4) Pneumothorax, right: Code(s): J93.9 - Pneumothorax, unspecified Status: Acute Assessment and Plan: CT scan of the abdomen pelvis showed a moderate right pneumothorax, right-sided chest tube was placed in the OR on 12/29/2021 per surgery -CT chest on 01/11 did not show a right pneumothorax -chest tube to water seal on 01/12 -surgeon managing the chest tube (5) ROSALINDA (acute kidney injury): Code(s): N17.9 - Acute kidney failure, unspecified Status: Acute Assessment and Plan: RESOLVED Patient presented with acute kidney injury, likely related to septic shock, hypovolemia, ATN, infection -creatinine admission was 2.20 -patient was adequately fluid-resuscitated in the ER and OR
[2022-01-12 13:41] LABS: Add Urine Microscopic? YES
[2022-01-12] MEDS: FAT EMULSIONS IV 20% 250 ML 20.8 ML IVPB (13:41)
[2022-01-12] MEDS: AMINO ACIDS 5%/D15W/E-LYTES/CA 2,000 ML with MULTIVITAMINS-12 INJ VIAL 1 2.5 ML, MULTIV... 50 ML IV CONT (13:42)
--- NOTE | 2022-01-12 16:15 | PC.NURSE ---
discussed patient's status with daughter Mirian; Mirian informed me that her and her brother would like to move forward with the trach and peg options. will update Dr. Ochoa
[2022-01-12 17:46] LABS: Glucose Point of Care 224 mg/dl (65-105)
[2022-01-12] MEDS: INSULIN ASPART (*BKC) 100 UNITS/ML SUB-Q (17:47)
[2022-01-12] MEDS: AMIODARONE 360 MG/D5W 200 ML 360 MG/200 ML BAG 16.67 MG IV CONT (20:41)
[2022-01-12] MEDS: METOPROLOL TARTRATE 25 MG TABLET PO (20:49)
[2022-01-12] MEDS: MINERAL OIL/WHITE PETROLATUM OINTMENT 1 APPLIC EACH EYE (20:50)
[2022-01-12] MEDS: dexmedeTOMIDine 400 MCG/100 ML 400 MCG/100 ML BAG 22.28 MCG IV CONT (21:13)
[2022-01-13] VITALS (41 sets, daily range): BP systolic 89–162; BP diastolic 65–123; PULSE 70–131; RESP 15–21; TEMP 36.4–36.9; O2SAT 95–100
[2022-01-13 00:11] LABS: Glucose Point of Care 162 mg/dl (65-105)
[2022-01-13] MEDS: dexmedeTOMIDine 400 MCG/100 ML 400 MCG/100 ML BAG 22.28 MCG IV CONT (01:45)
[2022-01-13] MEDS: IPRATROPIUM BR 0.02% INH SOLN 0.5 MG/2.5 ML VIAL INHALATION ×4 (02:00→19:37)
[2022-01-13 05:46] LABS: Basophils Percent Auto 0.2 % (0.2-1.2); Hematocrit 32.7 % (42.0-52.0); Hemoglobin 10.2 g/dL (14.0-18.0); Immature Granulocyte Absolute 0.27 K/mm3 (0.00-0.031); Immature Granulocyte Percent A 1.3 % (0-0.5); Lymphocytes Absolute Auto 0.34 K/mm3 (0.9-3.2); Lymphocytes Percent Auto 1.7 % (18.3-44.2); Mean Corpuscular HGB Conc 31.2 g/dl (32-36); Mean Corpuscular Volume 96.2 fl (80-100); Mean Platelet Volume 11.4 fl (7.4-10.4); Monocytes Absolute Auto 0.7 K/mm3 (0.1-0.6); Monocytes Percent Auto 3.6 % (2.6-8.5); Neutrophils Absolute Auto 18.8 K/mm3 (1.3-6.7); Neutrophils Percent Auto 93.2 % (45.5-73.1); Platelet Count Result 212 k/mm3 (150-375); Red Cell Distribution Width 16.3 % (11.5-14.5); White Blood Count 20.2 K/mm3 (4.5-10.0)
[2022-01-13 06:02] LABS: Alveolar/Arterial O2 Gradient 68.8 mmHg; Base Excess ABG 3.8 mEq/l (+/-2.0); Carboxyhemoglobin 0.3 % THb (0-2.0); Fractional Inspired Oxygen 30 %; HCO3 ABG 29.6 mEq/l (22.0-26.0); Methemoglobin ABG 0.3 %THb (0-1.5); Oxygen Content ABG 17.3 %vol (16.0-22.0); Oxygen Saturation ABG 96.5 % (95.0-100.0); Oxyhemoglobin 95.1 % THb (90.0-100.0); PCO2 ABG 49.3 mmHg (35.0-45.0); PO2 ABG 87.2 mmHg (80.0-100.0); PO2 FiO2 Ratio Arterial Blood 2.91 %; Reduced Hemoglobin 4.3 %THb (0-5.0); Total Hemoglobin 12.9 g/dL (12.0-18.0); pH ABG 7.396 (7.350-7.450)
[2022-01-13 06:03] LABS: Device VENTILATOR; Modified Allen's Test Unable to perform; Site Drawn LEFT RADIAL
[2022-01-13 06:04] LABS: Arterial Blood Gas PEEP 8 cmH2O; Arterial Blood Gas Tidal Volume 360 ml; Arterial Blood Gas Vent Mode CMV; Arterial Blood Gas Ventilator rate 16 /MIN
[2022-01-13 06:06] LABS: Alanine Aminotransferase 34 U/L (6-50); Albumin Level 2.8 g/dL (3.5-5.1); Alkaline Phosphatase 86 U/L (38-126); Anion Gap 4 mmol/L (8-16); Aspartate Amino Transferase 28 U/L (17-59); Bilirubin,Total 0.9 mg/dL (0.2-1.3); Blood Urea Nitrogen 23 mg/dL (9-20); Calcium 8.9 mg/dL (8.4-10.2); Carbon Dioxide 34 mmol/L (22-30); Chloride 94 mmol/L (98-107); Estimated CRCL calculation 110 ml/min; Estimated Glomerular Filt Rate > 60; Glucose 191 mg/dL (65-110); Magnesium 1.7 mg/dL (1.6-2.3); Phosphorus 3.8 mg/dL (2.5-4.5); Potassium 4.4 mmol/L (3.4-5.0); Sodium 132 mmol/L (137-145)
[2022-01-13] MEDS: dexmedeTOMIDine 400 MCG/100 ML 400 MCG/100 ML BAG 20.79 MCG IV CONT ×2 (06:41→22:23)
[2022-01-13] MEDS: HYDROCORTISONE SODIUM SUCCINATE 100 MG/2 ML VIAL IV PUSH ×3 (06:42→21:00)
[2022-01-13] MEDS: CENTRAL LINE FLUSH 10 ML IV PUSH ×4 (06:43→21:00)
[2022-01-13] MEDS: FENTANYL 2,500MCG/NS250ML(*CRX 2,500 MCG/250 ML BAG 12.5 MCG IV CONT (06:43)
[2022-01-13] MEDS: METOCLOPRAMIDE HCL INJ 10 MG/2 ML VIAL IV PUSH ×3 (06:46→17:10)
[2022-01-13] MEDS: FOLIC ACID 1 MG/0.2 ML INJ IV PUSH (07:59)
[2022-01-13] MEDS: METOPROLOL TARTRATE 25 MG TABLET PO ×2 (07:59→20:55)
[2022-01-13] MEDS: PANTOPRAZOLE SODIUM IV 40 MG VIAL IV PUSH ×2 (08:00→20:56)
[2022-01-13] MEDS: THIAMINE HCL 200 MG/2 ML VIAL 100 MG IV PUSH (08:00)
[2022-01-13] MEDS: MINERAL OIL/WHITE PETROLATUM OINTMENT 1 APPLIC EACH EYE ×2 (08:00→20:55)
--- NOTE | 2022-01-13 08:02 | PM.PNGS ---
Progress Note: A&P Assessment and Plan (1) Perforated abdominal viscus: Code(s): R19.8 - Other specified symptoms and signs involving the digestive system and abdomen Status: Acute Assessment and Plan: Will continue cont TPN, (However, patient's white count has been steadily going up over the last few days. Therefore, we are considering removing the right IJ central line and replacing it with alternate IV access --see Dr. Ochoa's notes) ostomy has started working, and overnight had some brown liquid stool come out after the dose of milk of Mag yesterday. Will try another dose of MOM via NG and I discussed with Dr. Hagan mildly about restarting trickle tube feeds over night. Dr. Ochoa restarted antibiotics view of his elevated white count for the 2 days before this. Today's study BC down slightly to 20,000.. (Klebsiella sensitive to Zosyn noted was in sputum ) also there was some Yeast. UA and blood cultures were repeated on 01 12 to see if anything new shows up. Also changing central line is still being worked on. Sincel ostomy seems to be functioning better. Will give another dose of milk of magnesia today and consider resuming tube feedings at a slow rate for now. CT scan Of 01/11/2022 reviewed. Known RIH is seen with some non-obstructed small bowel in it and some ascites, but no intra-abdominal abscess noted. Also there was some tissue edema body wall ascites. Most likely secondary to malnutrition. --- continue TPN for now until bowel seems to function. LFTs looked to be okay but BUN is slightly up so patient may tolerate a little bit more fluid. (2) Right inguinal hernia: Code(s): K40.90 - Unilateral inguinal hernia, without obstruction or gangrene, not specified as recurrent Status: Acute Assessment and Plan: cont to observe, pt is poor surgical candidate, ostomy is functioning , but with low output right now which seems to be now slowly increasing.. Swelling in the area the right groin and scrotum seems to be less and I was again able to somewhat reduce the bowel out of the direct hernia. Plan Today again his right inguinal hernia seems softer and I was able to at least partially reduce this. I believe he has a large inguinal ring and that the small bowel does go in and out of it. Agree with considering removing Rt. IJ central line which was placed in the ED prior to his surgery. Hopefully will be able to get a PICC line to continue TPN and perhaps a another peripheral IV in order to continue his other infusions. It will help significantly if his got starts to work better. CT scan of the chest on 01/11 showed no pneumothorax. We cannot try to remove the chest tube until patient off positive pressure ventilation. However, will remove the chest tube from suction since there has been no pneumothorax now for several days. Leave the chest tube to Pleur-evac on water seal for now and watch for any air leak. Repeat labs in a.m. Additional Plan Discussed pt's care with Dr. Ochoa today. Subjective Subjective Date/Time Seen: 01/13/22 08:02 Post Op day: POD#15 Patient reports: other (Patient remains intubated so cannot speak) Interval history: follows some commands ( squeezes my hand on verbal command). Review of Systems Review of Systems: ROS unobtainable: Yes unobtainable due to endotracheal tube and unobtainable due to medical condition Exam Const: General: cooperative and awake Nutritional Appearance: cachectic HENMT: Head: normal to inspection Mouth: Yes moist mucous membranes ( Oral endotracheal tube in place) Eyes: Sclera: sclerae normal Pupils: Equal, round and reactive pupils present Neck: Neck: normal visual inspection and no JVD Other: no palpable masses right IJ central line with no obvious signs of infection externally at the entry site. Chest: Chest palpation & inspection: normal inspection of the chest Other: chest tube exiting chest high later
[2022-01-13] MEDS: ALPRAZolam (*CRX) 0.25 MG TABLET PO ×3 (08:14→22:20)
[2022-01-13] MEDS: AMIODARONE 360 MG/D5W 200 ML 360 MG/200 ML BAG 16.67 MG IV CONT (09:10)
[2022-01-13] MEDS: dexmedeTOMIDine 400 MCG/100 ML 400 MCG/100 ML BAG 17.82 MCG IV CONT ×2 (11:07→16:51)
--- NOTE | 2022-01-13 11:13 | WPDINTPN ---
Progress Note: A&P Assessment and Plan (1) Septic shock: Code(s): A41.9 - Sepsis, unspecified organism; R65.21 - Severe sepsis with septic shock Status: Acute Assessment and Plan: RESOLVED Patient presented with hypotension, leukocytosis, lactic acidosis. Likely source peritonitis secondary to ruptured sigmoid colon -right IJ central line was placed in the ER, patient received adequate amount of IV fluids -both Levophed and vasopressin infusion have been weaned off at this time at this time -continue stress dose steroids -discontinue 25 % albumin -continue to maintain MAP > 65 mmHg for adequate end organ perfusion -continue Zosyn (12/29), status post of 14 days -blood and urine cultures are negative - Cultures from abdominal cavity during surgery grew Bacteroides fragilis, Fusobacterium necrophorum Sputum cultures 01/03 Org 1 = Klebsiella pnemoniae Org 2 = Yeast isolated 01/10: Repeat sputum culture: Klebsiella 01/12: Blood and urine cultures have been collected 01/12/2022: Leukocytosis, worsening chest x-ray, started patient on vancomycin Zosyn (01/12) (2) Perforated abdominal viscus: Code(s): R19.8 - Other specified symptoms and signs involving the digestive system and abdomen Status: Acute Assessment and Plan: Patient presented with abdominal pain, nausea, vomiting, septic shock. 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 -01/13 discussed with surgery, will start trickle feeds 01/07 CT abdomen pelvis IMPRESSION: 3: Moderate ascites. 4.: Right inguinal hernia containing small bowel which may be obstructed at the hernia. There is also a large right hydrocele. 5: Right renal and distal ureteral stones. Bilateral nephroureteral stents in expected position. (3) Acute respiratory failure: Code(s): J96.00 - Acute respiratory failure, unspecified whether with hypoxia or hypercapnia Status: Acute Assessment and Plan: Patient also presented with shortness of breath on admission, was found to have a moderate right-sided pneumothorax a CT scan of the abdomen and pelvis -intubated on 12/29/2021 -right-sided chest tube was placed in the OR by surgery on 12/29/2021 -01/03 repeat sputum culture growing Klebsiella, status post 14 days of Zosyn -patient has not been tolerating pressure support ventilation 01/11/2022: CT chest, abdomen, pelvis showed no pulmonary pulmonary embolism, anasarca with moderate amount of ascites, small to moderate left pleural effusion, partial collapse of bilateral lower lobes, scattered patchy ground-glass opacities, emphysema -elevated white count, worsening chest x-ray, started vancomycin and imipenem (01/12) 01/13: Discussed with daughter Mirian, regarding tracheostomy and PEG tube, she stated that she has spoken to her brother's and they want to go ahead with tracheostomy and PEG tube placement. ENT and GI have been consulted -Venous Doppler showed DVT of left popliteal and posterior tibial vein-now status post IVC filter placement on 01/05/202201/07 CT abdomen pelvis 1. Bilateral lower lobe airspace consolidation which may represent atelectasis and/or pneumonia. 2: Moderate bilateral pleural effusions. (4) Pneumothorax, right: Code(s): J93.9 - Pneumothorax, unspecified Status: Acute Assessment and Plan: CT scan of the abdomen pelvis showed a moderate right pneumothorax, right-sided chest tube was placed in the OR on 12/29/2021 per surgery -CT chest on 01/11 did not show a right pneumothorax -chest tube to water seal on 01/12 -surgeon managing the chest tube (5) ROSALINDA (acute kidney injury):
--- NOTE | 2022-01-13 11:18 | PCNFU ---
Nutrition Follow-Up Complete: Altered GI function as related to sigmoid resection/colostomy as evidenced by TPN Goal; Meet estimated nutritional needs Patient is progressing towards goal. Pt current nutrition is TPN and trickle feedings of Jevity 1.2 at 10 ml/hr Last recorded weight is 66 kg, up from 59.6 kg on admit. Bowel Motility:ostomy-hypoactive bowel sounds. Labs Reviewed:Na 132, Glu 191, BUN 23, Cr 0.5,Hct 32.7, Hgb 10.2 Meds Noted:Protonix, Thiamine, Zosyn, Folic Acid, Lopressor, Reglan, Fentanyl, Lantus, Ativan, Clinimix 5/15 at 50 ml/hr with 250 ml of 20% Lipid Emulsion, Atrovent Skin: WNL Additional Notes: Patient remains on mechanical vent. Tube feedings restarting with trickle feedings at 10 ml/hr of Jevity 1.2 providing 264 kcals/ 24 gms protein/178 ml water. TPN providing 1352 kcals/72 gms protein. Total nutrition meeting 99% kcal needs/95% protein needs. Free water flush 30 ml q 4 hours. Agree with diet orders. Will monitor in ICU rounds and reassessing every Sunday and Sunday.
[2022-01-13 11:36] LABS: Glucose Point of Care 196 mg/dl (65-105)
[2022-01-13] MEDS: AMINO ACIDS 5%/D15W/E-LYTES/CA 2,000 ML with MULTIVITAMINS-12 INJ VIAL 1 2.5 ML, MULTIV... 50 ML IV CONT (14:00)
[2022-01-13] MEDS: FAT EMULSIONS IV 20% 250 ML 20.8 ML IVPB (14:01)
[2022-01-13 17:18] LABS: Glucose Point of Care 176 mg/dl (65-105)
[2022-01-14] VITALS (44 sets, daily range): BP systolic 89–162; BP diastolic 59–127; PULSE 67–137; RESP 16–22; TEMP 36.7–37.2; O2SAT 90–100
[2022-01-14 00:27] LABS: Glucose Point of Care 175 mg/dl (65-105)
[2022-01-14] MEDS: METOCLOPRAMIDE HCL INJ 10 MG/2 ML VIAL IV PUSH ×5 (00:27→23:25)
[2022-01-14] MEDS: FENTANYL 2,500MCG/NS250ML(*CRX 2,500 MCG/250 ML BAG 15 MCG IV CONT (00:55)
[2022-01-14] MEDS: IPRATROPIUM BR 0.02% INH SOLN 0.5 MG/2.5 ML VIAL INHALATION ×4 (02:41→20:21)
[2022-01-14 03:21] LABS: Vancomycin Trough 11.7 ug/mL (10.0-20.0)
[2022-01-14] MEDS: dexmedeTOMIDine 400 MCG/100 ML 400 MCG/100 ML BAG 20.79 MCG IV CONT (04:27)
[2022-01-14 04:29] LABS: Alveolar/Arterial O2 Gradient 64.7 mmHg; Base Excess ABG 6.8 mEq/l (+/-2.0); Carboxyhemoglobin 0.2 % THb (0-2.0); Fractional Inspired Oxygen 30 %; HCO3 ABG 31.9 mEq/l (22.0-26.0); Methemoglobin ABG 0.3 %THb (0-1.5); Oxygen Content ABG 15.9 %vol (16.0-22.0); Oxygen Saturation ABG 97.3 % (95.0-100.0); Oxyhemoglobin 95.9 % THb (90.0-100.0); PCO2 ABG 47.8 mmHg (35.0-45.0); Reduced Hemoglobin 3.6 %THb (0-5.0); Total Hemoglobin 11.7 g/dL (12.0-18.0); pH ABG 7.442 (7.350-7.450)
[2022-01-14 04:31] LABS: Arterial Blood Gas Vent Mode CMV; Arterial Blood Gas Ventilator rate 16 /MIN; Device VENTILATOR; Modified Allen's Test Pass; Site Drawn RIGHT RADIAL
[2022-01-14 04:32] LABS: Arterial Blood Gas PEEP 8 cmH2O; Arterial Blood Gas Tidal Volume 350 ml
[2022-01-14 05:03] LABS: Basophils Percent Auto 0.2 % (0.2-1.2); Hematocrit 36.6 % (42.0-52.0); Hemoglobin 11.4 g/dL (14.0-18.0); Immature Granulocyte Absolute 0.49 K/mm3 (0.00-0.031); Immature Granulocyte Percent A 2.3 % (0-0.5); Lymphocytes Absolute Auto 0.45 K/mm3 (0.9-3.2); Lymphocytes Percent Auto 2.1 % (18.3-44.2); Mean Corpuscular HGB Conc 31.1 g/dl (32-36); Mean Corpuscular Hemoglobin 30.4 pg (26-34); Mean Corpuscular Volume 97.6 fl (80-100); Mean Platelet Volume 11.3 fl (7.4-10.4); Monocytes Absolute Auto 0.7 K/mm3 (0.1-0.6); Monocytes Percent Auto 3.2 % (2.6-8.5); Neutrophils Percent Auto 92.2 % (45.5-73.1); Platelet Count Result 254 k/mm3 (150-375); Red Blood Count 3.75 M/mm3 (4.6-6.20); Red Cell Distribution Width 16.4 % (11.5-14.5); White Blood Count 21.7 K/mm3 (4.5-10.0)
[2022-01-14 05:13] LABS: Alanine Aminotransferase 41 U/L (6-50); Alkaline Phosphatase 101 U/L (38-126); Anion Gap 7 mmol/L (8-16); Aspartate Amino Transferase 42 U/L (17-59); Bilirubin,Total 1.3 mg/dL (0.2-1.3); Blood Urea Nitrogen 23 mg/dL (9-20); Carbon Dioxide 33 mmol/L (22-30); Chloride 95 mmol/L (98-107); Estimated CRCL calculation 134 ml/min; Estimated Glomerular Filt Rate > 60; Glucose 188 mg/dL (65-110); Magnesium 1.9 mg/dL (1.6-2.3); Potassium 4.8 mmol/L (3.4-5.0); Sodium 135 mmol/L (137-145)
[2022-01-14] MEDS: CENTRAL LINE FLUSH 10 ML IV PUSH ×4 (06:31→21:30)
[2022-01-14] MEDS: HYDROCORTISONE SODIUM SUCCINATE 100 MG/2 ML VIAL IV PUSH ×3 (06:31→21:28)
[2022-01-14] MEDS: ALPRAZolam (*CRX) 0.25 MG TABLET PO ×3 (06:47→23:25)
[2022-01-14] MEDS: dexmedeTOMIDine 400 MCG/100 ML 400 MCG/100 ML BAG 19.31 MCG IV CONT ×3 (09:09→19:45)
[2022-01-14] MEDS: PANTOPRAZOLE SODIUM IV 40 MG VIAL IV PUSH ×2 (09:10→21:28)
[2022-01-14] MEDS: METOPROLOL TARTRATE 25 MG TABLET PO ×2 (09:10→19:48)
[2022-01-14] MEDS: FOLIC ACID 1 MG/0.2 ML INJ IV PUSH (09:11)
[2022-01-14] MEDS: THIAMINE HCL 200 MG/2 ML VIAL 100 MG IV PUSH (09:14)
[2022-01-14] MEDS: MINERAL OIL/WHITE PETROLATUM OINTMENT 1 APPLIC EACH EYE ×2 (09:21→21:28)
--- NOTE | 2022-01-14 11:31 | PM.PNGS ---
Progress Note: A&P Assessment and Plan (1) Diverticulitis of large intestine with perforation and abscess: Code(s): K57.20 - Diverticulitis of large intestine with perforation and abscess without bleeding Status: Acute Assessment and Plan: discussed with Dr. Ochoa. Patient should be able to tolerate full tube feedings. If not would consider water soluble contrast small-bowel follow-through. Some concern that hernia may be causing intermittent partial small bowel obstruction although there was no evidence of this on the recent CT scan done 01/11/2022. (2) Reducible right inguinal hernia: Code(s): K40.90 - Unilateral inguinal hernia, without obstruction or gangrene, not specified as recurrent Status: Acute Assessment and Plan: Very large hernia, remains reducible. (3) Pneumothorax, right: Code(s): J93.9 - Pneumothorax, unspecified Status: Acute Assessment and Plan: Consider chest tube removal. (4) Acute respiratory failure: Code(s): J96.00 - Acute respiratory failure, unspecified whether with hypoxia or hypercapnia Status: Acute Assessment and Plan: Remains on mechanical ventilator. White blood cell count is rising. Antibiotics have been changed. Hopefully will turn around. Subjective Subjective Date/Time Seen: 01/14/22 11:31 Post Op day: #16 Patient reports: other ( Remains intubated) Interval history: patient had sigmoidectomy with end colostomy on 12/29/2021. He also had placement of an IVC filter on 01/05/2022. He remains in the intensive care unit on mechanical ventilator receiving broad-spectrum antibiotics. His white blood cell count has been rising for the last 6 days and in the last 3 days has been around 20,000. 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 Also patient has had minimal output from his colostomy although he has been given multiple per the to his. He has only been getting trickle feeds. He does have a large right inguinal hernia that has been reducible. Review of Systems Review of Systems: ROS unobtainable: Yes unobtainable due to endotracheal tube Exam Const: General: patient obtunded Nutritional Appearance: thin Orientation/consciousness: patient obtunded Chest: Chest palpation & inspection: abnormal inspection of the chest ( Right chest tube, no pleural leak seen) Resp: Effort & Inspection: abnormal respiratory pattern ( on mechanical ventilator) Auscultation: rhonchi ( coarse breath sounds bilaterally) and diminished lung sounds ( diminished at the bases) GI: Inspection: non-distended and incision ( wound is dry healing well, stoma looks good with liquid brown fluid in bag) GI Palp: Yes Soft to palpation and No Palpable mass present : Male General Exam: Yes hernia ( large right inguinal hernia extends into scrotum, reducible) Scrotum: inguinal hernia Neuro: General: patient obtunded Objective Data Vital Signs Vital Signs: Vital Signs - 24 hr 01/13/22 12:00 01/13/22 12:00 01/13/22 12:00 Temperature 36.4 C Pulse Rate 97 97 Respiratory Rate 17 Blood Pressure 146/118 H Pulse Oximetry 100 Oxygen Delivery Fraction of Inspired Oxygen 30 01/13/22 12:00 01/13/22 14:12 01/13/22 14:12 Temperature Pulse Rate 97 114 H 123 H Respiratory Rate 17 20 Blood Pressure Pulse Oximetry 100 98 Oxygen Delivery Mechanical Ventilation Mechanical Ventilation Fraction of Inspired Oxygen 30 30 01/13/22 14:30 01/13/22 14:00 01/13/22 14:00 Temperature Pulse Rate 112 H 116 H 116 H Respiratory Rate 18 17 Blood Pressure 144/105 H Pulse Oximetry 99 Oxygen Delivery Fraction of Inspired Oxygen 01/13/22 16:00 01/13/22 16:00 01/13/22 16:00 Temperature 36.6 C Pulse Rate 112 H 112 H Respiratory Rate 17 Blood Pressure 150/95 H Pulse Oximetry 100
[2022-01-14 11:58] LABS: Glucose Point of Care 169 mg/dl (65-105)
--- NOTE | 2022-01-14 12:32 | WPDINTPN ---
Progress Note: A&P Assessment and Plan (1) Septic shock: Code(s): A41.9 - Sepsis, unspecified organism; R65.21 - Severe sepsis with septic shock Status: Acute Assessment and Plan: RESOLVED Patient presented with hypotension, leukocytosis, lactic acidosis. Likely source peritonitis secondary to ruptured sigmoid colon -right IJ central line was placed in the ER, patient received adequate amount of IV fluids -both Levophed and vasopressin infusion have been weaned off at this time at this time -continue stress dose steroids -discontinue 25 % albumin -continue to maintain MAP > 65 mmHg for adequate end organ perfusion -continue Zosyn (12/29), status post of 14 days -blood and urine cultures are negative - Cultures from abdominal cavity during surgery grew Bacteroides fragilis, Fusobacterium necrophorum Sputum cultures 01/03 Org 1 = Klebsiella pnemoniae Org 2 = Yeast isolated 01/10: Repeat sputum culture: Klebsiella 01/12: Blood and urine cultures have been collected 01/12/2022: Leukocytosis, worsening chest x-ray, started patient on vancomycin and Zosyn (01/12) (2) Perforated abdominal viscus: Code(s): R19.8 - Other specified symptoms and signs involving the digestive system and abdomen Status: Acute Assessment and Plan: Patient presented with abdominal pain, nausea, vomiting, septic shock. 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 -01/13 discussed with surgery, will increase tube feeds, if patient does not tolerate could be concerning at the hernia may be causing intermittent partial small-bowel obstruction. Would consider water-soluble contrast small-bowel follow-through 01/07 CT abdomen pelvis IMPRESSION: 3: Moderate ascites. 4.: Right inguinal hernia containing small bowel which may be obstructed at the hernia. There is also a large right hydrocele. 5: Right renal and distal ureteral stones. Bilateral nephroureteral stents in expected position. (3) Acute respiratory failure: Code(s): J96.00 - Acute respiratory failure, unspecified whether with hypoxia or hypercapnia Status: Acute Assessment and Plan: Patient also presented with shortness of breath on admission, was found to have a moderate right-sided pneumothorax a CT scan of the abdomen and pelvis -intubated on 12/29/2021 -right-sided chest tube was placed in the OR by surgery on 12/29/2021 -01/03 repeat sputum culture growing Klebsiella, status post 14 days of Zosyn -patient has not been tolerating pressure support ventilation 01/11/2022: CT chest, abdomen, pelvis showed no pulmonary pulmonary embolism, anasarca with moderate amount of ascites, small to moderate left pleural effusion, partial collapse of bilateral lower lobes, scattered patchy ground-glass opacities, emphysema -elevated white count, worsening chest x-ray, started vancomycin and imipenem (01/12) 01/13: Discussed with daughter Mirian, regarding tracheostomy and PEG tube, she stated that she has spoken to her brother's and they want to go ahead with tracheostomy and PEG tube placement. ENT and GI have been consulted -Venous Doppler showed DVT of left popliteal and posterior tibial vein-now status post IVC filter placement on 01/05/202201/07 CT abdomen pelvis 1. Bilateral lower lobe airspace consolidation which may represent atelectasis and/or pneumonia. 2: Moderate bilateral pleural effusions. (4) Pneumothorax, right: Code(s): J93.9 - Pneumothorax, unspecified Status: Acute Assessment and Plan: CT scan of the abdomen pelvis showed a moderate right pneumothorax, right-sided chest tube was placed
--- NOTE | 2022-01-14 13:40 | WPDGICN ---
Assessment and Plan Assessment and plan (1) Septic shock: Code(s): A41.9 - Sepsis, unspecified organism; R65.21 - Severe sepsis with septic shock Status: Acute Assessment and Plan: this improved, not longer on pressors still in ICU, intubated (2) Diverticulitis of large intestine with perforation and abscess: Code(s): K57.20 - Diverticulitis of large intestine with perforation and abscess without bleeding Status: Acute Assessment and Plan: treated surgically (3) Pneumothorax, right: Code(s): J93.9 - Pneumothorax, unspecified Status: Acute Assessment and Plan: placed chest tube, intubated (4) Perforated abdominal viscus: Code(s): R19.8 - Other specified symptoms and signs involving the digestive system and abdomen Status: Acute Assessment and Plan: treated with surgery primary asking for possible G-tube placement however family is not quite ready (5) Acute respiratory failure: Code(s): J96.00 - Acute respiratory failure, unspecified whether with hypoxia or hypercapnia Status: Acute (6) Bilateral hydronephrosis: Code(s): N13.30 - Unspecified hydronephrosis Status: Acute Assessment and Plan: treated by urology (7) Reducible right inguinal hernia: Code(s): K40.90 - Unilateral inguinal hernia, without obstruction or gangrene, not specified as recurrent Status: Acute GI Consult Note Consult date/time: 01/14/22 13:40 Reason for consult: perforated viscus with peritonitis, septic shock. Evaluation for G-tube HPI: Dean Kay is a 66 year old male with past medical history of essential hypertension and tobacco dependence, pathological right hip fracture in April 2021. He came to the ED on 12/29/21 with abdominal pain, generalized weakness, shortness of breath,? anorexia with nausea, vomiting (history obtained from records since he is still intubated in the ICU). CT of the abdomen and pelvis showed moderate right-sided pneumothorax and free intraperitoneal air suggesting ruptured viscus.? Central line was inserted in the right IJ in the ER then taken to the OR and had a Girish's Procedure 12/29/2021 (Open sigmoid colectomy with left-sided end colostomy).? Right-sided chest tube was also inserted for the right pneumothorax by surgery.? Urology performed Cystoscopy, bilateral retrograde pyelography and bilateral ureteral stent placement on 12/29/2021.?He is still in ICU currently on tube feeding by [facility] with prolonged hospitalization. Primary team asking for possible G-tube placement however it seems that family member is not ready to make decision quite yet. Review of Systems Review of Systems: ROS unobtainable: Yes unobtainable due to endotracheal tube and unobtainable due to mental status PMFSH Past Medical History Medical History Hypertension Tobacco dependence Surgical History Surgical History Hx of fracture of right hip Apr 2021 Family History Family History Other Family history unknown Social History Social History Social History: Smokes 1.5ppd for unclear duration. He drinks 2.5 drinks/day. Denies drug use. Lives alone. Full code. Nominates his cousin Chaparro to be the individual to make medical decisions for him if he is unable. 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
[2022-01-14] MEDS: FAT EMULSIONS IV 20% 250 ML 20.8 ML IVPB (14:09)
[2022-01-14] MEDS: AMINO ACIDS 5%/D15W/E-LYTES/CA 2,000 ML with MULTIVITAMINS-12 INJ VIAL 1 2.5 ML, MULTIV... 50 ML IV CONT (14:10)
[2022-01-14] MEDS: FENTANYL 2,500MCG/NS250ML(*CRX 2,500 MCG/250 ML BAG 12.5 MCG IV CONT (18:00)
[2022-01-14] MEDS: INSULIN ASPART (*BKC) 100 UNITS/ML SUB-Q (18:12)
[2022-01-14 18:17] LABS: Glucose Point of Care 253 mg/dl (65-105)
[2022-01-14] MEDS: hydrALAZINE HCL 20 MG/ML VIAL 10 MG IV PUSH (21:59)
[2022-01-14] MEDS: METOPROLOL TARTRATE INJ 5 MG/5 ML VIAL IV PUSH (22:44)
[2022-01-14 23:35] LABS: Glucose Point of Care 173 mg/dl (65-105)
[2022-01-15] VITALS (37 sets, daily range): BP systolic 110–162; BP diastolic 85–140; PULSE 95–153; RESP 15–27; TEMP 36.3–37; O2SAT 91–100
[2022-01-15] MEDS: dexmedeTOMIDine 400 MCG/100 ML 400 MCG/100 ML BAG 19.31 MCG IV CONT ×5 (00:34→21:23)
[2022-01-15] MEDS: METOPROLOL TARTRATE INJ 5 MG/5 ML VIAL 10 MG IV PUSH ×2 (00:36→14:40)
[2022-01-15] MEDS: IPRATROPIUM BR 0.02% INH SOLN 0.5 MG/2.5 ML VIAL INHALATION ×4 (03:07→20:18)
[2022-01-15 05:55] LABS: Alveolar/Arterial O2 Gradient 62.7 mmHg; Base Excess ABG 6.2 mEq/l (+/-2.0); Carboxyhemoglobin 0.3 % THb (0-2.0); Fractional Inspired Oxygen 30 %; HCO3 ABG 31.9 mEq/l (22.0-26.0); Methemoglobin ABG 0.3 %THb (0-1.5); Oxygen Content ABG 17.2 %vol (16.0-22.0); Oxyhemoglobin 95.8 % THb (90.0-100.0); PCO2 ABG 50.6 mmHg (35.0-45.0); PO2 ABG 91.7 mmHg (80.0-100.0); PO2 FiO2 Ratio Arterial Blood 3.06 %; Reduced Hemoglobin 3.6 %THb (0-5.0); Total Hemoglobin 12.7 g/dL (12.0-18.0); pH ABG 7.417 (7.350-7.450)
[2022-01-15 05:57] LABS: Device VENTILATOR; Modified Allen's Test Pass; Site Drawn LEFT RADIAL
[2022-01-15 05:58] LABS: Arterial Blood Gas PEEP 8 cmH2O; Arterial Blood Gas Tidal Volume 360 ml; Arterial Blood Gas Vent Mode CMV; Arterial Blood Gas Ventilator rate 16 /MIN
[2022-01-15] MEDS: CENTRAL LINE FLUSH 10 ML IV PUSH ×4 (06:18→21:14)
[2022-01-15] MEDS: METOCLOPRAMIDE HCL INJ 10 MG/2 ML VIAL IV PUSH ×4 (06:18→23:19)
[2022-01-15] MEDS: HYDROCORTISONE SODIUM SUCCINATE 100 MG/2 ML VIAL IV PUSH ×3 (06:18→21:13)
[2022-01-15 06:29] LABS: Hematocrit 35.3 % (42.0-52.0); Mean Corpuscular HGB Conc 31.2 g/dl (32-36); Mean Corpuscular Hemoglobin 30.5 pg (26-34); Mean Corpuscular Volume 97.8 fl (80-100); Mean Platelet Volume 11.8 fl (7.4-10.4); Platelet Count Result 212 k/mm3 (150-375); Red Blood Count 3.61 M/mm3 (4.6-6.20); Red Cell Distribution Width 15.9 % (11.5-14.5); White Blood Count 17.2 K/mm3 (4.5-10.0)
[2022-01-15 06:43] LABS: Alanine Aminotransferase 49 U/L (6-50); Albumin Level 2.8 g/dL (3.5-5.1); Alkaline Phosphatase 112 U/L (38-126); Anion Gap 5 mmol/L (8-16); Aspartate Amino Transferase 42 U/L (17-59); Bilirubin,Total 1.2 mg/dL (0.2-1.3); Blood Urea Nitrogen 22 mg/dL (9-20); Calcium 8.2 mg/dL (8.4-10.2); Carbon Dioxide 36 mmol/L (22-30); Chloride 94 mmol/L (98-107); Estimated CRCL calculation 134 ml/min; Estimated Glomerular Filt Rate > 60; Glucose 172 mg/dL (65-110); Magnesium 1.8 mg/dL (1.6-2.3); Phosphorus 3.8 mg/dL (2.5-4.5); Potassium 4.2 mmol/L (3.4-5.0); Sodium 135 mmol/L (137-145)
[2022-01-15 06:47] LABS: Total Cells Counted 100
[2022-01-15 06:48] LABS: Platelet Estimate Adequate (Adequate)
[2022-01-15 07:00] LABS: Neutrophils Absolute Manual 15.99 K/mm3 (1.3-6.7)
[2022-01-15 07:01] LABS: Lymphocytes Absolute Manual 0.34 K/mm3 (1.1-4.5); Monocytes Absolute Manual 0.68 K/mm3 (0.1-0.90); Monocytes Percent Manual 4 % (3-9)
[2022-01-15 07:02] LABS: Eosinophils Percent Manual 0 % (0-4)
[2022-01-15 07:04] LABS: Neutrophils Percent Manual 94 % (46-73)
--- NOTE | 2022-01-15 08:05 | WPDGIPROGNO ---
Progress Note: A&P Assessment and Plan (1) Diverticulitis of large intestine with perforation and abscess: Code(s): K57.20 - Diverticulitis of large intestine with perforation and abscess without bleeding Status: Acute Assessment and Plan: by surgery awaiting family decision before proceeding with G-tube placement- will follow from afar (2) Septic shock: Code(s): A41.9 - Sepsis, unspecified organism; R65.21 - Severe sepsis with septic shock Status: Acute Assessment and Plan: treated and resolved (3) Pneumothorax, right: Code(s): J93.9 - Pneumothorax, unspecified Status: Acute Subjective Date/time seen: 01/15/22 08:05 Interval history: no changes, intubated, tolerating tube feeding Review of Systems Review of Systems: All systems reviewed & are unremarkable except as noted in HPI and below Exam Narrative: General: Patient intubated and sedated HEENT: Pupils equal and reactive, sclera is clear ETT in place Neck: Supple Respiratory: Bilateral coarse breath sounds, decreased at bases, good air entry, no wheezing, chest tube on the right, no air leak at this time, Cardiac: Irregularly irregular, rate controlled Abdomen: Hypoactive bowel sounds, abdominal soft, nondistended, ostomy in left lower quadrant with brown colored drainage, incision with Steri-Strips, right inguinal hernia Extremities: Bilateral upper and lower extremity edema Neuro: Intubated, on Precedex and fentanyl infusion, patient opens his eyes and follows simple commands in all extremities Skin: Warm and dry Psych: Unable to assess Objective Data Vital Signs Vital Signs: Vital Signs - 24 hr 01/14/22 08:14 01/14/22 08:16 01/14/22 09:09 Temperature Pulse Rate 112 H 108 H 117 H Respiratory Rate 16 17 Blood Pressure Pulse Oximetry 100 Oxygen Delivery Mechanical Ventilation Fraction of Inspired Oxygen 30 01/14/22 09:09 01/14/22 09:10 01/14/22 09:19 Temperature Pulse Rate 117 H 117 H 110 H Respiratory Rate 17 17 Blood Pressure Pulse Oximetry Oxygen Delivery Fraction of Inspired Oxygen 01/14/22 09:00 01/14/22 09:07 01/14/22 10:00 Temperature Pulse Rate 119 H 90 Respiratory Rate 16 Blood Pressure 144/104 H Pulse Oximetry 100 Oxygen Delivery Fraction of Inspired Oxygen 01/14/22 10:00 01/14/22 11:18 01/14/22 12:00 Temperature Pulse Rate 99 106 H Respiratory Rate 16 Blood Pressure 135/84 Pulse Oximetry 100 100 Oxygen Delivery Mechanical Ventilation Fraction of Inspired Oxygen 30 30 01/14/22 12:00 01/14/22 12:00 01/14/22 12:00 Temperature 98.8 F Pulse Rate 112 H 83 111 H Respiratory Rate 16 16 Blood Pressure 144/100 H Pulse Oximetry 100 100 Oxygen Delivery Mechanical Ventilation Fraction of Inspired Oxygen 30 01/14/22 14:16 01/14/22 14:16 01/14/22 14:22 Temperature Pulse Rate 122 H 122 H 133 H Respiratory Rate 16 16 16 Blood Pressure Pulse Oximetry Oxygen Delivery Fraction of Inspired Oxygen 01/14/22 14:27 01/14/22 14:28 01/14/22 14:00 Temperature Pulse Rate 117 H 123 H 112 H Respiratory Rate 18 Blood Pressure Pulse Oximetry 99 Oxygen Delivery Mechanical Ventilation Fraction of Inspired Oxygen 30 01/14/22 14:00 01/14/22 15:38 01/14/22 15:58 Temperature Pulse Rate 130 H 121 H 127 H Respiratory Rate 16 17 16 Blood Pressure 159/92 H 127/90 Pulse Oximetry 100 100 100 Oxygen Delivery Mechanical Ventilation Fraction of Inspired Oxygen 30 01/14/22 16:00 01/14/22 17:43 01/14/22 18:00 Temperature Pulse Rate 118 H 123 H 120 H Respiratory Rate 22 H Blood Pressure Pulse Oximetry 100 Oxygen Delivery Mechanical Ventilation Fraction of Inspired Oxygen 30 01/14/22 18:00 01/14/22 18:00 01/14/22 18:00 Temperature Pulse Rate 120 H 109 H 125 H Respiratory Rate 22 H 16 Blood Pressure 157/127 H Pulse Oximetry
[2022-01-15] MEDS: FOLIC ACID 1 MG/0.2 ML INJ IV PUSH (08:51)
[2022-01-15] MEDS: PANTOPRAZOLE SODIUM IV 40 MG VIAL IV PUSH ×2 (08:51→20:27)
[2022-01-15] MEDS: METOPROLOL TARTRATE 50 MG TAB PO ×2 (08:51→20:27)
[2022-01-15] MEDS: THIAMINE HCL 200 MG/2 ML VIAL 100 MG IV PUSH (09:01)
[2022-01-15] MEDS: FUROSEMIDE INJ 40 MG/4 ML VIAL IV PUSH (10:35)
[2022-01-15] MEDS: FENTANYL 2,500MCG/NS250ML(*CRX 2,500 MCG/250 ML BAG 15 MCG IV CONT (12:05)
[2022-01-15 12:08] LABS: Glucose Point of Care 218 mg/dl (65-105)
--- NOTE | 2022-01-15 12:08 | WPDINTPN ---
Progress Note: A&P Assessment and Plan (1) Septic shock: Code(s): A41.9 - Sepsis, unspecified organism; R65.21 - Severe sepsis with septic shock Status: Acute Assessment and Plan: RESOLVED Patient presented with hypotension, leukocytosis, lactic acidosis. Likely source peritonitis secondary to ruptured sigmoid colon -right IJ central line was placed in the ER, patient received adequate amount of IV fluids -both Levophed and vasopressin infusion have been weaned off at this time at this time -continue stress dose steroids -discontinue 25 % albumin -continue to maintain MAP > 65 mmHg for adequate end organ perfusion -continue Zosyn (12/29), status post of 14 days -blood and urine cultures are negative - Cultures from abdominal cavity during surgery grew Bacteroides fragilis, Fusobacterium necrophorum Sputum cultures 01/03 Org 1 = Klebsiella pnemoniae Org 2 = Yeast isolated 01/10: Repeat sputum culture: Klebsiella 01/12: Blood and urine cultures have been collected 01/12/2022: Leukocytosis, worsening chest x-ray, started patient on vancomycin and imipenem (01/12) white blood cell count is improving, patient is afebrile (2) Perforated abdominal viscus: Code(s): R19.8 - Other specified symptoms and signs involving the digestive system and abdomen Status: Acute Assessment and Plan: Patient presented with abdominal pain, nausea, vomiting, septic shock. 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 -01/14 discussed with surgery, will increase tube feeds to goal, if patient does not tolerate could be concerning at the hernia may be causing intermittent partial small-bowel obstruction. Would consider water-soluble contrast small-bowel follow-through 01/07 CT abdomen pelvis IMPRESSION: 3: Moderate ascites. 4.: Right inguinal hernia containing small bowel which may be obstructed at the hernia. There is also a large right hydrocele. 5: Right renal and distal ureteral stones. Bilateral nephroureteral stents in expected position. (3) Acute respiratory failure: Code(s): J96.00 - Acute respiratory failure, unspecified whether with hypoxia or hypercapnia Status: Acute Assessment and Plan: Patient also presented with shortness of breath on admission, was found to have a moderate right-sided pneumothorax a CT scan of the abdomen and pelvis -intubated on 12/29/2021 -right-sided chest tube was placed in the OR by surgery on 12/29/2021 -01/03 repeat sputum culture growing Klebsiella, status post 14 days of Zosyn -patient has not been tolerating pressure support ventilation 01/11/2022: CT chest, abdomen, pelvis showed no pulmonary pulmonary embolism, anasarca with moderate amount of ascites, small to moderate left pleural effusion, partial collapse of bilateral lower lobes, scattered patchy ground-glass opacities, emphysema -elevated white count, worsening chest x-ray, started vancomycin and imipenem (01/12) 01/13: Discussed with daughter Mirian, regarding tracheostomy and PEG tube, she stated that she has spoken to her brother's and they want to go ahead with tracheostomy and PEG tube placement. ENT and GI have been consulted -volume overload, will diurese today 01/15 -Venous Doppler showed DVT of left popliteal and posterior tibial vein-now status post IVC filter placement on 01/05/202201/07 CT abdomen pelvis 1. Bilateral lower lobe airspace consolidation which may represent atelectasis and/or pneumonia. 2: Moderate bilateral pleural effusions. (4) Pneumothorax, right: Code(s): J93.9 - Pneumothorax, unspecified Status: Acute Assessmen
[2022-01-15] MEDS: INSULIN ASPART (*BKC) 100 UNITS/ML SUB-Q (12:12)
[2022-01-15] MEDS: FAT EMULSIONS IV 20% 250 ML 20.8 ML IVPB (13:45)
[2022-01-15] MEDS: AMINO ACIDS 5%/D15W/E-LYTES/CA 2,000 ML with MULTIVITAMINS-12 INJ VIAL 1 2.5 ML, MULTIV... 50 ML IV CONT (13:45)
--- NOTE | 2022-01-15 15:18 | PM.PNGS ---
Progress Note: A&P Assessment and Plan (1) Diverticulitis of large intestine with perforation and abscess: Code(s): K57.20 - Diverticulitis of large intestine with perforation and abscess without bleeding Status: Acute Assessment and Plan: Tube feeds at 30 an hour this morning and tolerating well. Discussed with Dr. Ochoa. Plans to advance up to optimal tube feeding. (2) Right inguinal hernia: Code(s): K40.90 - Unilateral inguinal hernia, without obstruction or gangrene, not specified as recurrent Status: Acute Assessment and Plan: Stable and reducible (3) Pneumothorax, right: Code(s): J93.9 - Pneumothorax, unspecified Status: Acute Assessment and Plan: No pneumothorax chest tube in good position Subjective Subjective Date/Time Seen: 01/15/22 15:18 Patient reports: other (Eyes open, remains intubated. No nodding to questions) Review of Systems Review of Systems: ROS unobtainable: Yes unobtainable due to endotracheal tube Exam Const: General: awake Nutritional Appearance: thin Chest: Chest palpation & inspection: abnormal inspection of the chest (Right chest tube in expected position, no pleural leak) and no crepitus Resp: Auscultation: rhonchi throughout GI: Inspection: non-distended, incision (Dry and healing), scaphoid and other (Some flatus and small amounts of liquid stool in the stoma bag) GI Palp: Yes Soft to palpation Auscultation: normal bowel sounds : Male General Exam: Yes hernia (Large right inguinal hernia, remains reducible) Objective Data Vital Signs Vital Signs: Vital Signs - 24 hr 01/14/22 15:38 01/14/22 15:58 01/14/22 16:00 Temperature Pulse Rate 121 H 127 H 118 H Respiratory Rate 17 16 Blood Pressure 127/90 Pulse Oximetry 100 100 Oxygen Delivery Mechanical Ventilation Fraction of Inspired Oxygen 30 01/14/22 17:43 01/14/22 18:00 01/14/22 18:00 Temperature Pulse Rate 123 H 120 H 120 H Respiratory Rate 22 H 22 H Blood Pressure Pulse Oximetry 100 Oxygen Delivery Mechanical Ventilation Fraction of Inspired Oxygen 30 01/14/22 18:00 01/14/22 18:00 01/14/22 19:48 Temperature Pulse Rate 109 H 125 H 129 H Respiratory Rate 16 Blood Pressure 157/127 H Pulse Oximetry 100 Oxygen Delivery Fraction of Inspired Oxygen 01/14/22 20:00 01/14/22 20:22 01/14/22 20:22 Temperature Pulse Rate 125 H 128 H Respiratory Rate 20 Blood Pressure Pulse Oximetry 93 Oxygen Delivery Mechanical Ventilation Fraction of Inspired Oxygen 30 30 01/14/22 20:00 01/14/22 21:55 01/14/22 22:44 Temperature 37.2 C Pulse Rate 136 H 123 H 132 H Respiratory Rate 21 H Blood Pressure 156/97 H 160/119 H Pulse Oximetry 91 Oxygen Delivery Fraction of Inspired Oxygen 01/15/22 00:36 01/14/22 20:00 01/15/22 00:00 Temperature Pulse Rate 141 H Respiratory Rate Blood Pressure Pulse Oximetry Oxygen Delivery Mechanical Ventilation Mechanical Ventilation Fraction of Inspired Oxygen 30 30 01/15/22 00:00 01/15/22 01:44 01/14/22 20:00 Temperature Pulse Rate 113 H 137 H Respiratory Rate 18 Blood Pressure Pulse Oximetry Oxygen Delivery Fraction of Inspired Oxygen 30 01/14/22 22:00 01/15/22 00:00 01/15/22 02:00 Temperature Pulse Rate 129 H 123 H 107 H Respiratory Rate Blood Pressure Pulse Oximetry Oxygen Delivery Fraction of Inspired Oxygen 01/15/22 00:00 01/15/22 02:00 01/15/22 00:20 Temperature 37.0 C Pulse Rate 122 H 107 H 136 H Respiratory Rate 20 18 Blood Pressure 161/127 H 110/85 Pulse Oximetry 94 99 Oxygen Delivery Fraction of Inspired Oxygen 01/15/22 03:08 01/15/22 03:11 01/14/22 23:25 Temperature Pulse Rate 127 H 122 H 128 H Respiratory Rate 18 Blood Pressure Pulse Oximetry 97 96 Oxygen Delivery Mechanical Ventilation Mechanical Ventilation Fraction of Inspired
[2022-01-15 17:00] LABS: Glucose Point of Care 175 mg/dl (65-105)
[2022-01-15] MEDS: MINERAL OIL/WHITE PETROLATUM OINTMENT 1 APPLIC EACH EYE (20:27)
[2022-01-15 23:40] LABS: Glucose Point of Care 190 mg/dl (65-105)
[2022-01-16] VITALS (38 sets, daily range): BP systolic 73–154; BP diastolic 51–117; PULSE 108–156; RESP 16–22; TEMP 36.1–36.6; O2SAT 91–100
[2022-01-16] MEDS: IPRATROPIUM BR 0.02% INH SOLN 0.5 MG/2.5 ML VIAL INHALATION ×4 (02:48→20:34)
[2022-01-16] MEDS: dexmedeTOMIDine 400 MCG/100 ML 400 MCG/100 ML BAG 19.31 MCG IV CONT ×5 (03:07→23:21)
[2022-01-16] MEDS: METOPROLOL TARTRATE INJ 5 MG/5 ML VIAL 10 MG IV PUSH (03:30)
[2022-01-16] MEDS: FENTANYL 2,500MCG/NS250ML(*CRX 2,500 MCG/250 ML BAG 15 MCG IV CONT ×2 (04:35→21:42)
[2022-01-16] MEDS: HYDROCORTISONE SODIUM SUCCINATE 100 MG/2 ML VIAL IV PUSH ×3 (05:08→21:00)
[2022-01-16] MEDS: METOCLOPRAMIDE HCL INJ 10 MG/2 ML VIAL IV PUSH ×4 (05:08→23:22)
[2022-01-16] MEDS: CENTRAL LINE FLUSH 10 ML IV PUSH ×2 (05:09→21:01)
[2022-01-16 05:44] LABS: Basophils Percent Auto 0.1 % (0.2-1.2); Eosinophils Percent Auto 0.1 % (0-4.4); Hematocrit 32.3 % (42.0-52.0); Hemoglobin 10.1 g/dL (14.0-18.0); Immature Granulocyte Absolute 0.24 K/mm3 (0.00-0.031); Immature Granulocyte Percent A 1.6 % (0-0.5); Lymphocytes Absolute Auto 0.29 K/mm3 (0.9-3.2); Mean Corpuscular HGB Conc 31.3 g/dl (32-36); Mean Corpuscular Hemoglobin 30.5 pg (26-34); Mean Corpuscular Volume 97.6 fl (80-100); Mean Platelet Volume 11.8 fl (7.4-10.4); Monocytes Absolute Auto 0.6 K/mm3 (0.1-0.6); Monocytes Percent Auto 4.2 % (2.6-8.5); Neutrophils Absolute Auto 13.5 K/mm3 (1.3-6.7); Platelet Count Result 180 k/mm3 (150-375); Red Blood Count 3.31 M/mm3 (4.6-6.20); Red Cell Distribution Width 15.8 % (11.5-14.5); White Blood Count 14.6 K/mm3 (4.5-10.0)
[2022-01-16 05:48] LABS: Alveolar/Arterial O2 Gradient 71.2 mmHg; Base Excess ABG 8.6 mEq/l (+/-2.0); Carboxyhemoglobin 0.3 % THb (0-2.0); Fractional Inspired Oxygen 30 %; HCO3 ABG 33.9 mEq/l (22.0-26.0); Methemoglobin ABG 0.3 %THb (0-1.5); Oxygen Content ABG 16.7 %vol (16.0-22.0); Oxygen Saturation ABG 96.6 % (95.0-100.0); Oxyhemoglobin 95.2 % THb (90.0-100.0); PCO2 ABG 49.5 mmHg (35.0-45.0); PO2 ABG 84.5 mmHg (80.0-100.0); PO2 FiO2 Ratio Arterial Blood 2.82 %; Reduced Hemoglobin 4.2 %THb (0-5.0); Total Hemoglobin 12.4 g/dL (12.0-18.0); pH ABG 7.453 (7.350-7.450)
[2022-01-16 05:53] LABS: Device VENTILATOR; Modified Allen's Test Pass; Site Drawn LEFT RADIAL
[2022-01-16 05:54] LABS: Arterial Blood Gas PEEP 8 cmH2O; Arterial Blood Gas Tidal Volume 360 ml; Arterial Blood Gas Vent Mode CMV; Arterial Blood Gas Ventilator rate 16 /MIN
[2022-01-16 06:00] LABS: Alanine Aminotransferase 39 U/L (6-50); Albumin Level 2.4 g/dL (3.5-5.1); Alkaline Phosphatase 97 U/L (38-126); Anion Gap 3 mmol/L (8-16); Aspartate Amino Transferase 32 U/L (17-59); Blood Urea Nitrogen 24 mg/dL (9-20); Calcium 8.2 mg/dL (8.4-10.2); Carbon Dioxide 39 mmol/L (22-30); Chloride 90 mmol/L (98-107); Estimated CRCL calculation 134 ml/min; Estimated Glomerular Filt Rate > 60; Glucose 189 mg/dL (65-110); Magnesium 1.6 mg/dL (1.6-2.3); Phosphorus 3.6 mg/dL (2.5-4.5); Potassium 3.5 mmol/L (3.4-5.0); Sodium 132 mmol/L (137-145)
[2022-01-16 06:11] LABS: Transferrin 108 mg/dL (206-381)
[2022-01-16] MEDS: FOLIC ACID 1 MG/0.2 ML INJ IV PUSH (08:10)
[2022-01-16] MEDS: THIAMINE HCL 200 MG/2 ML VIAL 100 MG IV PUSH (08:10)
[2022-01-16] MEDS: PANTOPRAZOLE SODIUM IV 40 MG VIAL IV PUSH ×2 (08:10→20:10)
[2022-01-16] MEDS: METOPROLOL TARTRATE 25 MG TABLET 75 MG PO ×2 (08:46→20:09)
--- NOTE | 2022-01-16 09:18 | PM.PNGS ---
Progress Note: A&P Assessment and Plan (1) Diverticulitis of large intestine with perforation and abscess: Code(s): K57.20 - Diverticulitis of large intestine with perforation and abscess without bleeding Status: Acute Assessment and Plan: Tube feeds at 30 an hour this morning and tolerating well. Plans to advance up to optimal tube feeding gradually. Consider placing PICC line and removing right IJ central line which was been present since admission through ED. it was noted, and Dr. Red and brought it to my attention that the patient still is not having much out the ostomy compared to what is going in. Patient is however on vital VF tube feedings which could mostly be absorbed. Not getting much fiber. Therefore will try MiraLax q.12 hours scheduled for a few rounds before considering a Gastrografin enema through the ostomy to be sure that there was no sign of obstruction more proximally in the colon. (CT done last week does not show any sign of colon distention proximal to the ostomy). (2) Right inguinal hernia: Code(s): K40.90 - Unilateral inguinal hernia, without obstruction or gangrene, not specified as recurrent Status: Acute Assessment and Plan: Stable and reducible (3) Pneumothorax, right: Code(s): J93.9 - Pneumothorax, unspecified Status: Acute Assessment and Plan: No pneumothorax chest tube in good position by CXR. Subjective Subjective Date/Time Seen: 01/16/22 08:18 Post Op day: POD #18 Patient reports: other ( Still has oral endotracheal tube.) Interval history: nurse reports patient is slightly calmer. Patient does attend to the examiner this date and does shake his head to questions. Review of Systems Review of Systems: Nurse reports patient slightly calmer. ROS unobtainable: Yes unobtainable due to endotracheal tube Exam Const: General: cooperative and awake Nutritional Appearance: cachectic HENMT: Head: normal to inspection Mouth: Yes moist mucous membranes ( Oral endotracheal tube in place) Eyes: Sclera: sclerae normal Pupils: Equal, round and reactive pupils present Neck: Neck: normal visual inspection and no JVD Other: no palpable masses Chest: Chest palpation & inspection: normal inspection of the chest Other: chest tube exiting chest high lateral on the right side. No air leak in the Pleur-evac. Resp: Effort & Inspection: other ( Difficult to assess as patient is on ventilator) Auscultation: rhonchi upper bilaterally GI: Inspection: incision ( clean and dry with dressing intact) and visible herniation ( right inguinal area with less swelling now.) Other: ostomy pink with with a small amount of mucus,and liquid brown stool in bag. Incision:Seen with anthony & steri-strips intact and no signs of infection or drainage along the midline incision site. Right groin exam reveals that the swelling in the inguinal area seems improved compared to 2-3 days ago. I was again able to seemingly at least partially reduce the inguinal hernia, however this is a wide open probably direct hernia and so the bowel comes back out into it fairly readily when the patient coughs. (CT on 01/11/2022 showed nonobstructive small bowel associated with the hernia which was my impression at surgery also). : Scrotum: edematous on the right ( Swelling seems to be gradually improving (probably was ascitic fluid in hydrocele).) Urinary Catheter: Urinary Catheter: patent and draining and urine pink Extrem: Other: No wounds. Objective Data Vital Signs Vital Signs: Vital Signs - 24 hr 01/15/22 10:00 01/15/22 10:00 01/15/22 10:58 Temperature Pulse Rate 117 H 129 H 107 H Respiratory Rate 22 H Blood Pressure 161/105 H Pulse Oximetry 93 99 Oxygen Delivery Mechanical Ventilation Fraction of Inspired Oxygen 30 01/15/22 11:58 01/15/22 12:05 01/15/22 13:23 Temperature Pulse Rate 135 H 135 H 112 H Respiratory Rate 20 20
[2022-01-16] MEDS: FUROSEMIDE INJ 40 MG/4 ML VIAL IV PUSH (10:13)
--- NOTE | 2022-01-16 12:08 | PCFNICU ---
ICU Rounding Note: Pt current nutrition is Jevity 1.2 at 40 ml/hr. Nutrition recommendation: Goal rate of Jevity 1.2 at 65 ml/hr Last recorded weight is 71.9 kg, up from 73.1 kg. Bowel Motility:ostomy Labs Reviewed:Glu 189, BUN 24, Na 132, Hct 32.3,Hgb 10.1 Meds Noted:Precedex, Protonix, Thiamine, Zosyn, Folic Acid, Lopressor, Reglan, Fentanyl, Lantus, Ativan, Clinimix 5/15 at 50 ml/hr with 250 ml of 20% Lipid Emulsion, Atrovent Skin: WNL Additional Notes: Patient remains on mechanical vent. Tube feedings currently at 40 ml/hr of Jevity 1.2. Recommend goal rate at 65 ml/hr of Jevity 1.2 and weaning TPN. PEG/Trach are being discussed. Agree with diet orders. Following daily in ICU rounds. Will monitor every Sunday and Sunday.
[2022-01-16] MEDS: polyethylene glycoL 3350 17 GM POWD.PACK FEED TUBE ×2 (12:13→20:09)
[2022-01-16 12:19] LABS: Glucose Point of Care 183 mg/dl (65-105)
--- NOTE | 2022-01-16 12:30 | PC.NURSE ---
Called daughter Mirian for update on patient; Mirian gave consent at that time for a picc line placement and for tracheostomy and peg tube placement. Director Of Outside Sales notified and asked to update ENT and GI.
--- NOTE | 2022-01-16 14:00 | PC.NURSE ---
called Dr. Null's (ENT) office to update on family's want to pursue tracheostomy placement
[2022-01-16] MEDS: LIDOCAINE HCL 1% PF INJ 5 ML VIAL INFILTRATE (14:05)
--- NOTE | 2022-01-16 14:38 | WPDGIPROGNO ---
Progress Note: A&P Assessment and Plan (1) Diverticulitis of large intestine with perforation and abscess: Code(s): K57.20 - Diverticulitis of large intestine with perforation and abscess without bleeding Status: Acute Assessment and Plan: by surgery tolerating tube feeding family ok to have G-tube and tracheostomy, will schedule for tomorrow (2) Septic shock: Code(s): A41.9 - Sepsis, unspecified organism; R65.21 - Severe sepsis with septic shock Status: Acute Assessment and Plan: treated and resolved (3) Pneumothorax, right: Code(s): J93.9 - Pneumothorax, unspecified Status: Acute Assessment and Plan: chest tube in position Subjective Date/time seen: 01/16/22 14:38 Interval history: no changes, family now ok to have G-tube placement Review of Systems Review of Systems: All systems reviewed & are unremarkable except as noted in HPI and below Exam Narrative: General: Patient intubated and sedated HEENT: Pupils equal and reactive, sclera is clear ETT in place Neck: Supple Respiratory: Bilateral coarse breath sounds, decreased at bases, good air entry, no wheezing, chest tube on the right, no air leak at this time, Cardiac: Irregularly irregular, rate controlled Abdomen: Hypoactive bowel sounds, abdominal soft, nondistended, ostomy in left lower quadrant with brown colored drainage, incision with Steri-Strips, right inguinal hernia Extremities: Bilateral upper and lower extremity edema Neuro: Intubated, patient opens his eyes and follows simple commands in all extremities and nods to questions Skin: Warm and dry Psych: Unable to assess Objective Data Vital Signs Vital Signs: Vital Signs - 24 hr 01/15/22 14:40 01/15/22 16:00 01/15/22 17:02 Temperature Pulse Rate 153 H 116 H 122 H Respiratory Rate Blood Pressure Pulse Oximetry 100 Oxygen Delivery Mechanical Ventilation Fraction of Inspired Oxygen 30 01/15/22 16:00 01/15/22 16:00 01/15/22 16:00 Temperature 97.8 F Pulse Rate 120 H Respiratory Rate 18 Blood Pressure 128/89 Pulse Oximetry 96 97 Oxygen Delivery Mechanical Ventilation Fraction of Inspired Oxygen 30 30 01/15/22 18:00 01/15/22 18:00 01/15/22 20:19 Temperature Pulse Rate 127 H 127 H 130 H Respiratory Rate 16 Blood Pressure 143/112 H Pulse Oximetry 100 91 Oxygen Delivery Mechanical Ventilation Fraction of Inspired Oxygen 30 01/15/22 20:21 01/15/22 20:27 01/15/22 21:23 Temperature Pulse Rate 136 H 127 H 138 H Respiratory Rate 27 H 17 Blood Pressure Pulse Oximetry Oxygen Delivery Fraction of Inspired Oxygen 01/15/22 21:23 01/15/22 20:00 01/15/22 20:00 Temperature Pulse Rate 138 H 134 H 134 H Respiratory Rate 17 15 Blood Pressure Pulse Oximetry 100 Oxygen Delivery Mechanical Ventilation Fraction of Inspired Oxygen 30 01/15/22 20:00 01/15/22 20:00 01/15/22 22:00 Temperature 97.3 F L Pulse Rate 134 H 126 H Respiratory Rate 15 Blood Pressure 156/140 H Pulse Oximetry 100 Oxygen Delivery Fraction of Inspired Oxygen 30 01/15/22 22:00 01/16/22 00:00 01/16/22 00:00 Temperature Pulse Rate 126 H 114 H 114 H Respiratory Rate 17 16 Blood Pressure 131/107 H Pulse Oximetry 92 100 Oxygen Delivery Mechanical Ventilation Fraction of Inspired Oxygen 30 01/16/22 00:00 01/16/22 00:00 01/16/22 02:00 Temperature 97.1 F L Pulse Rate 114 H 134 H Respiratory Rate 16 Blood Pressure 119/78 Pulse Oximetry 100 Oxygen Delivery Fraction of Inspired Oxygen 30 01/16/22 02:00 01/16/22 02:48 01/16/22 02:48 Temperature Pulse Rate 134 H 123 H 127 H Respiratory Rate 22 H 17 Blood Pressure 147/111 H Pulse Oximetry 100 91 Oxygen Delivery Mechanical Ventilation Fraction of Inspired Oxygen 30 01/15/22 20:38 01/16/22 03:07 01/16/22 03:02 Temperature Pulse Rate 130 H 121 H 127 H
--- NOTE | 2022-01-16 14:59 | WPDINTPN ---
Progress Note: A&P Assessment and Plan (1) Septic shock: Code(s): A41.9 - Sepsis, unspecified organism; R65.21 - Severe sepsis with septic shock Status: Acute Assessment and Plan: RESOLVED Patient presented with hypotension, leukocytosis, lactic acidosis. Likely source peritonitis secondary to ruptured sigmoid colon -right IJ central line was placed in the ER, patient received adequate amount of IV fluids -both Levophed and vasopressin infusion have been weaned off at this time at this time -continue stress dose steroids -discontinue 25 % albumin -continue to maintain MAP > 65 mmHg for adequate end organ perfusion -continue Zosyn (12/29), status post of 14 days -blood and urine cultures are negative - Cultures from abdominal cavity during surgery grew Bacteroides fragilis, Fusobacterium necrophorum Sputum cultures 01/03 Org 1 = Klebsiella pnemoniae Org 2 = Yeast isolated 01/10: Repeat sputum culture: Klebsiella 01/12: Blood and urine cultures have been collected 01/12/2022: Leukocytosis, worsening chest x-ray, started patient on vancomycin and imipenem (01/12) white blood cell count is improving, patient is afebrile (2) Perforated abdominal viscus: Code(s): R19.8 - Other specified symptoms and signs involving the digestive system and abdomen Status: Acute Assessment and Plan: Patient presented with abdominal pain, nausea, vomiting, septic shock. 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 -01/14 discussed with surgery, will increase tube feeds to goal, if patient does not tolerate could be concerning at the hernia may be causing intermittent partial small-bowel obstruction. Would consider water-soluble contrast small-bowel follow-through Discussed with Dr. Zepeda on 01/16/2022, started on MiraLax q.12 hours, he does not have much put in the ostomy by tomorrow will doing a water-soluble contrast small bowel follow-through. 01/07 CT abdomen pelvis IMPRESSION: 3: Moderate ascites. 4.: Right inguinal hernia containing small bowel which may be obstructed at the hernia. There is also a large right hydrocele. 5: Right renal and distal ureteral stones. Bilateral nephroureteral stents in expected position. (3) Acute respiratory failure: Code(s): J96.00 - Acute respiratory failure, unspecified whether with hypoxia or hypercapnia Status: Acute Assessment and Plan: Patient also presented with shortness of breath on admission, was found to have a moderate right-sided pneumothorax a CT scan of the abdomen and pelvis -intubated on 12/29/2021 -right-sided chest tube was placed in the OR by surgery on 12/29/2021 -01/03 repeat sputum culture growing Klebsiella, status post 14 days of Zosyn -patient has not been tolerating pressure support ventilation 01/11/2022: CT chest, abdomen, pelvis showed no pulmonary pulmonary embolism, anasarca with moderate amount of ascites, small to moderate left pleural effusion, partial collapse of bilateral lower lobes, scattered patchy ground-glass opacities, emphysema -elevated white count, worsening chest x-ray, started vancomycin and imipenem (01/12) 01/13: Discussed with daughter Mirian, regarding tracheostomy and PEG tube, she stated that she has spoken to her brother's and they want to go ahead with tracheostomy and PEG tube placement. ENT and GI have been consulted -volume overload, will diuresed 01/15 and 01/16 -patient tolerating pressure support ventilation on 01/15 and 01/16 -01/16: patient was asked about tracheostomy and PEG tube placement he gives a thumbs up, the daughter and the sons agree for tracheostom
[2022-01-16] MEDS: MIDAZOLAM HCL (*CRX) 2 MG/2 ML VIAL IV PUSH (16:49)
[2022-01-16] MEDS: AMINO ACIDS 5%/D15W/E-LYTES/CA 2,000 ML with MULTIVITAMINS-12 INJ VIAL 1 2.5 ML, MULTIV... 50 ML IV CONT (17:23)
[2022-01-16] MEDS: FAT EMULSIONS IV 20% 250 ML 20.8 ML IVPB (17:23)
[2022-01-16 17:45] LABS: Glucose Point of Care 138 mg/dl (65-105)
[2022-01-16] MEDS: MINERAL OIL/WHITE PETROLATUM OINTMENT 1 APPLIC EACH EYE (20:10)
[2022-01-16] MEDS: MORPHINE SULFATE (*CRX) 4 MG/ML INJ IV PUSH (20:23)
[2022-01-16] MEDS: INSULIN ASPART (*BKC) 100 UNITS/ML SUB-Q (23:20)
[2022-01-16 23:33] LABS: Glucose Point of Care 203 mg/dl (65-105)
[2022-01-17] VITALS (48 sets, daily range): BP systolic 71–191; BP diastolic 52–151; PULSE 102–177; RESP 16–26; TEMP 36.1–36.7; O2SAT 97–100
[2022-01-17] MEDS: IPRATROPIUM BR 0.02% INH SOLN 0.5 MG/2.5 ML VIAL INHALATION ×4 (02:34→20:15)
[2022-01-17 04:40] LABS: Basophils Percent Auto 0.2 % (0.2-1.2); Hematocrit 32.4 % (42.0-52.0); Hemoglobin 10.2 g/dL (14.0-18.0); Immature Granulocyte Absolute 0.24 K/mm3 (0.00-0.031); Immature Granulocyte Percent A 1.4 % (0-0.5); Lymphocytes Absolute Auto 0.33 K/mm3 (0.9-3.2); Mean Corpuscular HGB Conc 31.5 g/dl (32-36); Mean Corpuscular Hemoglobin 30.4 pg (26-34); Mean Corpuscular Volume 96.7 fl (80-100); Mean Platelet Volume 12.3 fl (7.4-10.4); Monocytes Absolute Auto 0.7 K/mm3 (0.1-0.6); Monocytes Percent Auto 4.4 % (2.6-8.5); Neutrophils Absolute Auto 15.3 K/mm3 (1.3-6.7); Platelet Count Result 187 k/mm3 (150-375); Red Blood Count 3.35 M/mm3 (4.6-6.20); Red Cell Distribution Width 15.8 % (11.5-14.5); White Blood Count 16.6 K/mm3 (4.5-10.0)
[2022-01-17 04:57] LABS: Alanine Aminotransferase 44 U/L (6-50); Albumin Level 2.7 g/dL (3.5-5.1); Alkaline Phosphatase 115 U/L (38-126); Aspartate Amino Transferase 40 U/L (17-59); Blood Urea Nitrogen 26 mg/dL (9-20); Carbon Dioxide > 40 mmol/L (22-30); Chloride 88 mmol/L (98-107); Estimated CRCL calculation 110 ml/min; Estimated Glomerular Filt Rate > 60; Glucose 184 mg/dL (65-110); Magnesium 1.6 mg/dL (1.6-2.3); Phosphorus 3.6 mg/dL (2.5-4.5); Potassium 3.5 mmol/L (3.4-5.0); Sodium 133 mmol/L (137-145)
[2022-01-17] MEDS: dexmedeTOMIDine 400 MCG/100 ML 400 MCG/100 ML BAG 19.31 MCG IV CONT ×2 (05:02→09:52)
[2022-01-17] MEDS: METOCLOPRAMIDE HCL INJ 10 MG/2 ML VIAL IV PUSH ×4 (05:06→23:47)
[2022-01-17] MEDS: CENTRAL LINE FLUSH 10 ML IV PUSH ×3 (05:06→21:00)
[2022-01-17] MEDS: HYDROCORTISONE SODIUM SUCCINATE 100 MG/2 ML VIAL IV PUSH ×3 (05:06→21:00)
[2022-01-17 05:10] LABS: Base Excess ABG 7.7 mEq/l (+/-2.0); Carboxyhemoglobin 0.3 % THb (0-2.0); Fractional Inspired Oxygen 30 %; HCO3 ABG 31.9 mEq/l (22.0-26.0); Methemoglobin ABG 0.3 %THb (0-1.5); Oxygen Content ABG 13.4 %vol (16.0-22.0); PCO2 ABG 43.1 mmHg (35.0-45.0); PO2 FiO2 Ratio Arterial Blood 1.44 %; Total Hemoglobin 11.7 g/dL (12.0-18.0); pH ABG 7.487 (7.350-7.450)
[2022-01-17 05:48] LABS: Alveolar/Arterial O2 Gradient 90.2 mmHg; Base Excess ABG 10.2 mEq/l (+/-2.0); Carboxyhemoglobin 0.1 % THb (0-2.0); Fractional Inspired Oxygen 30 %; HCO3 ABG 34.6 mEq/l (22.0-26.0); Methemoglobin ABG 0.2 %THb (0-1.5); Oxygen Content ABG 15.6 %vol (16.0-22.0); Oxygen Saturation ABG 95.2 % (95.0-100.0); Oxyhemoglobin 93.8 % THb (90.0-100.0); PCO2 ABG 45.5 mmHg (35.0-45.0); PO2 ABG 70.2 mmHg (80.0-100.0); PO2 FiO2 Ratio Arterial Blood 2.34 %; Reduced Hemoglobin 5.9 %THb (0-5.0); Total Hemoglobin 11.8 g/dL (12.0-18.0); pH ABG 7.499 (7.350-7.450)
[2022-01-17 05:50] LABS: Arterial Blood Gas Ventilator rate 16 /MIN; Device VENTILATOR; Modified Allen's Test Pass; Site Drawn LEFT RADIAL
[2022-01-17 05:51] LABS: Arterial Blood Gas PEEP 8 cmH2O; Arterial Blood Gas Tidal Volume 360 ml; Arterial Blood Gas Vent Mode CMV
[2022-01-17] MEDS: LORazepam INJ (*CRX) 2 MG/ML VIAL IV PUSH ×2 (09:39→12:00)
[2022-01-17] MEDS: KCL 40 MEQ/WATER 100 ML 100 ML 25 ML IVPB (09:51)
[2022-01-17 09:52] LABS: Triglycerides 135 mg/dL (<150)
[2022-01-17] MEDS: FOLIC ACID 1 MG/0.2 ML INJ IV PUSH (09:54)
[2022-01-17] MEDS: MAGNESIUM SULF 2 GM/WATER 50ML 2 GM/50 ML BAG IVPB (09:54)
[2022-01-17] MEDS: THIAMINE HCL 200 MG/2 ML VIAL 100 MG IV PUSH (09:55)
[2022-01-17] MEDS: MINERAL OIL/WHITE PETROLATUM OINTMENT 1 APPLIC EACH EYE ×2 (09:55→20:19)
[2022-01-17] MEDS: PANTOPRAZOLE SODIUM IV 40 MG VIAL IV PUSH ×2 (09:56→20:19)
[2022-01-17] MEDS: SODIUM CHLORIDE 0.9% IV 500 ML 999 ML IV CONT (10:30)
[2022-01-17] MEDS: SODIUM CHLORIDE 0.9% IV 500 ML 999 ML (10:34)
[2022-01-17] MEDS: NOREPINEPHRINE 8 MG/D5W 250 ML 8 MG/250 ML BAG 9.38 MG IV CONT (11:10)
[2022-01-17 11:22] LABS: Glucose Point of Care 176 mg/dl (65-105)
--- NOTE | 2022-01-17 11:22 | PCNFU ---
Nutrition Follow-Up Complete: Altered GI function as related to sigmoid resection/colostomy as evidenced by TPN Goal: Meet estimated nutritional needs Patient is progressing towards goal. We will continue current goal. Pt current nutrition is TPN and Tube feedings of Jevity 1.2 at 40 m/hr. Last recorded weight is 71.2 kg, down from 73.1 kg. Bowel Motility:ostomy Labs Reviewed:Glu 184, BUN 26, Cr 0.6,Na 133, Alb 2.7,Hgb 10.2,Hct 32.4 Meds Noted:Precedex, Protonix, Thiamine, Zosyn, Folic Acid, Reglan, Fentanyl, Lantus, Ativan, Clinimix 5/15 at 50 ml/hr with 250 ml of 20% Lipid Emulsion, Atrovent, Miralax. Skin: WNL Additional Notes: Patient currently NPO for PEG placement. Plans for Trach 01/19. TPN continues of Clinimix 5/15 at 50 ml/hr with 250 ml of 20% Lipid Emulsion providing 1352 kcals/60 gms protein. Plans for increasing tube feedings of Jevity 1.2. Recommend goal rate at 65 ml/hr which will providing 1716 kcals/79 kcals protein/1154 ml water. Free water flush 30 ml q 4 hours. Once tube feeding are being tolerated recommend discontinuing TPN. Agree with diet orders. Will monitor daily in ICU rounds and reassessing every Sunday and Sunday.
--- NOTE | 2022-01-17 11:38 | PM.PNGS ---
Progress Note: A&P Assessment and Plan (1) Diverticulitis of large intestine with perforation and abscess: Code(s): K57.20 - Diverticulitis of large intestine with perforation and abscess without bleeding Status: Acute Assessment and Plan: Tube feedings on hold for PEG placement and he was not tolerating them overnight apparently vomiting. Okay to try resuming tube feedings again when safe after PEG tube placement, but will continue TPN for now. His ostomy output has improved today, continue BID Miralax. Incision healing well. (2) Right inguinal hernia: Code(s): K40.90 - Unilateral inguinal hernia, without obstruction or gangrene, not specified as recurrent Status: Acute Assessment and Plan: Stable and reducible (3) Pneumothorax, right: Code(s): J93.9 - Pneumothorax, unspecified Status: Acute Assessment and Plan: No pneumothorax chest tube in good position by CXR. Continue to monitor on water seal while on positive pressure ventilation. Additional Plan I have discussed the patient's case and plan of care with Dr. Zepeda. Subjective Subjective Date/Time Seen: 01/17/22 09:48 Post Op day: 19 Patient reports: afebrile Interval history: Patient intubated in the ICU and unable to answer questions. Nursing stated that overnight the patient ?vomited? tube feedings and they were suctioning the tube feeding in his mouth, therefore his tube feed was put on hold around midnight. Nursing stated he was not having any high residuals though when checked. This was going to be held today regardless due to his PEG tube placement scheduled for today. No other acute events overnight. Review of Systems Review of Systems: ROS unobtainable: Yes unobtainable due to endotracheal tube Exam Const: General: patient obtunded Other: intubated Chest: Chest palpation & inspection: abnormal inspection of the chest (Right chest tube in expected position, no pleural leak) barrel chest and no crepitus Resp: Effort & Inspection: abnormal respiratory pattern ( on mechanical ventilator) Auscultation: rhonchi upper bilaterally GI: Inspection: non-distended, incision (dry with steri strips intact, no erythema) and visible herniation ( right inguinal hernia soft and at least partially reducible) GI Palp: Yes Soft to palpation Auscultation: normal bowel sounds Other: Ostomy functioning better today with a fair amount of soft brown stool in the bag, stoma pink and healthy : Male General Exam: Yes hernia (Large right inguinal hernia, with mild scrotal swelling) Urinary Catheter: Urinary Catheter: patent and draining and urine pink Objective Data Vital Signs Vital Signs: Vital Signs - 24 hr 01/16/22 11:40 01/16/22 12:00 01/16/22 12:00 Temperature Pulse Rate 117 H 123 H Respiratory Rate Blood Pressure Pulse Oximetry 97 Oxygen Delivery Mechanical Ventilation Fraction of Inspired Oxygen 30 30 01/16/22 12:00 01/16/22 12:00 01/16/22 13:19 Temperature 97.8 F Pulse Rate 131 H 133 H Respiratory Rate 22 H 19 Blood Pressure 129/95 H Pulse Oximetry 100 98 Oxygen Delivery Mechanical Ventilation Fraction of Inspired Oxygen 30 01/16/22 13:39 01/16/22 14:00 01/16/22 14:00 Temperature Pulse Rate 133 H 133 H 133 H Respiratory Rate 19 20 Blood Pressure 154/106 H Pulse Oximetry 98 Oxygen Delivery Fraction of Inspired Oxygen 01/16/22 14:30 01/16/22 14:20 01/16/22 14:31 Temperature Pulse Rate 108 H 110 H 112 H Respiratory Rate 20 20 Blood Pressure Pulse Oximetry 97 Oxygen Delivery Mechanical Ventilation Fraction of Inspired Oxygen 30 01/16/22 16:50 01/16/22 16:00 01/16/22 16:00 Temperature 97.5 F L Pulse Rate 124 H 129 H 135 H Respiratory Rate 21 H Blood Pressure 124/104 H Pulse Oximetry 97 99 Oxygen Delivery Mechanical Ventilation Fraction of Inspired Oxygen 30 01/16/22 18:00 01/16/22 16:00 01/16/22
[2022-01-17] MEDS: PROPOFOL IV EMULSION 100 ML 8.54 MG IV CONT (12:00)
[2022-01-17] MEDS: FENTANYL 2,500MCG/NS250ML(*CRX 2,500 MCG/250 ML BAG 15 MCG IV CONT (13:26)
[2022-01-17] MEDS: FAT EMULSIONS IV 20% 250 ML 20.8 ML IVPB (13:40)
[2022-01-17] MEDS: AMINO ACIDS 5%/D15W/E-LYTES/CA 2,000 ML with MULTIVITAMINS-12 INJ VIAL 1 2.5 ML, MULTIV... 50 ML IV CONT (13:41)
--- NOTE | 2022-01-17 14:09 | WPDINTPN ---
Progress Note: A&P Assessment and Plan (1) Septic shock: Code(s): A41.9 - Sepsis, unspecified organism; R65.21 - Severe sepsis with septic shock Status: Acute Assessment and Plan: RESOLVED Patient presented with hypotension, leukocytosis, lactic acidosis. Likely source peritonitis secondary to ruptured sigmoid colon -right IJ central line was placed in the ER, patient received adequate amount of IV fluids -both Levophed and vasopressin infusion have been weaned off at this time at this time -continue stress dose steroids -discontinue 25 % albumin -continue to maintain MAP > 65 mmHg for adequate end organ perfusion -continue Zosyn (12/29), status post of 14 days -blood and urine cultures are negative - Cultures from abdominal cavity during surgery grew Bacteroides fragilis, Fusobacterium necrophorum Sputum cultures 01/03 Org 1 = Klebsiella pnemoniae Org 2 = Yeast isolated 01/10: Repeat sputum culture: Klebsiella 01/12: Blood and urine cultures have been collected 01/12/2022: Leukocytosis, worsening chest x-ray, started patient on vancomycin and imipenem (01/12) Patient is afebrile (2) Perforated abdominal viscus: Code(s): R19.8 - Other specified symptoms and signs involving the digestive system and abdomen Status: Acute Assessment and Plan: Patient presented with abdominal pain, nausea, vomiting, septic shock. 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 -01/14 discussed with surgery, will increase tube feeds to goal, if patient does not tolerate could be concerning at the hernia may be causing intermittent partial small-bowel obstruction. Would consider water-soluble contrast small-bowel follow-through Discussed with Dr. Zepeda on 01/16/2022, started on MiraLax q.12 hours, he does not have much put in the ostomy by tomorrow will doing a water-soluble contrast small bowel follow-through. 01/17 plan to resume tube feeds after PEG tube placement 01/07 CT abdomen pelvis IMPRESSION: 3: Moderate ascites. 4.: Right inguinal hernia containing small bowel which may be obstructed at the hernia. There is also a large right hydrocele. 5: Right renal and distal ureteral stones. Bilateral nephroureteral stents in expected position. (3) Acute respiratory failure: Code(s): J96.00 - Acute respiratory failure, unspecified whether with hypoxia or hypercapnia Status: Acute Assessment and Plan: Patient also presented with shortness of breath on admission, was found to have a moderate right-sided pneumothorax a CT scan of the abdomen and pelvis -intubated on 12/29/2021 -right-sided chest tube was placed in the OR by surgery on 12/29/2021 -01/03 repeat sputum culture growing Klebsiella, status post 14 days of Zosyn -patient has not been tolerating pressure support ventilation 01/11/2022: CT chest, abdomen, pelvis showed no pulmonary pulmonary embolism, anasarca with moderate amount of ascites, small to moderate left pleural effusion, partial collapse of bilateral lower lobes, scattered patchy ground-glass opacities, emphysema -elevated white count, worsening chest x-ray, started vancomycin and imipenem (01/12) 01/13: Discussed with daughter Mirian, regarding tracheostomy and PEG tube, she stated that she has spoken to her brother's and they want to go ahead with tracheostomy and PEG tube placement. ENT and GI have been consulted -volume overload, will diuresed 01/15 and 01/16 -patient tolerating pressure support ventilation on 01/15 and 01/16 -01/16: patient was asked about tracheostomy and PEG tube placement he gives a thumbs up, the daughter and the sons a
[2022-01-17] MEDS: dexmedeTOMIDine 400 MCG/100 ML 400 MCG/100 ML BAG 17.82 MCG IV CONT (14:53)
[2022-01-17] MEDS: METOPROLOL TARTRATE INJ 5 MG/5 ML VIAL 10 MG IV PUSH (17:30)
[2022-01-17 17:40] LABS: Glucose Point of Care 198 mg/dl (65-105)
[2022-01-17 17:56] LABS: Vancomycin Trough 17.2 ug/mL (10.0-20.0)
[2022-01-17] MEDS: dexmedeTOMIDine 400 MCG/100 ML 400 MCG/100 ML BAG 20.79 MCG IV CONT (20:31)
[2022-01-17] MEDS: MORPHINE SULFATE (*CRX) 4 MG/ML INJ IV PUSH (20:32)
[2022-01-18] VITALS (44 sets, daily range): BP systolic 111–157; BP diastolic 93–120; PULSE 98–158; RESP 16–26; TEMP 36.4–37.2; O2SAT 96–100
[2022-01-18 00:06] LABS: Glucose Point of Care 178 mg/dl (65-105)
[2022-01-18] MEDS: dexmedeTOMIDine 400 MCG/100 ML 400 MCG/100 ML BAG 17.82 MCG IV CONT ×5 (01:10→23:48)
[2022-01-18] MEDS: METOPROLOL TARTRATE INJ 5 MG/5 ML VIAL 10 MG IV PUSH ×2 (01:11→08:47)
[2022-01-18] MEDS: IPRATROPIUM BR 0.02% INH SOLN 0.5 MG/2.5 ML VIAL INHALATION ×4 (02:55→20:06)
[2022-01-18] MEDS: HYDROCORTISONE SODIUM SUCCINATE 100 MG/2 ML VIAL IV PUSH (05:01)
[2022-01-18] MEDS: CENTRAL LINE FLUSH 10 ML IV PUSH ×3 (05:01→20:48)
[2022-01-18] MEDS: METOCLOPRAMIDE HCL INJ 10 MG/2 ML VIAL IV PUSH ×3 (05:01→18:17)
[2022-01-18 05:28] LABS: Basophils Percent Auto 0.2 % (0.2-1.2); Hematocrit 33.6 % (42.0-52.0); Hemoglobin 10.5 g/dL (14.0-18.0); Immature Granulocyte Absolute 0.25 K/mm3 (0.00-0.031); Immature Granulocyte Percent A 1.4 % (0-0.5); Lymphocytes Absolute Auto 0.48 K/mm3 (0.9-3.2); Lymphocytes Percent Auto 2.8 % (18.3-44.2); Mean Corpuscular HGB Conc 31.3 g/dl (32-36); Mean Corpuscular Hemoglobin 30.3 pg (26-34); Mean Corpuscular Volume 97.1 fl (80-100); Mean Platelet Volume 12.5 fl (7.4-10.4); Monocytes Absolute Auto 0.9 K/mm3 (0.1-0.6); Monocytes Percent Auto 5.4 % (2.6-8.5); Neutrophils Absolute Auto 15.7 K/mm3 (1.3-6.7); Neutrophils Percent Auto 90.2 % (45.5-73.1); Platelet Count Result 195 k/mm3 (150-375); Red Blood Count 3.46 M/mm3 (4.6-6.20); Red Cell Distribution Width 15.8 % (11.5-14.5); White Blood Count 17.4 K/mm3 (4.5-10.0)
[2022-01-18 05:39] LABS: Alveolar/Arterial O2 Gradient 82.9 mmHg; Base Excess ABG 11.4 mEq/l (+/-2.0); Carboxyhemoglobin 0.3 % THb (0-2.0); Fractional Inspired Oxygen 30 %; HCO3 ABG 35.6 mEq/l (22.0-26.0); Methemoglobin ABG 0.3 %THb (0-1.5); Oxygen Content ABG 15.5 %vol (16.0-22.0); Oxygen Saturation ABG 96.6 % (95.0-100.0); Oxyhemoglobin 94.5 % THb (90.0-100.0); PCO2 ABG 44.8 mmHg (35.0-45.0); PO2 ABG 78.4 mmHg (80.0-100.0); PO2 FiO2 Ratio Arterial Blood 2.61 %; Reduced Hemoglobin 4.9 %THb (0-5.0); Total Hemoglobin 11.6 g/dL (12.0-18.0)
[2022-01-18 05:41] LABS: pH ABG 7.518 (7.350-7.450)
[2022-01-18 05:42] LABS: Arterial Blood Gas Vent Mode CMV; Arterial Blood Gas Ventilator rate 16 /MIN; Device VENTILATOR; Modified Allen's Test Pass; Site Drawn LEFT RADIAL
[2022-01-18 05:43] LABS: Arterial Blood Gas PEEP 8 cmH2O; Arterial Blood Gas Tidal Volume 360 ml
[2022-01-18 05:46] LABS: Alanine Aminotransferase 39 U/L (6-50); Albumin Level 2.8 g/dL (3.5-5.1); Alkaline Phosphatase 113 U/L (38-126); Aspartate Amino Transferase 34 U/L (17-59); Bilirubin,Total 1.1 mg/dL (0.2-1.3); Blood Urea Nitrogen 24 mg/dL (9-20); Calcium 8.1 mg/dL (8.4-10.2); Carbon Dioxide > 40 mmol/L (22-30); Chloride 90 mmol/L (98-107); Estimated CRCL calculation 134 ml/min; Estimated Glomerular Filt Rate > 60; Glucose 134 mg/dL (65-110); Magnesium 1.9 mg/dL (1.6-2.3); Phosphorus 3.8 mg/dL (2.5-4.5); Potassium 4.1 mmol/L (3.4-5.0); Sodium 134 mmol/L (137-145)
[2022-01-18] MEDS: FENTANYL 2,500MCG/NS250ML(*CRX 2,500 MCG/250 ML BAG 15 MCG IV CONT (06:11)
--- NOTE | 2022-01-18 08:57 | WPDCN ---
Assessment and Plan Assessment and plan (1) Acute respiratory failure: Code(s): J96.00 - Acute respiratory failure, unspecified whether with hypoxia or hypercapnia Status: Acute Plan Dean is a 66y M with complicated hospital course as noted above with respiratory failure, unable to wean from ventilator and is scheduled for tracheostomy in 01/19 at 0700. Hold feeds after midnight. HPI Data of Consult Date/Time: 01/18/22 08:57 Requesting Physician: Edil Zepeda MD Primary Care Provider: Maribel Ordoñez, PARanjithC Consult Narrative Reason for consult: Tracheostomy placement Narrative: Dean Kay is a 66 year old male with complicated hospital course including respiratory failure, chest tube, bowel perforation. ENT consulted for tracheostomy placement after family and patient have decided to pursue all options for care. Review of Systems Review of Systems: ROS unobtainable: Yes unobtainable due to endotracheal tube PMFSH Past Medical History Medical History (Updated 01/18/22 @ 13:54 by Brice Dominguez MD) G tube feedings Hypertension Tobacco dependence Surgical History Surgical History Hx of fracture of right hip Apr 2021 Family History Family History Other Family history unknown Social History Social History Social History: Smokes 1.5ppd for unclear duration. He drinks 2.5 drinks/day. Denies drug use. Lives alone. Full code. Nominates his cousin Chaparro to be the individual to make medical decisions for him if he is unable. 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 Spiritual care concerns: No Meds Home Medications and Allergies Home Medications Medication Instructions Recorded Confirmed Type amlodipine 5 mg tablet 5 mg PO DAILY 12/30/21 12/30/21 History apixaban 2.5 mg tablet (Eliquis) 2.5 mg PO DAILY 12/30/21 12/30/21 History ergocalciferol (vitamin D2) 1,250 1,250 mcg PO DAILY 12/30/21 12/30/21 History mcg (50,000 unit) capsule lisinopril 5 mg tablet 5 mg PO DAILY 12/30/21 12/30/21 History oxycodone 5 mg tablet 5 mg PO Q6H PRN Pain 12/30/21 12/30/21 History Allergies Allergy/AdvReac Type Severity Reaction Status Date / Time No Known Allergies Allergy Verified 01/04/22 07:27 Vital Signs Vital Signs - 24 hr 01/17/22 09:52 01/17/22 11:10 01/17/22 11:37 Temperature Pulse Rate 123 H 114 H 117 H Respiratory Rate 16 17 Blood Pressure 71/52 L 123/86 Pulse Oximetry 99 Oxygen Delivery Mechanical Ventilation Fraction of Inspired Oxygen 30 01/17/22 11:30 01/17/22 11:49 01/17/22 11:54 Temperature Pulse Rate 104 H 138 H 138 H Respiratory Rate 19 16 Blood Pressure 139/113 H 113/93 H Pulse Oximetry 99 99 100 Oxygen Delivery Mechanical Ventilation Mechanical Ventilation Mechanical Ventilation Fraction of Inspired Oxygen 30 30 30 01/17/22 11:59 01/17/22 12:00 01/17/22 12:09 Temperature Pulse Rate 144 H 143 H 121 H Respiratory Rate 16 24 H 16 Blood Pressure 112/82 Pulse Oximetry 100 Oxygen Delivery Mechanical Ventilation Fraction of Inspired Oxygen 30 01/17/22 13:26 01/17/22 13:26 01/17/22 12:00 Temperature Pulse Rate 120 H 120 H 121 H Respiratory Rate 17 17 17 Blood Pressure Pulse Oximetry Oxygen Delivery Fraction of Inspired Oxygen 01/17/22 13:51 01/17/22 14:02 01/17/22 14:03 Temperature Pulse Rate 121 H 132 H 106 H Respiratory Rate 16 16 Blood Pressure 72/54 L Pulse Oximetry Oxygen Delivery Fraction of Inspired Oxygen 01/17/22 14:08 01/17/22 13:50
[2022-01-18] MEDS: polyethylene glycoL 3350 17 GM POWD.PACK FEED TUBE ×2 (09:03→20:47)
[2022-01-18] MEDS: MINERAL OIL/WHITE PETROLATUM OINTMENT 1 APPLIC EACH EYE ×2 (09:03→20:47)
[2022-01-18] MEDS: PANTOPRAZOLE SODIUM IV 40 MG VIAL IV PUSH ×2 (09:04→20:47)
[2022-01-18] MEDS: METOPROLOL TARTRATE 25 MG TABLET 75 MG PO ×2 (09:04→20:47)
[2022-01-18] MEDS: THIAMINE HCL 200 MG/2 ML VIAL 100 MG IV PUSH (09:04)
[2022-01-18] MEDS: FOLIC ACID 1 MG/0.2 ML INJ IV PUSH (09:16)
--- NOTE | 2022-01-18 10:49 | WPDINTPN ---
Progress Note: A&P Assessment and Plan (1) Septic shock: Code(s): A41.9 - Sepsis, unspecified organism; R65.21 - Severe sepsis with septic shock Status: Acute Assessment and Plan: RESOLVED Patient presented with hypotension, leukocytosis, lactic acidosis. Likely source peritonitis secondary to ruptured sigmoid colon -right IJ central line was placed in the ER, patient received adequate amount of IV fluids -both Levophed and vasopressin infusion have been weaned off at this time at this time -continue stress dose steroids -discontinue 25 % albumin -continue to maintain MAP > 65 mmHg for adequate end organ perfusion -continue Zosyn (12/29), status post of 14 days -blood and urine cultures are negative - Cultures from abdominal cavity during surgery grew Bacteroides fragilis, Fusobacterium necrophorum Sputum cultures 01/03 Org 1 = Klebsiella pnemoniae Org 2 = Yeast isolated 01/10: Repeat sputum culture: Klebsiella 01/12: Blood and urine cultures have been collected 01/12/2022: Leukocytosis, worsening chest x-ray, started patient on vancomycin and imipenem (01/12) 01/18 -DC vancomycin Patient is afebrile (2) Perforated abdominal viscus: Code(s): R19.8 - Other specified symptoms and signs involving the digestive system and abdomen Status: Acute Assessment and Plan: Patient presented with abdominal pain, nausea, vomiting, septic shock. 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 -01/14 discussed with surgery, will increase tube feeds to goal, if patient does not tolerate could be concerning at the hernia may be causing intermittent partial small-bowel obstruction. Would consider water-soluble contrast small-bowel follow-through Discussed with Dr. Zepeda on 01/16/2022, started on MiraLax q.12 hours, he does not have much put in the ostomy by tomorrow will doing a water-soluble contrast small bowel follow-through. 01/17 PEG tube placed 01/18 resume tube feeds 01/07 CT abdomen pelvis IMPRESSION: 3: Moderate ascites. 4.: Right inguinal hernia containing small bowel which may be obstructed at the hernia. There is also a large right hydrocele. 5: Right renal and distal ureteral stones. Bilateral nephroureteral stents in expected position. (3) Acute respiratory failure: Code(s): J96.00 - Acute respiratory failure, unspecified whether with hypoxia or hypercapnia Status: Acute Assessment and Plan: Patient also presented with shortness of breath on admission, was found to have a moderate right-sided pneumothorax a CT scan of the abdomen and pelvis -intubated on 12/29/2021 -right-sided chest tube was placed in the OR by surgery on 12/29/2021 -01/03 repeat sputum culture growing Klebsiella, status post 14 days of Zosyn 01/11/2022: CT chest, abdomen, pelvis showed no pulmonary pulmonary embolism, anasarca with moderate amount of ascites, small to moderate left pleural effusion, partial collapse of bilateral lower lobes, scattered patchy ground-glass opacities, emphysema -elevated white count, worsening chest x-ray, started vancomycin and imipenem (01/12) -patient tolerated high pressure support ventilation on 01/15 and 01/16 for few hours but then gets tachypneic and tachycardic Patient awaits tracheostomy which is scheduled for 01/19 -Venous Doppler showed DVT of left popliteal and posterior tibial vein-now status post IVC filter placement on 01/05/202201/07 CT abdomen pelvis 1. Bilateral lower lobe airspace consolidation which may represent atelectasis and/or pneumonia. 2: Moderate bilateral pleural effusions. (4) Pneumothorax, right: Code(s): J9
--- NOTE | 2022-01-18 11:51 | PCFNICU ---
ICU Rounding Note: Pt current nutrition is Jevity 1.2 at 40 ml/hr with TPN at 50 ml/hr and 250 ml of 20% Lipids Emulsion. Last recorded weight is 74.3 kg, up from 73.1 kg. Bowel Motility:ostomy Labs Reviewed:Glu 134, BUN 24, Cr 0.4,Alb 2.8,Na 134, Hct 33.6,Hgb 10.5 Meds Noted:Precedex, Protonix, Thiamine, Zosyn, Folic Acid, Reglan, Fentanyl, Lantus, Ativan, Clinimix 5/15 at 50 ml/hr with 250 ml of 20% Lipid Emulsion, Atrovent, Miralax. Skin: WNL Additional Notes: Patient remains on mechanical vent. PEG placed 01/17. Tube feedings are currently being tolerated of Jevity 1.2 at 40 m/hr. TPN continues at this time with plans to discontinue once tolerating tube feedings to goal rate. Tube feeding goal rate recommendations: Jevity 1.2 at 65 ml/hr providing 1716 kcals/79 gm protein/1154 ml water. Free water flush 30 ml q 4 hours. Plans for Trach 01/19. Agree with diet orders. Following daily in ICU rounds. Will monitor every Sunday and Sunday.
[2022-01-18 12:15] LABS: Glucose Point of Care 155 mg/dl (65-105)
[2022-01-18] MEDS: AMIODARONE 150 MG/D5W 100 ML 150 MG/100 ML BAG 600 MG IV CONT (12:36)
[2022-01-18] MEDS: AMIODARONE 360 MG/D5W 200 ML 360 MG/200 ML BAG 33.33 MG IV CONT (12:37)
--- NOTE | 2022-01-18 13:19 | WPDANESEPPF ---
Anes - Initial Pre Proc Eval Procedure: Operation Date: 12/29/21 12:00 Proposed Procedures p Exploratory Laparotomy, Right Chest Tube Insertion - Edil Zepeda MD s Cystoscopy, Bilateral Retrograde Pyelogram, Bilateral Stent Placement - Woodrow Navarro MD Operation Date: 01/05/22 11:15 Proposed Procedures p Inferior Vena Cava Filter Insertion - Zhou Cuevas DO Operation Date: 01/17/22 12:15 Proposed Procedures p Esophagogastroduodenoscopy - Brice Dominguez MD s Percutaneous Endoscopic Gastrostomy - Brice Dominguez MD Operation Date: 01/19/22 07:30 Proposed Procedures p Tracheostomy - Yuriy Null MD Date/Time: 01/18/22 13:19 Surgeon: Edil Zepeda MD Pre Op Diagnosis: weakness, abd pain & decreased PO intake Patient Data Age: 66 Gender: M Height: 1.7 m Weight: 74.3 kg Last Vital Signs Temp 36.6 C 01/18/22 12:00 Pulse 141 H 01/18/22 12:37 Resp 23 H 01/18/22 12:35 BP 111/93 H 01/18/22 12:37 Pulse Ox 100 01/18/22 12:00 O2 Del Method Mechanical Ventilation 01/18/22 11:31 O2 Flow Rate 2 12/29/21 12:20 FiO2 30 01/18/22 11:31 Allergies Allergy/AdvReac Type Severity Reaction Status Date / Time No Known Allergies Allergy Verified 01/04/22 07:27 Home Medications Medication Instructions Recorded Confirmed Type amlodipine 5 mg tablet 5 mg PO DAILY 12/30/21 12/30/21 History apixaban 2.5 mg tablet (Eliquis) 2.5 mg PO DAILY 12/30/21 12/30/21 History ergocalciferol (vitamin D2) 1,250 1,250 mcg PO DAILY 12/30/21 12/30/21 History mcg (50,000 unit) capsule lisinopril 5 mg tablet 5 mg PO DAILY 12/30/21 12/30/21 History oxycodone 5 mg tablet 5 mg PO Q6H PRN Pain 12/30/21 12/30/21 History Laboratory Tests 12/29/21 01/17/22 01/17/22 09:55 17:21 17:35 WBC RBC Hgb Hct MCV MCH MCHC RDW Plt Count MPV Immature Gran % (Auto) Neut % (Auto) Lymph % (Auto) [place] % (Auto) Eos % (Auto) Baso % (Auto) Lymph # (Auto) [place] # (Auto) Eos # (Auto) Baso # (Auto) Abs Immat Gran (auto) Absolute Neuts (auto) Absolute Nucleated RBC Nucleated RBC % Puncture Site ABG pH ABG pCO2 ABG pO2 ABG PO2/FiO2 Ratio ABG HCO3 ABG O2 Saturation ABG O2 Content ABG Base Excess A-a Gradient Oxyhemoglobin Carboxyhemoglobin Methemoglobin Reduced Hemoglobin Total Hemoglobin O2 Delivery Device O2 Liters/Min Minute Volume Vent Rate Vent Mode FiO2 Tidal Volume PEEP Peak Inspir Pressure Pressure Support Sodium Potassium Chloride Carbon Dioxide Anion Gap BUN Creatinine Estim Creat Clear Calc Estimated GFR Glucose POC Capillary Glucose 198 mg/dl H mg/dl (65-105) Calcium Phosphorus Magnesium Total Bilirubin AST ALT Alkaline Phosphatase Total Protein Albumin Urine Color Sola (Yellow) Urine Appearance Clear (Clear) Urine pH 6.0 (5.0-9.0) Ur Specific [place] 1.010 (1.001-1.035) Urine Protein 1+ mg/dL H mg/dL (Negative) Urine Glucose (UA) Negative mg/dL mg/dL (Negative) Urine Ketones Trace mg/dL mg/dL (Negative) Ur Blood (Man) Trace-intact (Negati
--- NOTE | 2022-01-18 13:51 | WPDGIPROGNO ---
Progress Note: A&P Assessment and Plan (1) Diverticulitis of large intestine with perforation and abscess: Code(s): K57.20 - Diverticulitis of large intestine with perforation and abscess without bleeding Status: Acute Assessment and Plan: by surgery G-tube placed yesterday and he is on tube feeding, no issues call if questions (2) Septic shock: Code(s): A41.9 - Sepsis, unspecified organism; R65.21 - Severe sepsis with septic shock Status: Acute Assessment and Plan: treated and resolved (3) Pneumothorax, right: Code(s): J93.9 - Pneumothorax, unspecified Status: Acute Assessment and Plan: chest tube in position (4) G tube feedings: Code(s): Z93.1 - Gastrostomy status Status: Acute Subjective Date/time seen: 01/18/22 13:51 Interval history: g-tube placed yesterday, tolerating at 40ml/h Review of Systems Review of Systems: ROS unobtainable: Yes unobtainable due to endotracheal tube and unobtainable due to mental status Exam Narrative: General: Patient intubated and sedated HEENT: Pupils equal and reactive, sclera is clear ETT in place Neck: Supple Respiratory: Bilateral coarse breath sounds, decreased at bases, good air entry, no wheezing, chest tube on the right, no air leak at this time, Cardiac: Irregularly irregular, rate controlled Abdomen: + bowel sounds, abdominal soft, nondistended, ostomy in left lower quadrant with brown stool, incision with Steri-Strips, right inguinal hernia. G-tube looks ok Extremities: Bilateral upper and lower extremity edema Neuro: Intubated, patient opens his eyes and follows simple commands in all extremities and nods to questions Skin: Warm and dry Psych: Unable to assess Objective Data Vital Signs Vital Signs: Vital Signs - 24 hr 01/17/22 14:02 01/17/22 14:03 01/17/22 14:08 Temperature Pulse Rate 132 H 106 H 102 H Respiratory Rate 16 Blood Pressure 72/54 L 125/91 H Pulse Oximetry Oxygen Delivery Fraction of Inspired Oxygen 01/17/22 14:00 01/17/22 14:15 01/17/22 14:53 Temperature Pulse Rate 127 H 130 H 128 H Respiratory Rate 22 H 22 H 16 Blood Pressure Pulse Oximetry Oxygen Delivery Fraction of Inspired Oxygen 01/17/22 14:55 01/17/22 17:04 01/17/22 17:30 Temperature Pulse Rate 155 H 177 H Respiratory Rate Blood Pressure 142/96 H Pulse Oximetry 99 Oxygen Delivery Mechanical Ventilation Fraction of Inspired Oxygen 30 01/17/22 17:30 01/17/22 16:00 01/17/22 17:35 Temperature Pulse Rate 147 H 145 H Respiratory Rate Blood Pressure 191/122 H 153/88 H Pulse Oximetry Oxygen Delivery Fraction of Inspired Oxygen 30 01/17/22 17:44 01/17/22 18:51 01/17/22 18:51 Temperature Pulse Rate 130 H Respiratory Rate Blood Pressure 129/105 H 133/107 H 141/91 H Pulse Oximetry Oxygen Delivery Fraction of Inspired Oxygen 01/17/22 14:00 01/17/22 14:00 01/17/22 16:00 Temperature 98.1 F Pulse Rate 131 H 131 H 137 H Respiratory Rate 16 19 Blood Pressure 72/54 L 178/151 H Pulse Oximetry 100 100 Oxygen Delivery Fraction of Inspired Oxygen 01/17/22 18:00 01/17/22 16:00 01/17/22 20:10 Temperature Pulse Rate 134 H 155 H Respiratory Rate 21 H Blood Pressure 142/120 H Pulse Oximetry 100 99 99 Oxygen Delivery Mechanical Ventilation Mechanical Ventilation Fraction of Inspired Oxygen 30 30 01/17/22 20:15 01/17/22 20:30 01/17/22 20:31 Temperature Pulse Rate 155 H 160 H 160 H Respiratory Rate 21 H 23 H 23 H Blood Pressure Pulse Oximetry Oxygen Delivery Fraction of Inspired Oxygen 01/17/22 16:00 01/17/22 18:00 01/17/22 20:00 Temperature Pulse Rate 120 H 142 H 147 H Respiratory Rate Blood Pressure Pulse Oximetry Oxygen Delivery Fraction of Inspired Oxygen 01/17/22 20:00 01/17/22 20:00 01/17/22 20:00 Temperature 97 F L P
[2022-01-18] MEDS: AMINO ACIDS 5%/D15W/E-LYTES/CA 2,000 ML with MULTIVITAMINS-12 INJ VIAL 1 2.5 ML, MULTIV... 50 ML IV CONT (15:26)
[2022-01-18] MEDS: FAT EMULSIONS IV 20% 250 ML 20.8 ML IVPB (15:26)
[2022-01-18] MEDS: MORPHINE SULFATE (*CRX) 4 MG/ML INJ IV PUSH (15:27)
--- NOTE | 2022-01-18 17:56 | PM.PNGS ---
Progress Note: A&P Assessment and Plan (1) Diverticulitis of large intestine with perforation and abscess: Code(s): K57.20 - Diverticulitis of large intestine with perforation and abscess without bleeding Status: Acute Assessment and Plan: Tube feedings being tolerated at 40 cc/hour after placement on 01/17/2022, we will will continue TPN for now and see how he is tolerating tube feedings if he gets to goal will plan on stopping TPN. (may back off on rate a little bit today or tomorrow). The ostomy output has improved today, continue BID Miralax. Incision healing well. May resume remove the rest of anthony tomorrow if doing well. (2) Right inguinal hernia: Code(s): K40.90 - Unilateral inguinal hernia, without obstruction or gangrene, not specified as recurrent Status: Acute Assessment and Plan: Stable and reducible (3) Pneumothorax, right: Code(s): J93.9 - Pneumothorax, unspecified Status: Acute Assessment and Plan: No pneumothorax chest tube in good position by CXR. Continue to monitor on water seal while on positive pressure ventilation. Additional Plan I discussed his situation with Dr. Anderson Subjective Subjective Date/Time Seen: 01/18/22 11:56 Post Op day: POD#20 Patient reports: other Review of Systems Review of Systems: Intubated cannot speak. Seems to attend to the examiner. ROS unobtainable: Yes unobtainable due to endotracheal tube Exam Const: General: patient obtunded Other: intubated Chest: Chest palpation & inspection: abnormal inspection of the chest (Right chest tube in expected position, no pleural leak) barrel chest and no crepitus Resp: Effort & Inspection: abnormal respiratory pattern ( on mechanical ventilator) Auscultation: rhonchi upper bilaterally GI: Inspection: non-distended, incision (dry with steri strips intact, no erythema) and visible herniation ( right inguinal hernia soft and at least partially reducible.) GI Palp: Yes Soft to palpation Auscultation: normal bowel sounds Other: Ostomy functioning today with a fair amount of soft brown stool in the bag, stoma pink and healthy PEG tube noted in upper quadrant near midline. : Male General Exam: Yes hernia (Large right inguinal hernia, with mild scrotal swelling) Urinary Catheter: Urinary Catheter: patent and draining and urine pink Objective Data Vital Signs Vital Signs: Vital Signs - 24 hr 01/17/22 18:51 01/17/22 18:51 01/17/22 18:00 Temperature Pulse Rate 134 H Respiratory Rate 21 H Blood Pressure 133/107 H 141/91 H 142/120 H Pulse Oximetry 100 Oxygen Delivery Fraction of Inspired Oxygen 01/17/22 20:10 01/17/22 20:15 01/17/22 20:30 Temperature Pulse Rate 155 H 155 H 160 H Respiratory Rate 21 H 23 H Blood Pressure Pulse Oximetry 99 Oxygen Delivery Mechanical Ventilation Fraction of Inspired Oxygen 30 01/17/22 20:31 01/17/22 18:00 01/17/22 20:00 Temperature Pulse Rate 160 H 142 H 147 H Respiratory Rate 23 H Blood Pressure Pulse Oximetry Oxygen Delivery Fraction of Inspired Oxygen 01/17/22 20:00 01/17/22 20:00 01/17/22 20:00 Temperature 36.1 C L Pulse Rate 147 H 147 H Respiratory Rate 20 20 Blood Pressure 141/117 H Pulse Oximetry 100 100 Oxygen Delivery Mechanical Ventilation Fraction of Inspired Oxygen 30 30 01/17/22 22:00 01/17/22 22:00 01/18/22 00:00 Temperature Pulse Rate 151 H 151 H 142 H Respiratory Rate 23 H Blood Pressure 140/108 H Pulse Oximetry 99 Oxygen Delivery Fraction of Inspired Oxygen 01/18/22 00:00 01/18/22 00:00 01/18/22 00:00 Temperature 36.5 C Pulse Rate 142 H 142 H Respiratory Rate 20 20 Blood Pressure 157/116 H Pulse Oximetry 100 100 Oxygen Delivery Mechanical Ventilation Fraction of Inspired Oxygen 30 30 01/18/22 01:10 01/18/22 01:10 01/18/22 01:11 Temperature Pulse Rate 132 H 132 H 141 H Respiratory Ra
[2022-01-18] MEDS: AMIODARONE 360 MG/D5W 200 ML 360 MG/200 ML BAG 16.67 MG IV CONT (18:11)
[2022-01-18] MEDS: hydrALAZINE HCL 20 MG/ML VIAL 10 MG IV PUSH (18:19)
[2022-01-19] VITALS (42 sets, daily range): BP systolic 81–138; BP diastolic 67–101; PULSE 92–130; RESP 19–28; TEMP 36.6–37.2; O2SAT 95–100; BMI 24.9
[2022-01-19] MEDS: METOCLOPRAMIDE HCL INJ 10 MG/2 ML VIAL IV PUSH ×4 (00:16→17:19)
[2022-01-19 00:31] LABS: Glucose Point of Care 149 mg/dl (65-105)
[2022-01-19] MEDS: IPRATROPIUM BR 0.02% INH SOLN 0.5 MG/2.5 ML VIAL INHALATION ×4 (02:22→20:18)
[2022-01-19 05:14] LABS: Alveolar/Arterial O2 Gradient 82.1 mmHg; Base Excess ABG 9.8 mEq/l (+/-2.0); Carboxyhemoglobin 0.3 % THb (0-2.0); Fractional Inspired Oxygen 30 %; HCO3 ABG 32.9 mEq/l (22.0-26.0); Methemoglobin ABG 0.2 %THb (0-1.5); Oxygen Content ABG 15.6 %vol (16.0-22.0); Oxygen Saturation ABG 97.5 % (95.0-100.0); Oxyhemoglobin 95.9 % THb (90.0-100.0); PCO2 ABG 38.7 mmHg (35.0-45.0); PO2 ABG 86.3 mmHg (80.0-100.0); PO2 FiO2 Ratio Arterial Blood 2.88 %; Reduced Hemoglobin 3.6 %THb (0-5.0); Total Hemoglobin 11.5 g/dL (12.0-18.0)
[2022-01-19 05:18] LABS: Arterial Blood Gas Ventilator rate 16 /MIN; Device VENTILATOR; Modified Allen's Test Unable to perform; Site Drawn LEFT RADIAL; pH ABG 7.547 (7.350-7.450)
[2022-01-19 05:19] LABS: Arterial Blood Gas PEEP 8 cmH2O; Arterial Blood Gas Tidal Volume 360 ml; Arterial Blood Gas Vent Mode CMV
[2022-01-19] MEDS: dexmedeTOMIDine 400 MCG/100 ML 400 MCG/100 ML BAG 17.82 MCG IV CONT ×2 (05:39→10:30)
[2022-01-19] MEDS: AMIODARONE 360 MG/D5W 200 ML 360 MG/200 ML BAG 16.67 MG IV CONT ×2 (05:43→17:17)
[2022-01-19 05:45] LABS: Alanine Aminotransferase 35 U/L (6-50); Albumin Level 2.4 g/dL (3.5-5.1); Alkaline Phosphatase 115 U/L (38-126); Aspartate Amino Transferase 40 U/L (17-59); Bilirubin,Total 0.9 mg/dL (0.2-1.3); Blood Urea Nitrogen 23 mg/dL (9-20); Calcium 7.9 mg/dL (8.4-10.2); Carbon Dioxide > 40 mmol/L (22-30); Chloride 91 mmol/L (98-107); Estimated CRCL calculation 134 ml/min; Estimated Glomerular Filt Rate > 60; Glucose 131 mg/dL (65-110); Magnesium 1.7 mg/dL (1.6-2.3); Phosphorus 3.3 mg/dL (2.5-4.5); Potassium 3.1 mmol/L (3.4-5.0); Sodium 133 mmol/L (137-145)
[2022-01-19 05:52] LABS: Basophils Percent Auto 0.2 % (0.2-1.2); Eosinophils Percent Auto 0.2 % (0-4.4); Hematocrit 32.7 % (42.0-52.0); Hemoglobin 10.6 g/dL (14.0-18.0); Immature Granulocyte Absolute 0.23 K/mm3 (0.00-0.031); Immature Granulocyte Percent A 1.7 % (0-0.5); Lymphocytes Percent Auto 5.3 % (18.3-44.2); Mean Corpuscular HGB Conc 32.4 g/dl (32-36); Mean Corpuscular Hemoglobin 30.6 pg (26-34); Mean Corpuscular Volume 94.5 fl (80-100); Mean Platelet Volume 12.9 fl (7.4-10.4); Monocytes Absolute Auto 0.8 K/mm3 (0.1-0.6); Monocytes Percent Auto 5.6 % (2.6-8.5); Neutrophils Absolute Auto 11.6 K/mm3 (1.3-6.7); Platelet Count Result 186 k/mm3 (150-375); Red Blood Count 3.46 M/mm3 (4.6-6.20); Red Cell Distribution Width 15.6 % (11.5-14.5); White Blood Count 13.3 K/mm3 (4.5-10.0)
[2022-01-19] MEDS: AMINO ACIDS 5%/D15W/E-LYTES/CA 2,000 ML with MULTIVITAMINS-12 INJ VIAL 1 2.5 ML, MULTIV... 50 ML IV CONT (06:32)
[2022-01-19] MEDS: CENTRAL LINE FLUSH 10 ML IV PUSH ×3 (06:36→20:22)
--- NOTE | 2022-01-19 06:58 | WPDHPUPDATE1 ---
History and Physical Update Update Date/Time: 01/19/22 06:58 History and Physical has been reviewed, including an updated exam of the patient. There are NO changes in the patient's condition. Risks, benefits, and alternatives have been discussed and questions answered. Patient agrees to proceed with procedure.
[2022-01-19] MEDS: LIDO 1%/EPINEPHRINE 1:100,000 10 ML VIAL 2 ML INFILTRATE (07:44)
--- NOTE | 2022-01-19 08:00 | W.PM.PROC2 ---
Procedure Note - Detailed Date of Procedure 01/19/22 Pre-op Diagnosis respiratory failure Post-op Diagnosis Same Procedure Performed tracheostomy Surgeon Yuriy Null MD Anesthesia General Indications resp failure Findings 8-0 cuffed shiley trach Description of Procedure The patient was previously consented by family. They were then brought back to the OR and induced with anesthesia through the endotracheal tube. They were then transferred to the OR table. A shoulder roll was placed. Landmarks were palpated and marked. A timeout was performed. An 8-0 cuffed shiley tracheostomy tube was selected and tested. The patient was prepped and drapped in the usual sterile fashion for an tracheotostomy. A horizontal incision was made along the marked line 1-2 cm above the suprasternal notch. Dissection was carried down in the midline through subcutaneous tissues using a hemostat and retraction by vein retractor and then [employer] retractors. The strap muscles were identified and divided using a combination of blunt dissection through the median raphe and electrocautery. The thyroid isthmus was encounted and divided using electrocautery and retracted. The trachea was encountered. A cricoid hook was placed to stabilize and elevate the trachea. The tracheostomy tube was tested on the field and showed no leak. After confirmation with anesthesia and the organic preparation technician ensuring FiO2 was acceptable an #11 blade was used to make a horizontal incision into the trachea. Heavy scissors were used to make parallel vertical cuts laterally through the second ring. The endotracheal tube was pulled. The tracheostomy tube was placed and successfully hooked up the circuit. The airway was stabilized and verified by anesthesia. The cricoid/tracheal hook was carefully removed. The tracheotomy tube was then secured with 0 silk sutures placed at each corner of the trach tube and the underlying skin. A tracheal tie was then placed. This ended this portion of the procedure and care of the patient was returned to anesthesia who recovered him in the ICU. Estimated Blood Loss 10 Urine Output 1,000 Drains No Packing No Pathology None sent Complications No immediate complications Condition Critical Disposition ICU
[2022-01-19] MEDS: acetaZOLAMIDE SODIUM FOR INJ 500 MG VIAL 250 MG IV PUSH (08:58)
[2022-01-19] MEDS: METOPROLOL TARTRATE 25 MG TABLET 75 MG PO ×2 (09:07→20:19)
[2022-01-19] MEDS: MINERAL OIL/WHITE PETROLATUM OINTMENT 1 APPLIC EACH EYE ×2 (09:07→20:19)
[2022-01-19] MEDS: polyethylene glycoL 3350 17 GM POWD.PACK FEED TUBE ×2 (09:07→20:19)
[2022-01-19] MEDS: PANTOPRAZOLE SODIUM IV 40 MG VIAL IV PUSH ×2 (09:07→20:19)
[2022-01-19] MEDS: THIAMINE HCL 200 MG/2 ML VIAL 100 MG IV PUSH (09:08)
[2022-01-19] MEDS: ENOXAPARIN 40 MG/0.4 ML SYRINGE SUB-Q (09:17)
[2022-01-19] MEDS: FOLIC ACID 1 MG/0.2 ML INJ IV PUSH (09:18)
[2022-01-19] MEDS: MORPHINE SULFATE (*CRX) 4 MG/ML INJ IV PUSH ×2 (09:18→15:51)
--- NOTE | 2022-01-19 11:30 | PCFNICU ---
ICU Rounding Note: Pt current nutrition is Jevity 1.2 at 40 ml/hr. Nutrition recommendation: Goal rate 65 ml/hr Last recorded weight is 72.2 kg Bowel Motility:ostomy Labs Reviewed:Glu 131, Na 133, K 3.1,BUN 23, Cr 0.4 Meds Precedex, Protonix, Thiamine, Zosyn, Folic Acid, Reglan, Lantus, Ativan, Lovenox, Miralax. Skin: WNL Additional Notes: Patient current with PEG/Trach. Tube feedings are being tolerated of Jevity 1.2 at 40 ml/hr, recommend goal rate at 65 ml/hr providing 1716 kcals/79 gms protein/1154 ml water. Free water flush 30 ml q 4 hours. TPN has been discontinued. Plans to decreased Precedex today. discharge plan LTAC. Agree with diet orders. Following daily in ICU rounds. Will monitor every Sunday and Sunday.
[2022-01-19 11:42] LABS: Vancomycin Trough 11.8 ug/mL (10.0-20.0)
--- NOTE | 2022-01-19 11:55 | WPDINTPN ---
Progress Note: A&P Assessment and Plan (1) Septic shock: Code(s): A41.9 - Sepsis, unspecified organism; R65.21 - Severe sepsis with septic shock Status: Acute Assessment and Plan: RESOLVED Patient presented with hypotension, leukocytosis, lactic acidosis. Likely source peritonitis secondary to ruptured sigmoid colon -right IJ central line was placed in the ER, patient received adequate amount of IV fluids -both Levophed and vasopressin infusion have been weaned off at this time at this time -continue stress dose steroids -discontinue 25 % albumin -continue to maintain MAP > 65 mmHg for adequate end organ perfusion -continue Zosyn (12/29), status post of 14 days -blood and urine cultures are negative - Cultures from abdominal cavity during surgery grew Bacteroides fragilis, Fusobacterium necrophorum Sputum cultures 01/03 Org 1 = Klebsiella pnemoniae Org 2 = Yeast isolated 01/10: Repeat sputum culture: Klebsiella 01/12: Blood and urine cultures have been collected 01/12/2022: Leukocytosis, worsening chest x-ray, started patient on vancomycin and imipenem (01/12) 01/18 -DC vancomycin, continue imipenem for 14 days Patient is afebrile (2) Perforated abdominal viscus: Code(s): R19.8 - Other specified symptoms and signs involving the digestive system and abdomen Status: Acute Assessment and Plan: Patient presented with abdominal pain, nausea, vomiting, septic shock. 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 01/17 PEG tube placed 01/19 -tube feeds were held for tracheostomy, resume tube feeds, will hold TPN 01/07 CT abdomen pelvis IMPRESSION: 3: Moderate ascites. 4.: Right inguinal hernia containing small bowel which may be obstructed at the hernia. There is also a large right hydrocele. 5: Right renal and distal ureteral stones. Bilateral nephroureteral stents in expected position. (3) Acute respiratory failure: Code(s): J96.00 - Acute respiratory failure, unspecified whether with hypoxia or hypercapnia Status: Acute Assessment and Plan: Patient also presented with shortness of breath on admission, was found to have a moderate right-sided pneumothorax a CT scan of the abdomen and pelvis -intubated on 12/29/2021 -right-sided chest tube was placed in the OR by surgery on 12/29/2021 -01/03 repeat sputum culture growing Klebsiella, status post 14 days of Zosyn 01/11/2022: CT chest, abdomen, pelvis showed no pulmonary pulmonary embolism, anasarca with moderate amount of ascites, small to moderate left pleural effusion, partial collapse of bilateral lower lobes, scattered patchy ground-glass opacities, emphysema -elevated white count, worsening chest x-ray, started vancomycin and imipenem (01/12) Status post tracheostomy 01/19 -Venous Doppler showed DVT of left popliteal and posterior tibial vein-now status post IVC filter placement on 01/05/202201/07 CT abdomen pelvis 1. Bilateral lower lobe airspace consolidation which may represent atelectasis and/or pneumonia. 2: Moderate bilateral pleural effusions. (4) Pneumothorax, right: Code(s): J93.9 - Pneumothorax, unspecified Status: Acute Assessment and Plan: CT scan of the abdomen pelvis showed a moderate right pneumothorax, right-sided chest tube was placed in the OR on 12/29/2021 per surgery -CT chest on 01/11 did not show a right pneumothorax -chest tube to water seal on 01/12 -surgeon managing the chest tube -plan to clamp chest tube tomorrow morning and evaluate with a chest x-ray (5) ROSALINDA (acute kidney injury): Code(s): N17.9 - Acute kidney failure, unspecified Status: Acute
[2022-01-19] MEDS: KCL 40 MEQ/WATER 100 ML 100 ML 25 ML IVPB (12:46)
--- NOTE | 2022-01-19 12:52 | PM.PNGS ---
Progress Note: A&P Assessment and Plan (1) Diverticulitis of large intestine with perforation and abscess: Code(s): K57.20 - Diverticulitis of large intestine with perforation and abscess without bleeding Status: Acute Assessment and Plan: Tube feedings being tolerated at 40 cc/hour after placement of PEG tube on 01/17/2022, we will stop TPN to day and advance tube feedings toward goal as tolerated. The ostomy output is ok today, continue BID Miralax. Incision healing well. Removed the rest of anthony today. (2) Right inguinal hernia: Code(s): K40.90 - Unilateral inguinal hernia, without obstruction or gangrene, not specified as recurrent Status: Acute Assessment and Plan: Stable and reducible (3) Pneumothorax, right: Code(s): J93.9 - Pneumothorax, unspecified Status: Acute Assessment and Plan: No pneumothorax chest tube in good position by CXR. Continue to monitor on water seal while on positive pressure ventilation. Patient now has tracheostomy. It is been more than 8 days since the last time the patient had a pneumothorax. Will clamp chest tube on the right tomorrow 2 hours before planned standard chest x-ray and if no pneumothorax may consider removing the tube and watching closely while patient on minimal settings through tracheostomy ventilation. Additional Plan I discussed his situation with Dr. Anderson Subjective Subjective Date/Time Seen: 01/19/22 08:22 Post Op day: POD #21 Patient reports: other (Still sedated after tracheostomy) Review of Systems Review of Systems: ROS unobtainable: Yes unobtainable due to endotracheal tube and unobtainable due to medical condition Exam Const: General: patient obtunded Other: intubated Neck: Other: now with tracheostomy tube in place Chest: Chest palpation & inspection: abnormal inspection of the chest (Right chest tube in expected position, no pleural leak) barrel chest and no crepitus Other: Dressing on right-sided chest tube clean and dry Resp: Effort & Inspection: abnormal respiratory pattern ( on mechanical ventilator) Auscultation: rhonchi upper bilaterally GI: Inspection: non-distended, incision (dry with steri strips intact, no erythema) and visible herniation ( right inguinal hernia soft and at least partially reducible.) GI Palp: Yes Soft to palpation Auscultation: normal bowel sounds Other: Ostomy functioning today with a fair amount of soft brown stool in the bag, stoma pink and healthy PEG tube noted in upper quadrant near midline. all remaining anthony removed from the midline incision today. There is slight scabbing around the umbilicus but otherwise no signs of wound infection. : Male General Exam: Yes hernia (Large right inguinal hernia, with mild scrotal swelling) Urinary Catheter: Urinary Catheter: patent and draining and urine pink Objective Data Vital Signs Vital Signs: Vital Signs - 24 hr 01/18/22 14:40 01/18/22 14:42 01/18/22 14:00 Temperature Pulse Rate 111 H 115 H 112 H Respiratory Rate 17 Blood Pressure Pulse Oximetry 100 Oxygen Delivery Mechanical Ventilation Fraction of Inspired Oxygen 30 01/18/22 16:54 01/18/22 16:00 01/18/22 16:00 Temperature 36.4 C L Pulse Rate 118 H 109 H Respiratory Rate 17 Blood Pressure 134/109 H Pulse Oximetry 100 100 Oxygen Delivery Mechanical Ventilation Fraction of Inspired Oxygen 30 30 01/18/22 16:00 01/18/22 16:00 01/18/22 18:09 Temperature 37.2 C Pulse Rate 119 H 110 H Respiratory Rate 21 H 23 H Blood Pressure 137/98 H Pulse Oximetry 100 100 Oxygen Delivery Mechanical Ventilation Fraction of Inspired Oxygen 30 01/18/22 18:09 01/18/22 18:11 01/18/22 16:00 Temperature Pulse Rate 110 H 105 H 121 H Respiratory Rate 23 H Blood Pressure 131/107 H Pulse Oximetry Oxygen Delivery Fraction of Inspired Oxygen 01/18/22 18:00 01/18/22 20:07 01/18/22 20:08
[2022-01-19 13:03] LABS: Glucose Point of Care 87 mg/dl (65-105)
[2022-01-19] MEDS: MAGNESIUM SULF 2 GM/WATER 50ML 2 GM/50 ML BAG IVPB (15:22)
[2022-01-19] MEDS: POTASSIUM CHLORIDE 20 MEQ PACKET (FOR LIQUID) 40 MEQ FEED TUBE (15:22)
[2022-01-19 17:28] LABS: Glucose Point of Care 112 mg/dl (65-105)
[2022-01-19] MEDS: dexmedeTOMIDine 400 MCG/100 ML 400 MCG/100 ML BAG IV CONT (17:39)
[2022-01-20] VITALS (36 sets, daily range): BP systolic 85–115; BP diastolic 56–84; PULSE 75–154; RESP 22–33; TEMP 36.4–37.8; O2SAT 92–100
[2022-01-20] MEDS: METOCLOPRAMIDE HCL INJ 10 MG/2 ML VIAL IV PUSH ×4 (00:04→17:34)
[2022-01-20 00:12] LABS: Glucose Point of Care 124 mg/dl (65-105)
[2022-01-20] MEDS: IPRATROPIUM BR 0.02% INH SOLN 0.5 MG/2.5 ML VIAL INHALATION ×4 (01:46→20:36)
[2022-01-20] MEDS: AMIODARONE 360 MG/D5W 200 ML 360 MG/200 ML BAG 16.67 MG IV CONT (04:36)
[2022-01-20 04:52] LABS: Alveolar/Arterial O2 Gradient 72.5 mmHg; Base Excess ABG 7.8 mEq/l (+/-2.0); Carboxyhemoglobin 0.2 % THb (0-2.0); Fractional Inspired Oxygen 30 %; HCO3 ABG 30.3 mEq/l (22.0-26.0); Methemoglobin ABG 0.3 %THb (0-1.5); Oxygen Content ABG 18.6 %vol (16.0-22.0); Oxygen Saturation ABG 98.2 % (95.0-100.0); Oxyhemoglobin 96.9 % THb (90.0-100.0); PCO2 ABG 35.3 mmHg (35.0-45.0); PO2 ABG 99.9 mmHg (80.0-100.0); PO2 FiO2 Ratio Arterial Blood 3.33 %; Reduced Hemoglobin 2.6 %THb (0-5.0); Total Hemoglobin 13.6 g/dL (12.0-18.0)
[2022-01-20 04:53] LABS: Arterial Blood Gas PEEP 8 cmH2O; Arterial Blood Gas Tidal Volume 360 ml; Arterial Blood Gas Vent Mode CMV; Arterial Blood Gas Ventilator rate 16 /MIN; Device VENTILATOR; Modified Allen's Test Pass; Site Drawn LEFT RADIAL; pH ABG 7.552 (7.350-7.450)
[2022-01-20] MEDS: CENTRAL LINE FLUSH 10 ML IV PUSH ×3 (05:34→20:08)
[2022-01-20 06:05] LABS: Alanine Aminotransferase 37 U/L (6-50); Albumin Level 2.5 g/dL (3.5-5.1); Alkaline Phosphatase 138 U/L (38-126); Anion Gap 2 mmol/L (8-16); Aspartate Amino Transferase 38 U/L (17-59); Basophils Percent Auto 0.2 % (0.2-1.2); Bilirubin,Total 0.9 mg/dL (0.2-1.3); Blood Urea Nitrogen 18 mg/dL (9-20); Calcium 7.7 mg/dL (8.4-10.2); Carbon Dioxide 36 mmol/L (22-30); Chloride 96 mmol/L (98-107); Eosinophils Percent Auto 0.1 % (0-4.4); Estimated CRCL calculation 110 ml/min; Estimated Glomerular Filt Rate > 60; Glucose 110 mg/dL (65-110); Hematocrit 34.7 % (42.0-52.0); Hemoglobin 10.8 g/dL (14.0-18.0); Immature Granulocyte Absolute 0.23 K/mm3 (0.00-0.031); Immature Granulocyte Percent A 1.3 % (0-0.5); Lymphocytes Absolute Auto 0.81 K/mm3 (0.9-3.2); Lymphocytes Percent Auto 4.7 % (18.3-44.2); Mean Corpuscular HGB Conc 31.1 g/dl (32-36); Mean Corpuscular Hemoglobin 29.4 pg (26-34); Mean Corpuscular Volume 94.6 fl (80-100); Mean Platelet Volume 12.3 fl (7.4-10.4); Monocytes Percent Auto 5.7 % (2.6-8.5); Neutrophils Absolute Auto 15.1 K/mm3 (1.3-6.7); Phosphorus 3.6 mg/dL (2.5-4.5); Platelet Count Result 190 k/mm3 (150-375); Potassium 3.7 mmol/L (3.4-5.0); Red Blood Count 3.67 M/mm3 (4.6-6.20); Sodium 134 mmol/L (137-145); White Blood Count 17.2 K/mm3 (4.5-10.0)
[2022-01-20] MEDS: POTASSIUM CHLORIDE 20 MEQ PACKET (FOR LIQUID) FEED TUBE (07:53)
[2022-01-20] MEDS: AMIODARONE 150 MG/D5W 100 ML 150 MG/100 ML BAG 600 MG IV CONT (07:54)
[2022-01-20] MEDS: ENOXAPARIN 80 MG/0.8 ML SYRINGE 75 MG SUB-Q ×2 (07:57→20:06)
[2022-01-20] MEDS: acetaZOLAMIDE SODIUM FOR INJ 500 MG VIAL 250 MG IV PUSH (07:59)
[2022-01-20] MEDS: THIAMINE HCL 200 MG/2 ML VIAL 100 MG IV PUSH (08:04)
[2022-01-20] MEDS: MINERAL OIL/WHITE PETROLATUM OINTMENT 1 APPLIC EACH EYE ×2 (08:04→20:06)
[2022-01-20] MEDS: PANTOPRAZOLE SODIUM IV 40 MG VIAL IV PUSH ×2 (08:04→20:06)
[2022-01-20] MEDS: polyethylene glycoL 3350 17 GM POWD.PACK FEED TUBE ×2 (08:04→20:06)
[2022-01-20] MEDS: METOPROLOL TARTRATE 25 MG TABLET 75 MG PO ×2 (08:04→21:33)
[2022-01-20] MEDS: CALCIUM CHLOR 1,000MG/100ML NS 1,000 MG/100 ML BAG 100 MG IVPB (08:09)
[2022-01-20] MEDS: FOLIC ACID 1 MG/0.2 ML INJ IV PUSH (08:09)
--- NOTE | 2022-01-20 08:12 | WPDINTPN ---
Progress Note: A&P Assessment and Plan (1) Septic shock: Code(s): A41.9 - Sepsis, unspecified organism; R65.21 - Severe sepsis with septic shock Status: Acute Assessment and Plan: RESOLVED Patient presented with hypotension, leukocytosis, lactic acidosis. Likely source peritonitis secondary to ruptured sigmoid colon -right IJ central line was placed in the ER, patient received adequate amount of IV fluids -both Levophed and vasopressin infusion have been weaned off at this time at this time -continue stress dose steroids -discontinue 25 % albumin -continue to maintain MAP > 65 mmHg for adequate end organ perfusion -continue Zosyn (12/29), status post of 14 days -blood and urine cultures are negative - Cultures from abdominal cavity during surgery grew Bacteroides fragilis, Fusobacterium necrophorum Sputum cultures 01/03 Org 1 = Klebsiella pnemoniae Org 2 = Yeast isolated 01/10: Repeat sputum culture: Klebsiella 01/12: Blood and urine cultures have been collected 01/12/2022: Leukocytosis, worsening chest x-ray, started patient on vancomycin and imipenem (01/12) 01/18 -DC vancomycin, continue imipenem for 14 days through 01/26 Patient is afebrile (2) Perforated abdominal viscus: Code(s): R19.8 - Other specified symptoms and signs involving the digestive system and abdomen Status: Acute Assessment and Plan: Patient presented with abdominal pain, nausea, vomiting, septic shock. 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 01/17 PEG tube placed 01/19 -tube feeds were held for tracheostomy, resume tube feeds TPN discontinued. Patient tolerating tube feeds 01/07 CT abdomen pelvis IMPRESSION: 3: Moderate ascites. 4.: Right inguinal hernia containing small bowel which may be obstructed at the hernia. There is also a large right hydrocele. 5: Right renal and distal ureteral stones. Bilateral nephroureteral stents in expected position. (3) Acute respiratory failure: Code(s): J96.00 - Acute respiratory failure, unspecified whether with hypoxia or hypercapnia Status: Acute Assessment and Plan: Patient also presented with shortness of breath on admission, was found to have a moderate right-sided pneumothorax a CT scan of the abdomen and pelvis -intubated on 12/29/2021 -right-sided chest tube was placed in the OR by surgery on 12/29/2021 -01/03 repeat sputum culture growing Klebsiella, status post 14 days of Zosyn 01/11/2022: CT chest, abdomen, pelvis showed no pulmonary pulmonary embolism, anasarca with moderate amount of ascites, small to moderate left pleural effusion, partial collapse of bilateral lower lobes, scattered patchy ground-glass opacities, emphysema -elevated white count, worsening chest x-ray, started vancomycin and imipenem (01/12) Status post tracheostomy 01/19 Will try PSV today -Venous Doppler showed DVT of left popliteal and posterior tibial vein-now status post IVC filter placement on 01/05/202201/07 CT abdomen pelvis 1. Bilateral lower lobe airspace consolidation which may represent atelectasis and/or pneumonia. 2: Moderate bilateral pleural effusions. (4) Pneumothorax, right: Code(s): J93.9 - Pneumothorax, unspecified Status: Acute Assessment and Plan: CT scan of the abdomen pelvis showed a moderate right pneumothorax, right-sided chest tube was placed in the OR on 12/29/2021 per surgery -CT chest on 01/11 did not show a right pneumothorax -chest tube to water seal on 01/12 -surgeon managing the chest tube -chest tube clamped this morning and repeat chest x-ray ordered (5) ROSALINDA (acute kidney injury): Code(s): N17.9 -
--- NOTE | 2022-01-20 09:22 | PM.IMPN ---
Progress Note: A&P Assessment and Plan (1) Septic shock: Code(s): A41.9 - Sepsis, unspecified organism; R65.21 - Severe sepsis with septic shock Status: Acute Assessment and Plan: RESOLVED Patient presented with hypotension, leukocytosis, lactic acidosis. Likely source peritonitis secondary to ruptured sigmoid colon -right IJ central line was placed in the ER, patient received adequate amount of IV fluids -both Levophed and vasopressin infusion have been weaned off at this time at this time -continue stress dose steroids -blood and urine cultures are negative. S/p sigmoid colectomy with hartmans procedure, Cultures from abdominal cavity during surgery grew: Bacteroides fragilis, Fusobacterium necrophorum -s/p 14 days of zosyn, now on imipenem through 01/26 (2) Perforated abdominal viscus: Code(s): R19.8 - Other specified symptoms and signs involving the digestive system and abdomen Status: Acute Assessment and Plan: Patient presented with abdominal pain, nausea, vomiting, septic shock. 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 01/07 CT abdomen pelvis IMPRESSION: 3: Moderate ascites. 4.: Right inguinal hernia containing small bowel which may be obstructed at the hernia. There is also a large right hydrocele. 5: Right renal and distal ureteral stones. Bilateral nephroureteral stents in expected position. (3) Acute respiratory failure: Code(s): J96.00 - Acute respiratory failure, unspecified whether with hypoxia or hypercapnia Status: Acute Assessment and Plan: Patient also presented with shortness of breath on admission, was found to have a moderate right-sided pneumothorax a CT scan of the abdomen and pelvis -intubated on 12/29/2021 -right-sided chest tube was placed in the OR by surgery on 12/29/2021 -01/03 and 01/10 sputum culture growing Klebsiella, status post 14 days of Zosyn and is now on imipenem through 01/26 -01/11 CT Chest done, see report -Status post tracheostomy 01/19 -to trial PSV today (4) Pneumothorax, right: Code(s): J93.9 - Pneumothorax, unspecified Status: Acute Assessment and Plan: CT scan of the abdomen pelvis showed a moderate right pneumothorax, right-sided chest tube was placed in the OR on 12/29/2021 per surgery -surgeon managing the chest tube -previously to water seal, chest tube clamped this morning 01/20 and repeat chest x-ray ordered (5) DVT (deep venous thrombosis): Code(s): I82.409 - Acute embolism and thrombosis of unspecified deep veins of unspecified lower extremity Status: Acute Assessment and Plan: 01/03/2022 bilateral lower extremity venous Dopplers: ?Deep venous thrombosis of left popliteal and posterior tibial veins? -status post IVC filter filter placement 01/05 -initially hoding AC due to thrombocytopenia and acute anemia. Both are improving, will start therapeautic lovenox today 01/20 (6) ROSALINDA (acute kidney injury): Code(s): N17.9 - Acute kidney failure, unspecified Status: Acute Assessment and Plan: RESOLVED Patient presented with acute kidney injury, likely related to septic shock, hypovolemia, ATN, infection -creatinine admission was 2.20 -now getting diuretics for volume overload (7) Hydronephrosis with urinary obstruction due to renal calculus: Code(s): N13.2 - Hydronephrosis with renal and ureteral calculous obstruction Status: Acute Assessment and Plan: Cystoscopy, bilateral retrograde pyelography and bilateral ureteral stent placement on 12/29/2021 -01/07 CT abdomen pelvis : 5: Right renal and distal ureteral stones. Bilateral ne
--- NOTE | 2022-01-20 11:34 | PCNFU ---
Nutrition Follow-Up Complete: Inadequate po intake related to NPO status with mechanical ventilation as evidenced by need for alternative nutrition support. Goal:Meet estimated nutritional needs. Pt is progressing towards goal Pt current nutrition is Jevity 1.2 @ 40ml/hr. Nutrition recommendation: Increase to 65ml/hr per previous rec to meet needs. Last recorded weight is 74.3 kg - up 2kg since yesterday. Bowel Motility: +BM 01/18 Labs Reviewed: Hgb:10.8, HCT:34.7, Alb:2.5, NA:134, Cr:0.5 Meds Noted:Precedex, Protonix, Thiamine, Zosyn, Folic Acid, Reglan, Lantus, Ativan, Lovenox, Miralax Skin: WNL Additional Notes: Pt continues on mechanical ventilation. TPN no longer in place. Tube feeds running Jevity 1.2 at 40ml/hr, recommendation to increase to 65 ml/hr to provide 1716 kcals/79 gms protein/1154 ml water. Free water flush 30 ml q 4 hours. Continue with same recommendation as TPN is no longer in place to provide calories. Pt tolerating tube feeds well. Will montior every Sunday and Sunday.
[2022-01-20 11:56] LABS: Glucose Point of Care 114 mg/dl (65-105)
[2022-01-20] MEDS: AMIODARONE 360 MG/D5W 200 ML 360 MG/200 ML BAG 33.33 MG IV CONT ×2 (11:56→17:35)
--- NOTE | 2022-01-20 19:21 | PM.PNGS ---
Progress Note: A&P Assessment and Plan (1) Diverticulitis of large intestine with perforation and abscess: Code(s): K57.20 - Diverticulitis of large intestine with perforation and abscess without bleeding Status: Acute Assessment and Plan: Tube feedings being tolerated now after placement of PEG tube on 01/17/2022. TPN has been stopped and we are advancing tube feedings toward goal as tolerated. The ostomy output is ok today, continue BID Miralax. Incision healing well. (2) Right inguinal hernia: Code(s): K40.90 - Unilateral inguinal hernia, without obstruction or gangrene, not specified as recurrent Status: Acute Assessment and Plan: Stable and reducible (3) Pneumothorax, right: Code(s): J93.9 - Pneumothorax, unspecified Status: Acute Assessment and Plan: Resolved: Chest tube removed this date and will follow closely. Patient now minimal settings on the ventilator in weaning is in process. Additional Plan I discussed his situation with Dr. Anderson. Continue to progress toward possible transfer to LTAC Subjective Subjective Date/Time Seen: 01/20/22 11:21 Post Op day: POD#22 Patient reports: other (Intubated with a tracheostomy) Review of Systems Review of Systems: Unable to obtain, patient on mechanical ventilation Exam Const: General: patient obtunded Other: intubated Neck: Other: now with tracheostomy tube in place Chest: Chest palpation & inspection: abnormal inspection of the chest (Right chest tube in expected position, no pleural leak) barrel chest and no crepitus Other: Since chest x-ray this morning and in recent past okay & patient's PEEP able to be decreased. It was felt reasonable to try removal of the chest tube. Using standard technique with help of the patient's ICU nurse I the dressing prepared the suture around the chest tube by cutting the in weaning it. A dressing was occlusive prepared carefully chest tube apply pressure to the skin just above the entry /exit site the suture was tied. This was in the occlusive dressing taped carefully over the chest wound. This will be left in for 48 hours. (Follow-up chest x-ray checked 1 hour later showed no sign pneumothorax). DJ Resp: Effort & Inspection: abnormal respiratory pattern ( on mechanical ventilator) Auscultation: rhonchi upper bilaterally GI: Inspection: non-distended, incision (dry with steri strips intact, no erythema) and visible herniation ( right inguinal hernia soft and at least partially reducible.) GI Palp: Yes Soft to palpation Auscultation: normal bowel sounds Other: Ostomy functioning today with a fair amount of soft brown stool in the bag, stoma pink and healthy PEG tube noted in upper quadrant near midline. all remaining anthony removed from the midline incision yesterday. There is slight scabbing around the umbilicus but otherwise healing well with no signs of wound infection. : Male General Exam: Yes hernia (Large right inguinal hernia, with mild scrotal swelling) Urinary Catheter: Urinary Catheter: patent and draining and urine pink Objective Data Vital Signs Vital Signs: Vital Signs - 24 hr 01/19/22 20:00 01/19/22 20:17 01/19/22 20:19 Temperature 36.6 C Pulse Rate 120 H 118 H 121 H Respiratory Rate 28 H 26 H Blood Pressure 119/94 H Pulse Oximetry 100 Oxygen Delivery Fraction of Inspired Oxygen 01/19/22 20:00 01/19/22 22:00 01/19/22 20:00 Temperature Pulse Rate 120 H 112 H Respiratory Rate Blood Pressure Pulse Oximetry Oxygen Delivery Fraction of Inspired Oxygen 30 01/19/22 20:00 01/19/22 22:00 01/19/22 20:23 Temperature Pulse Rate 112 H 123 H Respiratory Rate 26 H 23 H Blood Pressure 115/71 Pulse Oximetry 100 Oxygen Delivery Mechanical Ventilation Fraction of Inspired Oxygen 30 01/19/22 20:20 01/19/22 23:28 01/19/22 20:33 Temperature Pulse Rate 123 H 106 H 123 H Res
[2022-01-21] VITALS (32 sets, daily range): BP systolic 90–122; BP diastolic 52–93; PULSE 70–138; RESP 25–35; TEMP 36.9–37.8; O2SAT 94–100
[2022-01-21] MEDS: AMIODARONE 360 MG/D5W 200 ML 360 MG/200 ML BAG 33.33 MG IV CONT ×2 (00:22→06:23)
[2022-01-21] MEDS: METOCLOPRAMIDE HCL INJ 10 MG/2 ML VIAL IV PUSH ×5 (00:24→23:52)
[2022-01-21 00:42] LABS: Glucose Point of Care 125 mg/dl (65-105)
[2022-01-21] MEDS: IPRATROPIUM BR 0.02% INH SOLN 0.5 MG/2.5 ML VIAL INHALATION ×4 (02:09→20:29)
[2022-01-21] MEDS: LORazepam INJ (*CRX) 2 MG/ML VIAL 1 MG IV PUSH (02:49)
[2022-01-21] MEDS: CENTRAL LINE FLUSH 10 ML IV PUSH ×3 (05:10→20:23)
[2022-01-21 05:25] LABS: Basophils Percent Auto 0.2 % (0.2-1.2); Eosinophils Percent Auto 0.2 % (0-4.4); Hematocrit 31.1 % (42.0-52.0); Hemoglobin 9.8 g/dL (14.0-18.0); Immature Granulocyte Absolute 0.23 K/mm3 (0.00-0.031); Immature Granulocyte Percent A 1.4 % (0-0.5); Lymphocytes Absolute Auto 0.54 K/mm3 (0.9-3.2); Lymphocytes Percent Auto 3.3 % (18.3-44.2); Mean Corpuscular HGB Conc 31.5 g/dl (32-36); Mean Corpuscular Hemoglobin 30.1 pg (26-34); Mean Corpuscular Volume 95.4 fl (80-100); Mean Platelet Volume 12.3 fl (7.4-10.4); Monocytes Percent Auto 6.2 % (2.6-8.5); Neutrophils Absolute Auto 14.5 K/mm3 (1.3-6.7); Neutrophils Percent Auto 88.7 % (45.5-73.1); Platelet Count Result 176 k/mm3 (150-375); Red Blood Count 3.26 M/mm3 (4.6-6.20); Red Cell Distribution Width 16.2 % (11.5-14.5); White Blood Count 16.4 K/mm3 (4.5-10.0)
[2022-01-21 05:34] LABS: Alanine Aminotransferase 27 U/L (6-50); Albumin Level 2.1 g/dL (3.5-5.1); Alkaline Phosphatase 123 U/L (38-126); Anion Gap 6 mmol/L (8-16); Aspartate Amino Transferase 28 U/L (17-59); Bilirubin,Total 0.7 mg/dL (0.2-1.3); Blood Urea Nitrogen 21 mg/dL (9-20); Calcium 7.6 mg/dL (8.4-10.2); Carbon Dioxide 27 mmol/L (22-30); Chloride 96 mmol/L (98-107); Estimated CRCL calculation 110 ml/min; Estimated Glomerular Filt Rate > 60; Glucose 111 mg/dL (65-110); Magnesium 1.7 mg/dL (1.6-2.3); Phosphorus 3.9 mg/dL (2.5-4.5); Potassium 3.4 mmol/L (3.4-5.0); Sodium 129 mmol/L (137-145)
[2022-01-21 06:05] LABS: Base Excess ABG 1.8 mEq/l (+/-2.0); Carboxyhemoglobin 0.3 % THb (0-2.0); Fractional Inspired Oxygen 35 %; HCO3 ABG 23.8 mEq/l (22.0-26.0); Methemoglobin ABG 0.3 %THb (0-1.5); Oxygen Content ABG 16.1 %vol (16.0-22.0); Oxygen Saturation ABG 96.9 % (95.0-100.0); Oxyhemoglobin 95.2 % THb (90.0-100.0); PCO2 ABG 29.3 mmHg (35.0-45.0); PO2 ABG 78.5 mmHg (80.0-100.0); PO2 FiO2 Ratio Arterial Blood 2.24 %; Reduced Hemoglobin 4.2 %THb (0-5.0); pH ABG 7.527 (7.350-7.450)
[2022-01-21 06:06] LABS: Arterial Blood Gas PEEP 5 cmH2O; Arterial Blood Gas Tidal Volume 360 ml; Arterial Blood Gas Vent Mode CMV; Arterial Blood Gas Ventilator rate 16 /MIN; Device VENTILATOR; Modified Allen's Test Pass; Site Drawn RIGHT RADIAL
[2022-01-21] MEDS: MAGNESIUM SULF 2 GM/WATER 50ML 2 GM/50 ML BAG IVPB (08:15)
[2022-01-21] MEDS: POTASSIUM CHLORIDE 20 MEQ PACKET (FOR LIQUID) 40 MEQ FEED TUBE (08:15)
[2022-01-21] MEDS: FUROSEMIDE INJ 40 MG/4 ML VIAL IV PUSH (08:15)
[2022-01-21] MEDS: PANTOPRAZOLE SODIUM IV 40 MG VIAL IV PUSH ×2 (08:20→20:22)
[2022-01-21] MEDS: FOLIC ACID 1 MG TABLET FEED TUBE (08:20)
[2022-01-21] MEDS: AMIODARONE HCL 200 MG TABLET PO (08:20)
[2022-01-21] MEDS: polyethylene glycoL 3350 17 GM POWD.PACK FEED TUBE ×2 (08:20→20:22)
[2022-01-21] MEDS: THIAMINE HCL 100 MG TABLET FEED TUBE (08:20)
[2022-01-21] MEDS: ENOXAPARIN 80 MG/0.8 ML SYRINGE 75 MG SUB-Q ×2 (08:21→20:22)
[2022-01-21] MEDS: MINERAL OIL/WHITE PETROLATUM OINTMENT 1 APPLIC EACH EYE ×2 (08:21→20:22)
[2022-01-21] MEDS: METOPROLOL TARTRATE 25 MG TABLET 75 MG PO ×2 (08:21→20:23)
[2022-01-21] MEDS: CALCIUM GLUC 2,000 MG/NS 100ML 2,000 MG/100 ML BAG 100 MG IVPB (08:22)
--- NOTE | 2022-01-21 09:18 | WPDINTPN ---
Progress Note: A&P Assessment and Plan (1) Septic shock: Code(s): A41.9 - Sepsis, unspecified organism; R65.21 - Severe sepsis with septic shock Status: Acute Assessment and Plan: RESOLVED Patient presented with hypotension, leukocytosis, lactic acidosis. Likely source peritonitis secondary to ruptured sigmoid colon -right IJ central line was placed in the ER, patient received adequate amount of IV fluids -both Levophed and vasopressin infusion have been weaned off at this time at this time -continue stress dose steroids -discontinue 25 % albumin -continue to maintain MAP > 65 mmHg for adequate end organ perfusion -continue Zosyn (12/29), status post of 14 days -blood and urine cultures are negative - Cultures from abdominal cavity during surgery grew Bacteroides fragilis, Fusobacterium necrophorum Sputum cultures 01/03 Org 1 = Klebsiella pnemoniae Org 2 = Yeast isolated 01/10: Repeat sputum culture: Klebsiella 01/12: Blood and urine cultures have been collected 01/12/2022: Leukocytosis, worsening chest x-ray, started patient on vancomycin and imipenem (01/12) 01/18 -DC vancomycin, continue imipenem for 14 days through 01/26 Patient is afebrile for the most part although WBC are still elevated (2) Perforated abdominal viscus: Code(s): R19.8 - Other specified symptoms and signs involving the digestive system and abdomen Status: Acute Assessment and Plan: Patient presented with abdominal pain, nausea, vomiting, septic shock. 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 01/17 PEG tube placed 01/19 -tube feeds were held for tracheostomy, resume tube feeds TPN discontinued. Patient tolerating tube feeds which are currently at goal 01/07 CT abdomen pelvis IMPRESSION: 3: Moderate ascites. 4.: Right inguinal hernia containing small bowel which may be obstructed at the hernia. There is also a large right hydrocele. 5: Right renal and distal ureteral stones. Bilateral nephroureteral stents in expected position. (3) Acute respiratory failure: Code(s): J96.00 - Acute respiratory failure, unspecified whether with hypoxia or hypercapnia Status: Acute Assessment and Plan: Patient also presented with shortness of breath on admission, was found to have a moderate right-sided pneumothorax a CT scan of the abdomen and pelvis -intubated on 12/29/2021 -right-sided chest tube was placed in the OR by surgery on 12/29/2021 -01/03 repeat sputum culture growing Klebsiella, status post 14 days of Zosyn 01/11/2022: CT chest, abdomen, pelvis showed no pulmonary pulmonary embolism, anasarca with moderate amount of ascites, small to moderate left pleural effusion, partial collapse of bilateral lower lobes, scattered patchy ground-glass opacities, emphysema -elevated white count, worsening chest x-ray, started vancomycin and imipenem (01/12) Status post tracheostomy 01/19 Patient placed on PSV 05/01 today will continue as tolerated -Venous Doppler showed DVT of left popliteal and posterior tibial vein-now status post IVC filter placement on 01/05/202201/07 CT abdomen pelvis 1. Bilateral lower lobe airspace consolidation which may represent atelectasis and/or pneumonia. 2: Moderate bilateral pleural effusions. (4) Pneumothorax, right: Code(s): J93.9 - Pneumothorax, unspecified Status: Acute Assessment and Plan: CT scan of the abdomen pelvis showed a moderate right pneumothorax, right-sided chest tube was placed in the OR on 12/29/2021 per surgery -CT chest on 01/11 did not show a right pneumothorax -chest tube removed on 01/21 -chest x-ray yesterday and today did not jourdan
--- NOTE | 2022-01-21 10:49 | PM.IMPN ---
Progress Note: A&P Assessment and Plan (1) Septic shock: Code(s): A41.9 - Sepsis, unspecified organism; R65.21 - Severe sepsis with septic shock Status: Acute Assessment and Plan: RESOLVED Patient presented with hypotension, leukocytosis, lactic acidosis. Likely source peritonitis secondary to ruptured sigmoid colon -right IJ central line was placed in the ER, patient received adequate amount of IV fluids -both Levophed and vasopressin infusion have been weaned off at this time at this time -continue stress dose steroids -blood and urine cultures are negative. S/p sigmoid colectomy with hartmans procedure, Cultures from abdominal cavity during surgery grew: Bacteroides fragilis, Fusobacterium necrophorum -s/p 14 days of zosyn, now on imipenem through 01/26 (2) Perforated abdominal viscus: Code(s): R19.8 - Other specified symptoms and signs involving the digestive system and abdomen Status: Acute Assessment and Plan: Patient presented with abdominal pain, nausea, vomiting, septic shock. 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 01/07 CT abdomen pelvis IMPRESSION: 3: Moderate ascites. 4.: Right inguinal hernia containing small bowel which may be obstructed at the hernia. There is also a large right hydrocele. 5: Right renal and distal ureteral stones. Bilateral nephroureteral stents in expected position. (3) Acute respiratory failure: Code(s): J96.00 - Acute respiratory failure, unspecified whether with hypoxia or hypercapnia Status: Acute Assessment and Plan: Patient also presented with shortness of breath on admission, was found to have a moderate right-sided pneumothorax a CT scan of the abdomen and pelvis -intubated on 12/29/2021 -right-sided chest tube was placed in the OR by surgery on 12/29/2021 -01/03 and 01/10 sputum culture growing Klebsiella, status post 14 days of Zosyn and is now on imipenem through 01/26 -01/11 CT Chest done, see report -Status post tracheostomy 01/19 -to trial PSV today (4) Pneumothorax, right: Code(s): J93.9 - Pneumothorax, unspecified Status: Acute Assessment and Plan: CT scan of the abdomen pelvis showed a moderate right pneumothorax, right-sided chest tube was placed in the OR on 12/29/2021 per surgery -surgeon managing the chest tube -chest tube removed 01/20 (5) DVT (deep venous thrombosis): Code(s): I82.409 - Acute embolism and thrombosis of unspecified deep veins of unspecified lower extremity Status: Acute Assessment and Plan: 01/03/2022 bilateral lower extremity venous Dopplers: ?Deep venous thrombosis of left popliteal and posterior tibial veins? -status post IVC filter filter placement 01/05 -initially hoding AC due to thrombocytopenia and acute anemia. On therapeutic Lovenox (6) ROSALINDA (acute kidney injury): Code(s): N17.9 - Acute kidney failure, unspecified Status: Acute Assessment and Plan: RESOLVED Patient presented with acute kidney injury, likely related to septic shock, hypovolemia, ATN, infection -creatinine admission was 2.20 -now getting diuretics for volume overload (7) Hydronephrosis with urinary obstruction due to renal calculus: Code(s): N13.2 - Hydronephrosis with renal and ureteral calculous obstruction Status: Acute Assessment and Plan: Cystoscopy, bilateral retrograde pyelography and bilateral ureteral stent placement on 12/29/2021 -01/07 CT abdomen pelvis : 5: Right renal and distal ureteral stones. Bilateral nephroureteral stents in expected position. -hematuria has resolved -urology following the patient (8) Ane
[2022-01-21 11:50] LABS: Glucose Point of Care 126 mg/dl (65-105)
--- NOTE | 2022-01-21 14:00 | PM.PNGS ---
Progress Note: A&P Assessment and Plan (1) Diverticulitis of large intestine with perforation and abscess: Code(s): K57.20 - Diverticulitis of large intestine with perforation and abscess without bleeding Status: Acute Assessment and Plan: Tube feedings being tolerated now after placement of PEG tube on 01/17/2022. TPN has been stopped and we are advancing tube feedings toward goal as tolerated. right IJ had her central line is out. The ostomy output is ok today, continue BID Miralax. Incision healing well. right inguinal hernia seems to be reducible. (2) Right inguinal hernia: Code(s): K40.90 - Unilateral inguinal hernia, without obstruction or gangrene, not specified as recurrent Status: Acute Assessment and Plan: Stable and reducible (3) Pneumothorax, right: Code(s): J93.9 - Pneumothorax, unspecified Status: Acute Assessment and Plan: Resolved: Chest tube removed 01/20 and will follow closely. Chest x-ray on 01/21 in the a.m. okay with no pneumothorax. Patient now minimal settings on the ventilator and weaning is in process. Additional Plan I discussed his situation with Dr. Anderson. Continue to progress toward possible transfer to LTAC Subjective Subjective Date/Time Seen: 01/21/22 14:00 Post Op day: POD #24 Patient reports: other ( has tracheostomy. Not speaking) Interval history: nurses report no problem overnight and tube feedings up to goal. Review of Systems Review of Systems: ROS unobtainable: Yes unobtainable due to endotracheal tube and unobtainable due to medical condition Exam Const: General: patient obtunded Other: intubated Neck: Other: now with tracheostomy tube in place Chest: Chest palpation & inspection: abnormal inspection of the chest (Right chest tube in expected position, no pleural leak) barrel chest and no crepitus Other: Doing okay status post removal of the chest tube on 01/20. good breath sounds bilaterally. Resp: Effort & Inspection: abnormal respiratory pattern ( on mechanical ventilator) Auscultation: rhonchi upper bilaterally GI: Inspection: non-distended, incision (dry with steri strips intact, no erythema) and visible herniation ( right inguinal hernia soft and at least partially reducible.) GI Palp: Yes Soft to palpation Auscultation: normal bowel sounds Other: Ostomy functioning today with a fair amount of soft brown stool in the bag, stoma pink and healthy PEG tube noted in upper quadrant near midline with minimal surrounding drainage. all remaining anthony removed from the midline incision on 01/20. There is slight scabbing around the umbilicus but otherwise healing well with no signs of wound infection. : Male General Exam: Yes hernia (Large right inguinal hernia, with mild scrotal swelling) Urinary Catheter: Urinary Catheter: patent and draining and urine pink Objective Data Vital Signs Vital Signs: Vital Signs - 24 hr 01/20/22 14:28 01/20/22 14:31 01/20/22 16:00 Temperature Pulse Rate 107 H 115 H 84 Respiratory Rate 31 H Blood Pressure Pulse Oximetry 94 Oxygen Delivery Mechanical Ventilation Fraction of Inspired Oxygen 30 01/20/22 16:00 01/20/22 16:00 01/20/22 16:00 Temperature 36.6 C Pulse Rate 84 84 Respiratory Rate 29 H 29 H Blood Pressure 98/64 L Pulse Oximetry 99 99 Oxygen Delivery Mechanical Ventilation Fraction of Inspired Oxygen 30 30 01/20/22 17:35 01/20/22 17:35 01/20/22 18:05 Temperature Pulse Rate 87 87 87 Respiratory Rate Blood Pressure 111/70 111/70 Pulse Oximetry 100 Oxygen Delivery Mechanical Ventilation Fraction of Inspired Oxygen 30 01/20/22 18:00 01/20/22 18:00 01/20/22 20:36 Temperature Pulse Rate 88 88 89 Respiratory Rate 22 H 30 H Blood Pressure 100/64 Pulse Oximetry 100 Oxygen Delivery Fraction of Inspired Oxygen 01/20/22 20:36 01/20/22 20:00 01/20/22 20:00 [facility]
[2022-01-21 17:52] LABS: Glucose Point of Care 103 mg/dl (65-105)
[2022-01-21] MEDS: AMIODARONE 150 MG/D5W 100 ML 150 MG/100 ML BAG 600 MG IV CONT (21:38)
[2022-01-22] VITALS (18 sets, daily range): BP systolic 90–108; BP diastolic 65–80; PULSE 104–126; RESP 26–33; TEMP 37.1–37.5; O2SAT 94–100
[2022-01-22 00:20] LABS: Glucose Point of Care 117 mg/dl (65-105)
[2022-01-22] MEDS: LORazepam INJ (*CRX) 2 MG/ML VIAL 1 MG IV PUSH (00:23)
[2022-01-22] MEDS: IPRATROPIUM BR 0.02% INH SOLN 0.5 MG/2.5 ML VIAL INHALATION ×2 (02:22→07:40)
[2022-01-22] MEDS: CENTRAL LINE FLUSH 10 ML IV PUSH (05:16)
[2022-01-22] MEDS: METOCLOPRAMIDE HCL INJ 10 MG/2 ML VIAL IV PUSH (05:16)
[2022-01-22 06:15] LABS: Hematocrit 30.5 % (42.0-52.0); Hemoglobin 9.6 g/dL (14.0-18.0); Mean Corpuscular HGB Conc 31.5 g/dl (32-36); Mean Corpuscular Hemoglobin 29.8 pg (26-34); Mean Corpuscular Volume 94.7 fl (80-100); Mean Platelet Volume 13.4 fl (7.4-10.4); Platelet Count Result 175 k/mm3 (150-375); Red Blood Count 3.22 M/mm3 (4.6-6.20); Red Cell Distribution Width 16.2 % (11.5-14.5); White Blood Count 14.3 K/mm3 (4.5-10.0)
[2022-01-22 06:30] LABS: Alanine Aminotransferase 22 U/L (6-50); Albumin Level 2.2 g/dL (3.5-5.1); Alkaline Phosphatase 112 U/L (38-126); Anion Gap 7 mmol/L (8-16); Aspartate Amino Transferase 23 U/L (17-59); Blood Urea Nitrogen 22 mg/dL (9-20); Calcium 7.5 mg/dL (8.4-10.2); Carbon Dioxide 27 mmol/L (22-30); Chloride 98 mmol/L (98-107); Estimated CRCL calculation 110 ml/min; Estimated Glomerular Filt Rate > 60; Glucose 109 mg/dL (65-110); Phosphorus 3.6 mg/dL (2.5-4.5); Potassium 3.5 mmol/L (3.4-5.0); Sodium 132 mmol/L (137-145)
[2022-01-22 08:18] LABS: Glucose Point of Care 122 mg/dl (65-105)
--- NOTE | 2022-01-22 08:28 | WPDINTPN ---
Progress Note: A&P Assessment and Plan (1) Septic shock: Code(s): A41.9 - Sepsis, unspecified organism; R65.21 - Severe sepsis with septic shock Status: Acute Assessment and Plan: RESOLVED Patient presented with hypotension, leukocytosis, lactic acidosis. Likely source peritonitis secondary to ruptured sigmoid colon -right IJ central line was placed in the ER, patient received adequate amount of IV fluids -both Levophed and vasopressin infusion have been weaned off at this time at this time -off stress dose steroids and 25 % albumin -continue Zosyn (12/29), status post of 14 days -blood and urine cultures are negative - Cultures from abdominal cavity during surgery grew - Bacteroides fragilis, Fusobacterium necrophorum Sputum cultures 01/03 Org 1 = Klebsiella pnemoniae Org 2 = Yeast isolated 01/10: Repeat sputum culture: Klebsiella 01/12: Blood and urine cultures negative 01/12/2022: Leukocytosis, worsening chest x-ray, started patient on vancomycin and imipenem (01/12) 01/18 -DC vancomycin, continue imipenem for 14 days through 01/26 Patient is afebrile for the most part although WBC are still elevated but improving (2) Perforated abdominal viscus: Code(s): R19.8 - Other specified symptoms and signs involving the digestive system and abdomen Status: Acute Assessment and Plan: Patient presented with abdominal pain, nausea, vomiting, septic shock. 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 01/17 PEG tube placed 01/19 -tube feeds were held for tracheostomy, resume tube feeds TPN discontinued. Patient tolerating tube feeds which are currently at goal 01/07 CT abdomen pelvis IMPRESSION: 3: Moderate ascites. 4.: Right inguinal hernia containing small bowel which may be obstructed at the hernia. There is also a large right hydrocele. 5: Right renal and distal ureteral stones. Bilateral nephroureteral stents in expected position. (3) Atrial fibrillation: Code(s): I48.91 - Unspecified atrial fibrillation Status: Acute Assessment and Plan: Continues to be in RVR Continue per tube metoprolol and p.r.n. IV metoprolol Patient was on Amiodarone infusion and was switched to per tube on 01/21 Ventricular rate improved increased again requiring additional bolus of amiodarone overnight. Blood pressure does not allow further uptitration of beta-néstor dose. I will add digoxin On therapeutic dose Lovenox at this time (4) Acute respiratory failure: Code(s): J96.00 - Acute respiratory failure, unspecified whether with hypoxia or hypercapnia Status: Acute Assessment and Plan: Patient also presented with shortness of breath on admission, was found to have a moderate right-sided pneumothorax a CT scan of the abdomen and pelvis -intubated on 12/29/2021 -right-sided chest tube was placed in the OR by surgery on 12/29/2021. Chest dose has been now removed 01/11/2022: CT chest, abdomen, pelvis showed no pulmonary pulmonary embolism, anasarca with moderate amount of ascites, small to moderate left pleural effusion, partial collapse of bilateral lower lobes, scattered patchy ground-glass opacities, emphysema Status post tracheostomy 01/19 Patient placed on PSV 05/01 today will continue as tolerated -Venous Doppler showed DVT of left popliteal and posterior tibial vein-now status post IVC filter placement on 01/05/202201/07 CT abdomen pelvis 1. Bilateral lower lobe airspace consolidation which may represent atelectasis and/or pneumonia. 2: Moderate bilateral pleural effusions. (5) Pneumothorax, right: Code(s): J93.9 - Pneumothorax, unspecified Sta
[2022-01-22] MEDS: FUROSEMIDE INJ 40 MG/4 ML VIAL IV PUSH (08:32)
[2022-01-22] MEDS: DIGOXIN INJ 250 MCG/ML 2 ML AMP (*BKC) 500 MCG IV PUSH (08:32)
[2022-01-22] MEDS: METOPROLOL TARTRATE 25 MG TABLET 75 MG PO (08:33)
[2022-01-22] MEDS: ENOXAPARIN 80 MG/0.8 ML SYRINGE 75 MG SUB-Q (08:33)
[2022-01-22] MEDS: MINERAL OIL/WHITE PETROLATUM OINTMENT 1 APPLIC EACH EYE (08:33)
[2022-01-22] MEDS: polyethylene glycoL 3350 17 GM POWD.PACK FEED TUBE (08:33)
[2022-01-22] MEDS: FOLIC ACID 1 MG TABLET FEED TUBE (08:35)
[2022-01-22] MEDS: PANTOPRAZOLE SODIUM IV 40 MG VIAL IV PUSH (08:35)
[2022-01-22] MEDS: AMIODARONE HCL 200 MG TABLET PO (08:35)
[2022-01-22] MEDS: POTASSIUM CHLORIDE 20 MEQ PACKET (FOR LIQUID) 40 MEQ FEED TUBE (08:36)
[2022-01-22] MEDS: THIAMINE HCL 100 MG TABLET FEED TUBE (08:36)
[2022-01-22] MEDS: METOCLOPRAMIDE HCL 10 MG/10 ML SOLN UDC FEED TUBE (11:52)
[2022-01-22 12:00] LABS: Glucose Point of Care 118 mg/dl (65-105)
[2022-01-22 12:14] LABS: Glucose Point of Care 116 mg/dl (65-105)
--- NOTE | 2022-01-22 12:53 | PM.DS ---
DS: Admitting Diagnosis Discharge Date 01/22/2022 Admitting Diagnosis abdominal pain DS: Summary Hospital Course Reason for hospitalization: Narrative: 66yo male HTN and recent hip fracture in April (possibly pathologic) here for abdominal pain. Patient had a fall in 2020 sustaining a right hip fracture. Imaging concerning for pathologic fracture. He was transferred to [facility]. No further information available. Patient states he was started on anticoagulation at that time and he remains on this. About 4 days ago, patient developed abdominal pain.? This progressed involve nausea vomiting.? No chest pain.? Has been feeling short of breath.? Denies any falls or trauma to his chest or abdomen.? He complains of chills but no fevers.? He has been having loose stools once a day but the eyes and the for julio cesar blood.? Did mention that his stools have been black in color.? He has never had a colonoscopy.? No weight loss that he is aware of. He does not take NSAIDs but does take Tylenol for pain. He denies hx of CAD, CHF, DVT, CVA, kidney issues or PUD. EMS was contacted patient was noted to have a systolic blood pressure 60 and SpO2 in the 80s.? He received IV fluid in route. In the ED, blood pressure 81/62.? Temperature was 95.4?.? Blood pressure dropped to 57/45.? Respiratory rate to 33.? CT abdomen pelvis shows moderate right pneumothorax as well as free intraperitoneal air suggesting ruptured viscus.? He also had mild right and moderate left hydroureteronephrosis as well as prostatomegaly with bladder outlet obstruction.? White count was 14K.? ABG 7.52/31/98 on 4 L. Potassium 2.3 with BUN 37 and creatinine 2.2.? Lactic acid was 7.4.? Troponin 0.27. COVID was negative. Stool was guaiac negative in ED. Warming blanket placed. Central line placed, potassium replaced and started on vasopressors. Abx started. General surgery and urology called and patient was brought to the OR from the ED. Hospital Course: Surgerynotes (1) Perforated abdominal viscus: ?Code(s): R19.8 - Other specified symptoms and signs involving the digestive system and abdomen ?Status:?Acute ?Assessment and Plan: s/p sigmoidectomy with end colostomy 8/4 Will try tube feeds again today, monitor for high residuals (1) Diverticulitis of large intestine with perforation and abscess: ?Code(s): K57.20 - Diverticulitis of large intestine with perforation and abscess without bleeding ?Status:?Acute ?Assessment and Plan: Tube feedings being tolerated now after placement of PEG tube on 01/17/2022.? ? TPN has been stopped and we are advancing tube feedings toward goal as tolerated.? right IJ had her central line is out.? The ostomy output is ok today, continue BID Miralax. Incision healing well. right inguinal hernia seems to be reducible. (2) Right inguinal hernia: ?Code(s): K40.90 - Unilateral inguinal hernia, without obstruction or gangrene, not specified as recurrent ?Status:?Acute ?Assessment and Plan: Stable and reducible (3) Pneumothorax, right: ?Code(s): J93.9 - Pneumothorax, unspecified ?Status:?Acute ?Assessment and Plan: ? Resolved: Chest tube removed 01/20 and will follow closely. ? Chest x-ray on 01/21 in the a.m. okay with no pneumothorax.? Patient now minimal settings on the ventilator and weaning is in process. [employer] (1) Septic shock: ?Code(s): A41.9 - Sepsis, unspecified organism; R65.21 - Severe sepsis with septic shock ?Status:?Acute ?Assessment and Plan: RESOLVED Patient presented with hypotension, leukocytosis, lactic acidosis.? Likely source peritonitis secondary to ruptured sigmoid colon -right IJ central line was placed in the ER, patient received adequate amount of IV fluids -both Levophed and vasopressin infusion have been weaned off at this time at this time -off stress dose steroids and 25 % albumin -continue Zosyn (12/29), status post of 14 days -blood and urine cultures are negati
--- NOTE | 2022-01-22 14:03 | PM.PNGS ---
Progress Note: A&P Assessment and Plan (1) Diverticulitis of large intestine with perforation and abscess: Code(s): K57.20 - Diverticulitis of large intestine with perforation and abscess without bleeding Status: Acute Assessment and Plan: Tube feedings being tolerated now after placement of PEG tube on 01/17/2022. TPN has been stopped and TF at goal as tolerated. right IJ central line is out. The ostomy output is ok today, continue BID Miralax. Incision healing well. right inguinal hernia seems to be reducible. (2) Right inguinal hernia: Code(s): K40.90 - Unilateral inguinal hernia, without obstruction or gangrene, not specified as recurrent Status: Acute Assessment and Plan: Stable and reducible (3) Pneumothorax, right: Code(s): J93.9 - Pneumothorax, unspecified Status: Resolved Assessment and Plan: Resolved: Chest tube removed 01/20 and will follow closely. Chest x-ray on 01/21 in the a.m. okay with no pneumothorax. Patient now minimal settings on the ventilator and weaning is in process. (4) Tobacco dependence: Code(s): F17.200 - Nicotine dependence, unspecified, uncomplicated Status: Acute (5) DVT (deep venous thrombosis): Code(s): I82.409 - Acute embolism and thrombosis of unspecified deep veins of unspecified lower extremity Status: Acute Assessment and Plan: Because of his critical situation and low platelet count a inferior vena cava filter was placed once this was discovered during their early part of this admission. Patient now on full-dose Lovenox because of AFib. Additional Plan Continue to progress toward possible transfer to LTAC Subjective Subjective Date/Time Seen: 01/22/22 07:33 Post Op day: POD# 24 Interval history: Unable to speak with tracheostomy tube in place and on ventilator. Review of Systems Review of Systems: ROS unobtainable: Yes unobtainable due to endotracheal tube and unobtainable due to medical condition Exam Const: General: alert Other: intubated/with Tracheostomy opens eyes to calling his name. Neck: Other: now with tracheostomy tube in place Chest: Chest palpation & inspection: abnormal inspection of the chest (Right chest tube in expected position, no pleural leak) barrel chest and no crepitus Other: Doing okay status post removal of the chest tube on 01/20. good breath sounds bilaterally. Resp: Effort & Inspection: abnormal respiratory pattern ( on mechanical ventilator) Auscultation: rhonchi upper bilaterally GI: Inspection: non-distended, incision (dry with steri strips intact, no erythema) and visible herniation ( right inguinal hernia soft and at least partially reducible.) GI Palp: Yes Soft to palpation Auscultation: normal bowel sounds Other: Ostomy functioning today with a fair amount of soft brown stool in the bag, stoma pink and healthy PEG tube noted in upper quadrant near midline with minimal surrounding drainage. all remaining anthony removed from the midline incision on 01/20. There is slight scabbing around the umbilicus but otherwise healing well with no signs of wound infection. : Male General Exam: Yes hernia (Large right inguinal hernia, with mild scrotal swelling) Urinary Catheter: Urinary Catheter: patent and draining and urine clear (orange color) Objective Data Vital Signs Vital Signs: Vital Signs - 24 hr 01/21/22 16:44 01/21/22 16:00 01/21/22 16:00 Temperature 37.6 C H Pulse Rate 81 78 79 Respiratory Rate 28 H 28 H Blood Pressure 91/63 L Pulse Oximetry 100 100 100 Oxygen Delivery Mechanical Ventilation Mechanical Ventilation Fraction of Inspired Oxygen 30 30 01/21/22 16:00 01/21/22 16:00 01/21/22 18:00 Temperature Pulse Rate 78 79 Respiratory Rate Blood Pressure Pulse Oximetry Oxygen Delivery Fraction of Inspired Oxygen 35 01/21/22 18:00 01/21/22 20:23 01/21/22 20:30 Temperature
== END 2022-01-22 15:11 | DRG 3 ==
LOC: ANHED 10:53 → ANHSURGERY 11:11 → ANHICU 16:12
PROVIDERS: Chiropractor; Internal Medicine; Internal Medicine Gastroenterology; Nurse Practitioner Family; Otolaryngology; Surgery; Urology; Admitting Provider Surgery; Emergency Provider Emergency Medicine; PCP Physician Assistant; Visit Provider Family Medicine
PROC: 0DBN0ZZ Excision of Sigmoid Colon, Open Approach (ICD-10-PCS; CPT 49000; principal; 2021-12-29 12:00)
PROC: 0T788DZ Dilation of Bilateral Ureters with Intraluminal Device, Via Natural or Artificial Opening Endoscopic (ICD-10-PCS; CPT 52352; 2021-12-29 12:00)
PROC: 06H03DZ Insertion of Intraluminal Device into Inferior Vena Cava, Percutaneous Approach (ICD-10-PCS; principal; 2022-01-05 11:00)
PROC: 0DJ08ZZ Inspection of Upper Intestinal Tract, Via Natural or Artificial Opening Endoscopic (ICD-10-PCS; CPT 43235; principal; 2022-01-17 12:15)
PROC: 0DH63UZ Insertion of Feeding Device into Stomach, Percutaneous Approach (ICD-10-PCS; CPT 43246; 2022-01-17 12:15)
PROC: 0B110F4 Bypass Trachea to Cutaneous with Tracheostomy Device, Open Approach (ICD-10-PCS; principal; 2022-01-19 07:30)
DX: A41.9 Sepsis, unspecified organism (principal); R65.21 Severe sepsis with septic shock; K65.9 Peritonitis, unspecified; J96.00 Acute respiratory failure, unspecified whether with hypoxia or hypercapnia; N13.2 Hydronephrosis with renal and ureteral calculous obstruction; N17.9 Acute kidney failure, unspecified; J93.83 Other pneumothorax; K57.20 Diverticulitis of large intestine with perforation and abscess without bleeding; N13.8 Other obstructive and reflux uropathy; I82.432 Acute embolism and thrombosis of left popliteal vein; I82.442 Acute embolism and thrombosis of left tibial vein; E87.1 Hypo-osmolality and hyponatremia; D69.6 Thrombocytopenia, unspecified; N40.1 Benign prostatic hyperplasia with lower urinary tract symptoms; K40.90 Unilateral inguinal hernia, without obstruction or gangrene, not specified as recurrent; R19.8 Other specified symptoms and signs involving the digestive system and abdomen; B96.6 Bacteroides fragilis [B. fragilis] as the cause of diseases classified elsewhere; B96.89 Other specified bacterial agents as the cause of diseases classified elsewhere; R84.5 Abnormal microbiological findings in specimens from respiratory organs and thorax; J43.9 Emphysema, unspecified; Z20.822 Contact with and (suspected) exposure to COVID-19; Z66 Do not resuscitate; I48.91 Unspecified atrial fibrillation; E16.2 Hypoglycemia, unspecified; R73.9 Hyperglycemia, unspecified; D64.9 Anemia, unspecified; E87.8 Other disorders of electrolyte and fluid balance, not elsewhere classified; F17.210 Nicotine dependence, cigarettes, uncomplicated; F10.20 Alcohol dependence, uncomplicated; I10 Essential (primary) hypertension; Z79.01 Long term (current) use of anticoagulants; Z79.899 Other long term (current) drug therapy; Z87.81 Personal history of (healed) traumatic fracture
CPT/HCPCS: 36415; 36430; 36569; 36600; 37191; 43246; 71045; 71275; 74018; 74176; 74177; 74420; 80048; 80053; 80202; 81001; 82088; 82274; 82375; 82805; 82948; 83050; 83540; 83550; 83605; 83690; 83735; 84100; 84132; 84134; 84153; 84466; 84478; 84484; 85014; 85018; 85025; 85027; 85049; 85055; 85380; 85384; 85610; 85730; 86850; 86900; 86901; 86920; 87040; 87070; 87075; 87076; 87077; 87086; 87106; 87185; 87186; 87205; 88307; 93005; 93306; 93970; 94002; 94003; 94640; 96361; 96365; 96366; 96367; 96375; 99291; A9270; C1729; C1751; C1758; C1769; C1880; C2617; C9113; C9803; J0282; J0360; J0610; J0743; J1120; J1160; J1644; J1650; J1720; J1815; J1940; J2060; J2250; J2270; J2543; J2704; J2765; J3010; J3370; J3411; J3475; J3480; J7030; J7040; J7050; J7060; J7120; P9016; P9047; Q9967; U0003; U0005